=== PATIENT | female | born 1935 | race Caucasian/White ===

== ENCOUNTER 2018-02-19 10:00 | Emergency (ER) | payer OTHER ==
--- NOTE | 2018-02-19 10:46 | RAD REPORT ---
EXAM DESCRIPTION: CT - Head Brain Wo Cont - 02/19/2018 10:38 am CLINICAL HISTORY: Blurred vision, hypertension, facial burning sensation COMPARISON: December 2013 TECHNIQUE: Axial 5 mm thick images of the head were obtained without IV contrast. All CT scans are performed using dose optimization technique as appropriate and may include automated exposure control or mA/KV adjustment according to patient size. FINDINGS: No intracranial hemorrhage, mass, edema or shift of mid-line structures. No acute cortical based infarction seen. No cortical edema or sulcal effacement. Atrophy and chronic ischemic changes are moderate in severity matching the 2014 study. No measurable progression. No abnormal extra-axial fluid collections. Ventricular size is in proportion. Vascular and arterial calcifications are presen t. Mastoid air cells and visualized portions of the paranasal sinuses are clear. No acute bony findings. IMPRESSION: No acute intracranial finding. Moderate atrophy and chronic ischemic change similar to comparison. Chronic ischemic changes can mask nonhemorrhagic acute infarction. MR brain followup can be obtained if there is ongoing concern for acute ischemia.
--- NOTE | 2018-02-19 11:06 | RAD REPORT ---
EXAM DESCRIPTION: RAD - Chest Single View - 02/19/2018 11:00 am CLINICAL HISTORY: Shortness of breath COMPARISON: June 2017 TECHNIQUE: AP portable chest image was obtained 1054 hours . FINDINGS: No peripheral mass, consolidation or significant failure finding. Lung markings are promin ent but not clearly different from the prior study. Trachea is midline. Heart size is upper normal wi thout acute failure findings. Trachea is midline. No measurable pleural effusion and no pneumothorax. No gross bony abnormality seen. No acute aortic findings suspected. IMPRESSION: No focal infiltrate, mass or significant failure finding. Chronic interstitial lung disease is evident similar to June 2017.
[2018-02-19 11:15] LABS: Absolute Lymphocytes (CBC) 1.9 K/uL (0.7-4.9); Absolute Monocytes 0.6 K/uL (0.1-1.3); Absolute Neutrophil 2.8 K/uL (1.8-8.0); Basophils % 1.3 % (0-1.3); Hematocrit 38.1 % (36.0-45.0); Lymphocytes % 35.2 % (15.3-44.8); MCH 29.9 pg (27.0-35.0); MCV 92.5 fL (80-100); Monocytes % 10.8 % (3.3-12.3); RBC Red Blood Cell Count 4.12 M/uL (3.86-4.86)
[2018-02-19 11:28] LABS: Potassium 4.5 mEq/L (3.6-5.0)
[2018-02-19 11:33] LABS: Protime INR 0.88
[2018-02-19 11:34] LABS: Albumin 3.9 g/dL (3.2-5.5); Bilirubin Direct 0.1 mg/dL (0-0.2); Bilirubin Total 0.6 mg/dL (0.3-1.2); Magnesium 2.1 mg/dL (1.8-2.5); Protein, Total 7.4 g/dL (6.0-8.3)
[2018-02-19 11:38] LABS: CKMB Creatine Kinase MB 2.5 ng/ml (0.3-4.0)
[2018-02-19 12:08] LABS: Blood Morphology Comment NOT SEEN (NOT SEEN); MPV 8.3 fL (7.6-11.3); Platelet Estimate ADEQ; Urine White Blood Cell Casts OK
--- NOTE | 2018-02-19 12:45 | RAD REPORT ---
EXAM DESCRIPTION: MRI - Brain Wo Cont - 02/19/2018 12:35 pm CLINICAL HISTORY: Right-sided head and face sensation, possible CVA COMPARISON: CT head same date, MRI January 2016 TECHNIQUE: Sagittal T1-weighted images were obtained along with axial PD, heavily T2-weighted and T2 -FLAIR images. Axial DWI and ADC mapping sequences were also obtained along with coronal heavily T2-w eighted images. FINDINGS: Diffusion-weighted imaging shows no acute infarction. There is no hemorrhage, mass or raul a. No cortical edema or sulcal effacement. No diffuse cerebral edema or midline shift. No extra-axial fluid collections. Gordon-matter/white matter junction is preserved. Signal voids are seen as a normal finding in the major intracranial vessels. Patient has a mild to moderate atrophy pattern that is no t substantially different back to the 2016 study. And mild chronic ischemic pattern also seen as stab le. Ventricles are in proportion to any volume loss. No globe or orbital content abnormality. No tonsillar ectopia sella mass or supra sella abnormality. Mastoid air cells and paranasal sinuses are clear. IMPRESSION: Mild to moderate atrophy and mild chronic ischemic change not substantially different fr om 2016 comparison. No acute infarction changes or other acute intracranial finding.
--- NOTE | 2018-02-19 13:00 | EDPHYS ---
Physician Documentation [facility] Name: Edie Fields Age: 82 yrs Sex: Female : 1935 Arrival Date: 02/19/2018 Time: 10:04 Bed 23 Private MD: Radha Ramirez ED Physician Everardo Clay HPI: 02/19 10:25 This 82 yrs old Female presents to ER via Ambulatory with complaints of High cp Blood Pressure, Dizziness. 10:25 The patient presents with lightheadedness. Onset: The symptoms/episode began/occurred cp today. 10:25 Associated signs and symptoms: Pertinent positives: blurred vision, headache, Pertinent cp negatives: abdominal pain, chest pain, focal weakness, palpitations, vomiting. Severity of symptoms: in the emergency department the symptoms are unchanged despite home interventions. Patient's baseline: Neuro: alert and fully oriented, Motor: no deficits, Ambulation: walks without assistance, Speech: normal. patient reports intermittent burning to right side of face over past 2 weeks. Historical: - Allergies: 10:12 No Known Allergies; hj - Home Meds: 10:12 carvedilol 6.25 mg Oral tab 1 tab 2 times per day [Active]; hj - PMHx: 10:12 Hypertension; hj - PSHx: 10:12 bilateral mastectomy; hj - Immunization history:: Adult Immunizations up to date. - Social history:: Smoking status: unknown. ROS: 10:30 Constitutional: Negative for body aches, chills, fever, poor PO intake. cp 10:30 Eyes: Positive for blurry vision, Negative for discharge, pain, photophobia, vision cp loss. 10:30 ENT: Negative for drainage from ear(s), ear pain, sore throat, difficulty swallowing, difficulty handling secretions. 10:30 Neck: Negative for pain with movement, pain at rest, stiffness, swollen nodes, tenderness. 10:30 Cardiovascular: Negative for chest pain, edema, palpitations. 10:30 Respiratory: Negative for cough, shortness of breath, wheezing. 10:30 Abdomen/GI: Negative for abdominal pain, nausea, vomiting, and diarrhea, black/tarry stool, rectal bleeding. 10:30 Back: Negative for pain at rest, pain with movement. 10:30 Skin: Negative for cellulitis, rash. 10:30 Neuro: Positive for dizziness, headache, burning right side of face, Negative for numbness, speech changes, weakness. 10:30 All other systems are negative. Exam: 10:38 Constitutional: The patient appears in no acute distress, alert, awake, cp non-diaphoretic, non-toxic, well developed, well nourished. 10:38 Head/Face: Normocephalic, atraumatic. Eyes: Pupils equal round and reactive to light, cp extra-ocular motions intact. Lids and lashes normal. Conjunctiva and sclera are non-icteric and not injected. Cornea within normal limits. Periorbital areas with no swelling, redness, or edema. ENT: Nares patent. No nasal discharge, no septal abnormalities noted. Tympanic membranes are normal and external auditory canals are clear. Oropharynx with no redness, swelling, or masses, exudates, or evidence of obstruction, uvula midline. Mucous membranes moist. Neck: Trachea midline, no thyromegaly or masses palpated, and no cervical lymphadenopathy. Supple, full range of motion without nuchal rigidity, or vertebral point tenderness. No Meningismus. 10:38 Chest/axilla: Inspection: normal, Palpation: is normal, no crepitus, no tenderness. 10:38 Cardiovascular: Rate: normal, Rhythm: regular, Pulses: Pulses are 2+ in right radial artery and left radial artery. Edema: is not appreciated, JVD: is not appreciated. 10:38 Respiratory: the patient does not display signs of respiratory distress, Respirations: normal, no use of accessory muscles, no retractions, no splinting, no tachypnea, labored breathing, is not present, Breath sounds: are clear throughout, no decreased breath sounds, no stridor, no wheezing. 10:38 Abdomen/GI: Inspection: abdomen appears normal, Bowel sounds: active, all quadrants, Palpation: abdomen is soft and non-tender, in all quadrants, rebound tenderness, is not appreciated, voluntary guarding, is not appreciated, involuntary guarding, is not appreciated. 10:38 Back: pain, is absent, ROM is normal. 10:38 Skin: cellulitis, is not appreciated, no rash present. Vital Signs: 10:12 BP 209 / 99 RL; Pulse 65; Resp 18; Temp 98.5(TE); Pulse Ox 95% on R/A; Weight 65.77 kg; hj Height 4 ft. 11 in. (149.86 cm); Pain 0/10; 11:09 BP 163 / 76 Supine; Pulse 60; cc1 11:09 BP 168 / 71 Sitting; Pulse 62; cc1 11:09 BP 162 / 75 Standing; Pulse 66; cc1 10:12 Body Mass Index 29.29 (65.77 kg, 149.86 cm) hj MDM: 10:17 Patient medically screened. 12:55 Data reviewed: vital signs, nurses notes, lab test result(s), EKG, radiologic studies, cp CT scan, MRI, plain films. 12:55 Test interpretation: by ED physician or midlevel provider: ECG, plain radiologic cp studies. 02/19 10:26 Order name: Basic Metabolic Panel; Complete Time: 11:39 cp 02/19 11:40 Interpretation: Normal except: GFR 59. cp 02/19 10:26 Order name: BNP; Complete Time: 12:00 cp 02/19 12:01 Interpretation: BNP 206; Reviewed. 02/19 10:26 Order name: CBC with Diff; Complete Time: 12:37 cp 02/19 12:37 Interpretation: Reviewed. cp 02/19 10:26 Order name: Ckmb; Complete Time: 11:39 cp 02/19 10:26 Order name: CPK; Complete Time: 11:39 cp 02/19 10:26 Order name: LFT's; Complete Time: 11:39 cp 02/19 10:26 Order name: Magnesium; Complete Time: 11:39 cp 02/19 10:26 Order name: PT-INR; Complete Time: 12:00 cp 02/19 10:26 Order name: Ptt, Activated; Complete Time: 12:00 cp 02/19 12:01 Interpretation: PTT 22.5; Reviewed. 02/19 10:26 Order name: Troponin (emerg Dept Use Only); Complete Time: 11:39 cp 02/19 12:37 Interpretation: TROPED < 0.03; Reviewed. 02/19 10:26 Order name: XRAY Chest (1 view); Complete Time: 11:24 cp 02/19 10:26 Order name: CT Head Brain wo Cont; Complete Time: 11:03 cp 02/19 11:29 Order name: CBC Smear Scan; Complete Time: 12:37 EDMS 02/19 11:57 Order name: Urine Dipstick--Ancillary (enter results) eb 02/19 10:26 Order name: EKG; Complete Time: 10:27 cp 02/19 10:26 Order name: Cardiac monitoring; Complete Time: 11:30 cp 02/19 10:26 Order name: EKG - Nurse/Tech; Complete Time: 11:31 cp 02/19 10:26 Order name: IV Saline Lock; Complete Time: 11:31 cp 02/19 10:26 Order name: Labs collected and sent; Complete Time: 11:31 cp 02/19 10:26 Order name: O2 Per Protocol; Complete Time: 11:31 cp 02/19 10:26 Order name: O2 Sat Monitoring; Complete Time: 11:31 cp 02/19 10:26 Order name: Urine Dipstick-Ancillary (obtain specimen); Complete Time: 12:00 cp 02/19 10:26 Order name: Orthostatics; Complete Time: 11:10 cp 02/19 12:02 Order name: MRI - Brain Wo Cont; Complete Time: 12:52 cp Administered Medications: 11:58 Not Given (Physician Discretion): cloNIDine 0.1 mg PO once aj1 Disposition: 15:00 Chart complete. cp 17:21 Co-signature as Attending Physician, Everardo Clay MD I agree with the assessment and kdr plan of care. Disposition: 02/19/18 12:59 Discharged to Home. Impression: Hypertensive heart disease. - Condition is Stable. - Discharge Instructions: How to Take Your Blood Pressure, [id number], Managing Your High Blood Pressure. - Prescriptions for Clonidine 0.1 mg Oral Tablet - take 1 tablet by ORAL route every 12 hours; 30 tablet. - Medication Reconciliation Form, Thank You Letter, Antibiotic Education, Prescription Opioid Use form. - Follow up: Radha Ramirez MD; When: 2 - 3 days; Reason: Recheck today's complaints. - Problem is new. - Symptoms have improved. Signatures: Dispatcher [employer] Gloria Arellano RN RN aj1 Everardo Clay MD MD kdr Williams, Irene, RN RN iw Joaquin, Henry, RN RN hj Page, Corey, ROSA MARIA PA cp
--- NOTE | 2018-02-19 13:00 | ER ---
Nurse's Notes [facility] Name: Edie Fields Age: 82 yrs Sex: Female : 1935 Arrival Date: 02/19/2018 Time: 10:04 Bed 23 Private MD: Radha Ramirez Diagnosis: Hypertensive heart disease Presentation: 02/19 10:10 Presenting complaint: Patient states: my face is burning for 2 1/2 weeks now, pain on hj my forehead and the back of head; denies fever and chills; denies nausea and vomiting;. Transition of care: patient was not received from another setting of care. Onset of symptoms was February 19, 2018. Initial Sepsis Screen: Does the patient meet any 2 criteria? No. Patient's initial sepsis screen is negative. Does the patient have a suspected source of infection? No. Patient's initial sepsis screen is negative. Care prior to arrival: None. 10:10 Method Of Arrival: Ambulatory 10:10 Acuity: RAYNE 3 hj Triage Assessment: 10:12 General: Appears in no apparent distress. uncomfortable, Behavior is calm, cooperative, hj appropriate for age. Pain: Complains of pain in head. Historical: - Allergies: 10:12 No Known Allergies; hj - Home Meds: 10:12 carvedilol 6.25 mg Oral tab 1 tab 2 times per day [Active]; hj - PMHx: 10:12 Hypertension; hj - PSHx: 10:12 bilateral mastectomy; hj - Immunization history:: Adult Immunizations up to date. - Social history:: Smoking status: unknown. Screenin:39 Abuse screen: Denies threats or abuse. Denies injuries from another. Nutritional aj1 screening: No deficits noted. Tuberculosis screening: No symptoms or risk factors identified. 13:13 Fall Risk None identified. iw Assessment: 10:39 General: Appears in no apparent distress. comfortable, Behavior is calm, cooperative, aj1 appropriate for age. Pain: Complains of pain in forehead, right cheek and left cheek Pain does not radiate. Quality of pain is described as burning, "like fire". Neuro: Level of Consciousness is awake, alert, obeys commands, Oriented to person, place, time, situation, Commercial Construction Estimator are equal bilaterally Moves all extremities. Full function Gait is steady, Speech is normal, Facial symmetry appears normal, Pupils are PERRLA, Burning in face Reports blurred vision Denies weakness numbness. Cardiovascular: Heart tones S1 S2 present Patient's skin is warm and dry. Respiratory: Airway is patent Respiratory effort is even, unlabored, Respiratory pattern is regular, symmetrical, Breath sounds are clear bilaterally. GI: No signs and/or symptoms were reported involving the gastrointestinal system. : No signs and/or symptoms were reported regarding the genitourinary system. EENT: No signs and/or symptoms were reported regarding the EENT system. Derm: No signs and/or symptoms reported regarding the dermatologic system. Skin is pink, warm \\T\\ dry. normal. Musculoskeletal: No signs and/or symptoms reported regarding the musculoskeletal system. Circulation, motion, and sensation intact. 11:31 Reassessment: Patient appears in no apparent distress at this time. No changes from aj1 previously documented assessment. Patient and/or family updated on plan of care and expected duration. Pain level reassessed. Patient is alert, oriented x 3, equal unlabored respirations, skin warm/dry/pink. 13:13 Reassessment: Patient appears in no apparent distress at this time. Patient and/or iw family updated on plan of care and expected duration. Pain level reassessed. Patient is alert, oriented x 3, equal unlabored respirations, skin warm/dry/pink. Vital Signs: 10:12 BP 209 / 99 RL; Pulse 65; Resp 18; Temp 98.5(TE); Pulse Ox 95% on R/A; Weight 65.77 kg; hj Height 4 ft. 11 in. (149.86 cm); Pain 0/10; 11:09 BP 163 / 76 Supine; Pulse 60; cc1 11:09 BP 168 / 71 Sitting; Pulse 62; cc1 11:09 BP 162 / 75 Standing; Pulse 66; cc1 10:12 Body Mass Index 29.29 (65.77 kg, 149.86 cm) ED Course: 10:04 Patient arrived in ED. mr 10:05 Radha Ramirez MD is Private Physician. mr 10:11 Triage completed. hj 10:12 Arm band placed on left wrist. 10:16 Brian Alcala PA is PHCP. cp 10:16 Everarod Clay MD is Attending Physician. cp 10:16 Gloria Lim RN is Primary Nurse. aj1 10:[address] vm2 10:36 CT completed. Patient moved back from CT. vm2 10:38 CT Head Brain wo Cont In Process Unspecified. EDMS 10:39 Patient has correct armband on for positive identification. Placed in gown. Bed in low aj1 position. Call light in reach. Side rails up X 1. engine monitor on. Pulse ox on. NIBP on. 10:39 No provider procedures requiring assistance completed. aj1 10:55 EKG done, by senior nuclear medicine technologist. reviewed by Everardo Clay MD. tc 10:57 X-ray completed. Portable x-ray completed in exam room. Patient tolerated procedure jb2 well. 10:59 XRAY Chest (1 view) In Process Unspecified. EDMS 12:15 Patient moved to MRI via wheelchair. ka 12:25 MRI - Brain Wo Cont In Process Unspecified. EDMS 12:36 MRI completed. Patient tolerated well. Patient moved back from MRI. ka 12:58 Radha Ramirez MD is Referral Physician. cp 13:13 IV discontinued, intact, bleeding controlled, No redness/swelling at site. Pressure iw dressing applied. Administered Medications: 11:58 Not Given (Physician Discretion): cloNIDine 0.1 mg PO once aj1 Outcome: 12:59 Discharge ordered by MD. cp 13:13 Discharged to home ambulatory, with family. iw 13:13 Condition: good 13:13 Discharge instructions given to patient, family, Instructed on discharge instructions, follow up and referral plans. medication usage, Demonstrated understanding of instructions, follow-up care, medications, Prescriptions given X 1. 13:14 Patient left the ED. iw Signatures: Dispatcher [employer] EDCA Gloria Lim, NIC LUCERO 1 Renae Torres Oscar Kincaidsse jb2 Mari Eduardo RN RN Billy Jimenes cc1 Paulina Hernandez, teacher cclc EKG Ttc Eduard Nelson RN RN hj Page, Corey, PA PA cp Aguilera, Katelyn ka McGuire, Victoria vm2 Corrections: (The following items were deleted from the chart) 10:16 10:12 Pulse 65bpm; Resp 18bpm; Pulse Ox 95% RA; Temp 98.5F Temporal; 65.77 kg; Height 4 hj ft. 11 in.; BMI: 29.2; Pain 0/10; hj
[2018-02-19 13:49] LABS: Urine Blood NEGATIVE (NEG); Urine Glucose NEGATIVE (NEG); Urine Protein NEGATIVE (NEG); Urine Specific Gravity 1.015 (1.005-1.030)
--- NOTE | 2018-02-19 16:25 | EKG ---
Test Date: 2018-02-19 Test Time: 10:42:29 Export Sales Manager: MARCO MEASUREMENT RESULTS: Intervals: Rate: 59 VA: 138 QRSD: 98 QT: 404 QTc: 399 [place]: P: 41 VA: 138 QRS: 55 T: 69 INTERPRETIVE STATEMENTS: Sinus bradycardia with occasional premature ventricular complexes and premature atrial complexes Otherwise normal ECG Compared to ECG 07/02/2017 15:15:29 Atrial premature complex(es) now present Ventricular premature complex(es) now present Electronically Signed On 02-19-18 16:23:34 CDT by Aj Sutherland
== END 2018-02-19 13:14 | disposition home or self-care (01) ==
LOC: ER 10:00
DX: I11.9 Hypertensive heart disease without heart failure (principal); I10 Essential (primary) hypertension; Z90.13 Acquired absence of bilateral breasts and nipples
CPT/HCPCS: 36415; 70450; 70551; 71045; 80048; 80076; 81003; 82550; 82553; 83735; 83880; 84484; 85025; 85610; 85730; 93005; 99285

== ENCOUNTER 2019-07-10 09:51 | Observation (INO) | payer OTHER ==
--- OUTSIDE RECORDS SUMMARY | 2019-07-10 09:54 | XMS REPORT | Continuity of Care Document ---
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/06/2019 [facility] impairment Neuro (finding) Medications Medication Details Route Status Patient Ordering Order Source Instructions Provider Date Donepezil 5 mg=1 tab, Active [facility] hydrochloride 5 PO, 019 Neuro MG Oral Tablet Bedtime, # [Aricept] 30 tab, 3 Refill(s), Pharmacy: [facility] OXcarbazepine 300 mg=1 Active [facility] 300 mg oral tab, PO, 019 Neuro tablet BID, # 60 tab, 3 Refill(s), Pharmacy: [facility] carBAMazepine 200 mg=1 No Longer [facility] 200 mg oral tab, PO, Active 019 Neuro tablet BID, # 60 tab, 3 Refill(s), Pharmacy: [facility] Allergies, Adverse Reactions, Alerts Substance Category Reaction Severity Reaction Status Date Comments Source type Reported No Known Assertion Drug [facility] Medication allergy Neuro Allergies Immunizations No Data Provided for This Section Results Order Name Results Value Reference Date Interpretation Comments Source Range ELECTROLYTES Potassium Lvl 4.1 3.5 - 5.3 [facility] 2017 Neuro ELECTROLYTES Sodium Lvl 140 135 - 146 08/24/ Result [facility] 2017 Comment: Neuro
Lab test performed by:
Karina hinojosa [facility]
[address] [facility]
[place] [address]
Kaylene Sterling ELECTROLYTES Chloride Lvl 105 98 - 110 [facility] 2017 Neuro ELECTROLYTES CO2 28 20 - 32 2017 Neuro HEMATOLOGY Basophils 0.6 2017 Neuro HEMATOLOGY RBC X 10x6 3.73 3.80 - 5.10 2017 Neuro HEMATOLOGY Hgb 11.3 11.7 - 15.5 2017 Neuro HEMATOLOGY Hct 33.5 35.0 - 45.0 2017 Neuro HEMATOLOGY WBC X 10x3 4.8 3.8 - 10.8 2017 Comment: Neuro
Lab test performed by:
[facility]
[address] [facility]
[place] [address]
Kaylene Sterling HEMATOLOGY Monocytes # 605 200 - 950 2017 Neuro HEMATOLOGY Eosinophils # 139 15 - 500 2017 Neuro HEMATOLOGY Neutrophils # 2237 1500 - 7800 2017 Neuro HEMATOLOGY Lymphocytes # 1790 850 - 3900 2017 Neuro HEMATOLOGY MPV 9.7 7.5 - 12.5 2017 Neuro HEMATOLOGY RDW 13.5 11.0 - 15.0 2017 Neuro HEMATOLOGY Basophils # 29 0 - 200 2017 Neuro HEMATOLOGY Eosinophils 2.9 2017 Neuro HEMATOLOGY Monocytes 12.6 2017 Neuro HEMATOLOGY Segs 46.6 2017 Neuro HEMATOLOGY Lymphocytes 37.3 2017 Neuro HEMATOLOGY MCV 89.8 80.0 - 100.0 2017 Neuro HEMATOLOGY MCH 30.3 27.0 - 33.0 2017 Neuro HEMATOLOGY MCHC 33.7 32.0 - 36.0 2017 Neuro HEMATOLOGY Platelet 207 140 - 400 2017 Neuro TOXICOLOGY Carbamaz Lvl 5.2 4.0 - 12.0 2017 Comment: Neuro FASTING:NO

FASTING: NO

Lab test performed by:
[facility]
[address] [facility]
[place] [address]
Kaylene Sterling Pathology Reports No Data Provided for This Section Diagnostic Reports No Data Provided for This Section Consultation Notes No Data Provided for This Section Discharge Summaries No Data Provided for This Section History and Physicals No Data Provided for This Section Vital Signs Vital Sign Value Date Comments Source Weight 67.273 05/10/2019 [facility] Height 149.86 cm 05/10/2019 [facility] BMI Calculated 29.96 05/10/2019 [facility] Heart Rate 53 05/10/2019 [facility] Respitory Rate 16 05/10/2019 [facility] Systolic (mm Hg) 145 05/10/2019 [facility] Diastolic (mm Hg) 63 05/10/2019 [facility] Weight 68.182 03/01/2019 [facility] BMI Calculated 32.53 03/01/2019 [facility] Height 144.78 cm 03/01/2019 [facility] Heart Rate 72 03/01/2019 [facility] Respitory Rate 16 03/01/2019 [facility] Systolic (mm Hg) 172 03/01/2019 [facility] Diastolic (mm Hg) 74 03/01/2019 [facility] Weight 69.091 11/16/2018 [facility] BMI Calculated 31.83 11/16/2018 [facility] Height 147.32 cm 11/16/2018 [facility] Respitory Rate 16 11/16/2018 [facility] Heart Rate 74 11/16/2018 [facility] Systolic (mm Hg) 126 11/16/2018 [facility] Diastolic (mm Hg) 85 11/16/2018 [facility] BMI Calculated 31.62 08/17/2018 [facility] Weight 68.636 08/17/2018 [facility] Height 147.32 cm 08/17/2018 [facility] Systolic (mm Hg) 167 08/17/2018 [facility] Diastolic (mm Hg) 80 08/17/2018 [facility] Respitory Rate 16 08/17/2018 [facility] Heart Rate 67 08/17/2018 [facility] Encounters Location Location Encounter Encounter Reason Attending ADM DC Status Source Details Type Number For Provider Date Date Visit Outpatient [id number] LIZBET 06/17 Active [facility] [place] Outpatient [id number] LIZBET 07/20 Active [facility] [place] Outpatient [id number] LIZBET 08/17 Active [facility] Outpatient [id number] Lizbet 08/17 08/18 [facility] [place] [facility] [place] [facility] Outside [id number] 11/02 11/04 [facility] [place]2018 [place] [facility] Outpatient [id number] [facility]ZBET [facility]16 [facility] [place] [facility] [id number] LIZBET 11/16 Active [facility] [place] M[facility] Ambulatory [id number] Lizbet 11/16 11/16 [facility] [place] [facility] [place] [facility] Outpatient [id number] Lizbet 11/16 11/17 [facility] [place] Outpatient [id number] LIZBET 12/14 Active [facility] [place] Outpatient [id number] LIZBET 12/14 Active [facility] [place] Outpatient [id number] LIZBET 01/11 Active [facility] [place] Outpatient [id number] LIZBET 01/11 Active [facility] [place] Outpatient [id number] LIZBET 02/01 Active [facility] [place] Outpatient [id number] LIZBET 02/15 Active [facility] [place] [facility] Ambulatory [id number] Lizbet 02/15 02/15 [facility] Pre-Reg [place] [facility] [place] Outpatient [id number] Lizbet 03/01 Active [facility] [place] MNA Outpatient [id number] Lizbet 03/01 03/02 [facility] [place] Outpatient [id number] Lizbet 05/10 Active [facility] [place] [facility] Outpatient [id number] Lizbet 05/10 05/11 [facility]rology [place] /2018 [place] Outpatient [id number] Lizbet 07/12 Active [facility] [place] Procedures Procedure Code Date Perfomer Comments Source Mastectomy [id number] [facility] Assessment and Plan No Data Provided for This Section Plan of Care No Data Provided for This Section Social History Social History Date Source Social History TypeResponse 05/16/2019 [facility] Employment/School Other: Has Will and POA. Smoking Status Never smoker; Exposure to Tobacco Smoke None; Cigarette Smoking Last 365 Days No; Reg Smoking Cessation Counseling No entered on: 05/10/19 Family History No Data Provided for This Section Advance Directives No Data Provided for This Section Functional Status No Data Provided for This Section
--- OUTSIDE RECORDS SUMMARY | 2019-07-10 09:55 | XMS REPORT | Summary of Care ---
:1935 Author Organization [facility] Address [address] [place] [address]- phone Encounter HQ Encntr_alias(FIN) [id number] Date(s): 11/16/18 - 11/16/18 [facility] [address], [place] [id number]- [phone] Attending Physician: Dilip Brandt MD Referring Physician: Radha Ramirez MD Vital Signs No data available for this section Problem List Condition Effective Dates Status Health Status Informant HTN - Hypertension(Confirmed) Active Memory loss(Confirmed) Active Simple obesity(Confirmed) Active Trigeminal neuralgia(Confirmed) Active Allergies, Adverse Reactions, Alerts No Known Medication Allergies Medications No data available for this section Results No data available for this section Immunizations No data available for this section Procedures Procedure Date Related Diagnosis Body Site Status Mastectomy Completed Social History Social History Type Response Employment/School Other: Has Will and POA. Smoking Status Never smoker; Exposure to Tobacco Smoke None; Cigarette Smoking Last 365 Days No; Reg Smoking Cessation Counseling No entered on: 05/10/19 Assessment and Plan No data available for this section
--- OUTSIDE RECORDS SUMMARY | 2019-07-10 09:55 | XMS REPORT | Summary of Care ---
:1935 Author Organization [facility] [place] Address [address] [place] [address]- Encounter HQ Encntr_alias(FIN) [id number] Date(s): 11/02/18 - 11/03/18 [facility] [address] [place] [address]- [phone] Vital Signs No data available for this [...]
--- OUTSIDE RECORDS SUMMARY | 2019-07-10 09:55 | XMS REPORT | Summary of Care ---
:1935 Author Organization [facility] [place] [facility] Address [address] [place] [address]- Encounter HQ Srikanth_tony(FIN) [id number] Date(s): 05/10/19 - 05/10/19 [facility] [address] [place], [place] [id number]- [phone] Discharge Disposition: Home or Self Care Attending Physician: Dilip Brandt MD Referring Physician: Dilip Brandt MD Vital Signs Most recent to oldest [Reference Range]: 1 Height 149.86 cm (05/10/19 3:08 PM) Blood Pressure [90-140/60-90 mmHg] 145/63 mmHg *HI* (05/10/19 3:08 PM) Respiratory Rate [14-20 BRMIN] 16 BRMIN (05/10/19 3:08 PM) Peripheral Pulse Rate [60-100 bpm] 53 bpm *LOW* (05/10/19 3:08 PM) Weight 67.273 kg (05/10/19 3:08 PM) Body Mass Index 29.96 m2 (05/10/19 3:08 PM) Problem List Condition Effective Dates Status Health Status Informant HTN - Hypertension(Confirmed) Active Memory loss(Confirmed) Active Simple obesity(Confirmed) Active Trigeminal neuralgia(Confirmed) Active Allergies, Adverse Reactions, Alerts No Known Medication Allergies Medications Aricept 5 mg oral tablet 5 mg=1 tab, PO, Bedtime, # 30 tab, 3 Refill(s), Pharmacy: [facility] Start Date: 05/10/19 Stop Date: 09/07/19 Status: OrderedOXcarbazepine 300 mg oral tablet 300 mg=1 tab, PO, BID, # 60 tab, 3 Refill(s), Pharmacy: [facility] Start Date: 04/06/19 Stop Date: 08/04/19 Status: Ordered Results No data available for this section Immunizations No data available for this section Procedures Procedure Date Related Diagnosis Body Site Status Mastectomy Completed Social History Social History Type Response Smoking Status Never smoker; Exposure to Tobacco Smoke None; Cigarette Smoking Last 365 Days No; Reg Smoking Cessation Counseling No entered on: 05/10/19 Assessment and Plan No data available for this section
--- OUTSIDE RECORDS SUMMARY | 2019-07-10 09:55 | XMS REPORT | Summary of Care ---
:1935 Author Organization [facility] [place] Address [address] [place] [address]- Encounter HQ Staceyr_tony(FIN) [id number] Date(s): 11/16/18 - 11/16/18 [facility] [address] [place], [place] [address]- [phone] Discharge Disposition: Home or Self Care Attending Physician: Dilip Brandt MD Referring Physician: Radha Ramirez MD Vital Signs Most recent to oldest [Reference Range]: 1 Height 147.32 cm (11/16/18 9:31 AM) Blood Pressure [90-140/60-90 mmHg] 126/85 mmHg (11/16/18 9:31 AM) Respiratory Rate [14-20 BRMIN] 16 BRMIN (11/16/18 9:31 AM) Peripheral Pulse Rate [60-100 bpm] 74 bpm (11/16/18 9:31 AM) Weight 69.091 kg (11/16/18 9:31 AM) Body Mass Index 31.83 m2 (11/16/18 9:31 AM) Problem List Condition Effective Dates Status Health Status Informant HTN - Hypertension(Confirmed) Active Memory loss(Confirmed) Active Simple obesity(Confirmed) Active Trigeminal neuralgia(Confirmed) Active Allergies, Adverse Reactions, Alerts No Known Medication Allergies Medications carBAMazepine 200 mg oral tablet 200 mg=1 tab, PO, BID, # 60 tab, 3 Refill(s), Pharmacy: [facility] Start Date: 11/16/18 Stop Date: 12/14/18 Status: Discontinued Results No data available for this section [...]
[2019-07-10 10:12] LABS: Absolute Lymphocytes (CBC) 1.1 K/uL (0.7-4.9); Basophils % 0.8 % (0-1.3); Hematocrit 30.9 % (36.0-45.0); Lymphocytes % 27.9 % (15.3-44.8); MPV 7.7 fL (7.6-11.3); RBC Red Blood Cell Count 3.41 M/uL (3.86-4.86)
[2019-07-10 10:20] LABS: Protime INR 0.97
[2019-07-10 10:32] LABS: Potassium 4.1 mmol/L (3.5-5.1); Sodium Level 137 mmol/L (136-145)
[2019-07-10 10:33] LABS: ALT/SGPT 20 U/L (12-78); AST/SGOT 25 U/L (15-37); Alkaline Phosphatase 62 U/L (45-117); BUN Blood Urea Nitrogen 28 mg/dL (7-18); Bicarbonate 25 mmol/L (21-32); Bilirubin Direct < 0.1 mg/dL (0-0.2); Bilirubin Total 0.3 mg/dL (0.2-1.0); Glucose Level 139 mg/dL (74-106); NT PRO-BNP 280 pg/mL (<450); Protein, Total 6.1 g/dL (6.4-8.2); Troponin (Emerg Dept Use Only) < 0.02 ng/mL (0.0-0.045)
--- NOTE | 2019-07-10 10:57 | RAD REPORT ---
EXAM DESCRIPTION: CT - [id number] - 07/10/2019 10:33 am CLINICAL HISTORY: Trauma, head and neck injury. syncope COMPARISON: No comparisons TECHNIQUE: Axial 5 mm thick images of the head were obtained. Axial 2 mm thick images of the cervical spine were obtained with sagittal and coronal reconstruction images generated and reviewed. All CT scans are performed using dose optimization technique as appropriate and may include automated exposure control or mA/KV adjustment according to patient size. FINDINGS: CT HEAD WITHOUT CONTRAST: No acute hemorrhage, hydrocephalus or extra-axial collection is identified. Mild generalized brain at rophy is present with mild periventricular and deep white matter chronic microvascular ischemic arnold es. No areas of brain edema or midline shift. Mild mucoperiosteal thickening affects the left maxillary antrum. The paranasal sinuses and mastoids are otherwise clear.The calvarium is intact. Left-sided scalp hematomas are present. CT CERVICAL SPINE WITHOUT CONTRAST: No fracture or subluxation.Moderate lower cervical degenerative changes are present. Carotid atherosc lerosis noted.No prevertebral soft tissues swelling is identified. IMPRESSION: No acute intracranial or cervical spine findings.
[2019-07-10] MEDS ORDERED: NA CHLORIDE 0.9% 1,000 ML ONE (10:58)
--- NOTE | 2019-07-10 11:46 | ER ---
Nurse's Notes [facility] Name: Edie Fields Age: 83 yrs Sex: Female : 1935 Arrival Date: 07/10/2019 Time: 09:54 Bed 4 Private MD: Radha Ramirez Diagnosis: Syncope and collapse;Contusion of unspecified part of head Presentation: 07/10 10:00 Presenting complaint: EMS states: pt reports waking up with family/friend standing over sg her while she was laying on the ground, pt reports she was standing in the corner eating a nutty bar then she woke up laying on the ground, pt complaining of pain the left side of her head, also reports her neck feels a little sore, denies any other pain or injury at this time. Transition of care: patient was not received from another setting of care. Onset of symptoms was July 10, 2019. Risk Assessment: Do you want to hurt yourself or someone else? Patient reports no desire to harm self or others. Initial Sepsis Screen: Does the patient meet any 2 criteria? No. Patient's initial sepsis screen is negative. Does the patient have a suspected source of infection? No. Patient's initial sepsis screen is negative. Care prior to arrival: Medication(s) given: Normal saline infusion, 300 mL IV initiated. 20 GA, in the right antecubital area. Mechanism of Injury: Fall from standing position. 10:00 Method Of Arrival: EMS: [facility] sg 10:00 Acuity: RAYNE 2 sg 10:00 Care prior to arrival: Glucose check: 169. sg Triage Assessment: 10:00 General: Appears in no apparent distress. well groomed, well developed, well nourished, sg Behavior is calm, cooperative, appropriate for age. Pain: Complains of pain in forehead Quality of pain is described as aching. EENT: No signs and/or symptoms were reported regarding the EENT system. Neuro: Level of Consciousness is awake, alert, obeys commands, Oriented to person, place, time, Responder are equal bilaterally Moves all extremities. Full function Gait is steady, Speech is normal, Facial symmetry appears normal. Neuro: Reports headache in entire frontal area. Cardiovascular: Capillary refill in bilateral fingers Patient's skin is warm and dry. Chest pain is denied. Respiratory: Airway is patent Respiratory effort is even, unlabored, Respiratory pattern is regular, symmetrical. GI: Abdomen is round non-distended. : No signs and/or symptoms were reported regarding the genitourinary system. Derm: Skin is pink, warm \\T\\ dry. Musculoskeletal: Circulation, motion, and sensation intact. Range of motion: intact in all extremities, Swelling absent. Historical: - Allergies: :59 No Known Allergies; sg - Home Meds: :59 carvedilol 6.25 mg Oral tab 1 tab 2 times per day [Active]; sg - PMHx: :59 Hypertension; Dementia; sg - Immunization history:: Adult Immunizations up to date. - Social history:: Smoking status: Patient/guardian denies using tobacco. - Ebola Screening: : Patient negative for fever greater than or equal to 101.5 degrees Fahrenheit, and additional compatible Ebola Virus Disease symptoms Patient denies exposure to infectious person Patient denies travel to an Ebola-affected area in the 21 days before illness onset No symptoms or risks identified at this time. Screenin:20 Abuse screen: Denies threats or abuse. Denies injuries from another. Nutritional sg screening: No deficits noted. Tuberculosis screening: No symptoms or risk factors identified. Never had TB. Fall Risk None identified. Assessment: 10:39 Reassessment: Patient appears in no apparent distress at this time. sg 11:07 Reassessment: Patient appears in no apparent distress at this time. Patient and/or sg family updated on plan of care and expected duration. Pain level reassessed. Patient is alert, oriented x 3, equal unlabored respirations, skin warm/dry/pink. Pain:. 11:56 Reassessment: pt family member at nurses station, states " can the Doctor come to our sg room and give us an update, we have not seem them since 0930 this morning." pt family member redirected to pt room, ERP notified pt family requesting to speak with him at this time, will continue to monitor. Vital Signs: 10:02 BP 107 / 47; Pulse 88; Resp 17; Temp 97.6; Pulse Ox 100% on R/A; Pain 4/10; sg 11:06 BP 103 / 53; Pulse 50; Resp 14; Pulse Ox 100% on R/A; sg 11:57 BP 102 / 60; Pulse 52; Resp 16; Pulse Ox 100% on R/A; sg 12:30 BP 108 / 66; Pulse 53; Resp 17; Pulse Ox 100% on R/A; sg 14:00 BP 117 / 71; Pulse 58; Resp 16; Pulse Ox 99% on R/A; sg ED Course: 09:54 Patient arrived in ED. am2 09:54 Brian Alcala PA is PHCP. cp 09:54 Elliot Tyler MD is Attending Physician. cp 09:54 Radha Ramirez MD is Private Physician. am2 09:55 Everardo Clay MD is Attending Physician. cp 09:59 Jose Clayton, RN is Primary Nurse. sg 09:59 Arm band placed on. sg 10:02 Triage completed. sg 10:32 CT completed. Patient tolerated procedure well. Patient moved back from CT. bq 10:[address] scan at this time. sg 11:00 Patient has correct armband on for positive identification. Placed in gown. Bed in low hb position. Call light in reach. Side rails up X2. 11:44 Santosh Mcclain DO is Hospitalizing Provider. cp 13:01 Diet: Patient given a regular meal tray. ms 17:16 No provider procedures requiring assistance completed. Patient admitted, IV remains in hb place. Administered Medications: 11:00 Drug: NS 0.9% 500 ml Route: IV; Rate: 500 ml/hr; Site: right antecubital; sg Outcome: 11:45 Decision to Hospitalize by Provider. cp 17:16 Admitted to Tele accompanied by tech, family with patient, via wheelchair, room 414, hb with chart. 17:16 Condition: stable 17:16 Instructed on the need for admit, Demonstrated understanding of instructions. 17:17 Patient left the ED. hb Signatures: Jose Clayton, RN RN Hina Bird Maria ms Brian Alcala PA PA cp Baxter, Heather RN RN Geraldine Grullon am2
--- NOTE | 2019-07-10 11:46 | EDPHYS ---
Physician Documentation [facility] Name: Edie Fields Age: 83 yrs Sex: Female : 1935 Arrival Date: 07/10/2019 Time: 09:54 Bed 4 Private MD: Radha Ramirez ED Physician Everardo Clay HPI: 07/10 09:59 This 83 yrs old Female presents to ER via Unassigned with complaints of cp Syncope. 09:59 The patient has experienced syncope, collapsed, lost consciousness. Onset: The cp symptoms/episode began/occurred just prior to arrival. Duration: The patient has had multiple episodes, that last an unknown period of time. Context: the episode(s) was witnessed, by EMS personnel, by family, occurred at home, occurred while the patient was eating, Just prior to the episode the patient experienced no apparent symptoms. Associated injury: Head/face: forehead, contusion. Associated signs and symptoms: Pertinent positives: headache, Pertinent negatives: abdominal pain, chest pain, combativeness, confusion. Current symptoms: Currently, the patient is not experiencing any symptoms. Historical: - Allergies: 09:59 No Known Allergies; sg - Home Meds: 09:59 carvedilol 6.25 mg Oral tab 1 tab 2 times per day [Active]; sg - PMHx: 09:59 Hypertension; Dementia; sg - Immunization history:: Adult Immunizations up to date. - Social history:: Smoking status: Patient/guardian denies using tobacco. - Ebola Screening: : Patient negative for fever greater than or equal to 101.5 degrees Fahrenheit, and additional compatible Ebola Virus Disease symptoms Patient denies exposure to infectious person Patient denies travel to an Ebola-affected area in the 21 days before illness onset No symptoms or risks identified at this time. ROS: 10:05 Constitutional: Negative for body aches, chills, fever, poor PO intake. cp 10:05 Eyes: Negative for injury, pain, redness, and discharge. cp 10:05 ENT: Negative for drainage from ear(s), ear pain, sore throat, difficulty swallowing, cp difficulty handling secretions. 10:05 Neck: Negative for pain with movement, pain at rest, stiffness. 10:05 Cardiovascular: Negative for chest pain, edema, palpitations. 10:05 Respiratory: Negative for cough, shortness of breath, wheezing. 10:05 Abdomen/GI: Negative for abdominal pain, nausea, vomiting, and diarrhea, constipation, black/tarry stool, rectal bleeding. 10:05 Back: Negative for pain at rest, pain with movement. 10:05 : Negative for urinary symptoms. 10:05 Skin: Negative for rash. 10:05 Neuro: Positive for headache, syncope, Negative for altered mental status, dizziness, weakness. 10:05 All other systems are negative. Exam: 10:10 ECG was reviewed by the Attending Physician. cp 10:12 Constitutional: The patient appears in no acute distress, alert, awake, comfortable, cp non-diaphoretic, non-toxic, well developed, well nourished. 10:12 Head/face: Noted is contusion, that is superficial, of the forehead, hematoma, that is cp mild, of the forehead. 10:12 Eyes: Periorbital structures: appear normal, Pupils: equal, round, and reactive to light and accomodation, Extraocular movements: intact throughout, Conjunctiva: normal, no exudate, no injection, Lids and lashes: appear normal, bilaterally. 10:12 ENT: External ear(s): are unremarkable, Ear canal(s): are normal, clear, TM's: bulging, is not appreciated, bilaterally, dullness, bilaterally, erythema, is not appreciated, bilaterally, Nose: is normal, Mouth: Lips: moist, Oral mucosa: pink and intact, moist, Posterior pharynx: is normal, airway is patent, no erythema, no exudate. 10:12 Neck: C-spine: vertebral tenderness, is not appreciated, crepitus, is not appreciated. 10:12 Chest/axilla: Inspection: normal, Palpation: is normal, no crepitus, no tenderness. 10:12 Cardiovascular: Rate: bradycardic, Rhythm: regular, Pulses: Pulses are 2+ in right radial artery and left radial artery. Edema: is not appreciated, JVD: is not appreciated. 10:12 Respiratory: the patient does not display signs of respiratory distress, Respirations: normal, no use of accessory muscles, no retractions, no splinting, no tachypnea, labored breathing, is not present, Breath sounds: are clear throughout, no decreased breath sounds, no stridor, no wheezing. 10:12 Abdomen/GI: Inspection: abdomen appears normal, Bowel sounds: active, all quadrants, cp Palpation: abdomen is soft and non-tender, in all quadrants. 10:12 Back: pain, is absent, ROM is normal. cp 10:12 Musculoskeletal/extremity: Exam is negative for decreased range of motion, deformity, edema, injury. 10:12 Skin: no rash present. 10:12 Neuro: Orientation: no acute changes, per family, Mentation: no acute changes, per family, Cerebellar function: is grossly normal, Motor: moves all fours, strength is normal. Vital Signs: 10:02 BP 107 / 47; Pulse 88; Resp 17; Temp 97.6; Pulse Ox 100% on R/A; Pain 4/10; sg 11:06 BP 103 / 53; Pulse 50; Resp 14; Pulse Ox 100% on R/A; sg 11:57 BP 102 / 60; Pulse 52; Resp 16; Pulse Ox 100% on R/A; sg 12:30 BP 108 / 66; Pulse 53; Resp 17; Pulse Ox 100% on R/A; sg 14:00 BP 117 / 71; Pulse 58; Resp 16; Pulse Ox 99% on R/A; sg MDM: 09:55 Patient medically screened. cp 10:15 Differential Diagnosis: cardiac arrhythmia, cerebrovascular accident, GI bleed, cp idiopathic syncope, seizure, vasovagal episode. 11:45 Data reviewed: vital signs, nurses notes. cp 11:45 Test interpretation: by ED physician or midlevel provider: ECG, plain radiologic cp studies. Counseling: I had a detailed discussion with the patient and/or guardian regarding: the historical points, exam findings, and any diagnostic results supporting the discharge/admit diagnosis, lab results, radiology results, the need for further work-up and treatment in the hospital. Physician consultation: Alia BLANCO was contacted at 11:40, regarding admission, to the telemetry unit. patient's condition, and will see patient in ED. 07/10 09:59 Order name: Basic Metabolic Panel 07/10 09:59 Order name: CBC with Diff 07/10 09:59 Order name: LFT's cp 07/10 09:59 Order name: Magnesium cp 07/10 09:59 Order name: NT PRO-BNP 07/10 09:59 Order name: PT-INR 07/10 09:59 Order name: Troponin (emerg Dept Use Only) 07/10 10:18 Order name: CBC with Automated Diff; Complete Time: 12:45 EDMS 07/10 12:46 Interpretation: Normal except: WBC 4.1; RBC 3.41; HGB 10.7; HCT 30.9; RDW 15.6; MN% cp 15.1. 07/10 10:29 Order name: Protime (+INR); Complete Time: 10:51 EDMS 07/10 10:34 Order name: Basic Metabolic Panel; Complete Time: 10:51 EDMS 07/10 12:46 Interpretation: Normal except: GLUC 139; BUN 28; CRE 1.31; GFR 39. 07/10 10:34 Order name: Liver (Hepatic) Function; Complete Time: 10:51 EDMS 07/10 12:46 Interpretation: Normal except: TP 6.1; ALB 3.0; A/G 1.0. 07/10 10:34 Order name: Troponin (Emerg Dept Use Only); Complete Time: 10:51 EDMS 07/10 10:34 Order name: NT PRO-BNP; Complete Time: 10:52 EDMS 07/10 10:34 Order name: Magnesium; Complete Time: 10:52 EDMS 07/10 09:59 Order name: XRAY Chest (1 view) 07/10 09:59 Order name: EKG; Complete Time: 10:01 07/10 09:59 Order name: Cardiac monitoring; Complete Time: 10:30 07/10 09:59 Order name: EKG - Nurse/Tech; Complete Time: 10:30 07/10 09:59 Order name: IV Saline Lock; Complete Time: 10:30 07/10 09:59 Order name: Labs collected and sent; Complete Time: 10:30 07/10 09:59 Order name: O2 Per Protocol; Complete Time: 10:30 07/10 09:59 Order name: CT Head C Spine 07/10 10:56 Order name: Urine Microscopic Only 07/10 10:59 Order name: CT; Complete Time: 11:37 EDMS 07/10 11:45 Order name: Diet Regular; Complete Time: 11:46 07/10 12:34 Order name: RAD; Complete Time: 12:45 EDMS 07/10 12:38 Order name: CBC Smear Scan; Complete Time: 12:45 [facility] 07/10 13:43 Order name: XRAY Knee RIGHT 3 view 07/10 16:43 Order name: RAD [facility] 07/10 09:59 Order name: O2 Sat Monitoring; Complete Time: 10:30 EC:10 Rate is 55 beats/min. Rhythm is regular. [place] interval is normal. QRS interval is normal. cp QT interval is normal. Interpreted by me. Reviewed by me. Administered Medications: 11:00 Drug: NS 0.9% 500 ml Route: IV; Rate: 500 ml/hr; Site: right antecubital; sg Disposition: 13:00 Chart complete. 07/11 08:58 Co-signature as Attending Physician, Everardo Clay MD I agree with the assessment and kdr plan of care. Disposition: 07/10/19 11:45 Hospitalization ordered by Santosh Mcclain for Observation. Preliminary diagnosis are Syncope and collapse, Contusion of unspecified part of head. - Bed requested for Telemetry/MedSurg (observation). - Status is Observation. - Condition is Stable. - Problem is new. - Symptoms have improved. UTI on Admission? No Signatures: Dispatcher [employer] [facility] Amy Costa RN RN Jose Clayton RN RN Everardo Clay MD MD [facility] Brian Alcala PA PA Trini Estrella, RN RN Samantha Calhoun Corrections: (The following items were deleted from the chart) 07/10 12:05 11:45 Hospitalization Ordered by Santosh Mcclain DO for Observation. Preliminary eb diagnosis is Syncope and collapse; Contusion of unspecified part of head. Bed requested for Telemetry/MedSurg (observation). Status is Observation. Condition is Stable. Problem is new. Symptoms have improved. UTI on Admission? No. cp 15:17 12:05 07/10/2019 11:45 Hospitalization Ordered by Santosh Mcclain DO for Observation. dw Preliminary diagnosis is Syncope and collapse; Contusion of unspecified part of head. Bed requested for [facility] ER HOLD. Status is Observation. Condition is Stable. Problem is new. Symptoms have improved. UTI on Admission? No. eb 17:17 15:17 07/10/2019 11:45 Hospitalization Ordered by Santosh Mcclain DO for Observation. hb Preliminary diagnosis is Syncope and collapse; Contusion of unspecified part of head. Bed requested for Telemetry/MedSurg (observation). Status is Observation. Condition is Stable. Problem is new. Symptoms have improved. UTI on Admission? No. dw 07/11 12:29 07/10 11:43 Physician consultation: Santosh Mcclain DO was contacted at 11:43, regarding cp admission, to the telemetry unit. patient's condition, cp
--- NOTE | 2019-07-10 12:28 | RAD REPORT ---
EXAM DESCRIPTION: RAD - Chest Single View - 07/10/2019 10:54 am CLINICAL HISTORY: syncope Chest pain. COMPARISON: Chest Single View dated 02/19/2018; Chest Single View dated 07/10/2017; CHEST PA AND LAT 2 VIEW dated 01/17/2014; CHEST PA AND LAT 2 VIEW dated 02/03/2007 FINDINGS: Portable technique limits examination quality. Mild interstitial pulmonary edema. The heart is mildly prominent size. No displaced fractures.Aortic atherosclerosis. IMPRESSION: Mild CHF versus volume overload pattern.
[2019-07-10 12:37] LABS: Blood Morphology Comment NOT SEEN (NOT SEEN); Platelet Estimate ADEQ; Urine White Blood Cell Casts OK
--- NOTE | 2019-07-10 16:34 | RAD REPORT ---
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 No hardware complication seen. Cortical irreg ularity is noted involving the neck of the fibula could represent a fracture. Advise correlation with point tenderness in this region.
[2019-07-10] MEDS ORDERED: IPRATROPIUM BROM 0.5MG/2.5ML NEB PRN (16:47)
[2019-07-10] MEDS ORDERED: ALBUTEROL 2.5 MG/3 ML NEB SOL NEB PRN (16:47)
[2019-07-10] MEDS ORDERED: ACETAMINOPHEN 500 MG TAB PO PRN (16:47)
[2019-07-10 17:15] VITALS: BMI 27.8
[2019-07-10 18:03] LABS: Troponin I < 0.02 ng/mL (0.0-0.045)
--- NOTE | 2019-07-10 18:55 | P.HP ---
Certification for Inpatient Patient admitted to: Observation With expected LOS: <2 Midnights Patient will require the following post-hospital care: None Practitioner: I am a practitioner with admitting privileges, knowledge of patient current condition, hospital course, and medical plan of care. Services: Services provided to patient in accordance with Admission requirements found in Title 42 Section 412.3 of the Code of Federal Regulations Patient History Date of Service: 07/10/19 Primary Care Provider: Dr. Sherman Reason for admission: Syncope, Hypotension History of Present Illness: Pt was standing at the counter in her kitchen and turned to move across room, + syncope, struck left frontal skull, hematoma. Allergies No Known Allergies Allergy (Verified 07/02/17 14:48) Home Medications: Carvedilol [Coreg] 6.25 mg PO BID 07/02/17 Alendronate Sodium 1 tab PO EVERY 7TH DAY 07/10/19 Anastrozole [Arimidex*] 1 tab PO DAILY 07/10/19 Calcium Carbonate [Calcium] 1 tab PO DAILY 07/10/19 Donepezil [Aricept*] 1 tab PO BEDTIME 07/10/19 Hydralazine [Apresoline] 10 mg PO BID 07/10/19 Losartan Potassium [Cozaar*] 1 tab PO DAILY 07/10/19 OXcarbazepine [Oxcarbazepine] 1 tab PO BID 07/10/19 Vitamin B Complex [B Complex] 1 tab PO DAILY 07/10/19 - Past Medical/Surgical History Has patient received pneumonia vaccine in the past: Yes Diabetic: No -: HTN -: Breast Cancer -: Bilateral knee replacement -: bilateral mastectomy - Family History Mother -: Heart disease Father -: Cancer - Social History Smoking Status: Never smoker Alcohol use: No CD- Drugs: No Caffeine use: Yes Place of Residence: Home Review of Systems General: Unremarkable Eyes: Unremarkable ENT: Unremarkable Respiratory: Unremarkable Cardiovascular: Other (syncope and collapse) Gastrointestinal: Unremarkable Genitourinary: Unremarkable Musculoskeletal: Unremarkable Integumentary: Bruising (hematoma to left forehead) Neurological: As per HPI Physical Examination - Vital Signs Temperature: 97.6 F Blood Pressure: 117/71 Pulse: 58 Respirations: 16 - Physical Exam General: Alert, Oriented x3 HEENT: Normocephalic, Other (hematoma to left forehead) Neck: Supple, 2+ carotid pulse no bruit, JVD distended Respiratory: Clear to auscultation bilaterally Cardiovascular: No edema Capillary refill: <2 Seconds Gastrointestinal: Normal bowel sounds Musculoskeletal: No clubbing, No swelling Integumentary: Other (as noted) Neurological: Normal speech, Normal tone Lymphatics: No axilla or inguinal lymphadenopathy External genitalia: Deferred Rectal: Deferred - Studies Laboratory Data (last 24 hrs) 07/10/19 10:00: PT 11.5, INR 0.97 07/10/19 10:00: WBC 4.1 L, Hgb 10.7 L, Hct 30.9 L, Plt Count 173 07/10/19 10:00: Sodium 137, Potassium 4.1, BUN 28 H, Creatinine 1.31 H, Glucose 139 H, Magnesium 2.0, Total Bilirubin 0.3, AST 25, ALT 20, Alkaline Phosphatase 62 Assessment and Plan - Problems (Diagnosis) (1) Syncope and collapse Current Visit: Yes Status: Acute (2) JVD (jugular venous distension) Current Visit: Yes Status: Acute - Advance Directives Does patient have a Living Will: Yes Does patient have a Durable POA for Healthcare: Yes
[2019-07-10] MEDS: CARVEDILOL 6.25 MG TAB PO SCH (20:57)
[2019-07-10] MEDS ORDERED: OXcarbazepine 150 MG TAB PO SCH (21:00)
[2019-07-10] MEDS ORDERED: DONEPEZIL HCL 5 MG TAB PO SCH (21:00)
--- NOTE | 2019-07-10 21:12 | CON ---
Date of Consultation: 07/10/2019 Reason For Consultation: Hypotension and syncope. History Of Present Illness: Ms. Fields is 83-year-old, has never had any cardiac history. She is actually very healthy for her age. She has some mild dementia and history of hypertension. She danielle es Coreg and hydralazine and Cozaar for that. Has been going under a lot of stress because of an tana oing divorce. Denied chest pain. Denied nausea, vomiting, diaphoresis, PND, orthopnea, or pedal meggan ma. She had a syncopal episode and hurt her face while she was standing up. So far, workup is fairl y unremarkable. She is anemic at 10.7. X-ray showed possible mild fluid overload. EKG shows sinus bradycardia with PACs. Her glucose is 130. Her creatinine is 1.31. A CT of the head is negative. Her rhythm has been stable on telemetry with occasional PAC. She does have slight bradycardia. Past Medical History: As stated above. Allergies: NONE. Review of Systems: Negative. Social History: As stated earlier. Family History: Noncontributory. Medications: Include Fosamax, Arimidex, Coreg, hydralazine, Cozaar, and Aricept. Physical Examination: Vital Signs: Stable. General: She was in no acute distress. She looked much younger than her stated age. HEENT: Negative. Neck: Supple with no bruit, lymphadenopathy, JVD, or thyromegaly. Chest: Clear to auscultation and percussion. Cardiac: Revealed a regular rhythm and rate without any murmurs, gallops, or rubs. Abdomen: Benign. Extremities: Revealed no clubbing, cyanosis, or edema. Neurological: She was nonfocal. Skin: Dry and intact. Vascular: Her pulses were present distally bilaterally. Diagnostic Data: As stated earlier. Impression And Plan: 1.Syncope secondary to hypotension secondary to polypharmacy. I do not think patient needs Coreg, C ozaar, and hydralazine. Considering she is bradycardic, I would probably stop her Coreg. She is onl y taking a small dose. Continue the hydralazine and Cozaar and see how she does. If she has any mor e syncope, she would probably need an event monitor and a carotid Doppler as an outpatient. From my standpoint, if her echocardiogram is normal, she could probably go home whenever it is okay with Dr. Mcclain. Her other problems include: 2.Mild anemia. 3.Dementia, on Aricept. 4.Mild renal insufficiency, possibly secondary to dehydration. 5.Osteoporosis. 6.History of breast cancer, on Arimidex. 7.I will continue to follow Ms. Fields. We will see what the echo shows tomorrow. CORWIN/SHAUN Voice ID: [id number] Report ID: [id number]
[2019-07-11] MEDS ORDERED: ALENDRONATE 70 MG TAB PO SCH (06:00)
[2019-07-11 06:35] LABS: Absolute Lymphocytes (CBC) 1.8 K/uL (0.7-4.9); Basophils % 0.6 % (0-1.3); Hematocrit 32.5 % (36.0-45.0); Lymphocytes % 42.3 % (15.3-44.8); RBC Red Blood Cell Count 3.58 M/uL (3.86-4.86)
[2019-07-11 06:40] LABS: Potassium 4.4 mmol/L (3.5-5.1)
[2019-07-11 08:02] LABS: Blood Morphology Comment NOT SEEN (NOT SEEN); Platelet Estimate ADEQ
[2019-07-11] MEDS: CARVEDILOL 6.25 MG TAB PO SCH (08:10)
[2019-07-11] MEDS ORDERED: LOSARTAN POTASSIUM 50 MG TABLET PO SCH (09:00)
[2019-07-11] MEDS ORDERED: ANASTROZOLE 1 MG TAB PO SCH (09:00)
[2019-07-11 11:35] VITALS: O2SAT 94
--- NOTE | 2019-07-11 11:36 | EKG ---
Test Date: 2019-07-10 Test Time: 10:03:14 [employer] Sander: MEASUREMENT RESULTS: Intervals: Rate: 55 WY: 174 QRSD: 98 QT: 460 QTc: 440 [place]: P: 40 W[place]: 174 QRS: 21 T: 54 INTERPRETIVE STATEMENTS: Sinus bradycardia Possible Left atrial enlargement Borderline ECG Compared to ECG 02/19/2018 10:42:29 Atrial premature complex(es) no longer present Ventricular premature complex(es) no longer present Electronically Signed On 07-11-19 11:31:30 CDT by Aj Sutherland
--- NOTE | 2019-07-11 11:38 | ECHO ---
HEIGHT: 4 ft 11 in WEIGHT: 138 lb 0 oz DATE OF STUDY: 07/11/[address]: Alia Lucia [employer]LECT[employer]IAN [employer] MAINTENANCE-BC 2-DIMENSIONAL: YES M.MODE: YES DOPPLER: YES COLOR FLOW: YES TDS: NO PORTABLE: NO DEFINITY: NO BUBBLE STUDY: NO DIAGNOSIS: SYNCOPE CARDIAC HISTORY: CATHERIZATION: NO SURGERY: NO PROSTHETIC VALVE: NO PACEMAKER: NO MEASUREMENTS (cm) DIASTOLIC (NORMALS) SYSTOLIC (NORMALS) IVSd 0.9 (0.6-1.2) LA Diam 2.5 (1.9-4.0) LVEF 70% LVIDd 3.1 (3.5-5.7) LVIDs 1.9 (2.0-3.5) %FS 39% LVPWd 0.9 (0.6-1.2) Ao Diam 2.5 (2.0-3.7) 2 DIMENSIONAL ASSESSMENT: RIGHT ATRIUM: NORMAL LEFT ATRIUM: NORMAL RIGHT VENTRICLE: NORMAL LEFT VENTRICLE: NORMAL TRICUSPID VALVE: NORMAL MITRAL VALVE: MITRAL STENOSIS PULMONIC VALVE: NORMAL AORTIC VALVE: SCLEROSIS PERICARDIAL EFFUSION: NONE AORTIC ROOT: NORMAL LEFT VENTRICULAR WALL MOTION: NORMAL DOPPLER/COLOR FLOW: MILD MITRAL STENOSIS. MITRAL VALVE AREA 1.8 CENTIMETERS SQUARED. COMMENTS: MILD MITRAL STENOSIS. MITRAL VALVE AREA 1.8 CENTIMETERS SQUARED. AORTIC SCLEROSIS WITH NO STENOSIS. NORMAL LEFT VENTRICULAR SIZE AND FUNCTION. NO WALL MOTION ABNORMALITY. TECHNOLOGIST: Marisel PALOMARES
[2019-07-11 13:15] VITALS: BP 113/57; TEMP 97.7
--- NOTE | 2019-07-11 15:26 | P.SSS ---
Patient History Date of Service: 07/11/19 Primary Care Provider: Dr. Sherman Reason for admission: Syncope, Hypotension History of Present Illness: Ms. Fields is 83-year-old, has never had any cardiac history. She is actually very healthy for her age. She has some mild dementia and history of hypertension. She takes Coreg and hydralazine and Cozaar for that. Has been going under a lot of stress because of an ongoing divorce. Denied chest pain. Denied nausea, vomiting, diaphoresis, PND, orthopnea, or pedal edema. She had a syncopal episode and hurt her face while she was standing up. So far, workup is fairly unremarkable. She is anemic at 10.7. X-ray showed possible mild fluid overload. EKG shows sinus bradycardia with PACs. Her glucose is 130. Her creatinine is 1.31. A CT of the head is negative. Her rhythm has been stable on telemetry with occasional PAC. She does have slight bradycardia. Allergies No Known Allergies Allergy (Verified 07/02/17 14:48) Home Medications: Alendronate Sodium 1 tab PO EVERY 7TH DAY 07/10/19 Anastrozole [Arimidex*] 1 tab PO DAILY 07/10/19 Calcium Carbonate [Calcium] 1 tab PO DAILY 07/10/19 Donepezil [Aricept*] 1 tab PO BEDTIME 07/10/19 Hydralazine [Apresoline*] 10 mg PO BID 07/10/19 Losartan Potassium [Cozaar*] 1 tab PO DAILY 07/10/19 OXcarbazepine [Oxcarbazepine] 1 tab PO BID 07/10/19 Vitamin B Complex [B Complex] 1 tab PO DAILY 07/10/19 - Past Medical/Surgical History Has patient received pneumonia vaccine in the past: Yes Diabetic: No -: HTN -: Breast Cancer -: Bilateral knee replacement -: bilateral mastectomy - Family History Mother -: Heart disease Father -: Cancer - Social History Smoking Status: Never smoker Alcohol use: No CD- Drugs: No Caffeine use: Yes Place of Residence: Home Review of Systems 10-point ROS is otherwise unremarkable Physical Examination - Vital Signs Temperature: 97.7 F Blood Pressure: 113/57 Pulse: 56 Respirations: 18 Pulse Ox (%): 97 - Physical Exam General: Alert, In no apparent distress HEENT: Atraumatic, PERRLA, Mucous membr. moist/pink, EOMI, Sclerae nonicteric Neck: Supple, 2+ carotid pulse no bruit, No LAD, Without JVD or thyroid abnormality Respiratory: Clear to auscultation bilaterally, Normal air movement Cardiovascular: Regular rate/rhythm, Normal S1 S2 Gastrointestinal: Normal bowel sounds, No tenderness Musculoskeletal: No tenderness Integumentary: No rashes Neurological: Normal gait, Normal speech, Normal strength at 5/5 x4 extr, Normal tone, Normal affect Lymphatics: No axilla or inguinal lymphadenopathy - Diagnosis (Problem(s)) (1) Syncope and collapse Status: Acute Treatment Summary: Overall during the hospital stay patient remained stable Was initially admitted to the hospital for syncopal workup. Was found have syncope most likely secondary to polypharmacy. Cardiology was consulted. Recommended patient to stop Coreg. To continue HIDA and hydralazine. Patient had marked improvement in her symptoms and thus was discharged home under stable condition. - Disposition Disposition: ROUTINE DISCHARGE Condition: GOOD Patient Discharge Instructions: Please f.u with PCP and Cardiology in 1 to 2 week post discharge. Stop medication. Coreg Diet: Regular Activity: Ad dimas
--- NOTE | 2019-07-11 22:25 | PN ---
Date of Progress Note: 07/11/2019 Ms. Fields had come in with syncope that we thought was secondary to orthostatic hypotension and p olypharmacy. Echocardiogram was done today and was perfectly normal without any evidence of aortic s tenosis of clinical significance. She has a normal ejection fraction, no wall motion abnormalities a nd no effusion. I am comfortable with her going home as stated earlier in my consultation, preferabl y on Cozaar and hydralazine without the Coreg for now, she is bradycardic. We will be happy to see h er in the office as an outpatient. If her symptoms persist, we will recommend an event monitor. CORWIN/SHAUN Voice ID: [id number] Report ID: [id number]
== END 2019-07-11 13:49 | disposition home or self-care (01) ==
LOC: ER 09:51 → ERHOLD 12:45 → 4TH 16:48
PROVIDERS: ADMIT Family Medicine; ATTEND Family Medicine
DX: R55 Syncope and collapse (principal); I95.9 Hypotension, unspecified; I10 Essential (primary) hypertension; R00.1 Bradycardia, unspecified; D64.9 Anemia, unspecified; F03.90 Unspecified dementia, unspecified severity, without behavioral disturbance, psychotic disturbance, mood disturbance, and anxiety; N28.9 Disorder of kidney and ureter, unspecified; E86.0 Dehydration; M81.0 Age-related osteoporosis without current pathological fracture; T44.7X5A Adverse effect of beta-adrenoreceptor antagonists, initial encounter; Z85.3 Personal history of malignant neoplasm of breast
CPT/HCPCS: 93005; 93306; 85025 ×2; 80048 ×2; 36415; 83735; 80156; 85610; 80076; 84484 ×3; 83880 ×2; 70450; 72125; 71045; 73562; 99285; J7030; G0378 ×3

== ENCOUNTER 2019-11-16 09:51 | Emergency (ER) | payer OTHER ==
[2019-11-16 10:57] LABS: ALT/SGPT 25 U/L (12-78); AST/SGOT 22 U/L (15-37); Albumin 3.2 g/dL (3.4-5.0); Alkaline Phosphatase 77 U/L (45-117); BUN Blood Urea Nitrogen 22 mg/dL (7-18); Bicarbonate 26 mmol/L (21-32); Bilirubin Direct < 0.1 mg/dL (0-0.2); Bilirubin Total 0.3 mg/dL (0.2-1.0); Glucose Level 109 mg/dL (74-106); Magnesium 1.9 mg/dL (1.8-2.4); NT PRO-BNP 443 pg/mL (<450); Potassium 4.3 mmol/L (3.5-5.1); Protein, Total 6.6 g/dL (6.4-8.2); Sodium Level 136 mmol/L (136-145); Troponin (Emerg Dept Use Only) < 0.02 ng/mL (0.0-0.045)
--- NOTE | 2019-11-16 11:20 | RAD REPORT ---
EXAM DESCRIPTION: [place] Single View11/16/2019 10:54 am CLINICAL HISTORY: Chest pain COMPARISON: none FINDINGS: The lungs appear clear of acute infiltrate. The heart is normal size. Moderate hiatal her camron IMPRESSION: No acute abnormalities displayed
--- NOTE | 2019-11-16 11:44 | ER ---
Nurse's Notes [facility] Name: Edie Fields Age: 84 yrs Sex: Female : 1935 Arrival Date: 11/16/2019 Time: 09:53 Bed 14 Private MD: Radha Ramirez Diagnosis: Other chest pain Presentation: 11/16 10:02 Presenting complaint: Patient states: pt reports having left sided chest pain that sg radiates to the left shoulder and left arm pit, pt reports hx of breast cancer and reports the pain starting several months ago and progressively getting worse. Transition of care: patient was not received from another setting of care. Onset of symptoms was November 16, 2019. Risk Assessment: Do you want to hurt yourself or someone else? Patient reports no desire to harm self or others. Initial Sepsis Screen: Does the patient meet any 2 criteria? No. Patient's initial sepsis screen is negative. Does the patient have a suspected source of infection? No. Patient's initial sepsis screen is negative. Care prior to arrival: None. 10:02 Method Of Arrival: Ambulatory sg 10:02 Acuity: RAYNE 3 sg Historical: - Allergies: 10:04 No Known Allergies; sg - PMHx: 10:04 Dementia; Hypertension; Cancer, Breast; sg - PSHx: 10:04 Mastectomy; sg - Immunization history:: Adult Immunizations up to date. - Social history:: Smoking status: Patient denies any tobacco usage or history of. - Ebola Screening: : Patient negative for fever greater than or equal to 101.5 degrees Fahrenheit, and additional compatible Ebola Virus Disease symptoms Patient denies exposure to infectious person Patient denies travel to an Ebola-affected area in the 21 days before illness onset No symptoms or risks identified at this time. Screenin:00 Abuse screen: Denies threats or abuse. Nutritional screening: No deficits noted. tw2 Tuberculosis screening: No symptoms or risk factors identified. Fall Risk Secondary diagnosis (15 points) impaired mobility. Assessment: 10:20 General: Appears in no apparent distress. well groomed, well developed, well nourished, sg Behavior is calm, cooperative, appropriate for age. Pain: Complains of pain in anterior aspect of left upper chest Pain radiates to left axilla Quality of pain is described as aching. 10:59 Neuro: Level of Consciousness is awake, alert, obeys commands, Oriented to person, sg place, time, Speech is normal, Facial symmetry appears normal. Cardiovascular: Patient's skin is warm and dry. Chest pain is described as vague, is located in left anterior chest wall began several months ago episodes are continuous. Respiratory: Airway is patent Respiratory effort is even, unlabored, Respiratory pattern is regular, symmetrical. GI: No signs and/or symptoms were reported involving the gastrointestinal system. : No signs and/or symptoms were reported regarding the genitourinary system. EENT: No signs and/or symptoms were reported regarding the EENT system. Derm: Skin is pink, warm \T\ dry. Musculoskeletal: Circulation, motion, and sensation intact. Range of motion: intact in all extremities. 12:30 Reassessment: Patient appears in no apparent distress at this time. Patient is alert, sg oriented x 3, equal unlabored respirations, skin warm/dry/pink. Vital Signs: 10:16 BP 130 / 52; Pulse 80; Resp 19; Temp 97.7; Pulse Ox 97% on R/A; Pain 4/10; sg 11:00 BP 124 / 63; Pulse 80; Resp 20; Temp 98.2(O); Pulse Ox 98% on R/A; mh5 12:30 BP 126 / 70; Pulse 80; Resp 17; Temp 98.1; Pulse Ox 98% on R/A; sg ED Course: 09:53 Patient arrived in ED. mr 09:53 Radha Ramirez MD is Private Physician. mr 09:57 Jose Clayton, NIC is Primary Nurse. sg 10:01 [facility]. jr8 10:01 Elliot Tyler MD is Attending Physician. jr8 10:01 Arm band placed on. tw2 10:01 Bed in low position. Call light in reach. Adult w/ patient. cnc cutting operator on. Pulse tw2 ox on. NIBP on. 10:03 Triage completed. sg 10:15 Patient has correct armband on for positive identification. Placed in gown. Side rails mh5 up X 1. Warm blanket given. 10:18 EKG done, by nuclear medical technologist. reviewed by Natan CRANE. at1 10:29 Initial lab(s) drawn, by me, sent to lab. Missed attempt(s): 22 gauge in right sg antecubital area. Bleeding controlled, band aid applied, catheter tip intact. 10:54 XRAY Chest (1 view) In Process Unspecified. EDMS 11:25 Lab(s) recollected, by dental laboratory technician apprentice, sent to lab. sg 11:43 Radha Ramirez MD is Referral Physician. jr8 13:00 No provider procedures requiring assistance completed. IV discontinued, intact, sg bleeding controlled, No redness/swelling at site. Pressure dressing applied. Patient maintains SpO2 saturation greater than 95% on room air. Administered Medications: No medications were administered Outcome: :43 Discharge ordered by . jr8 13:00 Discharged to home via wheelchair. sg 13:00 Condition: good 13:00 Discharge instructions given to family, slate splitter, Instructed on discharge instructions, follow up and referral plans. medication usage, safety practices, Demonstrated understanding of instructions, follow-up care, medications, Prescriptions given X 1. 13:03 Patient left the ED. sg Signatures: Dispatcher [employer] EDMS Jose Clayton, RN RN Yareli TorresNatan redmnod, PA PA jr8 Geraldine Zeng, strategy manager EKG Tat1 Brie Hicks RN RN 2 Renae Lorenz [facility] Corrections: (The following items were deleted from the chart) 11:01 10:20 Pain: Complains of pain in anterior aspect of left upper chest sg
--- NOTE | 2019-11-16 11:44 | EDPHYS ---
Physician Documentation [facility] Name: Edie Fields Age: 84 yrs Sex: Female : 1935 Arrival Date: 11/16/2019 Time: 09:53 Bed 14 Private MD: Radha Ramirez ED Physician Elliot Tyler HPI: 11/16 10:48 This 84 yrs old Female presents to ER via Ambulatory with complaints of Chest jr8 Pain. 10:48 The patient or guardian reports chest pain that is located primarily in the anterior jr8 chest wall, left. Onset: 2 year(s) ago, and became worse 2 week(s) ago. The pain radiates to the left shoulder. Associated signs and symptoms: The patient has no apparent associated signs or symptoms. The chest pain is described as sharp. Duration: The patient or guardian reports multiple episodes, that are intermittent, that wax and wane. Modifying factors: The symptoms are alleviated by nothing. the symptoms are aggravated by movement, palpation of area. Severity of pain: At its worst the pain was moderate in the emergency department the pain is unchanged. The patient has not recently seen a physician. Patient had bilateral mastectomy about 3 years ago. After that had pain to anterior chest wall that radiates. Stated that she has noticed it for a couple of years now. Within past 2 weeks seems to have worsened . Historical: - Allergies: 10:04 No Known Allergies; sg - PMHx: 10:04 Dementia; Hypertension; Cancer, Breast; sg - PSHx: 10:04 Mastectomy; sg - Immunization history:: Adult Immunizations up to date. - Social history:: Smoking status: Patient denies any tobacco usage or history of. - Ebola Screening: : Patient negative for fever greater than or equal to 101.5 degrees Fahrenheit, and additional compatible Ebola Virus Disease symptoms Patient denies exposure to infectious person Patient denies travel to an Ebola-affected area in the 21 days before illness onset No symptoms or risks identified at this time. ROS: 10:48 Eyes: Negative for injury, pain, redness, and discharge, ENT: Negative for injury, jr8 pain, and discharge, Neck: Negative for injury, pain, and swelling, Respiratory: Negative for shortness of breath, cough, wheezing, and pleuritic chest pain, Abdomen/GI: Negative for abdominal pain, nausea, vomiting, diarrhea, and constipation, Back: Negative for injury and pain, MS/Extremity: Negative for injury and deformity, Skin: Negative for injury, rash, and discoloration, Neuro: Negative for headache, weakness, numbness, tingling, and seizure. 10:48 Cardiovascular: Positive for chest pain, Negative for edema, orthopnea, palpitations, paroxysmal nocturnal dyspnea. Exam: 10:48 Eyes: Pupils equal round and reactive to light, extra-ocular motions intact. Lids and jr8 lashes normal. Conjunctiva and sclera are non-icteric and not injected. Cornea within normal limits. Periorbital areas with no swelling, redness, or edema. ENT: Nares patent. No nasal discharge, no septal abnormalities noted. Tympanic membranes are normal and external auditory canals are clear. Oropharynx with no redness, swelling, or masses, exudates, or evidence of obstruction, uvula midline. Mucous membranes moist. Neck: Trachea midline, no thyromegaly or masses palpated, and no cervical lymphadenopathy. Supple, full range of motion without nuchal rigidity, or vertebral point tenderness. No Meningismus. Cardiovascular: Regular rate and rhythm with a normal S1 and S2. No gallops, murmurs, or rubs. Normal PMI, no JVD. No pulse deficits. Respiratory: Lungs have equal breath sounds bilaterally, clear to auscultation and percussion. No rales, rhonchi or wheezes noted. No increased work of breathing, no retractions or nasal flaring. Abdomen/GI: Soft, non-tender, with normal bowel sounds. No distension or tympany. No guarding or rebound. No evidence of tenderness throughout. Back: No spinal tenderness. No costovertebral tenderness. Full range of motion. Skin: Warm, dry with normal turgor. Normal color with no rashes, no lesions, and no evidence of cellulitis. MS/ Extremity: Pulses equal, no cyanosis. Neurovascular intact. Full, normal range of motion. Neuro: Awake and alert, GCS 15, oriented to person, place, time, and situation. Cranial nerves II-XII grossly intact. Motor strength 5/5 in all extremities. Sensory grossly intact. Cerebellar exam normal. Normal gait. 10:48 Chest/axilla: Palpation: tenderness, that is mild, of the anterior aspect of left upper chest, that partially reproduces the patient's complaints, Axilla: are normal, Lymph nodes: lymphadenopathy is not appreciated. Vital Signs: 10:16 BP 130 / 52; Pulse 80; Resp 19; Temp 97.7; Pulse Ox 97% on R/A; Pain 4/10; sg 11:00 BP 124 / 63; Pulse 80; Resp 20; Temp 98.2(O); Pulse Ox 98% on R/A; mh5 12:30 BP 126 / 70; Pulse 80; Resp 17; Temp 98.1; Pulse Ox 98% on R/A; sg MDM: 10:01 Patient medically screened. 11:42 Differential diagnosis: abnormal EKG, acute myocardial infarction, acute pericarditis, jr8 anxiety, chest wall pain, cholecystitis, Cholelithiasis costochondritis, esophagitis, gastritis, pancreatitis, pleurisy, pneumonia, pneumothorax, pulmonary embolus, stable angina, thoracic aortic disection, unstable angina. Data reviewed: vital signs, nurses notes, lab test result(s), EKG, radiologic studies, plain films. Data interpreted: Pulse oximetry: on room air is 98 %. Interpretation: normal. Counseling: I had a detailed discussion with the patient and/or guardian regarding: the historical points, exam findings, and any diagnostic results supporting the discharge/admit diagnosis, lab results, radiology results, the need for outpatient follow up, a test fixture designer, a family practitioner, to return to the emergency department if symptoms worsen or persist or if there are any questions or concerns that arise at home. 11/16 10:12 Order name: Basic Metabolic Panel; Complete Time: 11/16 10:12 Order name: CBC with Diff 11/16 10:12 Order name: LFT's; Complete Time: :11/16 10:12 Order name: Magnesium; Complete Time: :11/16 10:12 Order name: NT PRO-BNP; Complete Time: :11/16 10:12 Order name: PT-INR; Complete Time: 11:59 11/16 10:12 Order name: Troponin (emerg Dept Use Only); Complete Time: :11/16 10:12 Order name: XRAY Chest (1 view); Complete Time: 11:24 11/16 10:12 Order name: EKG; Complete Time: 10:13 11/16 10:12 Order name: Cardiac monitoring; Complete Time: 10:16 11/16 10:12 Order name: EKG - Nurse/Tech; Complete Time: 10:16 11/16 10:12 Order name: IV Saline Lock; Complete Time: 11:40 11/16 10:12 Order name: Labs collected and sent; Complete Time: 10:56 11/16 10:12 Order name: O2 Per Protocol; Complete Time: :11/16 10:12 Order name: O2 Sat Monitoring; Complete Time: :11/16 11:03 Order name: Labs - recollect needed; Complete Time: 11:40 bd Administered Medications: No medications were administered Disposition: 16:47 Co-signature as Attending Physician, Elliot Tyler MD. rn Disposition: 11/16/19 11:43 Discharged to Home. Impression: Other chest pain. - Condition is Stable. - Discharge Instructions: Nonspecific Chest Pain, Chest Wall Pain, Focal Neuropathy. - Prescriptions for meloxicam 7.5 mg Oral tablet - take 1 tablet by ORAL route once daily As needed; 20 tablet. - Medication Reconciliation Form, Thank You Letter, Antibiotic Education, Prescription Opioid Use form. - Follow up: Radha Ramirez MD; When: 2 - 3 days; Reason: Recheck today's complaints, Continuance of care, Re-evaluation by your physician. - Problem is new. - Symptoms have improved. Signatures: Dispatcher [employer] EDMS Yuki Stringer Steven, RN RN sg Nieto, Roman, MD MD rn Roszak, Josh, PA PA jr8 Corrections: (The following items were deleted from the chart) 13:03 11:43 11/16/2019 11:43 Discharged to Home. Impression: Other chest pain. Condition is sg Stable. Forms are Medication Reconciliation Form, Thank You Letter, Antibiotic Education, Prescription Opioid Use. Follow up: Radha Ramirez; When: 2 - 3 days; Reason: Recheck today's complaints, Continuance of care, Re-evaluation by your physician. Problem is new. Symptoms have improved. jr8
[2019-11-16 11:46] LABS: Absolute Lymphocytes (CBC) 0.7 K/uL (0.7-4.9); Basophils % 0.7 % (0-1.3); Hematocrit 31.2 % (36.0-45.0); Lymphocytes % 10.1 % (15.3-44.8); MPV 7.9 fL (7.6-11.3)
[2019-11-16 11:58] LABS: Protime INR 0.89
[2019-11-16 13:34] LABS: Blood Morphology Comment NOT SEEN (NOT SEEN); Platelet Estimate ADEQ; Urine White Blood Cell Casts OK
--- NOTE | 2019-11-16 13:59 | EKG ---
Test Date: 2019-11-16 Test Time: 10:09:47 Battalion Fire Chief: KARLEE MEASUREMENT RESULTS: Intervals: Rate: 76 ND: 160 QRSD: 98 QT: 382 QTc: 429 [place]: P: 44 ND: 160 QRS: 30 T: 64 INTERPRETIVE STATEMENTS: Normal sinus rhythm Minimal voltage criteria for LVH, may be normal variant Borderline ECG Compared to ECG 07/10/2019 10:03:14 Left ventricular hypertrophy now present Sinus bradycardia no longer present Electronically Signed On 11-16-19 13:57:58 MOLDING AND TRIM INSTALLER by Jeff Russell
[2019-11-16 19:48] VITALS: BP 124/63; TEMP 98.2; O2SAT 98
== END 2019-11-16 13:03 | disposition home or self-care (01) ==
LOC: ER 09:51
DX: R07.89 Other chest pain (principal); I10 Essential (primary) hypertension; F03.90 Unspecified dementia, unspecified severity, without behavioral disturbance, psychotic disturbance, mood disturbance, and anxiety; Z85.3 Personal history of malignant neoplasm of breast
CPT/HCPCS: 36415; 71045; 80048; 80076; 83735; 83880; 84484; 85025; 85610; 93005; 99285

== ENCOUNTER 2019-11-17 12:16 | Observation (INO) | payer OTHER ==
[2019-11-17] MEDS ORDERED: NA CHLORIDE 0.9% 500 ML ONE (12:26)
[2019-11-17 12:44] LABS: Absolute Lymphocytes (CBC) 0.5 K/uL (0.7-4.9); Basophils % 0.6 % (0-1.3); Hematocrit 31.5 % (36.0-45.0); Lymphocytes % 6.6 % (15.3-44.8); MPV 7.6 fL (7.6-11.3); RBC Red Blood Cell Count 3.58 M/uL (3.86-4.86)
[2019-11-17 12:52] LABS: Protime INR 0.93
[2019-11-17 13:05] LABS: BUN Blood Urea Nitrogen 25 mg/dL (7-18); Bicarbonate 27 mmol/L (21-32); Glucose Level 109 mg/dL (74-106); Magnesium 2.1 mg/dL (1.8-2.4); Potassium 4.3 mmol/L (3.5-5.1); Sodium Level 134 mmol/L (136-145); Troponin (Emerg Dept Use Only) < 0.02 ng/mL (0.0-0.045)
--- NOTE | 2019-11-17 13:09 | RAD REPORT ---
EXAM DESCRIPTION: CT - Head Brain Wo Cont - 11/17/2019 1:00 pm CLINICAL HISTORY: SYNCOPE Headache, drowsiness COMPARISON: Head Brain Wo Cont dated 02/19/2018; HEAD BRAIN W O CONTRAST dated 01/05/2014 TECHNIQUE: All CT scans are performed using dose optimization technique as appropriate and may inclu de automated exposure control or mA/KV adjustment according to patient size. FINDINGS: No intracranial hemorrhage, hydrocephalus or extra-axial fluid collection.Moderate general ized brain atrophy is present with mild periventricular and deep white matter chronic microvascular i schemic changes.No areas of brain edema or evidence of midline shift. The paranasal sinuses and mastoids are clear. The calvarium is intact. IMPRESSION: No acute intracranial abnormality.
--- NOTE | 2019-11-17 13:37 | EKG ---
Test Date: 2019-11-17 Test Time: 12:20:08 Iuss Master Analyst: KARLEE MEASUREMENT RESULTS: Intervals: Rate: 84 DC: 164 QRSD: 96 QT: 348 QTc: 411 [place]: P: 31 DC: 164 QRS: 6 T: 43 INTERPRETIVE STATEMENTS: Normal sinus rhythm Moderate voltage criteria for LVH, may be normal variant Borderline ECG Compared to ECG 11/16/2019 10:09:47 No significant changes Electronically Signed On 11-17-19 13:36:32 TOBACCO SAMPLER by Aj Sutherland
--- NOTE | 2019-11-17 13:47 | EDPHYS ---
Physician Documentation [facility] Name: Edie Fields Age: 84 yrs Sex: Female : 1935 Arrival Date: 11/17/2019 Time: 12:18 Bed 4 Private MD: ED Physician Elliot Tyler HPI: 11/17 12:27 This 84 yrs old Female presents to ER via EMS with complaints of syncope. rn 12:27 The patient has experienced syncope. Onset: The symptoms/episode began/occurred just rn prior to arrival. Duration: This was a single episode. Associated injury: The patient did not suffer any apparent associated injury. Current symptoms: Currently, the patient is not experiencing any symptoms. The patient has not experienced similar symptoms in the past. Reports works at [employer] at [employer], reports felt lightheaded and sat down, doesn't recall what happened after that. Seen here recently for chest pain, sent home. Currently feels ok. No injury. No chest pain/sob/abd pain. . Historical: - Allergies: 12:21 No Known Allergies; em - Home Meds: 12:21 carvedilol 6.25 mg Oral tab 1 tab 2 times per day [Active]; em - PMHx: 12:21 Cancer, Breast; Dementia; Hypertension; em - PSHx: 12:21 Mastectomy; em - Immunization history:: Adult Immunizations up to date. - Social history:: Smoking status: Patient denies any tobacco usage or history of. - Ebola Screening: : Patient negative for fever greater than or equal to 101.5 degrees Fahrenheit, and additional compatible Ebola Virus Disease symptoms Patient denies exposure to infectious person Patient denies travel to an Ebola-affected area in the 21 days before illness onset No symptoms or risks identified at this time. - Family history:: not pertinent. - Hospitalizations: : No recent hospitalization is reported. ROS: 12:27 Constitutional: Negative for fever, chills, and weight loss, Eyes: Negative for injury, rn pain, redness, and discharge, Neck: Negative for injury, pain, and swelling, Cardiovascular: Negative for chest pain, palpitations, and edema, Respiratory: Negative for shortness of breath, cough, wheezing, and pleuritic chest pain, Abdomen/GI: Negative for abdominal pain, nausea, vomiting, diarrhea, and constipation, MS/Extremity: Negative for injury and deformity, Skin: Negative for injury, rash, and discoloration, Neuro: Negative for headache, weakness, numbness, tingling, and seizure. Exam: 12:27 Constitutional: This is a well developed, well nourished patient who is awake, alert, rn and in no acute distress. Head/Face: Normocephalic, atraumatic. Eyes: Pupils equal round and reactive to light, extra-ocular motions intact. Lids and lashes normal. Conjunctiva and sclera are non-icteric and not injected. Cornea within normal limits. Periorbital areas with no swelling, redness, or edema. ENT: MMM Neck: Trachea midline, no thyromegaly or masses palpated, and no cervical lymphadenopathy. Supple, full range of motion without nuchal rigidity, or vertebral point tenderness. No Meningismus. Cardiovascular: Regular rate and rhythm with a normal S1 and S2. No gallops, murmurs, or rubs. Normal PMI, no JVD. No pulse deficits. Respiratory: Lungs have equal breath sounds bilaterally, clear to auscultation and percussion. No rales, rhonchi or wheezes noted. No increased work of breathing, no retractions or nasal flaring. Abdomen/GI: Soft, non-tender, with normal bowel sounds. No distension or tympany. No guarding or rebound. No evidence of tenderness throughout. MS/ Extremity: Pulses equal, no cyanosis. Neurovascular intact. Full, normal range of motion. Equal circumference. Neuro: Awake and alert, GCS 15, oriented to person, place, time, and situation. Cranial nerves II-XII grossly intact. Motor strength 5/5 in all extremities. Sensory grossly intact. Cerebellar exam normal. Vital Signs: 12:21 BP 146 / 59; Pulse 87; Resp 18; Temp 97.1; Pulse Ox 96% on R/A; Weight 78.02 kg; Pain em 0/10; 13:22 BP 115 / 69; Pulse 92; Resp 20; Pulse Ox 98% on R/A; tw2 14:00 BP 143 / 68; Pulse 89; Resp 18; Pulse Ox 98% on R/A; Pain 0/10; em 15:00 BP 123 / 62; Pulse 97; Resp 16; Pulse Ox 99% on R/A; em Moisés Coma Score: 12:21 Eye Response: spontaneous(4). Verbal Response: oriented(5). Motor Response: obeys em commands(6). Total: 15. MDM: 12:18 Patient medically screened. rn 13:45 Differential Diagnosis: cardiac arrhythmia, idiopathic syncope, seizure, transient rn ischemic attack, vasovagal episode. Data reviewed: vital signs, nurses notes, lab test result(s), EKG, radiologic studies, CT scan. Counseling: I had a detailed discussion with the patient and/or guardian regarding: the historical points, exam findings, and any diagnostic results supporting the discharge/admit diagnosis, lab results, radiology results, the need for further work-up and treatment in the hospital. Response to treatment: the patient's symptoms have markedly improved after treatment, and as a result, I will admit patient. 13:45 ED course: Seen here yesterday for chest pain, not sure if related, admitted to Dr. brittney Arteaga for further w/u. . 11/17 12:19 Order name: Basic Metabolic Panel; Complete Time: 13: 11/17 12:19 Order name: CBC with Diff; Complete Time: 13:11/17 12:19 Order name: Magnesium; Complete Time: 13:11/17 12:19 Order name: Protime (+inr); Complete Time: 13:11/17 12:19 Order name: Ptt, Activated; Complete Time: 13:11/17 12:19 Order name: Troponin (emerg Dept Use Only); Complete Time: 13:11/17 12:19 Order name: CT Head Brain wo Cont; Complete Time: 13:11/17 12:19 Order name: EKG; Complete Time: 12:11/17 12:19 Order name: Cardiac monitoring; Complete Time: 12:11/17 12:19 Order name: EKG - Nurse/Tech; Complete Time: :11/17 12:19 Order name: IV Saline Lock; Complete Time: :11/17 12:19 Order name: Labs collected and sent; Complete Time: :11/17 12:19 Order name: NPO; Complete Time: :11/17 12:19 Order name: O2 Per Protocol; Complete Time: 11/17 12:19 Order name: O2 Sat Monitoring; Complete Time: 12:22 rn Administered Medications: 12:35 Drug: NS 0.9% 500 ml Route: IV; Rate: bolus; Site: left forearm; em 15:05 Follow up: IV Status: Completed infusion; IV Intake: 500ml em Disposition: 11/17/19 13:46 Hospitalization ordered by Breanna Arteaga for Observation. Preliminary diagnosis is Syncope and collapse. - Bed requested for Telemetry/MedSurg (observation). - Status is Observation. em - Condition is Stable. - Problem is new. - Symptoms have improved. UTI on Admission? No Signatures: Dispatcher [employer] EDJose Adams RN RN sg Hosea Griffith RN RN em Elliot Tyler MD MD media relations intern: (The following items were deleted from the chart) 14:21 13:46 Hospitalization Ordered by Breanna Arteaga MD for Observation. Preliminary diagnosis sg is Syncope and collapse. Bed requested for Telemetry/MedSurg (observation). Status is Observation. Condition is Stable. Problem is new. Symptoms have improved. UTI on Admission? No. rn 15:04 14:21 11/17/2019 13:46 Hospitalization Ordered by Breanna Arteaga MD for Observation. em Preliminary diagnosis is Syncope and collapse. Bed requested for Telemetry/MedSurg (observation). Status is Observation. Condition is Stable. Problem is new. Symptoms have improved. UTI on Admission? No. sg 15:31 15:04 11/17/2019 13:46 Hospitalization Ordered by Breanna Arteaga MD for Observation. em Preliminary diagnosis is Syncope and collapse. Bed requested for Telemetry/MedSurg (observation). Status is Observation. Condition is Stable. Problem is new. Symptoms have improved. UTI on Admission? No. em
--- NOTE | 2019-11-17 13:47 | ER ---
Nurse's Notes [facility] Name: Edie Fields Age: 84 yrs Sex: Female : 1935 Arrival Date: 11/17/2019 Time: 12:18 Bed 4 Private MD: Diagnosis: Syncope and collapse Presentation: 11/17 12:18 Presenting complaint: EMS states: called out for seizure, by standards report pt em repeating questions on scene, denies hx of seizures, BGL 131. Transition of care: patient was not received from another setting of care. Onset of symptoms was November 17, 2019. Risk Assessment: Do you want to hurt yourself or someone else? Patient reports no desire to harm self or others. Initial Sepsis Screen: Does the patient meet any 2 criteria? No. Patient's initial sepsis screen is negative. Does the patient have a suspected source of infection? No. Patient's initial sepsis screen is negative. Care prior to arrival: None. 12:18 Method Of Arrival: EMS: [facility] em 12:18 Acuity: RAYNE 3 em Historical: - Allergies: 12:21 No Known Allergies; em - Home Meds: 12:21 carvedilol 6.25 mg Oral tab 1 tab 2 times per day [Active]; em - PMHx: 12:21 Cancer, Breast; Dementia; Hypertension; em - PSHx: 12:21 Mastectomy; em - Immunization history:: Adult Immunizations up to date. - Social history:: Smoking status: Patient denies any tobacco usage or history of. - Ebola Screening: : Patient negative for fever greater than or equal to 101.5 degrees Fahrenheit, and additional compatible Ebola Virus Disease symptoms Patient denies exposure to infectious person Patient denies travel to an Ebola-affected area in the 21 days before illness onset No symptoms or risks identified at this time. - Family history:: not pertinent. - Hospitalizations: : No recent hospitalization is reported. Screenin:21 Abuse screen: Denies threats or abuse. em 12:21 Nutritional screening: No deficits noted. Tuberculosis screening: No symptoms or risk em factors identified. Fall Risk Fall in past 12 months (25 points). Secondary diagnosis (15 points) impaired mobility. Assessment: 12:21 General: Appears in no apparent distress. comfortable, Behavior is calm, cooperative, em Denies fever. Pain: Denies pain. Neuro: Level of Consciousness is awake, alert, obeys commands, Oriented to person, place, time, situation, Appropriate for age [employer] History Teacher are equal bilaterally Moves all extremities. Speech is normal, Facial symmetry appears normal. Cardiovascular: Capillary refill < 3 seconds Patient's skin is warm and dry. Respiratory: Airway is patent Respiratory effort is even, unlabored, Respiratory pattern is regular, symmetrical. GI: Patient currently denies nausea, vomiting. Derm: Skin is intact, is thin, Skin is pink, warm \T\ dry. Musculoskeletal: Capillary refill < 3 seconds, Range of motion: intact in all extremities. 13:22 Reassessment: Patient appears in no apparent distress at this time. Patient and/or tw2 family updated on plan of care and expected duration. Pain level reassessed. Patient is alert, oriented x 3, equal unlabored respirations, skin warm/dry/pink. pt back from imaging at this time,NAD. Vital Signs: 12:21 BP 146 / 59; Pulse 87; Resp 18; Temp 97.1; Pulse Ox 96% on R/A; Weight 78.02 kg; Pain em 0/10; 13:22 BP 115 / 69; Pulse 92; Resp 20; Pulse Ox 98% on R/A; tw2 14:00 BP 143 / 68; Pulse 89; Resp 18; Pulse Ox 98% on R/A; Pain 0/10; em 15:00 BP 123 / 62; Pulse 97; Resp 16; Pulse Ox 99% on R/A; em Moisés Coma Score: 12:21 Eye Response: spontaneous(4). Verbal Response: oriented(5). Motor Response: obeys em commands(6). Total: 15. ED Course: 12:18 Patient arrived in ED. em 12:18 Elliot Tyler MD is Attending Physician. rn 12:20 Triage completed. em 12:21 Arm band placed on. em 12:21 Patient has correct armband on for positive identification. Fall risk band placed. em Placed in gown. Bed in low position. Call light in reach. Side rails up X2. library monitor on. Pulse ox on. NIBP on. 12:21 Seizure precautions initiated. em 12:22 Hosea Griffith, NIC is Primary Nurse. em 12:33 EKG done, by orthophotography technician. reviewed by Elliot Tyler MD. at1 13:02 CT Head Brain wo Cont In Process Unspecified. EDMS 13:46 Breanna Arteaga MD is Hospitalizing Provider. rn 15:22 No provider procedures requiring assistance completed. Patient admitted, IV remains in em place. Administered Medications: 12:35 Drug: NS 0.9% 500 ml Route: IV; Rate: bolus; Site: left forearm; em 15:05 Follow up: IV Status: Completed infusion; IV Intake: 500ml em Intake: 15:05 IV: 500ml; Total: 500ml. em Outcome: 13:46 Decision to Hospitalize by Provider. rn 15:22 Admitted to Tele accompanied by tech, via stretcher, room 205, with chart, Report em called to NIC Lopez 15:22 Condition: good 15:22 Instructed on the need for admit, Demonstrated understanding of instructions. 15:31 Patient left the ED. em Signatures: Dispatcher [employer] Hosea Ferris, RN RN Elliot Cummins MD MD rn Gonzales, Amanda, knock out hand EKG Tat1 Brie Hicks RN RN tw2
[2019-11-17] MEDS ORDERED: ONDANSETRON 4 MG/2 ML VIAL IV PRN (15:49)
[2019-11-17] MEDS ORDERED: ACETAMINOPHEN 500 MG TAB PO PRN (15:49)
[2019-11-17] MEDS: NA CHLORIDE 0.9% 1,000 ML IV SCH (16:07)
[2019-11-17] MEDS ORDERED: ENOXAPARIN 30 MG/0.3 ML SQ SCH (17:00)
[2019-11-17 17:16] VITALS: BMI 29.5
[2019-11-17 18:05] LABS: Urine Appearance CLEAR; Urine Bilirubin NEGATIVE (NEG); Urine Blood NEGATIVE (NEG); Urine Color YELLOW; Urine Glucose NEGATIVE (NEG); Urine Protein NEGATIVE (NEG); Urine Specific Gravity 1.015 (1.005-1.030); Urine Urobilinogen 0.2 mg/dL (0.2-1.0); Urine pH 5.5 (5.0-7.0)
[2019-11-17 19:34] LABS: Urine Bacteria 20-50 /HPF (<20); Urine Culture Reflex Order REFLEXED; Urine RBC <5 /HPF (NONE SEEN)
[2019-11-17 19:35] LABS: Urine Amorphous Sediment 2+ /HPF (NONE SEEN); Urine Mucus 3+ /HPF (NONE SEEN)
--- NOTE | 2019-11-17 21:02 | CON ---
Date of Consultation: 11/17/2019 Reason For Consultation: Syncope. History: This is an 84-year-old lady whom we know because she has a history of trigeminal neuralgia I believe the left, described initially like little soap bubbles of pain that would pop in her cheek and that has been brought under reasonable control with some Trileptal and has really been quiescent at least for the last 6 months. More recently she has developed some memory problems and we have jose elias gnosed her with dementia. 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 She does not really have children in this area. She has a niece who is her primary caregiver and is attentive to her needs. We got a call to the office this week, patient having some issues with insomnia and not sleeping and just added Remeron very recently this week. Additionally, patient developed some chest discomfort and left arm pain and was in the ER yesterday, seen, treated, and released and then today she was back at work and had an episode of syncope. Patient is not really able to fully describe exa ctly what happened. She had an episode several months ago and was found to have relative hypotension at that point, came to the ER. CT scan of the brain was unremarkable, labs unremarkable other than an anemia with a hemoglobin of 10.3 and a sodium 134, which might be related to the Trileptal as it i s known to cause hyponatremia. Given her age and presentation of syncope with her eyes wide open and rolling back in her head, she was admitted, she seems back to her baseline, which is somewhat confus ed, but not agitated. Consultation was requested. Past Medical History: History of breast carcinoma, trigeminal neuralgia, hypertension, dementia. Routine Medications: Remeron, which is new, meloxicam, Arimidex, Trileptal, Cozaar, hydralazine, and Aricept. Allergies: NONE. Social History: Patient is actually still working, still driving, although she has been advised not to do either of those. Family History: There is no family history of seizures or premature vascular events. Review of Systems: General: Generally good health given her age. Eyes: Negative. Ears, Nose, Throat: No dysarthria. No aphasia. Cardiovascular: Hypertension, recent episode of chest discomfort. Pulmonary: Negative. GI: Negative. : Questionable urine infection. Musculoskeletal: Left shoulder pain. Neurologic: As alluded to. Psychiatric: As alluded to. Endocrine: Negative. Hematologic: Anemia. Physical Examination: Vital Signs: 98.9, 84, 18, 161/74. General: Pleasant lady, sitting in bed, in no distress. She is awake, alert. She knows she is in [facility]. She recognizes me. She does not really recall what happened with regard to the syncope proper. Heart: Sinus rhythm. No carotid bruits. Lungs: Clear. Abdomen: Soft. Bowel sounds are present. Neuro: Pupils equal, round, reactive. Ocular motion full without nystagmus. Visual mccauley full to confrontation bilaterally. Facial strength and sensation are normal. Tongue protrudes evenly. Soft palate elevates symmetrically bilaterally. Extremities: Examination of her extremities reveal full strength other than the left deltoid, which is slightly weak at 4+ with some giveaway weakness and pain on palpation of the left shoulder joint p soraida. Sensation intact. Reflexes 1/4 symmetric. Toes are downgoing. Cerebellar exam demonstrates no ataxia. Gait not tested. Pertinent Laboratory Data: CT scan of the brain was unremarkable, hemoglobin and electrolytes as not ed. EKG was a sinus rhythm with borderline LVH and a QTc of 411. Troponin negative. Impression: Syncope, etiology unclear. Plan: We will get a brain MRI and an EEG in the morning. Check lipids in the morning as well. Get a plain film of the left shoulder given the shoulder pain proper. If studies are unremarkable, she m ay be able to be safely discharged to home, although again patient should not be driving and may be p rudent to discontinue the mirtazapine since that is the new wrist medication that has been added to h er regimen. Thank you for the consult. We will continue to follow with you. JAKY Voice ID: [id number] Report ID: [id number]
--- NOTE | 2019-11-17 21:04 | RAD REPORT ---
EXAM DESCRIPTION: RAD - Shoulder Left 2 View - 11/17/2019 8:56 pm CLINICAL HISTORY: pain COMPARISON: No comparisons FINDINGS: No acute fracture or dislocation seen. Mild AC joint and glenohumeral joint arthritic fink ges.
--- NOTE | 2019-11-17 21:32 | HP ---
Date of Admission: 11/17/2019 Primary Care Physician: Dr. Ramirez. Chief Complaint: Syncopal episode. Code Status: Full. 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 Patient was sitting in a chair, found to have passed out, was nonresponsive for less sen n a minute. EMS was called. There were no signs or symptoms of seizures. There was no confusion af terwards. Patient did not have a postictal state. There was no tongue biting or eye rolling seen. Patient did not fall. There was no head trauma. She otherwise denies any nausea, vomiting, fever, o r chills. Patient otherwise did not have any other precipitating factors. Patient has had a syncopa l episode in the past, was taken off her Coreg. Currently, she states she is not taking Coreg. She was brought into the ER for further evaluation. Her symptoms are constant, moderate, progressively w orsening. In the ER, her workup revealed a creatinine of 1.32, which is usually normal at baseline. Imaging studies including head CT scan was negative. Patient was then referred for admission. Past Medical History: Hypertension, breast cancer. Surgical History: Bilateral knee replacement, bilateral mastectomy. Allergies: NO KNOWN DRUG ALLERGIES. Medications: List reviewed. Social History: Patient denies any tobacco use, alcohol use, or illicit drug use. Family History: Mother had heart disease. Father had cancer. Review of Systems: Ten-point system reviewed, negative except as per HPI. Physical Examination: Vital Signs: Temperature 97.1, heart rate 87, blood pressure 146/59, respirations 18, O2 96% on room air. General: Awake, alert, and oriented x3 elderly female, in some mild distress. HEENT: Normocephalic, atraumatic. PERRLA. EOMI. Dry mucous membranes. Oropharynx is clear. Poor dentition. Conjunctivae are anicteric. Neck: Supple. No JVD. Trachea midline. CV: S1, S2. Regular rate and rhythm. Peripheral pulses present. Respiratory: Moving air well bilaterally. No wheezing or stridor. No use of accessory muscles. Gastrointestinal: Abdomen is soft, nontender, nondistended. Positive bowel sounds. Extremities: No clubbing, cyanosis. Patient has pedal edema. No calf tenderness. Neuro: Cranial nerves 2 through 12 intact grossly. No focal neurological deficit. Speech is normal . Skin: No rashes. Normal skin turgor. Laboratory Data: INR 0.93. WBC 6.8, H and H 10.3 and 31.5, platelets 239. Sodium 134, potassium 4. 3, chloride 101, CO2 of 27, BUN 25, creatinine 1.32, glucose 109, calcium 9.5. Troponin less than 0. 02. Magnesium 2.1. CT scan of the head shows no acute intracranial findings. Patient does have whi te matter ischemic disease. EKG shows normal sinus rhythm rate of 88. Assessment: An 84-year-old female with, 1.Syncopal episode, likely neurogenic, cardiogenic in nature. Patient will doubt any seizure-type e pisode. Dr. Brandt with Neurology has been consulted. We will check orthostatic vital signs. We javier l place on fall precautions. We will have patient work with PT. Head CT scan is negative. 2.Acute kidney injury, likely due to prerenal azotemia. We will start on IV fluids. 3.Acute dehydration. 4.Essential hypertension, stable. 5.History of breast cancer. Plan: Admit patient to Med-Surg, [facility] as observation. AFSANEH Voice ID: [id number]
[2019-11-18] MEDS: NA CHLORIDE 0.9% 1,000 ML IV SCH (04:12)
[2019-11-18 06:04] LABS: Albumin 2.4 g/dL (3.4-5.0); Bilirubin Total 0.3 mg/dL (0.2-1.0); Potassium 4.3 mmol/L (3.5-5.1); Protein, Total 5.5 g/dL (6.4-8.2)
[2019-11-18 06:33] LABS: Absolute Lymphocytes (CBC) 1.1 K/uL (0.7-4.9); Basophils % 0.8 % (0-1.3); Hematocrit 26.8 % (36.0-45.0); Lymphocytes % 24.4 % (15.3-44.8); MPV 8.1 fL (7.6-11.3); RBC Red Blood Cell Count 3.02 M/uL (3.86-4.86)
--- NOTE | 2019-11-18 08:45 | RAD REPORT ---
EXAM DESCRIPTION: MRI - Brain Wo Cont - 11/17/2019 10:15 pm CLINICAL HISTORY: Stroke Protocol Headache, drowsiness, CVA symptomology COMPARISON: Head Brain Wo Cont dated 11/17/2019; MRA Head Wo Cont dated 11/30/2018; Brain Wo Cont dated 02/19/2018 TECHNIQUE: Multi-sequence, multiplanar MR imaging of the brain was performed without contrast. FINDINGS: No intracranial hemorrhage, hydrocephalus or extra-axial fluid collections.Mild to moderat e generalized brain atrophy is present with mild periventricular and deep white matter chronic microv ascular ischemic changes. No edema or shift of midline structures. No findings to suspect brain mass. DWI is negative for acute CVA. Midline structures are normally formed. Mastoid air cells and paranasal sinuses are clear. IMPRESSION: Negative for acute CVA or other acute intracranial abnormality.
[2019-11-18] MEDS ORDERED: OXcarbazepine 150 MG TAB PO SCH (09:00)
[2019-11-18] MEDS ORDERED: ANASTROZOLE 1 MG TAB PO SCH (09:00)
[2019-11-18 11:43] LABS: Blood Morphology Comment NOT SEEN (NOT SEEN); Platelet Estimate ADEQ
[2019-11-18] MEDS ORDERED: HYDRALAZINE HCL 25 MG TABLET PO SCH (11:44)
[2019-11-18] MEDS ORDERED: LOSARTAN POTASSIUM 50 MG TABLET PO SCH (11:44)
[2019-11-18 11:59] VITALS: O2SAT 94
[2019-11-18 13:56] VITALS: BP 180/70; TEMP 98.8
[2019-11-18] MEDS ORDERED: DONEPEZIL HCL 5 MG TAB PO SCH (21:00)
[2019-11-18] MEDS ORDERED: MIRTAZAPINE 15 MG TAB PO SCH (21:00)
--- NOTE | 2019-11-18 23:53 | DS ---
Date of Discharge: 11/18/2019 News Assistant: Dr. Brandt with Neurology. Discharge Diagnoses: 1.Syncopal episode. 2.Acute kidney injury. 3.Acute dehydration. 4.Essential hypertension. 5.History of breast cancer. 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 No seizure-type activity. Patient was admitted to the hosp ital. She was found to be dehydrated. Creatinine level was elevated at 1.32. She was started on IV fluids. Her kidney function improved. Her blood pressure medications were held as she was complain ing of some lightheadedness. Her orthostatic vital signs were positive, however she was able to work with PT, did not have difficulty ambulating. No further dizziness. She was instructed to keep a cl ose eye on her blood pressure and to hold her medication if systolic blood pressure is less than 120. She was also seen by her neurologist, Dr. Brandt. MRI of the brain was ordered, which did not show any acute cerebrovascular accident. Head CT scan done in the ER was also negative. She does have mi [id number] generalized brain atrophy and chronic white matter microvascular ischemic changes. Kamla ochoa was also complaining of pain in her shoulder. X-ray was done, which was negative. She does have a rthritic changes. The patient was then cleared from Dr. Brandt's standpoint. EEG was unable to be do ne due to no availability of technical support specialist. Dr. Brandt was made aware. He recommended outpatient EEG, was not essential to be done while hospitalized. Patient did not have any further episodes of syncope. No seizure-type activity. She did not have any arrhythmias on telemetry. She was then cleared for discharge. She was then sent home in a stable condition. Activity: As tolerated. No driving or operating heavy machinery. Diet: Heart healthy. Followup: Follow up with primary care physician in 2-3 days. Follow up with Dr. Sutherland cardiologi for Holter monitor placement. Follow up with neurologist, Dr. Brandt in 2 weeks. Return to ER for worsening condition. Medications: As per medication reconciliation list. Physical Examination: General: Awake, alert, and oriented x3, not in any acute distress, elderly female. CV: S1, S2. Regular rate and rhythm. Respiratory: Clear to auscultation bilaterally. No wheezing or stridor. Gastrointestinal: Abdomen is soft, nontender, nondistended. Positive bowel sounds. Extremities: No clubbing, cyanosis, or edema. Neurologic: Nonfocal. SA/MODL Voice ID: [id number] Report ID: [id number]
== END 2019-11-18 13:47 | disposition home or self-care (01) ==
LOC: ER 12:16 → ERHOLD 13:50 → 2ND 15:26
PROVIDERS: ADMIT Family Medicine; ATTEND Family Medicine
DX: R55 Syncope and collapse (principal); N17.9 Acute kidney failure, unspecified; E86.0 Dehydration; I10 Essential (primary) hypertension; Z85.3 Personal history of malignant neoplasm of breast; Z96.653 Presence of artificial knee joint, bilateral
CPT/HCPCS: 36415; 70450; 70551; 80048; 80053; 80061; 81001; 83735; 84484; 85025; 85610; 85730; 87086; 87088; 93005; 94760; 96360; 96361; 97112; 97116; 97161; 99285; G0378; J1650; J7030; J7040

== ENCOUNTER 2019-12-31 14:04 | Inpatient (IN) | payer OTHER ==
[2019-12-31 14:36] LABS: Absolute Lymphocytes (CBC) 1.7 K/uL (0.7-4.9); Basophils % 0.8 % (0-1.3); Hematocrit 30.3 % (36.0-45.0); Lymphocytes % 23.3 % (15.3-44.8); MPV 7.4 fL (7.6-11.3); RBC Red Blood Cell Count 3.51 M/uL (3.86-4.86)
[2019-12-31 14:52] LABS: BUN Blood Urea Nitrogen 47 mg/dL (7-18); Bicarbonate 30 mmol/L (21-32); Glucose Level 114 mg/dL (74-106); Potassium 4.2 mmol/L (3.5-5.1); Sodium Level 137 mmol/L (136-145); Troponin (Emerg Dept Use Only) < 0.02 ng/mL (0.0-0.045)
[2019-12-31 14:53] LABS: Protime INR 0.96
--- NOTE | 2019-12-31 14:58 | RAD REPORT ---
EXAM DESCRIPTION: CT - Head Brain Wo Cont - 12/31/2019 2:38 pm CLINICAL HISTORY: Syncope COMPARISON: October 2019 TECHNIQUE: Computed axial tomography of the head was obtained. IV contrast was not requested. All CT scans are performed using dose optimization technique as appropriate and may include automated exposure control or mA/KV adjustment according to patient size. FINDINGS: An intracranial bleed is not seen . The ventricles are normal in caliber. No extra-axial fluid collection is noted. Fluid within the sinuses/ mastoids is not seen. IMPRESSION: No acute intracranial abnormality is seen. If patient's symptoms persist MRI of the bra in would be recommended.
[2019-12-31] MEDS ORDERED: NA CHLORIDE 0.9% 500 ML ONE (15:35)
--- NOTE | 2019-12-31 15:51 | EDPHYS ---
Physician Documentation [facility] Name: Edie Fields Age: 84 yrs Sex: Female : 1935 Arrival Date: 12/31/2019 Time: 14:04 Bed 26 Private MD: ED Physician Elliot Tyler HPI: 12/30 15:44 This 84 yrs old Female presents to ER via EMS with complaints of syncope vs rn seizure. 15:45 The patient has experienced syncope. Onset: The symptoms/episode began/occurred just rn prior to arrival. Duration: This was a single episode. Associated injury: The patient did not suffer any apparent associated injury. Current symptoms: Currently, the patient is not experiencing any symptoms. The patient has experienced a previous episode. Reports works at [employer], had been standing for several hours, no preceding symptoms, then slumped down in chair, no trauma. Has happened once before, similar situation and story, neg w/u in hospital. Sees Dr. Brandt for neurology. Recently seen by Dr. Sutherland who recommended heart cath after abnormal stress test. Recently had lasix doubled due to peripheral edema this past week. . Historical: - Allergies: 14:58 No Known Allergies; ls4 - Home Meds: 14:58 carvedilol 6.25 mg oral tab 1 tab 2 times per day [Active]; alendronate 70 mg oral tab ls4 once wkly [Active]; donepezil 5 mg oral tab 1 tab once daily [Active]; losartan 50 mg oral tab 1 tab 2 times per day [Active]; anastrozole 1 mg oral tab 1 tab once daily for Hormone Receptor Positive Breast Cancer [Active]; OXYCARBEZINE 300 [Active]; - PMHx: 14:58 Cancer, Breast; Dementia; Hypertension; ls4 - PSHx: 14:58 Mastectomy, Left; Mastectomy, Right; ls4 - Immunization history:: Adult Immunizations up to date, Last tetanus immunization: unknown, Pneumococcal vaccine is up to date, Flu vaccine is up to date. - Social history:: Smoking status: Patient denies any tobacco usage or history of. - Family history:: not pertinent. - Hospitalizations: : No recent hospitalization is reported. ROS: 15:45 Constitutional: Negative for fever, chills, and weight loss, Eyes: Negative for injury, rn pain, redness, and discharge, Neck: Negative for injury, pain, and swelling, Cardiovascular: Negative for chest pain, palpitations, and edema, Respiratory: Negative for shortness of breath, cough, wheezing, and pleuritic chest pain, Abdomen/GI: Negative for abdominal pain, nausea, vomiting, diarrhea, and constipation, MS/Extremity: Negative for injury and deformity, Skin: Negative for injury, rash, and discoloration, Neuro: Negative for headache, numbness, tingling Exam: 15:45 Constitutional: This is a well developed, well nourished patient who is awake, alert, rn and in no acute distress. Head/Face: Normocephalic, atraumatic. ENT: dry MM Cardiovascular: Regular rate and rhythm. No pulse deficits. Respiratory: Lungs have equal breath sounds bilaterally, clear to auscultation .No increased work of breathing, no retractions or nasal flaring. Abdomen/GI: soft, non-tender MS/ Extremity: Pulses equal, no cyanosis. Mild erythema and edema bilateral lower ext, R>L Neuro: Awake and alert, GCS 15, oriented to person, place, time, and situation. Cranial nerves II-XII grossly intact. Motor strength 5/5 in all extremities. Sensory grossly intact. 15:45 ECG was reviewed by the Attending Physician. rn Vital Signs: 14:05 BP 126 / 76; Pulse 72; Resp 14; Temp 97.9(O); Pulse Ox 98% on R/A; Weight 63.96 kg; ls4 Height 4 ft. 11 in. (149.86 cm); Pain 3/10; 14:05 Body Mass Index 28.48 (63.96 kg, 149.86 cm) ls4 [place] Coma Score: 14:05 Eye Response: spontaneous(4). Verbal Response: oriented(5). Motor Response: obeys ls4 commands(6). Total: 15. MDM: 14:04 Patient medically screened. rn 15:49 Differential Diagnosis: cardiac arrhythmia, drug effect, idiopathic syncope, vasovagal rn episode, dehydration, SC. Data reviewed: vital signs, nurses notes, lab test result(s), EKG, radiologic studies, CT scan, and as a result, I will admit patient. Counseling: I had a detailed discussion with the patient and/or guardian regarding: the historical points, exam findings, and any diagnostic results supporting the discharge/admit diagnosis, lab results, radiology results, the need for further work-up and treatment in the hospital. Response to treatment: the patient's symptoms have mildly improved after treatment, and as a result, I will admit patient. Admission orders: after a detailed discussion of the patient's condition and case, the admit orders are written by me. 12/30 14:10 Order name: Basic Metabolic Panel; Complete Time: 15:04 rn 12/30 14:10 Order name: CBC with Diff; Complete Time: 15: rn 12/30 14:10 Order name: Protime (+inr); Complete Time: 15:19 rn 12/30 14:10 Order name: Ptt, Activated; Complete Time: 15:19 rn 12/30 14:10 Order name: Troponin (emerg Dept Use Only); Complete Time: 15: rn 12/30 16:19 Order name: CBC with Automated Diff EDMS 12/30 14:10 Order name: CT Head Brain wo Cont; Complete Time: 15:04 rn 12/30 14:10 Order name: EKG; Complete Time: 14:12 rn 12/30 14:10 Order name: Cardiac monitoring; Complete Time: 15:16 rn 12/30 16:18 Order name: CONS Pharmacy Consult EDMS 12/30 16:19 Order name: Regular EDMS 12/30 16:19 Order name: CBC with Automated Diff EDMS 12/30 16:19 Order name: Basic Metabolic Panel EDMS 12/30 14:10 Order name: EKG - Nurse/Tech; Complete Time: 15:16 rn 12/30 14:10 Order name: IV Saline Lock; Complete Time: 15:16 rn 12/30 14:10 Order name: Labs collected and sent; Complete Time: 15:16 rn 12/30 14:10 Order name: NPO; Complete Time: 15:17 rn 12/30 14:10 Order name: O2 Per Protocol; Complete Time: 15:17 rn 12/30 14:10 Order name: O2 Sat Monitoring; Complete Time: 15:17 rn 12/30 14:10 Order name: Urine Dipstick-Ancillary (obtain specimen); Complete Time: 15:17 rn EC:45 Rate is 66 beats/min. Rhythm is regular. QRS [place] is Normal. MO interval is normal. QRS rn interval is normal. QT interval is normal. No Q waves. T waves are Normal. No ST changes noted. Clinical impression: Normal ECG. Interpreted by me. Reviewed by me. Administered Medications: 15:36 Drug: NS 0.9% 500 ml Route: IV; Rate: bolus; Site: right antecubital; ls4 Disposition: 12/31/19 15:50 Hospitalization ordered by Timo White for Observation. Preliminary diagnosis are Syncope and collapse, Dehydration. - Bed requested for Telemetry/MedSurg (observation). - Status is Observation. eb - Condition is Stable. - Problem is new. - Symptoms have improved. Signatures: Dispatcher [employer] EDMS Elliot Tyler MD MD rn Botello, Elizabeth eb Stewart, Lisa, RN RN ls4 Corrections: (The following items were deleted from the chart) 15:47 15:45 Reports works at [employer], had been standing for several hours, no preceding rn symptoms, then slumped down in chair, no trauma. Has happened once before, similar situation and story, neg w/u in hospital. Sees Dr. Brandt for neurology. Recently seen by Dr. Sutherland who recommended heart cath after abnormal stress test. . rn 17:13 15:50 Hospitalization Ordered by Timo White MD for Observation. Preliminary eb diagnosis is Syncope and collapse; Dehydration. Bed requested for Telemetry/MedSurg (observation). Status is Observation. Condition is Stable. Problem is new. Symptoms have improved. rn 17:54 17:13 12/31/2019 15:50 Hospitalization Ordered by Timo White MD for Observation. eb Preliminary diagnosis is Syncope and collapse; Dehydration. Bed requested for Telemetry/MedSurg (observation). Status is Observation. Condition is Stable. Problem is new. Symptoms have improved. eb
--- NOTE | 2019-12-31 15:51 | ER ---
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 PT WOKE UP ALERT AND ORIENTED X 4. PT DID NOT HIT HEAD. ONLOOKERS STATE SHE WAS SHAKING WHILE SHE WAS PASSED OUT. 14:05 Coronavirus screen: The patient has NOT traveled to a country currently being monitored ls4 by the [facility] within the last 14 days. Proceed with normal triage procedures. Ebola Screen: No symptoms or risks identified at this time. Initial Sepsis Screen: Does the patient meet any 2 criteria? No. Patient's initial sepsis screen is negative. Does the patient have a suspected source of infection? No. Patient's initial sepsis screen is negative. Risk Assessment: Do you want to hurt yourself or someone else? Patient reports no desire to harm self or others. Onset of symptoms was December 31, 2019 at 13:15. Care prior to arrival: None. Care prior to arrival: Glucose check: 130. Activity prior to arrival: loss of consciousness. 14:05 Method Of Arrival: EMS: [facility] ls4 14:05 Acuity: RAYNE 2 ls4 Triage Assessment: 14:05 General: Appears in no apparent distress. Behavior is calm, cooperative. Pain: ls4 Complains of pain in anterior aspect of left shoulder and posterior aspect of left shoulder Pain currently is 3 out of 10 on a pain scale. Neuro: Level of Consciousness is awake, alert, obeys commands, Oriented to person, place, time, situation, [place] are equal bilaterally Moves all extremities. Gait is steady, Speech is normal, Facial symmetry appears normal, Pupils are PERRLA, Intact Reports blurred vision in right eye and left eye a syncopal episode Denies. Cardiovascular: Denies chest pain, Capillary refill < 3 seconds Patient's skin is warm and dry. Rhythm is regular. Respiratory: Airway is patent Respiratory effort is even, unlabored, Respiratory pattern is regular, Breath sounds are clear bilaterally. GI: No deficits noted. No signs and/or symptoms were reported involving the gastrointestinal system. : No deficits noted. No signs and/or symptoms were reported regarding the genitourinary system. Derm: No deficits noted. No signs and/or symptoms reported regarding the dermatologic system. Musculoskeletal: No deficits noted. No signs and/or symptoms reported regarding the musculoskeletal system. Historical: - Allergies: 14:58 No Known Allergies; ls4 - Home Meds: 14:58 carvedilol 6.25 mg oral tab 1 tab 2 times per day [Active]; alendronate 70 mg oral tab ls4 once wkly [Active]; donepezil 5 mg oral tab 1 tab once daily [Active]; losartan 50 mg oral tab 1 tab 2 times per day [Active]; anastrozole 1 mg oral tab 1 tab once daily for Hormone Receptor Positive Breast Cancer [Active]; OXYCARBEZINE 300 [Active]; - PMHx: 14:58 Cancer, Breast; Dementia; Hypertension; ls4 - PSHx: 14:58 Mastectomy, Left; Mastectomy, Right; ls4 - Immunization history:: Adult Immunizations up to date, Last tetanus immunization: unknown, Pneumococcal vaccine is up to date, Flu vaccine is up to date. - Social history:: Smoking status: Patient denies any tobacco usage or history of. - Family history:: not pertinent. - Hospitalizations: : No recent hospitalization is reported. Screenin:08 Abuse screen: Denies threats or abuse. Denies injuries from another. Nutritional ls4 screening: No deficits noted. Tuberculosis screening: No symptoms or risk factors identified. VAN Screening: Arm Drift: Patient shows no arm weakness. Patient is VAN negative. Fall Risk Fall in past 12 months (25 points). No secondary diagnosis (0 pts). IV access (20 points). Ambulatory Aid- None/Bed Rest/Nurse Assist (0 pts). Gait- Normal/Bed Rest/Wheelchair (0 pts) Mental Status- Oriented to own ability (0 pts). Total Macias Fall Scale indicates High Risk Score (45 or more points). Fall prevention measures have been instituted. Side Rails Up X 2 Placed Close to Nursing Station Frequent Obs/Assessments Occuring Family Present and informed to notify staff if the need to leave the bedside As available patient and family educated on Fall Prevention Program and Strategies. Vital Signs: 14:05 BP 126 / 76; Pulse 72; Resp 14; Temp 97.9(O); Pulse Ox 98% on R/A; Weight 63.96 kg; ls4 Height 4 ft. 11 in. (149.86 cm); Pain 3/10; 14:05 Body Mass Index 28.48 (63.96 kg, 149.86 cm) ls4 [place] Coma Score: 14:05 Eye Response: spontaneous(4). Verbal Response: oriented(5). Motor Response: obeys ls4 commands(6). Total: 15. ED Course: 14:04 Patient arrived in ED. aa5 14:04 Elliot Tyler MD is Attending Physician. rn 14:08 Patient has correct armband on for positive identification. Placed in gown. Bed in low ls4 position. Call light in reach. Side rails up X 1. Adult w/ patient. teletypesetter monitor on. Pulse ox on. NIBP on. Warm blanket given. Pillow given. Verbal reassurance given. Diet: Patient is NPO. 14:08 Arm band placed on. ls4 14:08 No provider procedures requiring assistance completed. Initial lab(s) drawn, by mt, ls4 sent to lab. EKG done, by ED staff, reviewed by Elliot Tyler MD. Patient maintains SpO2 saturation greater than 95% on room air. 14:10 Fall risk band placed. Seizure precautions initiated. ls4 14:15 Inserted saline lock: 20 gauge in right antecubital area, using aseptic technique. ls4 14:32 Roxanne Blake, NIC is Primary Nurse. ls4 14:38 CT completed. Patient tolerated procedure well. Patient moved back from CT. mw3 14:38 CT Head Brain wo Cont In Process Unspecified. EDMS 14:51 Triage completed. ls4 15:49 Timo White MD is Hospitalizing Provider. rn 17:32 Patient admitted, IV remains in place. ls4 Administered Medications: 15:36 Drug: NS 0.9% 500 ml Route: IV; Rate: bolus; Site: right antecubital; ls4 Outcome: 15:50 Decision to Hospitalize by Provider. rn 17:31 Admitted to Tele accompanied by tech, room 430, with chart, Report called to JESSE tony RN 17:54 Patient left the ED. eb Signatures: Dispatcher [employer] EDMS Elliot Tyler MD MD rn Calderon, Audri, RN RN aa5 Samantha Calhoun Michelle mw3 Roxanne Blake RN RN ls4 Corrections: (The following items were deleted from the chart) 15:16 14:08 Inserted saline lock: 20 gauge in right antecubital area, using aseptic ls4 technique. ls4
--- NOTE | 2019-12-31 16:24 | P.HP ---
Certification for Inpatient Patient admitted to: Observation With expected LOS: <2 Midnights Patient will require the following post-hospital care: None Practitioner: I am a practitioner with admitting privileges, knowledge of patient current condition, hospital course, and medical plan of care. 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 she has done that before denies any chest pain shortness of breath with chronic lower extremity edema is doing well now denies any weakness of extremities Allergies No Known Allergies Allergy (Verified 07/02/17 14:48) Home Medications: Anastrozole [Arimidex*] 1 tab PO DAILY 07/10/19 Donepezil [Aricept*] 10 mg PO BEDTIME 07/10/19 Hydralazine [Apresoline*] 25 mg PO BID 07/10/19 Losartan Potassium [Cozaar*] 1 tab PO DAILY 07/10/19 OXcarbazepine [Oxcarbazepine] 1 tab PO BID 07/10/19 Meloxicam [Mobic*] 7.5 mg PO DAILY 11/17/19 - Past Medical/Surgical History Diabetic: No -: HTN -: Breast Cancer -: Bilateral knee replacement -: bilateral mastectomy - Family History Mother -: Heart disease, Hypertension Father -: Cancer - Social History Alcohol use: No CD- Drugs: No Caffeine use: Yes Review of Systems 10-point ROS is otherwise unremarkable Physical Examination - Vital Signs Temperature: 97.9 F Blood Pressure: 126/76 Pulse: 72 Respirations: 12 - Physical Exam General: Alert, Oriented x3 Neck: Supple Respiratory: Clear to auscultation bilaterally Cardiovascular: No edema Gastrointestinal: Normal bowel sounds, Soft and benign Musculoskeletal: No clubbing, Swelling (Bilateral edema 3+ of the lower extremities) Integumentary: No rashes, No breakdown Neurological: Normal gait, Normal speech, Normal strength at 5/5 x4 extr - Studies Laboratory Data (last 24 hrs) 12/31/19 14:14: PT 11.4, INR 0.96, APTT 27.9 12/31/19 14:14: WBC 7.4, Hgb 9.9 L, Hct 30.3 L, Plt Count 277 12/31/19 14:14: Sodium 137, Potassium 4.2, BUN 47 H, Creatinine 1.77 H, Glucose 114 H Assessment and Plan - Problems (Diagnosis) (1) Syncope and collapse Current Visit: No Status: Acute Plan: Patient is 84 years of age admitted with syncope 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
[2019-12-31] MEDS ORDERED: D5 0.45 NS 1,000 ML IV SCH (17:00)
[2019-12-31 18:38] VITALS: BMI 28.5
[2019-12-31] MEDS: Ringers Lactate 1,000 ML IV SCH (18:41)
--- NOTE | 2020-01-01 06:28 | EKG ---
Test Date: 2019-12-31 Test Time: 14:20:05 Pacs Specialist: FRANCINE MEASUREMENT RESULTS: Intervals: Rate: 66 VA: 174 QRSD: 100 QT: 430 QTc: 450 [place]: P: 32 VA: 174 QRS: 20 T: 51 INTERPRETIVE STATEMENTS: Normal sinus rhythm Normal ECG Compared to ECG 11/17/2019 12:20:08 Left ventricular hypertrophy no longer present Electronically Signed On 01-01-20 06:28:15 CDT by Jeff Russell
[2020-01-01 06:33] LABS: Potassium 3.9 mmol/L (3.5-5.1)
[2020-01-01 06:35] LABS: Absolute Lymphocytes (CBC) 1.7 K/uL (0.7-4.9); Basophils % 0.8 % (0-1.3); Hematocrit 27.4 % (36.0-45.0); Lymphocytes % 35.7 % (15.3-44.8); MPV 7.7 fL (7.6-11.3); RBC Red Blood Cell Count 3.21 M/uL (3.86-4.86)
--- NOTE | 2020-01-01 09:55 | P.PN ---
Subjective Date of Service: 01/01/20 (Hospitalist) Chief Complaint: Syncope Subjective: Improving (Patient is doing well denies any symptoms no neurological symptoms) Review of Systems Unremarkable Physical Examination - Vital Signs Temperature: 97.6 F Blood Pressure: 152/66 Pulse: 65 Respirations: 16 Pulse Ox (%): 97 - Physical Exam General: Alert, Oriented x3 Respiratory: Clear to auscultation bilaterally Cardiovascular: No edema, Normal pulses Musculoskeletal: No clubbing, No swelling Integumentary: No rashes, No breakdown Neurological: Normal gait, Normal speech, Normal strength at 5/5 x4 extr, Sensation intact, Cranial nerves 3-12 intact - Studies Laboratory Data (last 24 hrs) 12/31/19 14:14: PT 11.4, INR 0.96, APTT 27.9 12/31/19 14:14: WBC 7.4, Hgb 9.9 L, Hct 30.3 L, Plt Count 277 12/31/19 14:14: Sodium 137, Potassium 4.2, BUN 47 H, Creatinine 1.77 H, Glucose 114 H Assessment & Plan - Problems (Diagnosis) (1) Syncope and collapse Current Visit: No Status: Acute Plan: Patient admitted with a syncopal spell no neurological deficit previous workup in October of 1999 was negative ordered ultrasound of the carotids were blood pressure pills this is patient's 2nd admission evaluate orthostatics ambulate patient is on hydralazine and losartan hold hydralazine resume losartan Discharge Plan: Home Plan to discharge in: 24 Hours
[2020-01-01] MEDS: Ringers Lactate 1,000 ML IV SCH (11:38)
[2020-01-01] MEDS: LOSARTAN POTASSIUM 50 MG TABLET PO SCH (11:38)
--- NOTE | 2020-01-01 20:39 | RAD REPORT ---
EXAM DESCRIPTION: - CP - 01/01/2020 8:30 pm CLINICAL HISTORY: syncope COMPARISON: Head C Spine Mpr Wo Con dated 07/10/2019 TECHNIQUE: Real-time sonographic evaluation of both carotid systems was performed. Doppler interroga tion was performed with waveform tracing bilaterally. FINDINGS: Normal high resistance waveforms are noted in both external carotid arteries. The common c arotid arteries and internal carotid arteries show normal low resistance waveforms. Mild hard plaque is seen in both carotid bulbs. Peak systolic and end diastolic velocity values and t he ICA/CCA ratios are in the non-hemodynamically significant range. Antegrade flow seen in both vertebral arteries. IMPRESSION: Mild hard plaque is seen in both carotid bulbs. No evidence of a hemodynamically significant stenosis.
--- NOTE | 2020-01-01 20:41 | RAD REPORT ---
EXAM DESCRIPTION: US - Renal Ultrasound-Complete - 01/01/2020 8:30 pm CLINICAL HISTORY: Renal failure Flank pain COMPARISON: No comparisons FINDINGS: Both kidneys are normal in size, shape and echotexture. The right kidney measures 8.9 x 3.9 x 3.4 cm. No hydronephrosis, focal mass or perinephric fluid. Cristian ign appearing 26 x 21 mm parapelvic cyst. The left kidney measures 8.5 x 4.3 x 3.6 cm. No hydronephrosis, focal mass or perinephric fluid. Mild ly complex 16 mm cyst is present with small septations. Additionally 24 x 10 mm slightly oblong shape d cyst is present. The urinary bladder is incompletely distended without gross abnormality seen. IMPRESSION: Bilateral renal cysts are present, slightly complex on the left as detailed. Otherwise, unremarkable study.
[2020-01-02] MEDS: Ringers Lactate 1,000 ML IV SCH ×4 (01:29→22:20)
[2020-01-02 04:40] LABS: Potassium 4.4 mmol/L (3.5-5.1)
[2020-01-02] MEDS: LOSARTAN POTASSIUM 50 MG TABLET PO SCH (08:44)
[2020-01-02] MEDS: ANASTROZOLE 1 MG TAB PO SCH (10:06)
--- NOTE | 2020-01-02 13:28 | CON ---
Identification: 84-year-old woman. History Of Present Illness: Mrs. Fields came to the hospital because of syncope. It is at least her third episode of syncope requiring hospitalization. She was standing, fell, awoke quickly. No b ladder or bowel incontinence. The patient has a very poor memory for events. No other spells occurr ed while she was sitting or lying. She does not drink very much water. Her dementia is quite advanc ed. She lives with other family members who keep an eye on her, encourage her to try and drink, but she basically has to be encouraged to drink even 3 glasses of fluids a day three 8-ounce glasses. Th e patient has had 3 episodes of syncope. She has had carotid Dopplers, event monitors, EKGs, probabl y 72 hours or more in the hospital on monitoring that has not showed any cause for her syncope. Her echocardiogram does not show anything bad. She has hypertension and has had several reductions in he r blood pressure medicines recently. She has a history of breast cancer. She is on anastrozole, oxc arbazepine, Aricept, losartan, alendronate, calcium carbonate, cholecalciferol, and doxycycline. Physical Examination: General: She is 4 feet 11 inches, 141 pounds. She is alert but disoriented, confused. Most of the history comes from the patient's family who was with her. Lungs: Clear. Neck: There is no carotid bruit. Heart: Does not reveal anything unusual. Extremities: Reveal 2+ to 3+ pitting edema. There are changes of venous stasis present. The patient gets a lot of chest pain including left elbow pain, so I would recommend that we do a car diac cath tomorrow, possible stent. Hopefully, we will just rule out that coronary heart disease is a factor here, and the patient may need to start using a walker or a cane or be encouraged to drink more fluids if we do not really find a cause for syncope. SH/MODL Voice ID: [id number] Report ID: [id number]
[2020-01-02] MEDS ORDERED: DONEPEZIL HCL 5 MG TAB PO SCH (21:00)
--- NOTE | 2020-01-03 02:33 | PN ---
Patient had no further spells of syncope. Cardiology consultation has been done. Patient is sched ed for cardiac cath in a.m. CHRIS/SHAUN Voice ID: [id number] Report ID: [id number]
[2020-01-03] MEDS: LOSARTAN POTASSIUM 50 MG TABLET PO SCH (05:18)
[2020-01-03] MEDS ORDERED: LIDOCAINE 1% 20 ML MDV ONE (06:37)
[2020-01-03] MEDS ORDERED: HEPA 1000U/500MLS 1,000 UNIT/500 ML BAG IV ONE (06:37)
[2020-01-03] MEDS ORDERED: ATROPINE SULF 1 MG/10 ML SYR IV ONE (07:26)
[2020-01-03] MEDS ORDERED: NA CHLORIDE 0.9% 0 ML ONE (07:26)
[2020-01-03] MEDS ORDERED: MIDAZOLAM HCL 2 MG/2 ML INJ ONE (07:26)
[2020-01-03] MEDS ORDERED: FENTANYL CITR 100 MCG/2 ML ONE (07:26)
--- NOTE | 2020-01-03 08:19 | OP ---
Surgeon: Aj Sutherland MD Barber Shop Manager: Adal Benites. The patient admitted to Dr. Lara on 12/31/2019 for recurrent syncope and chest pain. She was fernanda t to the label remover today on 01/03/2020 for left heart catheterization, selective coronary artery angio gram, and left ventriculogram. Patient was prepped and draped in the routine sterile fashion, given Versed for sedation. A 6-Chadian sheath introduced in the right common femoral artery. Angiography t here was normal. Angio-Seal was used to close the case. 6-Chadian catheters, Catarino were used to do the left main and right main injection respectively. She was found to have mild LAD disease about 20% in the mid LAD. The diagonal has 30 to 40% stenosis. She had normal circumflex, normal RCA. She was left dominant. A pigtail catheter 6-Chadian was intro duced into the left ventricle. LV-gram was done. There was evidence of aortic sclerosis, but normal left ventricular size and function. There were no gradient across the aortic valve. The left ventr icular end-diastolic pressure was 10 mmHg. Ejection fraction was estimated at 70%. There were no co mplications. Blood Loss: 5 mL. Postoperative Diagnoses: Minimal coronary artery disease. Plan: Plan is for medical therapy. Anesthesia: Total conscious sedation was 30 minutes. CORWIN/SHAUN Voice ID: [id number] Report ID: [id number]
[2020-01-03 09:07] VITALS: O2SAT 95
[2020-01-03] MEDS: ANASTROZOLE 1 MG TAB PO SCH (09:33)
[2020-01-03] MEDS: Ringers Lactate 1,000 ML IV SCH (09:33)
[2020-01-03 13:10] VITALS: BP 153/66; TEMP 98.2
== END 2020-01-03 12:04 | disposition home or self-care (01) | DRG 287 ==
LOC: ER 14:04 → SUPCPDRO 14:04 → 4TH 17:40 → OBSVTOIN 01-03 09:37
PROVIDERS: ADMIT Internal Medicine Sleep Medicine; ATTEND Internal Medicine Sleep Medicine
PROC: 4A023N7 Measurement of Cardiac Sampling and Pressure, Left Heart, Percutaneous Approach (ICD-10-PCS; principal; 2020-01-03)
PROC: B205YZZ Plain Radiography of Left Heart using Other Contrast (ICD-10-PCS; 2020-01-03)
PROC: B201YZZ Plain Radiography of Multiple Coronary Arteries using Other Contrast (ICD-10-PCS; 2020-01-03)
DX: R55 Syncope and collapse (principal); R07.9 Chest pain, unspecified; I10 Essential (primary) hypertension; Z96.653 Presence of artificial knee joint, bilateral; I25.10 Atherosclerotic heart disease of native coronary artery without angina pectoris; Z85.3 Personal history of malignant neoplasm of breast
CPT/HCPCS: 36415; 70450; 76770; 80048; 84484; 85025; 85610; 85730; 93005; 93458; 93880; 99285; C1760; C1893; G0378; J0583; J2250; J3010; J7040; J7120

== ENCOUNTER 2020-08-11 20:18 | Observation (INO) | payer OTHER ==
--- OUTSIDE RECORDS SUMMARY | 2020-08-11 20:21 | XMS REPORT | Continuity of Care Document ---
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 Neuro (disorder) Memory Active Problem 06/10/2020 [facility] impairment Neuro (finding) Dementia Active Problem 06/10/2020 [facility] (disorder) Neuro Syncope Active Problem 06/10/2020 [facility]ischer (disorder) Neuro Medications Medication Details Route Status Patient Ordering Order Source Instructions Provider Date donepezil 10 mg = 1 tab, Active Mischer oral tablet PO, Daily, 020 Neuro # 90 tab, 1 Refill(s), Pharmacy: [facility], 147.32, cm, 12/06/19 10:44:00 RELIGION DEPARTMENT CHAIR, Height, 64.545, kg, 12/06/19 10:44:00 RELIGION DEPARTMENT CHAIR, Weight OXcarbazepine = 1 tab, Active Mischer 300 mg oral PO, BID, # 020 Neuro tablet 180 tab, 2 Refill(s), LALI, Pharmacy: [facility], 147.32, cm, 12/06/19 10:44:00 RELIGION DEPARTMENT CHAIR, Height, 64.545, kg, 12/06/19 10:44:00 RELIGION DEPARTMENT CHAIR, Weight 24 HR Divalproex See Active [facility]ischer Sodium 250 MG Instruction 020 Neuro Extended Release s, TAKE 2 Tablet TABLETS BY MOUTH AT BEDTIME, # 60 tab, 2 Refill(s), Pharmacy: [facility], 147.32, cm, 12/06/19 10:44:00 RELIGION DEPARTMENT CHAIR, Height, 64.545, kg, 12/06/19 10:44:00 RELIGION DEPARTMENT CHAIR, Weight 24 HR Divalproex 500 mg = 2 Active Misc her Sodium 250 MG tab, PO, 020 Neuro Extended Release Bedtime, # Tablet 60 tab, 2 [Depakote] Refill(s), Pharmacy: [facility] Mirtazapine 15 15 mg = 1 No Longer Misch er MG Oral Tablet tab, PO, Active 020 Neuro [Remeron] Bedtime, # 30 tab, 1 Refill(s), Pharmacy: [facility] OXcarbazepine = 1 tab, Active Mischer 300 mg oral PO, BID, # 019 Neuro tablet 180 tab, 2 Refill(s), LALI, Pharmacy: [facility] donepezil 10 mg 10 mg = 1 Active Mische r oral tablet tab, PO, 019 Neuro Daily, # 90 tab, 1 Refill(s), Pharmacy: [facility] Donepezil 5 mg = 1 Active Mischer hydrochloride 5 tab, PO, 019 Neuro MG Oral Tablet Bedtime, # [Aricept] 30 tab, 3 Refill(s), Pharmacy: [facility] OXcarbazepine 300 mg = 1 Active Mischer 300 mg oral tab, PO, 019 Neuro tablet BID, # 60 tab, 3 Refill(s), Pharmacy: [facility] carBAMazepine 200 mg = 1 No Longer Misch er 200 mg oral tab, PO, Active 019 Neuro tablet BID, # 60 tab, 3 Refill(s), Pharmacy: [facility] Allergies, Adverse Reactions, Alerts Substance Category Reaction Severity Reaction Status Date Comments S ource type Reported No Known Assertion Drug Misch er Medication allergy Neuro Allergies Immunizations No Data Provided for This Section Results Order Name Results Value Reference Date Interpretation Comments Елена rce Range ELECTROLYTES Potassium Lvl 4.1 3.5 - 5.3 08/24/ Mis jay 2018 Neuro ELECTROLYTES Sodium Lvl 140 135 - 146 08/24/ Result Mische r 2018 Comment: Neuro
Lab test performed by:
[facility]
[address] [facility] [address] [facility]
[place] [address]
Kaylene Sterling ELECTROLYTES Chloride Lvl 105 98 - 110 08/24/ Misch er 2018 Neuro ELECTROLYTES CO2 28 20 - 32 Mischer 2017 Neuro HEMATOLOGY Basophils 0.6 Mischer 2017 Neuro HEMATOLOGY RBC X 10x6 3.73 3.80 - 5.10 08/24/ Mische r 2018 Neuro HEMATOLOGY Hgb 11.3 11.7 - 15.5 Mischer 2017 Neuro HEMATOLOGY Hct 33.5 35.0 - 45.0 Mischer 2017 Neuro HEMATOLOGY WBC X 10x3 4.8 3.8 - 10.8 Result Mischer 2018 Comment: Neuro
Lab test performed by:
[facility]
[address] [facility]
[place] [address]
Kaylene Sterling HEMATOLOGY Monocytes # 605 200 - 950 Mischer 2017 Neuro HEMATOLOGY Eosinophils # 139 15 - 500 Mische r 2018 Neuro HEMATOLOGY Neutrophils # 2237 1500 - 7800 Mis jay 2018 Neuro HEMATOLOGY Lymphocytes # 1790 850 - 3900 08/24/ Misc her 2018 Neuro HEMATOLOGY MPV 9.7 7.5 - 12.5 Mischer 2017 Neuro HEMATOLOGY RDW 13.5 11.0 - 15.0 Mischer 2017 Neuro HEMATOLOGY Basophils # 29 0 - 200 Mischer 2017 Neuro HEMATOLOGY Eosinophils 2.9 M[facility] 2017 Neuro HEMATOLOGY Monocytes 12.6 Mischer 2017 Neuro HEMATOLOGY Segs 46.6 Mischer 2017 Neuro HEMATOLOGY Lymphocytes 37.3 Mischer 2017 Neuro HEMATOLOGY MCV 89.8 80.0 - Mischer 100.0 2017 Neuro HEMATOLOGY MCH 30.3 27.0 - 33.0 Mischer 2017 Neuro HEMATOLOGY MCHC 33.7 32.0 - 36.0 M[facility] 2017 Neuro HEMATOLOGY Platelet 207 140 - 400 Mischer 2018 Neuro TOXICOLOGY Carbamaz Lvl 5.2 4.0 - 12.0 Result Misch er 2018 Comment: Neuro FASTING:NO

FASTING: NO

Lab test performed by:
[facility]
[address] [facility]
[place] [address]
Kaylene Sterling Pathology Reports No Data Provided for This Section Diagnostic Reports No Data Provided for This Section Consultation Notes No Data Provided for This Section Discharge Summaries No Data Provided for This Section History and Physicals No Data Provided for This Section Vital Signs Vital Sign Value Date Comments Source Systolic (mm Hg) 150 12/06/2019 [facility] Karen ro Diastolic (mm Hg) 62 12/06/2019 [facility] Ne uro Heart Rate 56 12/06/2019 [facility] Neuro Respitory Rate 16 12/06/2019 [facility] Neuro Height 147.32 cm 12/06/2019 [facility] Neuro Weight 64.545 12/06/2019 [facility] Neuro BMI Calculated 29.74 12/06/2019 [facility] Neuro Systolic (mm Hg) 159 09/13/2019 [facility] Karen ro Diastolic (mm Hg) 75 09/13/2019 [facility] Ne uro Heart Rate 66 09/13/2019 [facility] Respitory Rate 16 09/13/2019 [facility] Neuro Height 147.32 cm 09/13/2019 [facility] Neuro Weight 63.636 09/13/2019 [facility] Neuro BMI Calculated 29.32 09/13/2019 [facility] Neuro Systolic (mm Hg) 136 07/12/2019 [facility] Karen ro Diastolic (mm Hg) 67 07/12/2019 [facility] Ne uro Heart Rate 61 07/12/2019 [facility] Neuro Respitory Rate 16 07/12/2019 [facility] Neuro Height 147.32 cm 07/12/2019 [facility] Neuro Weight 63.636 07/12/2019 [facility] Neuro BMI Calculated 29.32 07/12/2019 [facility] Neuro Weight 67.273 05/10/2019 [facility] Neuro Height 149.86 cm 05/10/2019 [facility] Neuro BMI Calculated 29.96 05/10/2019 [facility] Neuro Heart Rate 53 05/10/2019 [facility] Neuro Respitory Rate 16 05/10/2019 [facility] Neuro Systolic (mm Hg) 145 05/10/2019 [facility] Karen ro Diastolic (mm Hg) 63 05/10/2019 [facility] Ne uro Weight 68.182 03/01/2019 [facility] Neuro BMI Calculated 32.53 03/01/2019 [facility] Neuro Height 144.78 cm 03/01/2019 [facility] Neuro Heart Rate 72 03/01/2019 [facility] Neuro Respitory Rate 16 03/01/2019 [facility] Neuro Systolic (mm Hg) 172 03/01/2019 [facility] Karen ro Diastolic (mm Hg) 74 03/01/2019 [facility] Ne uro Weight 69.091 11/16/2018 [facility] Neuro BMI Calculated 31.83 11/16/2018 [facility] Neuro Height 147.32 cm 11/16/2018 [facility] Neuro Respitory Rate 16 11/16/2018 [facility] Neuro Heart Rate 74 11/16/2018 [facility] Neuro Systolic (mm Hg) 126 11/16/2018 [facility] Karen ro Diastolic (mm Hg) 85 11/16/2018 [facility] Ne uro BMI Calculated 31.62 08/17/2018 [facility] Weight 68.636 08/17/2018 [facility] Height 147.32 cm 08/17/2018 [facility] Neuro Systolic (mm Hg) 167 08/17/2018 [facility] Karen ro Diastolic (mm Hg) 80 08/17/2018 [facility]ro Respitory Rate 16 08/17/2018 [facility] [place] Rate 67 08/17/2018 [facility] [place] Location Location Encounter Encounter Reason Attending ADM NH Stat us Source Details Type Number For Provider Date Date Visit Outpatient [id number] LIZBET 06/17 Active [facility] [place] Outpatient [id number] LIZBET 07/20 [facility] [place] Outpatient [id number] LIZBET 08/17 Active [facility] [place] [facility] Outpatient [id number] Lizbet 08/17 08/18 [facility] [facility] [place]2017 [facility] [place] M[facility] Outside [id number] 11/02 11/04 [facility] /2018 Neuro [place] Records Outpatient [id number] LIZBET 11/16 Active [facility] [place] Outpatient [id number] LIZBET 11/16 Active [facility] [place] [facility] Ambulatory [id number] Lizbet 11/16 11/16 [facility] [facility] [place]2018 [facility] [place] [facility] Outpatient [id number] Lizbet 11/16 11/17 [facility] [place]2018 [facility] [place] Outpatient [id number] LIZBET 12/14 Active [facility] [place] Outpatient [id number] LIZBET 12/14 Active [facility] [place] Outpatient [id number] LIZBET 01/11 [facility] [place] [facility] [id number] LIZBET 01/11 [facility] [place] [facility] [id number] LIZBET 02/01 [facility] [place] Out[facility] [id number] LIZBET 02/15 [facility] [place] [facility] Ambulatory [id number] Lizbet 02/15 02/15 [facility] [place] Outpatient [id number] Lizbet 03/01 [facility] [place] [facility] [id number] Lizbet 03/01 03/02 [facility] [place] Outpatient [id number] Lizbet 05/10 [facility] [place] [facility] [id number] Lizbet 05/10 05/11 [facility] [place] Outpatient [id number] Lizbet 07/12 [facility] [place] [facility] [id number] Lizbet 07/12 07/13 [facility] [place] Outpatient [id number] Lizbet 09/13 [facility] [place] [facility] Out[facility] [id number] Lizbet 09/13 09/14 [facility] [place] Outpatient [id number] Lizbet 12/06 [facility] [place] [facility] Outpatient [id number] Lizbet 12/06 12/07 [facility] [place] Outpatient [id number] Lizbet 01/09 [facility] [place] [facility] Outpatient [id number] Lizbet 01/09 01/10 [facility] /2019 [facility] [place] Outpatient [id number] Lizbet 01/16 [facility] [place] [facility] Ambulatory [id number] Lizbet 01/16 01/16 [facility] /2019 [facility] [place] Outpatient [id number] Lizbet 01/24 [facility] [place] [facility] Outpatient [id number] Lizbet 01/24 01/25 [facility] /2019 [facility] [place] Outpatient [id number] Lizbet 02/14 [facility]2020 [place] [facility] Outpatient [id number] Lizbet 02/14 02/15 [facility] /2019 [facility] [place] Outpatient [id number] Lizbet 03/07 [facility]2020 [place] [facility] Outpatient [id number] Lizbet 03/07 03/08 [facility] [place] Outpatient [id number] Lizbet 06/07 [facility]2020 [place] Out[facility] [id number] Lizbet 06/07 [facility]2019 [place] [facility] Outpatient [id number] Lizbet 06/07 06/08 [facility] [place] [facility]NA Ambulatory [id number] Lizbet 06/07 06/07 [facility] Pre[facility] [place] Outpatient [id number] Lizbet 08/24 [facility] /2019 [place] Outpatient [id number] Lizbet 09/12 Active [facility] /2019 [place] Procedures Procedure Code Date Perfomer Comments Source [place]astectomy [id number] [facility] Assessment and Plan No Data Provided for This Section Plan of Care No Data Provided for This Section Social History Social History Date Source Social History TypeResponse 12/06/2019 [facility] Ne[facility] o Employment/School Other: Has Will and POA.1 Smoking Status Never smoker; Exposure to Tobacco Smoke None; Cigarette Smoking Last 365 Days No; Reg Smoking Cessation Counseling No entered on: 03/07/20 1No driving Family History No Data Provided for This Section Advance Directives No Data Provided for This Section Functional Status No Data Provided for This Section
[2020-08-11 20:47] LABS: Absolute Lymphocytes (CBC) 1.2 K/uL (0.7-4.9); Basophils % 0.9 % (0-1.3); Hematocrit 32.8 % (36.0-45.0); Lymphocytes % 24.9 % (15.3-44.8); MPV 7.7 fL (7.6-11.3); RBC Red Blood Cell Count 3.51 M/uL (3.86-4.86)
[2020-08-11 20:51] LABS: Protime INR 0.91
[2020-08-11 21:09] LABS: Albumin 2.8 g/dL (3.4-5.0); Bilirubin Direct 0.1 mg/dL (0-0.2); Bilirubin Total 0.3 mg/dL (0.2-1.0); Magnesium 2.2 mg/dL (1.8-2.4); Potassium 4.3 mmol/L (3.5-5.1); Protein, Total 6.6 g/dL (6.4-8.2); Troponin (Emerg Dept Use Only) 0.02 ng/mL (0.0-0.045)
[2020-08-11 21:57] LABS: CKMB Creatine Kinase MB 3.6 ng/mL (0.3-3.6)
[2020-08-11] MEDS ORDERED: NA CHLORIDE 0.9% 1,000 ML ONE (22:09)
--- NOTE | 2020-08-11 22:26 | ER ---
Nurse's Notes [facility] Name: Edie Fields Age: 84 yrs Sex: Female : 1935 Arrival Date: 08/11/2020 Time: 20:22 Bed 6 Private MD: Radha Ramirez Diagnosis: Fall due to bumping against object;Dementia in other diseases classified elsewhere;Rhabdomyolysis;Weakness;Unspecified kidney failure-chronic Presentation: 08/11 20:26 Chief complaint: EMS states: family found the patient on the floor, sleeping at 10am rv today. patient refused to come to the hospital. 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 patient has Dementia and is a poor historian. Coronavirus screen: At this time, unable to obtain information related to travel outside the [place] Ebola Screen: No symptoms or risks identified at this time. Initial Sepsis Screen: Does the patient meet any 2 criteria? No. Patient's initial sepsis screen is negative. Does the patient have a suspected source of infection? No. Patient's initial sepsis screen is negative. Risk Assessment: Do you want to hurt yourself or someone else? Patient reports no desire to harm self or others. Onset of symptoms was August 11, 2020 at 19:30. 20:26 Method Of Arrival: EMS: [facility] rv 20:26 Acuity: RAYNE 3 rv Triage Assessment: 20:29 General: Appears comfortable, Behavior is calm, cooperative. Pain: Complains of pain in rv neck. EENT: No signs and/or symptoms were reported regarding the EENT system. Neuro: Level of Consciousness is awake, obeys commands, Oriented to person. Cardiovascular: Patient's skin is warm and dry. Rhythm is sinus bradycardia. Respiratory: Airway is patent Respiratory effort is even, unlabored, Breath sounds are clear bilaterally. Derm: Skin is intact. Historical: - Allergies: 20:29 No Known Allergies; rv - PMHx: 20:29 Cancer, Breast; Dementia; Hypertension; rv - PSHx: 20:29 Unable to obtain; rv - Immunization history:: Adult Immunizations unknown. - Social history:: Smoking status: unknown. Screenin:30 Abuse screen: Denies threats or abuse. Denies injuries from another. Nutritional rv screening: No deficits noted. Tuberculosis screening: No symptoms or risk factors identified. Fall Risk None identified. Assessment: 22:03 Reassessment: TALKED TO THE FAMILY ON THE PHONE. PATIENT HAD HISTORY OF PASSING OUT. rv NOTICED THAT THE DEMENTIA HAS BEEN WORSENING FOR THE PAST FEW DAYS. PATIENT HAS LOST SOME WEIGHT AND GETTING WEAKER. ALSO COMPLAINING OF JERKING AND SHAKING. DR MANUEL IS THE NEUROLOGIST OF THE PATIENT. 22:57 Reassessment: NIECE'S NUMBER: [phone]. rv Vital Signs: 20:26 BP 108 / 44; Pulse 58; Resp 16; Temp 98.1; Pulse Ox 98% ; Weight 54.43 kg; rv 22:02 BP 105 / 51; Pulse 60; Resp 13; Pulse Ox 98% on R/A; rv 23:00 BP 110 / 56; Pulse 61; Resp 16; Pulse Ox 98% on R/A; rv 08/12 00:00 BP 106 / 55; Pulse 56; Resp 15; Pulse Ox 98% on R/A; rv 01:00 BP 108 / 66; Pulse 60; Resp 15; Pulse Ox 98% ; rv 02:00 BP 106 / 61; Pulse 56; Resp 15; Temp 98; Pulse Ox 98% on R/A; rv ED Course: 08/11 20:22 Patient arrived in ED. lp1 20:26 Brian Damon MD is Attending Physician. thomas 20:26 Kristian Jean Baptiste, NIC is Primary Nurse. rv 20:28 Triage completed. rv 20:29 Arm band placed on right wrist. Patient placed in the treatment room, on a stretcher, rv Patient notified of wait time. EKG completed in triage. Results shown to MD. 20:30 Patient has correct armband on for positive identification. Bed in low position. Call rv light in reach. Side rails up X2. public health director on. Pulse ox on. NIBP on. 20:30 Initial lab(s) drawn, by me, sent to lab. Inserted saline lock: 20 gauge in left rv antecubital area, using aseptic technique. Blood collected. 20:46 Radha Ramirez MD is Private Physician. sg 21:06 XRAY Chest (1 view) In Process Unspecified. EDMS 21:35 CT Head C Spine In Process Unspecified. EDMS 22:14 Pelvis XRAY In Process Unspecified. EDMS 22:14 Femur Right XRAY In Process Unspecified. EDMS 22:14 Tib Fib Right XRAY In Process Unspecified. EDMS 22:23 Homar Tyler MD is Hospitalizing Provider. [facility] 22:27 Hospitalizing Provider role handed off by Homar Tyler MD mg2 22:27 Timo White MD is Hospitalizing Provider. mg2 08/12 01:47 No provider procedures requiring assistance completed. IV is patent, with fluids rv infusing freely, Patient admitted, IV remains in place. Administered Medications: 08/11 22:01 Drug: NS 0.9% 1000 ml Route: IV; Rate: 1 bolus; Site: right antecubital; rv 08/12 01:57 Follow up: IV Status: Completed infusion; IV Intake: 1000ml rv Point of Care Testing: Blood Glucose: 08/11 20:29 Blood Glucose: 116 mg/dL; rv Ranges: Intake: 08/12 01:57 IV: 1000ml; Total: 1000ml. rv Outcome: 08/11 22:26 Decision to Hospitalize by Provider. [facility] 08/12 01:47 Admitted to Med/surg accompanied by tech, via stretcher, room 202, Other SBAR, EKG rv Condition: good Instructed on the need for admit. 01:57 Patient left the ED. rv Signatures: Dispatcher [employer] EDMS Jose Clayton, RN Brian Hirsch MD MD cha Pena, Laura, RN RN lp1 Jorge Payton, NIC RN mg2 Kristian Jean Baptiste RN RN rv
--- NOTE | 2020-08-11 22:27 | EDPHYS ---
Physician Documentation [facility] Name: Edie Fields Age: 84 yrs Sex: Female : 1935 Arrival Date: 08/11/2020 Time: 20:22 Bed 6 Private MD: Radha Ramirez ED Physician Brian Damon HPI: 08/11 21:31 This 84 yrs old Female presents to ER via EMS with complaints of Neck Pain, thomas <24hrs Old. 21:46 This 84 yrs old Female presents to ER via EMS with complaints of Neck Pain, thomas <24hrs Old. 21:46 This 84 yrs old Female presents to ER via EMS with complaints of Neck Pain, thomas <24hrs Old, fall and on floorfor 12 h. 21:31 The patient or guardian complains of decreased range of motion, pain. thomas 21:46 The symptoms are located. thomas Historical: - Allergies: 20:29 No Known Allergies; rv - PMHx: 20:29 Cancer, Breast; Dementia; Hypertension; rv - PSHx: 20:29 Unable to obtain; rv - Immunization history:: Adult Immunizations unknown. - Social history:: Smoking status: unknown. ROS: 21:47 Constitutional: Negative for fever, chills, and weight loss, Eyes: Negative for injury, thomas pain, redness, and discharge, ENT: Negative for injury, pain, and discharge, Cardiovascular: Negative for chest pain, palpitations, and edema, Respiratory: Negative for shortness of breath, cough, wheezing, and pleuritic chest pain, Abdomen/GI: Negative for abdominal pain, nausea, vomiting, diarrhea, and constipation, Back: Negative for injury and pain, : Negative for injury, bleeding, discharge, and swelling, Skin: Negative for injury, rash, and discoloration, Psych: Negative for depression, anxiety, suicide ideation, homicidal ideation, and hallucinations, Allergy/Immunology: Negative for hives, rash, and allergies, Endocrine: Negative for neck swelling, polydipsia, polyuria, polyphagia, and marked weight changes, Hematologic/Lymphatic: Negative for swollen nodes, abnormal bleeding, and unusual bruising. 21:47 MS/extremity: Positive for decreased range of motion, pain, tenderness, of the right leg. Exam: 21:47 Constitutional: This is a well developed, well nourished patient who is awake, alert, thomas and in no acute distress. Head/Face: Normocephalic, atraumatic. Eyes: Pupils equal round and reactive to light, extra-ocular motions intact. Lids and lashes normal. Conjunctiva and sclera are non-icteric and not injected. Cornea within normal limits. Periorbital areas with no swelling, redness, or edema. ENT: Nares patent. No nasal discharge, no septal abnormalities noted. Tympanic membranes are normal and external auditory canals are clear. Oropharynx with no redness, swelling, or masses, exudates, or evidence of obstruction, uvula midline. Mucous membranes moist. Chest/axilla: Normal chest wall appearance and motion. Nontender with no deformity. No lesions are appreciated. Cardiovascular: Regular rate and rhythm with a normal S1 and S2. No gallops, murmurs, or rubs. Normal PMI, no JVD. No pulse deficits. Respiratory: Lungs have equal breath sounds bilaterally, clear to auscultation and percussion. No rales, rhonchi or wheezes noted. No increased work of breathing, no retractions or nasal flaring. Abdomen/GI: Soft, non-tender, with normal bowel sounds. No distension or tympany. No guarding or rebound. No evidence of tenderness throughout. Back: No spinal tenderness. No costovertebral tenderness. Full range of motion. Female : Normal external genitalia. Skin: Warm, dry with normal turgor. Normal color with no rashes, no lesions, and no evidence of cellulitis. MS/ Extremity: Pulses equal, no cyanosis. Neurovascular intact. Full, normal range of motion. Psych: Awake, alert, with orientation to person, place and time. Behavior, mood, and affect are within normal limits. 21:47 Neck: External neck: is normal, C-spine: appears grossly normal, Trachea: is midline with no obvious abnormalities. 21:47 Respiratory: Exam negative for 22:10 Musculoskeletal/extremity: ROM: limited active range of motion due to pain, limited thomas passive range of motion due to pain, in the right leg, Circulation is intact in all extremities. Sensation intact. Compartment Syndrome exam of affected extremity: is normal. DVT Exam: no swelling, negative Homans' sign noted on exam, no appreciated bluish discoloration, no erythema, no increased warmth, pain, tenderness. 08/12 02:13 ECG was reviewed by the Attending Physician. thomas Vital Signs: 08/11 20:26 BP 108 / 44; Pulse 58; Resp 16; Temp 98.1; Pulse Ox 98% ; Weight 54.43 kg; rv 22:02 BP 105 / 51; Pulse 60; Resp 13; Pulse Ox 98% on R/A; rv 23:00 BP 110 / 56; Pulse 61; Resp 16; Pulse Ox 98% on R/A; rv 08/12 00:00 BP 106 / 55; Pulse 56; Resp 15; Pulse Ox 98% on R/A; rv 01:00 BP 108 / 66; Pulse 60; Resp 15; Pulse Ox 98% ; rv 02:00 BP 106 / 61; Pulse 56; Resp 15; Temp 98; Pulse Ox 98% on R/A; rv MDM: 08/11 20:26 Patient medically screened. thomas 21:51 Differential Diagnosis altered mental status. Differential diagnosis: closed head thomas injury, contusion, fracture, multiple trauma, sprain, strain. Data reviewed: vital signs, nurses notes, lab test result(s), cardiac enzymes, CBC, electrolytes, hepatic panel. Data interpreted: case monitor: rate is 58 beats/min, rhythm is regular, Pulse oximetry: on room air is 98 %. Test interpretation: by ED physician or midlevel provider: ECG, plain radiologic studies. Counseling: I had a detailed discussion with the patient and/or guardian regarding: the historical points, exam findings, and any diagnostic results supporting the discharge/admit diagnosis, lab results, radiology results, the need for outpatient follow up. 08/11 20:34 Order name: Basic Metabolic Panel rv 08/11 20:34 Order name: CBC with Diff rv 08/11 20:34 Order name: LFT's; Complete Time: 21:38 rv 08/11 20:34 Order name: Magnesium; Complete Time: 21:38 rv 08/11 20:34 Order name: NT PRO-BNP; Complete Time: 21:38 rv 08/11 20:34 Order name: PT-INR; Complete Time: 21:38 rv 08/11 20:34 Order name: Troponin (emerg Dept Use Only); Complete Time: 21:38 rv 08/11 20:35 Order name: Basic Metabolic Panel; Complete Time: 21:38 EDMS 08/11 20:35 Order name: CBC with Automated Diff; Complete Time: 21:38 EDMN 08/11 20:37 Order name: Glucose, Ancillary Testing; Complete Time: 21:38 EDMN 08/11 21:24 Order name: CK; Complete Time: 22:10 08/11 21:24 Order name: Ckmb; Complete Time: 22:10 08/11 21:37 Order name: Depakote; Complete Time: 22:09 [facility] 08/11 21:45 Order name: Urine Culture [facility] 08/11 20:34 Order name: XRAY Chest (1 view) 08/11 20:34 Order name: EKG; Complete Time: 20:35 08/11 20:34 Order name: Cardiac monitoring; Complete Time: 20:34 08/11 20:34 Order name: EKG - Nurse/Tech; Complete Time: 20:35 08/11 20:34 Order name: IV Saline Lock; Complete Time: 20:35 08/11 20:34 Order name: Labs collected and sent; Complete Time: 20:35 08/11 20:34 Order name: O2 Per Protocol; Complete Time: 20:35 08/11 20:34 Order name: O2 Sat Monitoring; Complete Time: 20:35 08/11 21:01 Order name: CT Head C Spine sg 08/11 21:25 Order name: Urine Dipstick-Ancillary (obtain specimen); Complete Time: 22:02 08/11 21:25 Order name: Pelvis XRAY 08/11 21:31 Order name: Femur Right XRAY [facility] 08/11 21:31 Order name: Tib Fib Right XRAY [facility] 08/11 23:04 Order name: Urine Dipstick--Ancillary (enter results) ar5 08/11 23:23 Order name: Urine Dipstick-Ancillary EDMS EC/18 02:13 Rate is 56 beats/min. Rhythm is regular. QRS [place] is Normal. ID interval is normal. QRS thomas interval is normal. QT interval is normal. No Q waves. T waves are Normal. No ST changes noted. Clinical impression: NSR w/ Non-specific ST/T Changes and No evidence of ischemia. Interpreted by me. Reviewed by me. Administered Medications: 08/11 22:01 Drug: NS 0.9% 1000 ml Route: IV; Rate: 1 bolus; Site: right antecubital; rv 08/12 01:57 Follow up: IV Status: Completed infusion; IV Intake: 1000ml rv Point of Care Testing: Blood Glucose: 08/11 20:29 Blood Glucose: 116 mg/dL; rv Ranges: Critical Glucose Levels:Adult <50 mg/dl or >400 mg/dl <40 mg/dl or >180 mg/dl Disposition: 08/11/20 22:26 Hospitalization ordered by Timo White for Observation. Preliminary diagnosis are Fall due to bumping against object, Dementia in other diseases classified elsewhere, Rhabdomyolysis, Weakness, Unspecified kidney failure - chronic. - Bed requested for Telemetry/MedSurg (observation). - Status is Observation. rv - Condition is Stable. - Problem is new. - Symptoms have improved. Signatures: Dispatcher [employer] EDBrian Orta MD MD cha Attema, Lee, NAIL EXPERT-C NAIL EXPERT-Cla1 Emy Serrano RN RN cg Jorge Payton RN RN mg2 Kristian Jean Baptiste RN RN rv Corrections: (The following items were deleted from the chart) 22:27 22:26 Hospitalization Ordered by Homar Tyler MD for Inpatient Admission. Preliminary mg2 diagnosis is Fall due to bumping against object; Dementia in other diseases classified elsewhere; Rhabdomyolysis; Weakness; Unspecified kidney failure - chronic. Bed requested for Telemetry/MedSurg (Inpatient). Status is Inpatient Admission. Condition is Stable. Problem is new. Symptoms have improved. thomas 08/12 00:45 08/11 22:27 08/11/2020 22:26 Hospitalization Ordered by Timo White MD for cg Observation. Preliminary diagnosis is Fall due to bumping against object; Dementia in other diseases classified elsewhere; Rhabdomyolysis; Weakness; Unspecified kidney failure - chronic. Bed requested for Telemetry/MedSurg (observation). Status is Observation. Condition is Stable. Problem is new. Symptoms have improved. mg2 08/12 01:57 00:45 08/11/2020 22:26 Hospitalization Ordered by Timo White MD for Observation. rv Preliminary diagnosis is Fall due to bumping against object; Dementia in other diseases classified elsewhere; Rhabdomyolysis; Weakness; Unspecified kidney failure - chronic. Bed requested for Telemetry/MedSurg (observation). Status is Observation. Condition is Stable. Problem is new. Symptoms have improved. cg
--- NOTE | 2020-08-11 23:06 | P.HP ---
Certification for Inpatient Patient admitted to: Inpatient With expected LOS: >2 Midnights Patient will require the following post-hospital care: None Practitioner: I am a practitioner with admitting privileges, knowledge of patient current condition, hospital course, and medical plan of care. Services: Services provided to patient in accordance with Admission requirements found in Title 42 Section 412.3 of the Code of Federal Regulations Patient History Date of Service: 08/11/20 Primary Care Provider: Dr. Lara Reason for admission: Rhabdomyolysis History of Present Illness: 84-year-old female with history of dementia, hypertension, breast cancer presents emergency department after having a fall early this morning. Patient lives in a house behind her neice and uncle. Family reports that they went to check on her around 0 900 this morning and she is sleeping but when they went back at 10:00 a.m. she was lying on the ground next to the bed, it appeared that she had hit her head and she had small hematoma at that time. Patient refused to go to the emergency department at that time. Later in the day art rizvi complained of neck pain and head pain, family convinced her to come to the emergency department for further evaluation. Upon further discussion with the family patient has become increasingly disoriented over the course of the last 1 month, especially over the course of the last week. 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 Patient evaluation in the emergency department was relatively unremarkable aside from her chronic kidney disease and a CPK that was elevated greater than 1000. Family does not feel comfortable with her living in the house by herself any longer, she is on the waiting list for placement in the Memory Care unit at [facility] and she is second in line. Due to patient's increased risk for falls, elevated CPK level, patient will be admitted to the hospital for further evaluation and management. Allergies No Known Allergies Allergy (Verified 07/02/17 14:48) Home Medications: Anastrozole [Arimidex*] 1 tab PO DAILY 07/10/19 Donepezil [Aricept*] 10 mg PO BEDTIME 07/10/19 Losartan Potassium [Cozaar*] 1 tab PO DAILY 07/10/19 OXcarbazepine [Oxcarbazepine] 1 tab PO BID 07/10/19 Alendronate Sodium 70 mg PO SEECOM 01/01/20 Calcium Carbonate [Calcium] 600 mg PO DAILY 01/01/20 Cholecalciferol (Vitamin D3) [Vitamin D 400 IU TAB*] 500 unit PO DAILY 01/01/20 Doxycycline Hyclate 100 mg PO BID 01/01/20 - Past Medical/Surgical History Diabetic: No -: HTN -: Breast Cancer -: Dementia -: Bilateral knee replacement -: bilateral mastectomy Psychosocial/ Personal History: Patient lives in a home on the property of her family. - Family History Mother -: Heart disease, Hypertension, Diabetes Father -: Cancer - Social History Smoking Status: Unknown if ever smoked Alcohol use: No CD- Drugs: No Caffeine use: Yes Place of Residence: Home Review of Systems 10-point ROS is otherwise unremarkable General: Weakness Musculoskeletal: Neck Pain, Leg Pain (Right leg pain) Physical Examination - Physical Exam General: Alert, In no apparent distress, Oriented x2 HEENT: Atraumatic, Normocephalic, PERRLA, Mucous membr. moist/pink Neck: Supple Respiratory: Clear to auscultation bilaterally, Normal air movement Cardiovascular: No edema, Regular rate/rhythm, Normal S1 S2 Capillary refill: <2 Seconds Gastrointestinal: Normal bowel sounds, Soft and benign Musculoskeletal: No contractures, No erythema, No tenderness Integumentary: No tenderness/swelling, No erythema, No warmth Neurological: Normal speech, Normal strength at 5/5 x4 extr, Normal tone, Sensation intact - Studies Laboratory Data (last 24 hrs) 08/11/20 20:30: PT 10.8, INR 0.91 08/11/20 20:30: WBC 5.0, Hgb 11.2 L, Hct 32.8 L, Plt Count 108 L 08/11/20 20:30: Sodium 142, Potassium 4.3, BUN 43 H, Creatinine 1.71 H, Glucose 120 H, Magnesium 2.2, Total Bilirubin 0.3, AST 33, ALT 17, Alkaline Phosphatase 51 Assessment and Plan - Plan Assessment Rhabdomyolysis Fall, increase risk for fall Hypertension Dementia Plan Rhabdomyolysis: Continue gentle IV hydration, recheck BMP and CPK levels with morning labs. DVT prophylaxis heparin 5000 units subcutaneous twice daily. Fall, increase risk for fall: Patient had unwitnessed fall, also has history of multiple episodes of syncope. Will obtain orthostatics vital signs. CT head/neck, x-ray pelvis, right femur, right tib-fib negative for any acute findings. Will have patient work with physical therapy to determine safety for discharge. Hypertension: Obtain and continue home medications. Dementia: Obtain and continue home medications. This may be worsening or have any acute delirium related to depression. Patient will closely placed in Memory Care unit at [facility]. In the meantime she may benefit from caregiver services or home health. Discharge Plan: Home Plan to discharge in: 48 Hours - Advance Directives Does patient have a Living Will: Yes Does patient have a Durable POA for Healthcare: No - Code Status/Comfort Care Code Status Assessed: Yes (Patient is full code) Critical Care: No Time Spent Managing Pts Care (In Minutes): 55
[2020-08-11 23:23] LABS: Urine Blood NEGATIVE (NEG); Urine Glucose NEGATIVE (NEG); Urine Protein NEGATIVE (NEG)
[2020-08-12] MEDS ORDERED: NA CHLORIDE 0.9% 1,000 ML IV SCH (02:08)
[2020-08-12] MEDS ORDERED: ONDANSETRON 4 MG/2 ML VIAL IV PRN (02:08)
[2020-08-12] MEDS ORDERED: ACETAMINOPHEN 500 MG TAB PO PRN (02:08)
[2020-08-12] MEDS ORDERED: TRAMADOL HCL 50 MG TAB PO PRN (02:08)
[2020-08-12 02:19] VITALS: BMI 24.6
[2020-08-12 05:41] LABS: Absolute Lymphocytes (CBC) 1.5 K/uL (0.7-4.9); Basophils % 0.7 % (0-1.3); Hematocrit 32.1 % (36.0-45.0); Lymphocytes % 35.3 % (15.3-44.8); MPV 8.1 fL (7.6-11.3); RBC Red Blood Cell Count 3.36 M/uL (3.86-4.86)
[2020-08-12 05:56] LABS: Potassium 4.2 mmol/L (3.5-5.1)
[2020-08-12] MEDS ORDERED: ALENDRONATE 70 MG TAB PO SCH (06:00)
[2020-08-12 06:41] LABS: Blood Morphology Comment NOT SEEN (NOT SEEN); Platelet Estimate DECR
[2020-08-12] MEDS ORDERED: carvediloL 6.25 MG TAB PO SCH (08:00)
--- NOTE | 2020-08-12 08:50 | P.DS ---
Admission Date: 08/11/20 Discharge Date: 08/12/20 Primary Care Provider: Dr. Lara Disposition: ROUTINE DISCHARGE Discharge Condition: GOOD Reason for Admission: Rhabdomyolysis Brief History of Present Illness: Patient is 85 years of age with a history of recurrent falls again she was admitted with a fall and mild rhabdomyolysis Hospital Course: Patient did well at that during the course of her stay in the hospital there were no arrhythmias CPK was declining in courage to drink more fluid blood pressure is low I stopped her losartan and Coreg she has a history of falls in the past patient id ambulate was no evidence of any fractures patient has chronic renal insufficiency mildly anemic the time of discharge alert oriented responsive cooperative moving all her extremities chest clear cardiovascular system os sounds normal Vital Signs/Physical Exam: Temp Pulse Resp BP Pulse Ox 97.3 F 54 16 112/56 L 97 08/12/20 04:00 08/12/20 04:00 08/12/20 04:00 08/12/20 04:00 08/12/20 04:00 Laboratory Data at Discharge: WBC 4.3 K/uL (4.3-10.9) 08/12/20 05:20 Hgb 10.4 g/dL (12.0-15.0) L 08/12/20 05:20 Hct 32.1 % (36.0-45.0) L 08/12/20 05:20 Plt Count 99 K/uL (152-406) L 08/12/20 05:20 PT 10.8 SECONDS (9.5-12.5) 08/11/20 20:30 INR 0.91 08/11/20 20:30 Sodium 144 mmol/L (136-145) 08/12/20 05:20 Potassium 4.2 mmol/L (3.5-5.1) 08/12/20 05:20 BUN 47 mg/dL (7-18) H 08/12/20 05:20 Creatinine 1.60 mg/dL (0.55-1.3) H 08/12/20 05:20 Glucose 80 mg/dL (74-106) 08/12/20 05:20 Magnesium 2.2 mg/dL (1.8-2.4) 08/11/20 20:30 Total Bilirubin 0.3 mg/dL (0.2-1.0) 10/17/20 20:30 AST 33 U/L (15-37) 08/11/20 20:30 ALT 17 U/L (12-78) 08/11/20 20:30 Alkaline Phosphatase 51 U/L (45-117) 08/11/20 20:30 Home Medications: Anastrozole [Arimidex*] 1 tab PO DAILY 07/10/19 Donepezil [Aricept*] 10 mg PO BEDTIME 07/10/19 OXcarbazepine [Oxcarbazepine] 1 tab PO BID 07/10/19 Alendronate Sodium 70 mg PO SEECOM 01/01/20 Calcium Carbonate [Calcium] 600 mg PO DAILY 01/01/20 Cholecalciferol (Vitamin D3) [Vitamin D 400 IU TAB*] 400 unit PO DAILY 01/01/20 Divalproex Sodium [Depakote] 1 tab PO BEDTIME 08/12/20 Sertraline [Zoloft*] 25 mg PO BEDTIME 08/12/20 Vitamin B Complex [B Complex] 1 tab PO DAILY 08/12/20 Patient Discharge Instructions: Patient to stop her losartan and Coreg Diet: Regular Activity: Ad dimas
[2020-08-12] MEDS ORDERED: CALCIUM CARBONATE 500 MG TAB PO SCH (09:00)
[2020-08-12] MEDS ORDERED: HOME MED 1 EA UNK (Calcium Carbonate [Calcium] 600 MG) PO SCH (09:00)
[2020-08-12] MEDS ORDERED: OXcarbazepine 150 MG TAB PO SCH (09:00)
[2020-08-12] MEDS ORDERED: VITAMIN D 400 UNIT TAB PO SCH (09:00)
[2020-08-12] MEDS ORDERED: LOSARTAN POTASSIUM 50 MG TABLET PO SCH (09:00)
[2020-08-12] MEDS ORDERED: ANASTROZOLE 1 MG TAB PO SCH (09:00)
[2020-08-12] MEDS ORDERED: HEPARIN 5000 UNIT/ML 1 ML VIAL SQ SCH (09:00)
[2020-08-12 09:09] VITALS: BP 141/65; TEMP 97.7
[2020-08-12 09:37] VITALS: O2SAT 96
--- NOTE | 2020-08-12 12:02 | RAD REPORT ---
EXAM DESCRIPTION: RAD - Tib Fib Right - 08/11/2020 10:15 pm CLINICAL HISTORY: PAIN COMPARISON: Femur Right dated 08/11/2020 FINDINGS: Right total knee arthroplasty is noted. No hardware complication seen. No acute fracture o r dislocation. Small calcaneal spurs are evident.
--- NOTE | 2020-08-12 12:03 | RAD REPORT ---
EXAM DESCRIPTION: RAD - Pelvis - 08/11/2020 10:14 pm CLINICAL HISTORY: PAIN COMPARISON: Head C Spine Mpr Wo Con dated 08/11/2020 FINDINGS: [id number] osteoarthritis involves both hips. No acute fracture is seen.
--- NOTE | 2020-08-12 12:14 | RAD REPORT ---
EXAM DESCRIPTION: RAD - Chest Single View - 08/11/2020 9:06 pm CLINICAL HISTORY: CHEST PAIN Chest pain. COMPARISON: Chest Single View dated 11/16/2019; Chest Single View dated 07/10/2019; Chest Single View dated 02/19/2018; Chest Single View dated 07/10/2017 FINDINGS: Portable technique limits examination quality. The lungs are grossly clear. The heart is normal in size. Prominent hiatal hernia. IMPRESSION: No acute intrathoracic process suspected.
--- NOTE | 2020-08-12 12:16 | RAD REPORT ---
EXAM DESCRIPTION: RAD - Femur Right - 08/11/2020 10:14 pm CLINICAL HISTORY: PAIN COMPARISON: No comparisons FINDINGS: Hardware is present in the distal femur. No hardware complication. No acute fracture suspe cted.
--- NOTE | 2020-08-12 16:19 | RAD REPORT ---
EXAM DESCRIPTION: Head C Spine Mpr Wo Con CLINICAL HISTORY: Pain; radiculopathy COMPARISON: 12/31/2019 TECHNIQUE: Axial CT of the head obtained from the skull apex to the skull base without contrast. Axi al CT images of the cervical spine obtained from the skull base through the thoracic inlet. Sagittal and coronal reformatted images available. FINDINGS: CT head: No acute intracranial hemorrhage identified. No mass, mass effect, shift of the midline, abnormal ext ra-axial fluid collection or CT evidence of acute ischemic change identified. Mild enlargement of anastacio tricular system and sulcal spaces compatible with cerebral atrophy. Scattered areas of hypodensity in the supratentorial white matter are nonspecific and may represent sequela of chronic small vessel ischemic change. The visualized paranasal sinuses and the mastoids are clear. Atherosclerotic calcification of the int racranial internal carotid arteries. No skull fracture identified. Visualized orbits and globes a re unremarkable. Cervical CT: Alignment of the cervical spine is maintained without evidence of subluxation. The atlantoaxial, at lantodental, and occipitoatlantal intervals are preserved. No fracture identified. Vertebral body h eight preserved. Prevertebral soft tissues are unremarkable. Mild to moderate multilevel loss of intervertebral disc height with endplate spondylosis, uncovertebr al spurring, and facet arthropathy. Mild multilevel osseous neural foraminal narrowing. Degenerative change of the atlantodental articulation. Visualized skull base is intact. No fracture of the visualized facial bones. Visualized mastoid air c ells and paranasal sinuses are well aerated. Visualized thyroid is unremarkable. No cervical lymphadenopathy. No pneumothorax in the visualized lung apices. Atherosclerotic vascular calcification. IMPRESSION: 1. No acute intracranial abnormality. 2. No acute fracture or subluxation of the cervical spine. 3. Multilevel degenerative change of the cervical spine. This exam was performed according to our departmental dose-optimization program, which includes autom ated exposure control, adjustment of the mA and/or kV according to patient size and/or use of iterati ve reconstruction technique. Electronically signed by: Emmett Holt 08/11/2020 10:11 PM CDT Due to temporary technical issues with the PACS/Fluency reporting system, reports are being signed by the in house radiologist without review as a courtesy to ensure prompt reporting. The interpreting r adiologist is fully responsible for the content of the report.
[2020-08-12] MEDS ORDERED: SERTRALINE HCL 50 MG TAB PO SCH (21:00)
[2020-08-12] MEDS ORDERED: DONEPEZIL HCL 5 MG TAB PO SCH (21:00)
[2020-08-12] MEDS ORDERED: DIVALPROEX DR 500MG TAB PO SCH (21:00)
== END 2020-08-12 12:19 | disposition home or self-care (01) ==
LOC: ER 20:18 → INTOOBSV 22:47 → ERHOLD 22:47 → 2ND 08-12 01:47
PROVIDERS: ADMIT Internal Medicine Sleep Medicine; ATTEND Internal Medicine Sleep Medicine
DX: M62.82 Rhabdomyolysis (principal); R29.6 Repeated falls; F03.90 Unspecified dementia, unspecified severity, without behavioral disturbance, psychotic disturbance, mood disturbance, and anxiety; Z20.828 Contact with and (suspected) exposure to other viral communicable diseases; Z85.3 Personal history of malignant neoplasm of breast; I12.9 Hypertensive chronic kidney disease with stage 1 through stage 4 chronic kidney disease, or unspecified chronic kidney disease; N18.9 Chronic kidney disease, unspecified; Z96.653 Presence of artificial knee joint, bilateral; M54.2 Cervicalgia; M79.604 Pain in right leg
CPT/HCPCS: 96361; 93005; 87088; 85025 ×2; 87086; 80048 ×2; 36415; 83735; 82550 ×2; 85610; 82947; 80076; 80164; 81003; 84484; 82553; 83880; 70450; 72125; 71045; 72170; 73552; 73590; 96360; 99285; U0002; J1644; J7030 ×2; G0378 ×2

== ENCOUNTER 2020-08-17 08:39 | Emergency (ER) | payer OTHER ==
--- OUTSIDE RECORDS SUMMARY | 2020-08-17 08:49 | XMS REPORT | Continuity of Care Document ---
:1935 Author Organization [employer] Care Team Providers Name Role Phone [employer] Unavailable Un available Problems Problem Status Onset [...] 90 tab, 1 Refill(s), Pharmacy: [facility], 147.32, cm, 12/06/19 10:44:00 [employer], Height, 64.545, kg, 12/06/19 10:44:00 [employer], Weight OXcarbazepine = 1 tab, Active Mischer 300 mg oral PO, BID, # 020 Neuro tablet 180 tab, 2 Refill(s), LALI, Pharmacy: [facility], 147.32, cm, 12/06/19 10:44:00 [employer], Height, 64.545, kg, 12/06/19 10:44:00 [employer], Weight 24 HR Divalproex See Active Mischer Sodium 250 MG Instruction 020 Neuro Extended Release s, TAKE 2 Tablet TABLETS BY MOUTH AT BEDTIME, # 60 tab, 2 Refill(s), Pharmacy: [facility], 147.32, cm, 12/06/19 10:44:00 [employer], Height, 64.545, kg, 12/06/19 10:44:00 [employer], Weight 24 HR Divalproex 500 mg = 2 Active Misc her Sodium 250 MG tab, PO, 020 Neuro Extended Release Bedtime, # Tablet 60 tab, 2 [Depakote] Refill(s), Pharmacy: [facility] Mirtazapine 15 15 mg = 1 No Longer Misch er MG Oral Tablet tab, PO, Active 020 Neuro [Remeron] Bedtime, # 30 tab, 1 Refill(s), Pharmacy: [facility] OXcarbazepine = 1 tab, Active Mischer 300 mg oral PO, BID, # 019 Neuro tablet 180 tab, 2 Refill(s), LALI, Pharmacy: [facility] donepezil 10 mg 10 mg = 1 Active Mische r oral tablet tab, PO, 019 Neuro Daily, # 90 tab, 1 Refill(s), Pharmacy: [facility] Donepezil 5 mg = 1 Active Mischer hydrochloride 5 tab, PO, 019 Neuro MG Oral Tablet Bedtime, # [Aricept] 30 tab, 3 Refill(s), Pharmacy: [facility] OXcarbazepine 300 mg = 1 Active Mischer 300 mg oral tab, PO, 019 Neuro tablet BID, # 60 tab, 3 Refill(s), Pharmacy: [facility] carBAMazepine 200 mg = 1 No Longer Misch er 200 mg oral tab, PO, Active 019 Neuro tablet BID, # 60 tab, 3 Refill(s), Pharmacy: [facility] Allergies, Adverse Reactions, Alerts Substance Category [...] 2018 Comment: Neuro
Lab test performed by:
[facility]
[address]
[place] [address]
Kaylene Sterling ELECTROLYTES Chloride Lvl [phone] [...]
Lab test performed by:
[facility]
[address] [facility]
[place] [address]
Kaylene Sterling HEMATOLOGY Monocytes # [phone] [...]
[facility]
[address] [facility]
[place] [address]
Kaylene Sterling Pathology Reports No Data Provided [...] [facility] Ne uro [facility] Resp[facility] 16 09/13/2019 [facility] Neuro [...] [facility] Ne uro BMI Calculated 31.62 08/17/[address] [facility] Weight 68.636 08/17/[address] [facility] Height 147.32 cm 08/17/2018 [facility] Systolic (mm Hg) 167 08/17/2018 [facility] Karen ro Diastolic (mm Hg) 80 08/17/2018 [facility] Respitory Rate 16 08/17/2018 [facility] [place] 67 08/17/2018 [facility] [place]ters Location Location Encounter Encounter Reason Attending ADM MO Stat us Source Details Type Number For Provider Date Date Visit Outpatient [id number] LIZBET 06/17 Active [facility] [place] Outpatient [id number] LIZBET 07/20 [facility] [place] Outpatient [id number] LIZBET 08/17 Active [facility] [place] [facility] Outpatient [id number] Lizbet 08/17 08/18 [facility] [place] [facility] [place] [facility] [place] [facility] Outside [id number] 11/02 11/04 [facility] /2018 [facility] [place] Records Outpatient [id number] LIZBET 11/16 Active [facility] [place] Outpatient [id number] LIZBET 11/16 Active [facility] [place] [facility] Ambulatory [id number] Lizbet 11/16 11/16 [facility] [facility] [place]2018 [facility] [place] [facility] Outpatient [id number] Lizbet 11/16 11/17 [facility] [place] [facility]2018 [facility] [place] Outpatient [id number] LIZBET 12/14 Active [facility] [place] Outpatient [id number] LIZBET 12/14 Active [facility] [place] Outpatient [id number] LIZBET 01/11 [facility] [place] [facility] [id number] LIZBET 01/11 [facility] [place] [facility] [id number] LIZBET 02/01 [facility] [place] [facility] [id number] LIZBET 02/15 [facility] [place] [facility] [id number] Lizbet 02/15 02/15 [facility] [place] Outpatient [id number] [facility] 03/01 [facility] [place] [facility] [id number] Lizbet 03/01 03/02 [facility] [place] Outpatient [id number] Liz[place] 05/10 [facility] [place] [facility] Outpatient [id number] Lizbet 05/10 05/11 [facility] [place] Outpatient [id number] [place] 07/12 [facility] [place] [facility] [id number] Lizbet 07/12 07/13 [facility] [place] Outpatient [id number] [place] 09/13 [facility] [place] [facility] Outpatient [id number] Lizbet 09/13 09/14 [facility] [place] Outpatient [id number] Liz[place] 12/06 [facility] [place] [facility]patient [id number] Lizbet 12/06 12/07 [facility] [place] Outpatient [id number] [place] 01/09 [facility] [place] [facility] Outpatient [id number] Liz[place] 01/09 01/10 [facility] /2019 [facility] [place] Outpatient [id number] Liz[place] 01/16 [facility] [place] [facility] Ambulatory [id number] Lizbet 01/16 01/16 [facility] [place] /2019 [facility] [place] Outpatient [id number] Liz[place] 01/24 [facility] [place] [facility] Outpatient [id number] Lizbet 01/24 01/25 [facility] [place] /2019 [facility] [place] Outpatient [id number] Liz[place] 02/14 [facility]2020 [place] [facility] Outpatient [id number] Lizbet 02/14 02/15 [facility] [place] /2019 [facility] [place] Outpatient [id number] [facility] 03/07 [facility]2020 [place] [facility] Outpatient [id number] Lizbet 03/07 03/08 [facility] [place] /2019 [facility] [place] Outpatient [id number] Liz[place] 06/07 [facility]2020 [place] Outpatient [id number] Lizbet 06/07 [facility]2020 [place] [facility] Outpatient [id number] Lizbet 06/07 06/08 [facility] [place] /2019 [facility] [place] [facility] Ambulatory [id number] Lizbet 06/07 06/07 [facility] [place] /2019 [facility] [place] Outpatient [id number] Lizbet 08/15 [facility]2020 [place] Outpatient [id number] Lizbet 08/24 [facility] /2020 [place] Outpatient [id number] Liz[place] 09/12 [facility] /2020 [place] Procedures Procedure Code Date Perfomer Comments Source Mastectomy [id number] [facility] Assessment and Plan No Data Provided [...]
--- NOTE | 2020-08-17 09:14 | RAD REPORT ---
EXAM DESCRIPTION: CT - Head Brain Wo Cont - 08/17/2020 9:03 am CLINICAL HISTORY: Seizure;Syncope Headache, drowsiness, seizure COMPARISON: Head Brain Wo Cont dated 12/31/2019; Head Brain Wo Cont dated 11/17/2019 TECHNIQUE: All CT scans are performed using dose optimization technique as appropriate and may inclu de automated exposure control or mA/KV adjustment according to patient size. FINDINGS: No intracranial hemorrhage, hydrocephalus or extra-axial fluid collection.Moderate general ized brain atrophy.No areas of brain edema or evidence of midline shift. The paranasal sinuses and mastoids are clear. The calvarium is intact. IMPRESSION: No acute intracranial abnormality.
--- NOTE | 2020-08-17 09:40 | RAD REPORT ---
EXAM DESCRIPTION: RAD - Hip Right 2 View - 08/17/2020 9:32 am CLINICAL HISTORY: PAIN COMPARISON: No comparisons FINDINGS: Mild osteoarthritis affects the right hip. No fracture, dislocation or AVN.
--- NOTE | 2020-08-17 09:46 | RAD REPORT ---
EXAM DESCRIPTION: RAD - Knee Right 3 View - 08/17/2020 9:32 am CLINICAL HISTORY: PAIN COMPARISON: Knee Right 3 View dated 07/10/2019 FINDINGS: Right total knee arthroplasty is noted. No hardware complication seen. No fracture evident . No joint effusion evident.
[2020-08-17 10:18] LABS: Potassium 4.2 mmol/L (3.5-5.1)
[2020-08-17 10:38] LABS: Absolute Lymphocytes (CBC) 0.8 K/uL (0.7-4.9); Basophils % 0.5 % (0-1.3); Hematocrit 31.3 % (36.0-45.0); Lymphocytes % 20.1 % (15.3-44.8); MPV 7.1 fL (7.6-11.3); RBC Red Blood Cell Count 3.34 M/uL (3.86-4.86)
[2020-08-17 11:21] LABS: Blood Morphology Comment NOT SEEN (NOT SEEN); Platelet Estimate DECR
--- NOTE | 2020-08-17 13:22 | ER ---
Nurse's Notes [facility] Name: Edie Fields Age: 85 yrs Sex: Female : 1935 Arrival Date: 08/17/2020 Time: 08:43 Bed 6 Private MD: Diagnosis: Syncope and collapse-vasovagal;Seizure Presentation: 08/17 08:44 Chief complaint: EMS states: was called out at [facility] for someone having an episode em of shaking and arms sticking out, did have positive LOC for about 3 minutes, has been seen by Dr. Sargent for possible seizures that started about 1 month ago, was recently seen in the ER for the same thing, pt A\T\O x 4, BGL 104. Coronavirus screen: Client denies travel out of the [place] in the last 14 days. Ebola Screen: Patient negative for fever greater than or equal to 101.5 degrees Fahrenheit, and additional compatible Ebola Virus Disease symptoms Patient denies exposure to infectious person. Patient denies travel to an Ebola-affected area in the 21 days before illness onset. No symptoms or risks identified at this time. Initial Sepsis Screen: Does the patient meet any 2 criteria? No. Patient's initial sepsis screen is negative. Does the patient have a suspected source of infection? No. Patient's initial sepsis screen is negative. Risk Assessment: Do you want to hurt yourself or someone else? Patient reports no desire to harm self or others. Onset of symptoms was August 17, 2020. 08:44 Method Of Arrival: EMS: [facility] em 08:44 Acuity: RAYNE 3 em Historical: - Allergies: 08:48 No Known Allergies; em - PMHx: 08:48 Dementia; Cancer, Breast; Hypertension; em - Immunization history:: Adult Immunizations up to date. - Social history:: Smoking status: Patient denies any tobacco usage or history of. Screenin:54 Abuse screen: Denies threats or abuse. Nutritional screening: No deficits noted. em Tuberculosis screening: No symptoms or risk factors identified. Fall Risk None identified. Assessment: 08:56 General: Appears in no apparent distress. comfortable, Behavior is calm, cooperative, em appropriate for age. Pain: Denies pain. Neuro: Level of Consciousness is awake, alert, obeys commands, Oriented to person, place, time, situation, Appropriate for age. Cardiovascular: Capillary refill < 3 seconds Patient's skin is warm and dry. Respiratory: Airway is patent Respiratory effort is even, unlabored, Respiratory pattern is regular, symmetrical. GI: Abdomen is flat, Patient currently denies nausea, vomiting. Derm: Skin is intact, is healthy with good turgor, Skin is pink, warm \T\ dry. Musculoskeletal: Capillary refill < 3 seconds, Range of motion: intact in all extremities. 09:53 Reassessment: Patient appears in no apparent distress at this time. Patient and/or em family updated on plan of care and expected duration. Pain level reassessed. Patient is alert, oriented x 3, equal unlabored respirations, skin warm/dry/pink. 10:50 Reassessment: Patient appears in no apparent distress at this time. Patient and/or hb family updated on plan of care and expected duration. Pain level reassessed. Patient is alert, oriented x 3, equal unlabored respirations, skin warm/dry/pink. 12:12 Reassessment: Patient appears in no apparent distress at this time. Patient and/or em family updated on plan of care and expected duration. Pain level reassessed. Patient is alert, oriented x 3, equal unlabored respirations, skin warm/dry/pink. 13:01 Reassessment: Patient appears in no apparent distress at this time. Patient and/or hb family updated on plan of care and expected duration. Pain level reassessed. Patient is alert, oriented x 3, equal unlabored respirations, skin warm/dry/pink. Vital Signs: 08:44 BP 104 / 58; Pulse 65; Resp 18; Temp 98.4; Pulse Ox 96% on R/A; Pain 0/10; em 10:57 BP 109 / 65; Pulse 64; Resp 15; Pulse Ox 99% on R/A; hb 12:12 BP 102 / 55; Pulse 71; Resp 18; Pulse Ox 98% on R/A; Pain 0/10; em 13:01 BP 102 / 55; Pulse 70; Resp 16; Pulse Ox 99% on R/A; hb Moisés Coma Score: 08:48 Eye Response: spontaneous(4). Verbal Response: oriented(5). Motor Response: obeys em commands(6). Total: 15. ED Course: 08:43 Patient arrived in ED. em 08:45 Everardo Clay MD is Attending Physician. kdr 08:47 Triage completed. em 08:48 Arm band placed on. em 08:50 Fall risk band placed. Bed in low position. Call light in reach. Side rails up X2. em Adult w/ patient. Seizure precautions initiated. 08:54 Hosea Griffith, RN is Primary Nurse. em 09:03 CT Head Brain wo Cont In Process Unspecified. EDMS 09:33 Knee Right 3 View XRAY In Process Unspecified. EDMS 09:33 Hip Right 2 View XRAY In Process Unspecified. EDMS 09:50 Initial lab(s) drawn, by me, sent to lab. Inserted saline lock: 20 gauge in left em antecubital area, using aseptic technique. Blood collected. 10:28 Lab(s) recollected, by me, sent to lab. [facility] 10:55 Manual Differential Sent. sv 13:20 Dilip Brandt MD is Referral Physician. kdr 13:40 No provider procedures requiring assistance completed. IV discontinued, intact, em bleeding controlled, No redness/swelling at site. Pressure dressing applied. Administered Medications: No medications were administered Outcome: 13:21 Discharge ordered by . kdr 13:40 Discharged to home via wheelchair, with friend. em 13:40 Condition: stable 13:40 Discharge instructions given to family, friend, Instructed on discharge instructions, follow up and referral plans. Demonstrated understanding of instructions, follow-up care. 13:41 Patient left the ED. em Signatures: Dispatcher [employer] Ariela Almanza RN RN sv Rittger, Kevin, MD MD [facility] Hosea Griffith RN RN Trini Estrella RN RN Yusra Allen [facility]
--- NOTE | 2020-08-17 13:22 | EDPHYS ---
Physician Documentation [facility] Name: Edie Fields Age: 85 yrs Sex: Female : 1935 Arrival Date: 08/17/2020 Time: 08:43 Bed 6 Private MD: ED Physician Everardo Clay HPI: 08/17 18:19 This 85 yrs old Female presents to ER via EMS with complaints of Probable kdr Seizure. 18:19 The patient presents after having a single isolated seizure, that lasted an unknown kdr period of time. Character of seizure(s): Motor activity: generalized, shaking all over, Incontinence: none, Apnea: the patient did not experience apnea. Seizure onset: just prior to arrival. Context: the seizure(s) was witnessed, by a bystander, occurred Was at [facility] getting a blood draw. Seizure Hx: the patient has no previous seizure history. Associated injury: The patient did not suffer any apparent associated injury, Head/face: Neck: Abdomen: Other: right hip, lateral aspect of right knee, posterior aspect of right knee, medial aspect of right knee and right knee. Current symptoms: Currently, the patient is not experiencing any symptoms, Pain to right hip and knee. The patient has not experienced similar symptoms in the past. Historical: - Allergies: 08:48 No Known Allergies; em - PMHx: 08:48 Dementia; Cancer, Breast; Hypertension; em - Immunization history:: Adult Immunizations up to date. - Social history:: Smoking status: Patient denies any tobacco usage or history of. ROS: 18:19 Constitutional: Negative for fever, chills, and weight loss, Eyes: Negative for injury, kdr pain, redness, and discharge, ENT: Negative for injury, pain, and discharge, Neck: Negative for injury, pain, and swelling, Cardiovascular: Negative for chest pain, palpitations, and edema, Respiratory: Negative for shortness of breath, cough, wheezing, and pleuritic chest pain, Abdomen/GI: Negative for abdominal pain, nausea, vomiting, diarrhea, and constipation, Back: Negative for injury and pain, : Negative for injury, bleeding, discharge, and swelling, Skin: Negative for injury, rash, and discoloration, Psych: Negative for depression, anxiety, suicide ideation, homicidal ideation, and hallucinations, Allergy/Immunology: Negative for hives, rash, and allergies, Endocrine: Negative for neck swelling, polydipsia, polyuria, polyphagia, and marked weight changes, Hematologic/Lymphatic: Negative for swollen nodes, abnormal bleeding, and unusual bruising. 18:19 MS/extremity: Positive for injury or acute deformity, decreased range of motion, pain, of the right hip, lateral aspect of right knee, posterior aspect of right knee, medial aspect of right knee and right knee. Exam: 18:23 Constitutional: This is a well developed, well nourished patient who is awake, alert, kdr and in no acute distress. Head/Face: Normocephalic, atraumatic. Eyes: Pupils equal round and reactive to light, extra-ocular motions intact. Lids and lashes normal. Conjunctiva and sclera are non-icteric and not injected. Cornea within normal limits. Periorbital areas with no swelling, redness, or edema. Neck: Trachea midline, no thyromegaly or masses palpated, and no cervical lymphadenopathy. Supple, full range of motion without nuchal rigidity, or vertebral point tenderness. No Meningismus. Chest/axilla: Normal chest wall appearance and motion. Nontender with no deformity. No lesions are appreciated. Cardiovascular: Regular rate and rhythm with a normal S1 and S2. No gallops, murmurs, or rubs. Normal PMI, no JVD. No pulse deficits. Respiratory: Lungs have equal breath sounds bilaterally, clear to auscultation and percussion. No rales, rhonchi or wheezes noted. No increased work of breathing, no retractions or nasal flaring. Abdomen/GI: Soft, non-tender, with normal bowel sounds. No distension or tympany. No guarding or rebound. No evidence of tenderness throughout. Back: No spinal tenderness. No costovertebral tenderness. Full range of motion. Skin: Warm, dry with normal turgor. Normal color with no rashes, no lesions, and no evidence of cellulitis. Neuro: Awake and alert, GCS 15, oriented to person, place, time, and situation. Cranial nerves II-XII grossly intact. Motor strength 5/5 in all extremities. Sensory grossly intact. Cerebellar exam normal. Normal gait. Psych: Awake, alert, with orientation to person, place and time. Behavior, mood, and affect are within normal limits. 18:23 Musculoskeletal/extremity: Pain to right hip and pain at rest and with moderate movement. pain was not unbearable and was otherwise unremarkable. Vital Signs: 08:44 BP 104 / 58; Pulse 65; Resp 18; Temp 98.4; Pulse Ox 96% on R/A; Pain 0/10; em 10:57 BP 109 / 65; Pulse 64; Resp 15; Pulse Ox 99% on R/A; hb 12:12 BP 102 / 55; Pulse 71; Resp 18; Pulse Ox 98% on R/A; Pain 0/10; em 13:01 BP 102 / 55; Pulse 70; Resp 16; Pulse Ox 99% on R/A; hb Moisés Coma Score: 08:48 Eye Response: spontaneous(4). Verbal Response: oriented(5). Motor Response: obeys em commands(6). Total: 15. MDM: 13:21 Patient medically screened. kdr 18:23 Data reviewed: vital signs, nurses notes, lab test result(s), radiologic studies. kdr Counseling: I had a detailed discussion with the patient and/or guardian regarding: the historical points, exam findings, and any diagnostic results supporting the discharge/admit diagnosis, lab results, radiology results, the need for outpatient follow up. 08/17 08:52 Order name: CBC with Diff; Complete Time: 11:44 kdr 08/17 08:52 Order name: Chem 7; Complete Time: 11:44 kdr 08/17 08:52 Order name: CT Head Brain wo Cont; Complete Time: 11:44 kdr 08/17 08:52 Order name: Knee Right 3 View XRAY; Complete Time: 11:44 kdr 08/17 09:07 Order name: Hip Right 2 View XRAY; Complete Time: 11:44 kdr 08/17 10:41 Order name: Manual Differential; Complete Time: 11:44 EDMS 08/17 10:22 Order name: Labs - recollect needed: recollect the purple top; Complete Time: 10:36 eb Administered Medications: No medications were administered Disposition: 08/17/20 13:21 Discharged to Home. Impression: Syncope and collapse - vasovagal, Seizure. - Condition is Stable. - Discharge Instructions: Seizure, Adult, Gvyg-[id number], Syncope, [id number], Vasovagal Syncope, Adult. - Medication Reconciliation Form, Thank You Letter form. - Follow up: Private Physician; When: 2 - 3 days; Reason: If symptoms return, Further diagnostic work-up, Recheck today's complaints, Continuance of care, Re-evaluation by your physician. Follow up: Dilip Brandt MD; When: 2 - 3 days; Reason: If symptoms return, Further diagnostic work-up, Recheck today's complaints, Continuance of care, Re-evaluation by your physician. - Problem is new. - Symptoms are resolved. Signatures: Dispatcher [employer] Everardo Red MD MD kdr Munoz, Edgar, RN RN em Samantha Calhoun Corrections: (The following items were deleted from the chart) 13:41 13:21 08/17/2020 13:21 Discharged to Home. Impression: Syncope and collapse - em vasovagal; Seizure. Condition is Stable. Forms are Medication Reconciliation Form, Thank You Letter, Antibiotic Education, Prescription Opioid Use. Follow up: Private Physician; When: 2 - 3 days; Reason: If symptoms return, Further diagnostic work-up, Recheck today's complaints, Continuance of care, Re-evaluation by your physician. Follow up: Dilip Brandt; When: 2 - 3 days; Reason: If symptoms return, Further diagnostic work-up, Recheck today's complaints, Continuance of care, Re-evaluation by your physician. Problem is new. Symptoms are resolved. kdr
[2020-08-17 13:59] VITALS: TEMP 98.4
[2020-08-17 14:03] VITALS: BP 102/55
[2020-08-17 14:04] VITALS: O2SAT 99
== END 2020-08-17 13:41 | disposition home or self-care (01) ==
LOC: ER 08:39
DX: R56.9 Unspecified convulsions (principal); M25.551 Pain in right hip; M25.561 Pain in right knee; I10 Essential (primary) hypertension; F03.90 Unspecified dementia, unspecified severity, without behavioral disturbance, psychotic disturbance, mood disturbance, and anxiety; Z85.3 Personal history of malignant neoplasm of breast
CPT/HCPCS: 36415; 70450; 80048; 85025; 99284

== ENCOUNTER 2020-09-24 18:20 | Emergency (ER) | payer OTHER ==
--- OUTSIDE RECORDS SUMMARY | 2020-09-24 18:23 | XMS REPORT | Summary of Care ---
:1935 Author Organization [facility] Address [address] [place] [address]- Encounter HQ Alix(FIN) [phone] Date(s): 08/15/20 - 08/15/20 [facility] [address] [place] [address]- [phone] Discharge Disposition: Home or Self Care Attending Physician: Dilip Brandt MD Referring Physician: Dilip Brandt MD Vital Signs Most recent to oldest [Reference Range]: 1 Height 144.78 cm (08/15/20 4:19 PM) Blood Pressure [90-140/60-90 mmHg] 115/68 mmHg (08/15/20 4:19 PM) Respiratory Rate [14-20 BRMIN] 16 BRMIN (08/15/20 4:19 PM) Peripheral Pulse Rate [60-100 bpm] 69 bpm (08/15/20 4:19 PM) Weight 55.455 kg (08/15/20 4:19 PM) Body Mass Index 26.46 m2 (08/15/20 4:19 PM) Problem List Condition Effective Dates Status Health Status Informant Dementia(Confirmed) Active HTN - Hypertension(Confirmed) Active Memory loss(Confirmed) Active Myoclonus(Confirmed) Active Renal insufficiency(Confirmed) Active Simple obesity(Confirmed) Active Syncope(Confirmed) Active Trigeminal neuralgia(Confirmed) Active Allergies, Adverse Reactions, Alerts No Known Medication Allergies Medications donepezil 5 mg oral tablet 5 mg = 1 tab, PO, Bedtime, # 30 tab, 3 Refill(s), Pharmacy: [facility], 144.78,cm, 08/15/20 16:19:00 CDT, Height, 55.455, kg, 08/15/20 16:19:00 CDT, Weight Start Date: 08/15/20 Stop Date: 12/13/20 Status: OrderedNamenda 5 mg oral tablet 5 mg = 1 tab, PO, BID, # 60 tab, 2 Refill(s), Pharmacy: [facility], 144.78, cm,08/15/20 16:19:00 CDT, Height, 55.455, kg, 08/15/20 16:19:00 CDT, Weight Start Date: 08/15/20 Stop Date: 11/13/20 Status: OrderedOXcarbazepine 300 mg oral tablet 300 mg = 1 tab, PO, Bedtime, # 30 tab, 2 Refill(s), LALI, Pharmacy: [facility], 144.78, cm, 08/15/20 16:19:00 CDT, Height, 55.455, kg, 08/15/20 16:19:00 CDT, Weight Start Date: 08/15/20 Stop Date: 11/13/20 Status: Ordered Results No data available for this section Immunizations No data available for this section Procedures Procedure Date Related Diagnosis Body Site Status Mastectomy Completed Social History Social History Type Response Employment/School Other: Has Will and POA.1 Smoking Status Never smoker; Exposure to To bacco Smoke None; Cigarette Smoking Last 365 Days No; Reg Smoking Cessation Counseling No entered on: 08/15/20 1No driving Assessment and Plan No data available for this section
--- OUTSIDE RECORDS SUMMARY | 2020-09-24 18:23 | XMS REPORT | Summary of Care ---
:1935 Author Organization [facility] Address [address] [place] [address]- Encounter HQ Staceyr_tony(FIN) [phone] Date(s): 09/12/20 - 09/12/20 [facility] [address] [place] [address]- [phone] Attending Physician: Dilip Brandt MD Referring Physician: Dilip Brandt MD Vital Signs No data available for this section Problem List Condition Effective Dates Status Health Status Informant Dementia(Confirmed) Active HTN - Hypertension(Confirmed) Active Memory loss(Confirmed) Active Myoclonus(Confirmed) Active Renal insufficiency(Confirmed) Active Simple obesity(Confirmed) Active Syncope(Confirmed) Active Trigeminal neuralgia(Confirmed) Active Allergies, Adverse Reactions, Alerts No Known Medication Allergies Medications divalproex sodium 250 mg oral tablet, extended release (Depakote ER) 250 mg = 1 tab, PO, Bedtime, X 90 day, # 90 tab, 3 Refill(s), Pharmacy: [facility], 147.32, cm, 12/06/19 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, Height, 64.545, kg, 12/06/19 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, Weight Start Date: 06/19/20 Stop Date: 06/14/21 Status: OrderedZoloft 25 mg oral tablet 25 mg = 1 tab, PO, QPM, # 30 tab, 3 Refill(s), Pharmacy: [facility], 147.32, cm, 12/06/19 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, Height, 64.545, kg, 12/06/19 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
--- OUTSIDE RECORDS SUMMARY | 2020-09-24 18:23 | XMS REPORT | Summary of Care ---
:1935 Author Organization [facility] Address [address] [place] [address]- Encounter HQ Omidntr_tnoy(FIN) [id number] Date(s): 08/22/20 - 08/22/20 [facility] [address] [place], [place] [address]- [phone] Discharge Disposition: Home or Self Care Attending [...]
--- OUTSIDE RECORDS SUMMARY | 2020-09-24 18:23 | XMS REPORT | Continuity of Care Document ---
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, Neuro systemic arterial (disorder) Simple obesity Active Problem 09/14/2020 Misc her (disorder) Neuro Trigeminal Active Problem 09/14/2020 [facility] neuralgia Neuro (disorder) Memory Active Problem 09/14/2020 [facility] impairment Neuro (finding) Dementia Active Problem 09/14/2020 [facility] (disorder) Neuro Syncope Active Problem 09/14/2020 [facility] (disorder) Neuro Myoclonus Active Problem 09/14/2020 [facility] (finding) Neuro Renal impairment Active Problem 09/14/2020 Mi johnnie (disorder) Neuro Medications Medication Details Route Status Patient Ordering Order Source Instructions Provider Date Memantine 5 mg = 1 Active Mischer hydrochloride 5 tab, PO, 020 Neuro MG Oral Tablet BID, # 60 [Namenda] tab, 2 Refill(s), Pharmacy: [facility], 144.78, cm, 08/15/20 16:19:00 CDT, Height, 55.455, kg, 08/15/20 16:19:00 CDT, Weight OXcarbazepine 300 mg = 1 Active Mischer 300 mg oral tab, PO, 020 Neuro tablet Bedtime, # 30 tab, 2 Refill(s), LALI, Pharmacy: [facility], 144.78, cm, 08/15/20 16:19:00 CDT, Height, 55.455, kg, 08/15/20 16:19:00 CDT, Weight donepezil 5 mg 5 mg = 1 Active Mischer oral tablet tab, PO, 020 Neuro Bedtime, # 30 tab, 3 Refill(s), Pharmacy: [facility], 144.78, cm, 08/15/20 16:19:00 CDT, Height, 55.455, kg, 08/15/20 16:19:00 CDT, Weight Sertraline 25 MG 25 mg = 1 Active Misch er Oral Tablet tab, PO, 020 Neuro [Zoloft] QPM, # 30 tab, 3 Refill(s), Pharmacy: [facility], 147.32, cm, 12/06/19 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, Height, 64.545, kg, 12/06/19 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, Weight 24 HR Divalproex 250 mg = 1 Active Misc her Sodium 250 MG tab, PO, 020 Neuro Extended Release Bedtime, X Tablet 90 day, # 90 tab, 3 Refill(s), Pharmacy: [facility], 147.32, cm, 12/06/19 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, Height, 64.545, kg, 12/06/19 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, Weight donepezil 10 mg = 1 tab, Active Mischer oral tablet PO, Daily, 020 Neuro # 90 tab, 1 Refill(s), Pharmacy: [facility], 147.32, cm, 12/06/19 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, Weight 24 HR Divalproex 500 mg = 2 Active Misc her Sodium 250 MG tab, PO, 020 Neuro Extended Release Bedtime, # Tablet 60 tab, 2 [Depakote] Refill(s), Pharmacy: [facility] Mirtazapine 15 15 mg = 1 No Longer Misch er MG Oral Tablet tab, PO, Active 020 Neuro [Remeron] Bedtime, # 30 tab, 1 Refill(s), Pharmacy: [facility] OXcarbazepine = 1 tab, Active Mischer 300 mg oral PO, BID, # 019 Neuro tablet 180 tab, 2 Refill(s), LALI, Pharmacy: [facility] donepezil 10 mg 10 mg = 1 Active Mische r oral tablet tab, PO, 019 Neuro Daily, # 90 tab, 1 Refill(s), Pharmacy: [facility] Donepezil 5 mg = 1 Active Mischer hydrochloride 5 tab, PO, 019 Neuro MG Oral Tablet Bedtime, # [Aricept] 30 tab, 3 Refill(s), Pharmacy: [facility] OXcarbazepine 300 mg = 1 Active Mischer 300 mg oral tab, PO, 019 Neuro tablet BID, # 60 tab, 3 Refill(s), Pharmacy: [facility] carBAMazepine 200 mg = 1 No Longer Misch er 200 mg oral tab, PO, Active 019 Neuro tablet BID, # 60 tab, 3 Refill(s), Pharmacy: [facility] Allergies, Adverse Reactions, Alerts Substance Category [...] 2018 Comment: Neuro
Lab test performed by:
[facility][1] Lab
[address] [facility]
[place] [address]
Kaylene Sterling ELECTROLYTES Chloride Lvl 105 98 [...]
Lab test performed by:
[facility]
[address] [facility]
[place] [address]
Kaylene Sterling HEMATOLOGY Monocytes # 605 200 [...] HEMATOLOGY Platelet 207 140 - 400 [facility] 2017 Neuro TOXICOLOGY Carbamaz Lvl 5.2 4.0 - 12.0 Result Misch er 2018 Comment: Neuro FASTING:NO

FASTING: NO

Lab test performed by:
[facility]
[address] [facility]
[place] [address]
Kaylene Sterling Pathology Reports No Data Provided for This Section Diagnostic Reports No Data Provided for This Section Consultation Notes No Data Provided for This Section Discharge Summaries No Data Provided for This Section History and Physicals No Data Provided for This Section Vital Signs Vital Sign Value Date Comments Source Systolic (mm Hg) 115 08/15/2020 [facility] Karen ro Diastolic (mm Hg) 68 08/15/2020 [facility] Ne uro Heart Rate 69 08/15/2020 [facility] Neuro Respitory Rate 16 08/15/2020 [facility] Height 144.78 cm 08/15/2020 [facility] Weight 55.455 08/15/2020 [facility] BMI Calculated 26.46 08/15/2020 [facility] Neuro Systolic (mm Hg) 150 12/06/2019 [facility] Karen ro Diastolic (mm Hg) 62 12/06/2019 [facility]ro Heart Rate 56 12/06/2019 [facility] Respitory Rate 16 12/06/2019 [facility] Height 147.32 cm 12/06/2019 [facility] Weight 64.545 12/06/2019 [facility] Neuro BMI Calculated 29.74 12/06/2019 [facility] Systolic (mm Hg) 159 09/13/2019 [facility] Karen ro Diastolic (mm Hg) 75 09/13/2019 [facility] Ne uro Heart Rate 66 09/13/2019 [facility] Respitory Rate 16 09/13/2019 [facility] Neuro [...] 03/01/2019 [facility] Height 144.78 cm 03/01/2019 [facility] Neuro Heart Rate 72 03/01/2019 [facility] Neuro Respitory Rate 16 03/01/2019 [facility] Systolic (mm Hg) 172 03/01/2019 [facility] Karen ro Diastolic (mm Hg) 74 03/01/2019 [facility] Weight 69.091 11/16/2018 [facility] Neuro BMI Calculated 31.83 11/16/2018 [facility] Height 147.32 cm 11/16/2018 [facility] Respitory Rate 16 11/16/2018 [facility] Neuro Heart Rate 74 11/16/2018 [facility] Neuro Systolic (mm Hg) 126 11/16/2018 [facility] Karen ro Diastolic (mm Hg) 85 11/16/2018 [facility] Ne uro BMI Calculated 31.62 08/17/2018 [facility] Neuro Weight 68.636 08/17/2018 [facility] Neuro Height 147.32 cm 08/17/2018 [facility] Systolic (mm Hg) 167 08/17/2018 [facility] Karen ro Diastolic (mm Hg) 80 08/17/2018 [facility] Respitory Rate 16 08/17/2018 [facility] Neuro Heart Rate 67 08/17/2018 [facility] Neuro Encounters Location Location Encounter Encounter Reason Attending ADM MT Stat us Source Details Type Number For Provider Date Date Visit Outpatient [id number] LIZBET 06/17 Active [facility] [place] Out[facility] [id number] LIZBET 07/20 [facility] [place] Out[facility] [id number] LIZBET 08/17 Active [facility] [place] [facility] Outpatient [id number] Lizbet 08/17 08/18 [facility] /2017 [facility] [place] [facility] Outside [id number] 11/02 11/04 [facility] /2018 [facility] [place] Records Outpatient [id number] LIZBET 11/16 Active [facility] [place] Outpatient [id number] LIZBET 11/16 Active [facility] [place] [facility] Ambulatory [id number] Lizbet 11/16 11/16 [facility] [place] [facility] Outpatient [id number] Lizbet 11/16 11/17 [facility] [place] Outpatient [id number] [facility]ZBET 12/14 [facility] [place] [facility] [id number] [facility]ZBET 12/14 [facility] [place] [facility] [id number] [facility]ZBET 01/11 [facility] [place] [facility] [id number] LIZBET 01/11 [facility] [place] [facility] [id number] LIZBET 02/01 [facility] [place] [facility] [id number] LIZBET 02/15 [facility] [place] [facility] [id number] Lizbet 02/15 02/15 [facility] [place] Outpatient [id number] Liz[facility] 03/01 [facility] [place] [facility] [id number] Lizbet 03/01 03/02 [facility] [place] Outpatient [id number] Lizbet 05/10 [facility] [place] [facility] [id number] Lizbet 05/10 05/11 [facility] [place] Outpatient [id number] Lizbet 07/12 [facility] [place] [facility] [id number] Lizbet 07/12 07/13 [facility] [place] Outpatient [id number] Lizbet 09/13 [facility] [place] [facility] Outpatient [id number] Lizbet 09/13 09/14 [facility] [place] Outpatient [id number] Lizbet 12/06 [facility] [place] [facility] [id number] Lizbet 12/06 12/07 [facility] [place] Outpatient [id number] Lizbet 01/09 [facility] [place] [facility] [id number] Lizbet 01/09 01/10 [facility] [place] Outpatient [id number] Lizbet 01/16 [facility] [place] [facility] [id number] Lizbet 01/16 01/16 [facility] /2019 [facility] [place] Outpatient [id number] Lizbet 01/24 [facility] [place] [facility] Out[facility] [id number] Lizbet 01/24 01/25 [facility] /2019 [facility] [place] Outpatient [id number] Lizbet 02/14 [facility] [place] [facility] Outpatient [id number] Lizbet 02/14 02/15 [facility] /2019 [facility] [place] Outpatient [id number] Lizbet 03/07 [facility] [place] [facility] Outpatient [id number] Lizbet 03/07 03/08 [facility] /2019 [facility] [place] Outpatient [id number] Lizbet 06/07 [facility]2019 [place] [facility] [id number] Lizbet 06/07 [facility] [place] [facility] Outpatient [id number] Lizbet 06/07 06/08 [facility] /2019 [facility] [place] [facility] Ambulatory [id number] Lizbet 06/07 06/07 [facility] /2019 [facility] [place] Outpatient [id number] Lizbet 08/15 [facility] [place] [facility] [id number] Lizbet 08/15 08/16 [facility] /2019 [facility] [place] Outpatient [id number] Lizbet 08/22 [facility] [place] [facility] Outpatient [id number] Lizbet 08/22 08/23 [facility] /2019 [facility] [place] Outpatient [id number] Lizbet 08/24 [facility] [place] [facility] Ambulatory [id number] Lizbet 08/24 08/24 [facility] /2019 [facility] [place] Outpatient [id number] Lizbet 09/12 [facility] /2020 [place] [facility] Ambulatory [id number] Lizbet 09/12 09/12 [facility] [place] /2019 [facility] [place] Procedures Procedure Code Date Perfomer Comments Source Mastectomy [id number] [facility] Assessment and Plan No Data Provided for This Section Plan of Care No Data Provided for This Section Social History Social History Date Source Social History TypeResponse 12/06/2019 [facility] Employment/School Other: Has Will and POA.1 Smoking Status Never smoker; Exposure to Tobacco Smoke None; Cigarette Smoking Last 365 Days No; Reg Smoking Cessation Counseling No entered on: 08/20/20 1No driving Family History No Data Provided for This Section Advance Directives No Data Provided for This Section Functional Status No Data Provided for This Section
[2020-09-24 19:11] LABS: Absolute Lymphocytes (CBC) 1.1 K/uL (0.7-4.9); Basophils % 0.8 % (0-1.3); Hematocrit 28.7 % (36.0-45.0); Lymphocytes % 21.5 % (15.3-44.8); MPV 7.5 fL (7.6-11.3); RBC Red Blood Cell Count 3.03 M/uL (3.86-4.86)
--- NOTE | 2020-09-24 19:29 | RAD REPORT ---
EXAM DESCRIPTION: [place] Single View09/24/2020 7:05 pm CLINICAL HISTORY: Shortness of breath COMPARISON: July 2020 FINDINGS: Mild bilateral pulmonary opacities. Heart is mildly enlarged IMPRESSION: These findings likely represent mild CHF
[2020-09-24 19:30] LABS: Potassium 4.9 mmol/L (3.5-5.1)
--- NOTE | 2020-09-24 20:03 | RAD REPORT ---
EXAM DESCRIPTION: USExtrem Venous W Compress Bil09/24/2020 7:57 pm CLINICAL HISTORY: leg swelling COMPARISON: 2017 FINDINGS: The common femoral, superficial femoral, popliteal and posterior tibial veins bilaterally are compressible and demonstrate augmentation. Doppler demonstrates good flow. IMPRESSION: No evidence of deep venous thrombosis involving either lower extremity.
--- NOTE | 2020-09-24 20:18 | ER ---
Nurse's Notes [facility] Name: Edie Fields Age: 85 yrs Sex: Female : 1935 Arrival Date: 09/24/2020 Time: 18:12 Bed 8 Private MD: Diagnosis: Pneumonia due to other specified infectious organisms Presentation: 09/24 18:12 Chief complaint: EMS states: called out for weeping legs and redness that started em yesterday, reports mild pain on the left leg, denies any other complains or fever. Coronavirus screen: Client denies travel out of the [place] in the last 14 days. Ebola Screen: Patient negative for fever greater than or equal to 101.5 degrees Fahrenheit, and additional compatible Ebola Virus Disease symptoms Patient denies exposure to infectious person. Patient denies travel to an Ebola-affected area in the 21 days before illness onset. No symptoms or risks identified at this time. Initial Sepsis Screen: Does the patient meet any 2 criteria? No. Patient's initial sepsis screen is negative. Does the patient have a suspected source of infection? Yes: Skin breakdown/wound. Risk Assessment: Do you want to hurt yourself or someone else? Patient reports no desire to harm self or others. Onset of symptoms was September 23, 2020. 18:12 Method Of Arrival: EMS: [facility] em 18:12 Acuity: RAYNE 3 em Historical: - Allergies: 18:17 No Known Allergies; em - PMHx: 18:17 Cancer, Breast; Dementia; Hypertension; em - Immunization history:: Adult Immunizations up to date. - Social history:: Smoking status: Patient denies any tobacco usage or history of. - Family history:: not pertinent. - Hospitalizations: : No recent hospitalization is reported. Screenin:17 Abuse screen: Denies threats or abuse. Nutritional screening: No deficits noted. em Tuberculosis screening: No symptoms or risk factors identified. Fall Risk None identified. Assessment: 18:12 General: Appears in no apparent distress. comfortable, Behavior is calm, cooperative, em appropriate for age, Denies fever. Pain: Complains of pain in left leg and right leg Pain currently is 0 out of 10 on a pain scale. Neuro: Level of Consciousness is awake, alert, obeys commands, Oriented to person, place, time, situation. Cardiovascular: Capillary refill < 3 seconds Patient's skin is warm and dry. Edema is 3+ to left midcalf, left ankle, left foot, right midcalf, right ankle and right foot Chest pain is denied. Respiratory: Airway is patent Respiratory effort is even, unlabored, Respiratory pattern is regular, symmetrical. Derm: Skin is intact, is healthy with good turgor, Skin is pink, warm \T\ dry. Musculoskeletal: Capillary refill < 3 seconds, Range of motion: intact in all extremities, Swelling present in right leg and left leg. 19:07 General: Appears in no apparent distress. comfortable, Behavior is calm, cooperative, rr5 appropriate for age. Neuro: Level of Consciousness is awake, alert, obeys commands, Oriented to person, place, time. Cardiovascular: Capillary refill < 3 seconds Patient's skin is warm and dry. Respiratory: Airway is patent Respiratory effort is even, unlabored, Respiratory pattern is regular, symmetrical. GI: No signs and/or symptoms were reported involving the gastrointestinal system. : No signs and/or symptoms were reported regarding the genitourinary system. EENT: No signs and/or symptoms were reported regarding the EENT system. Derm: Skin is fragile, is thin, has blisters on redness and translucent discharge on bilateral lower leg noted Skin is pink, warm \T\ dry. Musculoskeletal: Capillary refill < 3 seconds, Swelling present in right leg and left leg. 20:10 Reassessment: Patient appears in no apparent distress at this time. Patient is alert, rr5 oriented x 3, equal unlabored respirations, skin warm/dry/pink. reassess by ED provider for discharge. 20:50 Reassessment: informed ED provider about patient's concern of having pneumonia, with rr5 order made and carried out.covid test done and sent. verbal education given to patient. 21:43 Reassessment: spoke to edwin to arrange transport for the patient she said she called froilan the next of kin and said she cannot able to pick her up because she is sick. edwin stated transport can come in the morning around 0800H, not at this time. 22:08 Reassessment: Patient appears in no apparent distress at this time. spoke to aimee mcgovern from [facility] in and gave report. RADHA assisted the patient for the trasport going back to the facility. discharge instruction given and explained. Vital Signs: 18:12 BP 141 / 107; Pulse 77; Resp 18; Temp 98.4(O); Pulse Ox 99% on R/A; Pain 0/10; em 19:09 BP 159 / 80; Pulse 63; Resp 19; Pulse Ox 99% ; rr5 20:10 BP 161 / 85; Pulse 69; Resp 15; Temp 98; Pulse Ox 99% ; rr5 21:00 BP 158 / 96; Pulse 70; Resp 17; Pulse Ox 98% on R/A; rr5 22:09 BP 152 / 75; Pulse 60; Resp 16; Pulse Ox 99% ; rr5 ED Course: 18:12 Patient arrived in ED. em 18:14 Elliot Tyler MD is Attending Physician. rn 18:16 Triage completed. em 18:17 Arm band placed on. em 18:17 Patient has correct armband on for positive identification. Bed in low position. Call em light in reach. Adult w/ patient. Pulse ox on. NIBP on. 18:34 Hosea Griffith, RN is Primary Nurse. em 18:50 Initial lab(s) drawn, by al, sent to lab. Inserted saline lock: 20 gauge in right em antecubital area, using aseptic technique. Blood collected. 19:03 Primary Nurse role handed off by Hosea Griffith, RN mw2 19:06 XRAY Chest (1 view) In Process Unspecified. EDMS 19:07 Homar Collins, RN is Primary Nurse. rr5 19:57 Extrem Venous W Compression Quinten US In Process Unspecified. EDMS 22:10 No provider procedures requiring assistance completed. IV discontinued, intact, rr5 bleeding controlled, No redness/swelling at site. Pressure dressing applied. Administered Medications: No medications were administered Outcome: 20:17 Discharge ordered by . ma2 22:10 Discharged to [facility] rr5 22:10 Condition: stable 22:10 Discharge instructions given to patient, correction, Instructed on discharge instructions, follow up and referral plans. Demonstrated understanding of instructions, follow-up care, medications, Prescriptions given X 1. 22:11 Patient left the ED. rr5 Addendum: 09/26/2020 17:12 Addendum: COVID-19 Result: Negative result given to RN to notify pt. Other: Spoke to a a5 pt's nurse at [facility] (Tsering Julian) and faxed results as requested by nurse. Signatures: Dispatcher [employer] Hosea Ferris, RN RN Elliot Cummins MD MD rn Calderon, Audri, RN RN aa5 Varun Thomas MD MD [address] [facility] Homar Collins RN RN rr5
--- NOTE | 2020-09-24 20:18 | EDPHYS ---
Physician Documentation [facility] Name: Edie Fields Age: 85 yrs Sex: Female : 1935 Arrival Date: 09/24/2020 Time: 18:12 Bed 8 Private MD: ED Physician Elliot Tyler HPI: 09/24 18:27 This 85 yrs old Female presents to ER via EMS with complaints of Leg rn Swelling, weeping. 18:27 The patient presents with pain, swelling. The complaints affect the right leg and left rn leg. Onset: The symptoms/episode began/occurred at an unknown time. Modifying factors: The symptoms are alleviated by nothing. the symptoms are aggravated by weight bearing. Associated signs and symptoms: Pertinent positives: rash, swelling, Pertinent negatives fever. Severity of symptoms: At their worst the symptoms were moderate, in the emergency department the symptoms are unchanged. The patient has experienced similar episodes in the past. The patient has not recently seen a physician. Per EMS report, coworker called 911 for patient, for swelling of legs and weeping wounds. Patient reports swelling/pain/weeping there "for sometime", not sure if has gotten worse lately. Denies fever or trauma. Unknown if hx of dvt. . Historical: - Allergies: 18:17 No Known Allergies; em - PMHx: 18:17 Cancer, Breast; Dementia; Hypertension; em - Immunization history:: Adult Immunizations up to date. - Social history:: Smoking status: Patient denies any tobacco usage or history of. - Family history:: not pertinent. - Hospitalizations: : No recent hospitalization is reported. ROS: 18:27 Constitutional: Negative for fever, chills, and weight loss, Eyes: Negative for injury, rn pain, redness, and discharge, Neck: Negative for injury, pain, and swelling, Cardiovascular: Negative for chest pain, palpitations Respiratory: Negative for shortness of breath, cough, wheezing, and pleuritic chest pain, Abdomen/GI: Negative for abdominal pain, nausea, vomiting, diarrhea, and constipation, MS/Extremity: + swelling and draining wounds both legs Skin: + weeping wounds both legs with redness Neuro: Negative for headache, numbness, tingling, and seizure. Exam: 18:27 Constitutional: This is a well developed, well nourished patient who is awake, alert, rn and in no acute distress. Head/Face: Normocephalic, atraumatic. Eyes: Pupils equal round and reactive to light, extra-ocular motions intact. Lids and lashes normal. Conjunctiva and sclera are non-icteric and not injected. Cornea within normal limits. Periorbital areas with no swelling, redness, or edema. Cardiovascular: Regular rate and rhythm. No pulse deficits. Respiratory: Speaking full sentences, unlabored. No increased work of breathing, no retractions or nasal flaring. Abdomen/GI: soft, non-tender Skin: Warm, + clear drainage/weeping from bilateral lower ext, no fluctuance, + erythema that blanches, no streaking proximally. MS/ Extremity: Pulses equal, no cyanosis. Neurovascular intact. Full, normal range of motion. Equal circumference. 2+ pitting edema bilateral lower ext. Neuro: Awake and alert, GCS 15, oriented to person, place, time, and situation. Cranial nerves II-XII grossly intact. Motor strength 5/5 in all extremities. Sensory grossly intact. Cerebellar exam normal. Normal gait. Vital Signs: 18:12 BP 141 / 107; Pulse 77; Resp 18; Temp 98.4(O); Pulse Ox 99% on R/A; Pain 0/10; em 19:09 BP 159 / 80; Pulse 63; Resp 19; Pulse Ox 99% ; rr5 20:10 BP 161 / 85; Pulse 69; Resp 15; Temp 98; Pulse Ox 99% ; rr5 21:00 BP 158 / 96; Pulse 70; Resp 17; Pulse Ox 98% on R/A; rr5 22:09 BP 152 / 75; Pulse 60; Resp 16; Pulse Ox 99% ; rr5 MDM: 18:14 Patient medically screened. rn 18:53 Transition of care: After a detail discussion of the patient's case, care is rn transferred to Varun Thomas MD. 20:15 Differential diagnosis: contusion, abrasion. Data reviewed: vital signs, nurses notes. ma2 Counseling: I had a detailed discussion with the patient and/or guardian regarding: the historical points, exam findings, and any diagnostic results supporting the discharge/admit diagnosis, the presence of at least one elevated blood pressure reading (>120/80) during this emergency department visit, the need for outpatient follow up. Response to treatment: the patient's symptoms have markedly improved after treatment. ED course: no dvt on us, no clinical signs of pe on exam, vs wnl, has bilateral pneumonia, low risk per curb 65, lab shows no sirs, patient would like to go home and pursue outpatient care, she is aware of need to repeat us to rule out dvt in 3-6 days . 09/24 18:26 Order name: CBC with Diff rn 09/24 18:26 Order name: Basic Metabolic Panel; Complete Time: 20:07 rn 09/24 18:26 Order name: BNP; Complete Time: 20: rn 09/24 18:26 Order name: Procalcitonin; Complete Time: 20: rn 09/24 19:47 Order name: Manual Differential EDMS 09/24 20:34 Order name: COVID-19 ma2 09/24 18:26 Order name: IV Start; Complete Time: 18:52 rn 09/24 18:27 Order name: XRAY Chest (1 view); Complete Time: 20: rn 09/24 18:32 Order name: Extrem Venous W Compression Quinten US; Complete Time: 20: rn Administered Medications: No medications were administered Disposition: 09/24/20 20:17 Discharged to Home. Impression: Pneumonia due to other specified infectious organisms. - Condition is Stable. - Discharge Instructions: Community-Acquired Pneumonia, Adult, Rhse-sc-Thod. - Prescriptions for Zithromax Z- Candelario 250 mg Oral Tablet - take 1 tablet by ORAL route as directed for 5 days Day 1 - take two (2) tablets one time. Day 2, 3, 4 , 5 take one (1) tablet once daily.; 6 tablet. - Medication Reconciliation Form, Thank You Letter, Antibiotic Education, Prescription Opioid Use form. - Follow up: Private Physician; When: Tomorrow; Reason: Continuance of care. - Notes: see your pcp for repeat us in 3-6 days to ruleo ut deep venous thrombosus on your legs Signatures: Dispatcher [employer] Hosea Ferris, RN RN Elliot Cummins MD MD rn Alzahri, Mohammad, MD MD ma2 Homar Collins RN RN rr5 Corrections: (The following items were deleted from the chart) 22:11 20:17 09/24/2020 20:17 Discharged to Home. Impression: Pneumonia due to other specified rr5 infectious organisms. Condition is Stable. Forms are Medication Reconciliation Form, Thank You Letter, Antibiotic Education, Prescription Opioid Use. Follow up: Private Physician; When: Tomorrow; Reason: Continuance of care. ma2
[2020-09-24 20:49] LABS: Blood Morphology Comment NOT SEEN (NOT SEEN); Platelet Estimate ADEQ
[2020-09-24 23:52] VITALS: TEMP 98
[2020-09-24 23:55] VITALS: BP 152/75; O2SAT 99
== END 2020-09-24 22:11 | disposition home or self-care (01) ==
LOC: ER 18:20
DX: J16.8 Pneumonia due to other specified infectious organisms (principal); Z20.828 Contact with and (suspected) exposure to other viral communicable diseases; I10 Essential (primary) hypertension; F03.90 Unspecified dementia, unspecified severity, without behavioral disturbance, psychotic disturbance, mood disturbance, and anxiety; Z85.3 Personal history of malignant neoplasm of breast
CPT/HCPCS: 85025; 80048; 36415; 84145; 83880; 71045; 93970; 99284; U0002

== ENCOUNTER 2020-09-26 12:21 | Emergency (ER) | payer OTHER ==
--- OUTSIDE RECORDS SUMMARY | 2020-09-26 12:24 | XMS REPORT | Continuity of Care Document ---
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, Weight 24 HR Divalproex 250 mg = 1 Active Misc her Sodium 250 MG tab, PO, 020 Neuro Extended Release Bedtime, X Tablet 90 day, # 90 tab, 3 Refill(s), Pharmacy: [facility], 147.32, cm, 12/06/19 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, Height, 64.545, kg, 12/06/19 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, Weight donepezil 10 mg = 1 tab, Active Mischer oral tablet PO, Daily, 020 Neuro # 90 tab, 1 Refill(s), Pharmacy: [facility], 147.32, cm, 12/06/19 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, Height, 64.545, kg, 12/06/19 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, Weight OXcarbazepine = 1 tab, Active Mischer 300 mg oral PO, BID, # 020 Neuro tablet 180 tab, 2 Refill(s), LALI, Pharmacy: [facility], 147.32, cm, 12/06/19 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, Height, 64.545, kg, 12/06/19 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, Weight 24 HR Divalproex See Active Mischer Sodium 250 MG Instruction 020 Neuro Extended Release s, TAKE 2 Tablet TABLETS BY MOUTH AT BEDTIME, # 60 tab, 2 Refill(s), Pharmacy: [facility], 147.32, cm, 12/06/19 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, Height, 64.545, kg, 12/06/19 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, Weight 24 HR Divalproex 500 mg = 2 Active Misc her Sodium 250 MG tab, PO, 020 Neuro Extended Release Bedtime, # Tablet 60 tab, 2 [Depakote] Refill(s), Pharmacy: [facility] Mirtazapine 15 15 mg = 1 No Longer Misch er MG Oral Tablet tab, PO, Active 020 Neuro [Remeron] Bedtime, # 30 tab, 1 Refill(s), Pharmacy: [facility] OXcarbazepine = 1 tab, Active Mischer 300 mg oral PO, BID, # 019 Neuro tablet 180 tab, 2 Refill(s), LALI, Pharmacy: [facility] donepezil 10 mg 10 mg = 1 Active Mische r oral tablet tab, PO, 019 Neuro Daily, # 90 tab, 1 Refill(s), Pharmacy: [facility] Donepezil 5 mg = 1 Active Mischer hydrochloride 5 tab, PO, 019 Neuro MG Oral Tablet Bedtime, # [Aricept] 30 tab, 3 Refill(s), Pharmacy: [facility] OXcarbazepine 300 mg = 1 Active Mischer 300 mg oral tab, PO, 019 Neuro tablet BID, # 60 tab, 3 Refill(s), Pharmacy: [facility] carBAMazepine 200 mg = 1 No Longer Misch er 200 mg oral tab, PO, Active 019 Neuro tablet BID, # 60 tab, 3 Refill(s), Pharmacy: [facility] Allergies, Adverse Reactions, Alerts Substance [...]
Lab test performed by:
[facility]
[address] [facility]
[place] [id number]
Kaylene Sterling ELECTROLYTES Chloride Lvl [phone] [...]
Lab test performed by:
[facility]
[address] [facility]
[place] [address]
Kaylene Sterling HEMATOLOGY Monocytes # [phone] [...]

Lab test performed by:
[facility]
[address] [facility]
[place] [address]
Kaylene Sterling Pathology Reports No Data Provided [...] [facility] Resp[facility] 16 12/06/2019 [facility] [...] 03/01/2019 [facility] Height 144.78 [facility] Heart Rate 72 03/01/2019 [facility] Respitory Rate 16 03/01/2019 [facility] Systolic (mm Hg) 172 03/01/2019 [facility] ro Diastolic (mm Hg) 74 03/01/2019 [facility] Weight 69.091 11/16/2018 [facility] BMI Calculated 31.83 11/16/2018 [facility] Height 147.32 cm 11/16/2018 [facility] Respitory Rate 16 11/16/2018 [facility] Neuro Heart Rate 74 11/16/2018 [facility] Systolic (mm Hg) 126 11/16/2018 [facility] Karen ro Diastolic (mm Hg) 85 11/16/2018 [facility] BMI Calculated 31.62 08/17/2018 [facility] Neuro Weight 68.636 [facility]/17/[facility] Height 147.32 cm 08/17/2018 [facility] Systolic (mm Hg) 167 08/17/2018 [facility] Karen ro Diastolic (mm Hg) 80 08/17/2018 [facility] Respitory Rate 16 08/17/2018 [facility] Neuro Heart Rate 67 08/17/2018 [facility] Neuro Encounters Location Location Encounter Encounter Reason Attending ADM [place] Stat us Source Details Type Number For Provider Date Date Visit Outpatient [id number] LIZBET 06/17 Active [facility] Outpatient [id number] LIZBET 07/20 [facility] [place] Outpatient [id number] LIZBET 08/17 Active [facility] Outpatient [id number] Lizbet 08/17 08/18 [facility] Neurology [facility] /2017 [facility] [place] [facility] Outside [id number] 11/02 11/04 [facility] Medical /2018 Neuro [place] Records Outpatient [id number] LIZBET 11/16 Active [facility] Outpatient [id number] LIZBET 11/16 Active [facility] Ambulatory [id number] Lizbet 11/16 11/16 [facility] [place] [facility] Outpatient [id number] Lizbet 11/16 11/17 [facility] [place] Outpatient [id number] [facility]ZBET 12/14 [facility] [id number] LIZBET 12/14 [facility] [id number] LIZBET 01/11 [facility] [id number] LIZBET 01/11 [facility] [facility] [id number] LIZBET 02/01 [facility] [place] [facility] [id number] LIZBET 02/15 [facility] [place] [facility] Amb[facility] [id number] Lizbet 02/15 02/15 [facility] [place] Outpatient [id number] Liz[facility] 03/01 [facility] [place] [facility]patient [id number] Lizbet 03/01 03/02 [facility] [place] Outpatient [id number] Lizbet 05/10 [facility] [place] [facility] [id number] Lizbet 05/10 05/11 [facility] [place] Outpatient [id number] Lizbet 07/12 [facility] [place] [facility] Out[facility] [id number] Lizbet 07/12 07/13 [facility] [place] Outpatient [id number] Lizbet 09/13 [facility] [place] [facility] Outpatient [id number] Lizbet 09/13 09/14 [facility] [place] Outpatient [id number] Lizbet 12/06 [facility] [place] [facility] Outpatient [id number] Lizbet 12/06 12/07 [facility] [place] Outpatient [id number] Lizbet 01/09 [facility] [place] [facility] Outpatient [id number] Lizbet 01/09 01/10 [facility] [place] Outpatient [id number] Lizbet 01/16 [facility] [place] [facility] Amb[facility] [id number] Lizbet 01/16 01/16 [facility] /2019 [facility] [place] Outpatient [id number] Lizbet 01/24 [facility] [place] [facility] Outpatient [id number] Lizbet 01/24 01/25 [facility] /2019 [facility] [place] Outpatient [id number] Lizbet 02/14 [facility] [place] [facility] Outpatient [id number] Lizbet 02/14 02/15 [facility] /2019 [facility] [place] Outpatient [id number] Lizbet 03/07 [facility] [place] [facility] Outpatient [id number] Lizbet 03/07 03/08 [facility] /2019 [facility] [place] Outpatient [id number] Lizbet 06/07 [facility] /2019 [place] [facility] [id number] Lizbet 06/07 [facility] [place] [facility] Outpatient [id number] Lizbet 06/07 06/08 [facility] /2019 [facility] [place] [facility] Ambulatory [id number] Lizbet 06/07 06/07 [facility] /2019 [facility] [place] Outpatient [id number] Lizbet 08/15 [facility] [place] [facility] Outpatient [id number] Lizbet 08/15 08/16 [facility] /2019 [facility] [place] Outpatient [id number] Lizbet 08/22 [facility] [place] [facility] Outpatient [id number] Lizbet 08/22 08/23 [facility] /2019 [facility] [place] Outpatient [id number] Lizbet 08/24 [facility] [place] [facility] Ambulatory [id number] Lizbet 08/24 08/24 [facility] /2019 Neuro [place] Outpatient [id number] Lizbet 09/12 [facility] /2020 [place] [facility] Ambulatory [id number] Lizbet 09/12 09/12 [facility] /2019 Neuro [place] Procedures Procedure Code Date Perfomer Comments Source Mastectomy [id number] [facility] Assessment and Plan No Data [...]
--- NOTE | 2020-09-26 13:31 | RAD REPORT ---
EXAM DESCRIPTION: CT - [id number] - 09/26/2020 1:17 pm CLINICAL HISTORY: fall from standing, dizziness, headache, neck pain COMPARISON: Head C Spine Mpr Wo Con dated 08/11/2020; Head C Spine Mpr Wo Con dated 07/10/2019 TECHNIQUE: Axial 5 mm thick images of the head were obtained. Axial 2 mm thick images of the cervic al spine were obtained with sagittal and coronal reconstruction images generated and reviewed. All CT scans are performed using dose optimization technique as appropriate and may include automated exposure control or mA/KV adjustment according to patient size. FINDINGS: No intracranial hemorrhage, mass, edema or acute intracranial finding. No acute cortical b ased infarction. No extra-axial fluid collections. Mastoid air cells and paranasal sinuses are clear. No globe or orbit abnormality seen. Patient has moderate severity atrophy that matches short interva l August 11 imaging. No cortical edema or sulcal effacement. Chronic ischemic changes are present. V entricles are in proportion to volume loss. No CT finding to indicate CVA has a trigger for the fall. Prominent thyroid gland with nodularity. No change from the short interval study. Cervical bodies are normal in height. No subluxation or alignment changes since prior imaging. Promin ent disc space narrowing at C6-7 with more moderate disc space narrowing at C4-5 and C5-6. Facet join t degenerative changes are present. No fracture or acute bony abnormality. Central canal detail is i nherently limited. No paraspinal mass or hematoma. IMPRESSION: Negative CT head examination for acute or significant finding. Atrophy and chronic ische gonzález change match comparison. Negative CT cervical spine examination for acute finding. Cervical spine degenerative changes match comparison.
[2020-09-26 13:37] LABS: Absolute Lymphocytes (CBC) 1.2 K/uL (0.7-4.9); Basophils % 0.3 % (0-1.3); Lymphocytes % 21.4 % (15.3-44.8); MPV 7.3 fL (7.6-11.3); RBC Red Blood Cell Count 2.97 M/uL (3.86-4.86)
[2020-09-26 13:55] LABS: BUN Blood Urea Nitrogen 20 mg/dL (7-18); Bicarbonate 27 mmol/L (21-32); Glucose Level 104 mg/dL (74-106); Potassium 4.9 mmol/L (3.5-5.1); Sodium Level 129 mmol/L (136-145); Troponin (Emerg Dept Use Only) < 0.02 ng/mL (0.0-0.045)
--- NOTE | 2020-09-26 14:26 | EDPHYS ---
Physician Documentation [facility] Name: Edie Fields Age: 85 yrs Sex: Female : 1935 Arrival Date: 09/26/2020 Time: 12:26 Bed 8 Private MD: ED Physician Everardo Clay HPI: 09/26 14:28 This 85 yrs old Female presents to ER via EMS with complaints of Fall Injury. kdr 14:28 Details of fall: The patient fell from an upright position, while standing, while kdr walking. Onset: The symptoms/episode began/occurred acutely, suddenly, just prior to arrival. Associated injuries: The patient sustained no obvious injury. Severity of symptoms: At their worst the symptoms were very mild, in the emergency department the symptoms have resolved. The patient has experienced similar episodes in the past, Over the last year or more, she has had these periodic syncopal episodes. She was here just a few days ago after a fall and had a significant evaluation of all of her current presenting issues today. Nothing was found at that time. Historical: - Allergies: 12:33 No Known Allergies; em - PMHx: 12:33 Cancer, Breast; Dementia; Hypertension; Seizures; Alzheimers; em - Immunization history:: Adult Immunizations. - Social history:: Smoking status: Patient denies any tobacco usage or history of. ROS: 14:38 Constitutional: Negative for fever, chills, and weight loss, Eyes: Negative for injury, kdr pain, redness, and discharge, ENT: Negative for injury, pain, and discharge, Neck: Negative for injury, pain, and swelling, Cardiovascular: Negative for chest pain, palpitations, and edema, Respiratory: Negative for shortness of breath, cough, wheezing, and pleuritic chest pain, Abdomen/GI: Negative for abdominal pain, nausea, vomiting, diarrhea, and constipation, Back: Negative for injury and pain, : Negative for injury, bleeding, discharge, and swelling, MS/Extremity: Negative for injury and deformity, Skin: Negative for injury, rash, and discoloration, Psych: Negative for depression, anxiety, suicide ideation, homicidal ideation, and hallucinations, Allergy/Immunology: Negative for hives, rash, and allergies, Endocrine: Negative for neck swelling, polydipsia, polyuria, polyphagia, and marked weight changes, Hematologic/Lymphatic: Negative for swollen nodes, abnormal bleeding, and unusual bruising. 14:38 Neuro: Positive for syncope, Negative for altered mental status, dizziness, gait disturbance, headache, hearing loss, loss of consciousness, numbness, seizure activity, speech changes, tingling, tinnitus, tremor, visual changes. Exam: 14:38 Constitutional: This is a well developed, well nourished patient who is awake, alert, kdr and in no acute distress. Head/Face: Normocephalic, atraumatic. Eyes: Pupils equal round and reactive to light, extra-ocular motions intact. Lids and lashes normal. Conjunctiva and sclera are non-icteric and not injected. Cornea within normal limits. Periorbital areas with no swelling, redness, or edema. Neck: Trachea midline, no thyromegaly or masses palpated, and no cervical lymphadenopathy. Supple, full range of motion without nuchal rigidity, or vertebral point tenderness. No Meningismus. Chest/axilla: Normal chest wall appearance and motion. Nontender with no deformity. No lesions are appreciated. Cardiovascular: Regular rate and rhythm with a normal S1 and S2. No gallops, murmurs, or rubs. Normal PMI, no JVD. No pulse deficits. Respiratory: Lungs have equal breath sounds bilaterally, clear to auscultation and percussion. No rales, rhonchi or wheezes noted. No increased work of breathing, no retractions or nasal flaring. Abdomen/GI: Soft, non-tender, with normal bowel sounds. No distension or tympany. No guarding or rebound. No evidence of tenderness throughout. Back: No spinal tenderness. No costovertebral tenderness. Full range of motion. Skin: Warm, dry with normal turgor. Normal color with no rashes, no lesions, and no evidence of cellulitis. MS/ Extremity: Pulses equal, no cyanosis. Neurovascular intact. Full, normal range of motion. Neuro: Awake and alert, GCS 15, oriented to person, place, time, and situation. Cranial nerves II-XII grossly intact. Motor strength 5/5 in all extremities. Sensory grossly intact. Cerebellar exam normal. Normal gait. Psych: Awake, alert, with orientation to person, place and time. Behavior, mood, and affect are within normal limits. Vital Signs: 12:27 BP 115 / 69; Pulse 70; Resp 18; Temp 97.8; Pulse Ox 99% on R/A; Pain 0/10; em 13:00 BP 125 / 61; Pulse 90; Resp 18; Pulse Ox 99% on R/A; em 14:02 BP 123 / 51; Pulse 87; Resp 18; Pulse Ox 99% on R/A; em 15:00 BP 121 / 65; Pulse 78; Resp 16; Pulse Ox 97% on R/A; em Moisés Coma Score: 12:27 Eye Response: spontaneous(4). Verbal Response: oriented(5). Motor Response: obeys em commands(6). Total: 15. Trauma Score (Adult): 12:27 Eye Response: spontaneous(1); Verbal Response: oriented(1); Motor Response: obeys em commands(2); Systolic BP: > 89 mm Hg(4); Respiratory Rate: 10 to 29 per min(4); Moisés Score: 15; Trauma Score: 12 MDM: 14:26 Patient medically screened. kdr 14:38 Data reviewed: vital signs, nurses notes, lab test result(s), radiologic studies. kdr Counseling: I had a detailed discussion with the patient and/or guardian regarding: the historical points, exam findings, and any diagnostic results supporting the discharge/admit diagnosis, lab results, radiology results, the need for outpatient follow up. 09/26 13:01 Order name: CBC with Diff kdr 09/26 13:01 Order name: Troponin (emerg Dept Use Only); Complete Time: 14:14 kdr 09/26 12:59 Order name: CT Head C Spine; Complete Time: 13:41 kdr 09/26 13:01 Order name: Chem 7; Complete Time: 14:14 kdr 09/26 13:02 Order name: CBC with Automated Diff EDMS 09/26 15:04 Order name: CBC Smear Scan EDMS Administered Medications: No medications were administered Disposition: 09/26/20 14:26 Discharged to Home. Impression: Syncope and collapse, Weakness. - Condition is Stable. - Discharge Instructions: Edema, Wsaz-rl-Dexo, Syncope, Ltyb-af-Gbbh, Weakness, Qeuw-zs-Hkax, Peripheral Edema. - Medication Reconciliation Form, Thank You Letter form. - Follow up: Private Physician; When: 2 - 3 days; Reason: If symptoms return, Further diagnostic work-up, Recheck today's complaints, Continuance of care, Re-evaluation by your physician. - Problem is new. - Symptoms have improved. Signatures: Dispatcher [employer] Everardo Red MD MD kdr Hosea Griffith, RN RN em Corrections: (The following items were deleted from the chart) 15:38 14:26 09/26/2020 14:26 Discharged to Home. Impression: Syncope and collapse; Weakness. em Condition is Stable. Forms are Medication Reconciliation Form, Thank You Letter, Antibiotic Education, Prescription Opioid Use. Follow up: Private Physician; When: 2 - 3 days; Reason: If symptoms return, Further diagnostic work-up, Recheck today's complaints, Continuance of care, Re-evaluation by your physician. Problem is new. Symptoms have improved. kdr
--- NOTE | 2020-09-26 14:26 | ER ---
Nurse's Notes [facility] Name: Edie Fields Age: 85 yrs Sex: Female : 1935 Arrival Date: 09/26/2020 Time: 12:26 Bed 8 Private MD: Diagnosis: Syncope and collapse;Weakness Presentation: 09/26 12:27 Chief complaint: EMS states: fell from standing after feeling dizzy, denies LOC, em reports neck pain, also reported was a small skin tear on the left upper arm, pt is not on blood thinners. Coronavirus screen: Client denies travel out of the [place] in the last 14 days. Ebola Screen: Patient negative for fever greater than or equal to 101.5 degrees Fahrenheit, and additional compatible Ebola Virus Disease symptoms Patient denies exposure to infectious person. Patient denies travel to an Ebola-affected area in the 21 days before illness onset. No symptoms or risks identified at this time. Initial Sepsis Screen: Does the patient meet any 2 criteria? No. Patient's initial sepsis screen is negative. Does the patient have a suspected source of infection? No. Patient's initial sepsis screen is negative. Risk Assessment: Do you want to hurt yourself or someone else? Patient reports no desire to harm self or others. Onset of symptoms was September 26, 2020. 12:27 [facility] 12[facility]27 Acuity: RAYNE 3 em Historical: - Allergies: 12:33 No Known Allergies; em - PMHx: 12:33 Cancer, Breast; Dementia; Hypertension; Seizures; Alzheimers; em - Immunization history:: Adult Immunizations. - Social history:: Smoking status: Patient denies any tobacco usage or history of. Screenin:34 Abuse screen: Denies threats or abuse. Nutritional screening: No deficits noted. em Tuberculosis screening: No symptoms or risk factors identified. Fall Risk None identified. Assessment: 12:27 General: Appears in no apparent distress. comfortable, Behavior is calm, cooperative. em Pain: Complains of pain in neck. Neuro: Level of Consciousness is awake, alert, obeys commands, Oriented to person, place, time, situation. Cardiovascular: Capillary refill < 3 seconds Patient's skin is warm and dry. Respiratory: Airway is patent Respiratory effort is even, unlabored, Respiratory pattern is regular, symmetrical. Derm: Skin is intact, is fragile, is thin, has skin tears on to the left upper arm Skin is pink, warm \T\ dry. Wound noted. Musculoskeletal: Capillary refill < 3 seconds, Range of motion: intact in all extremities, Swelling present in right leg and left leg. 13:30 Reassessment: Patient appears in no apparent distress at this time. Patient and/or em family updated on plan of care and expected duration. Pain level reassessed. Patient is alert, oriented x 3, equal unlabored respirations, skin warm/dry/pink. 14:30 Reassessment: Patient appears in no apparent distress at this time. Patient and/or em family updated on plan of care and expected duration. Pain level reassessed. Patient is alert, oriented x 3, equal unlabored respirations, skin warm/dry/pink. 15:15 Reassessment: Dr. Clay at bedside. em 15:25 Reassessment: pending transportation from [facility]. em Vital Signs: 12:27 BP 115 / 69; Pulse 70; Resp 18; Temp 97.8; Pulse Ox 99% on R/A; Pain 0/10; em 13:00 BP 125 / 61; Pulse 90; Resp 18; Pulse Ox 99% on R/A; em 14:02 BP 123 / 51; Pulse 87; Resp 18; Pulse Ox 99% on R/A; em 15:00 BP 121 / 65; Pulse 78; Resp 16; Pulse Ox 97% on R/A; em Moisés Coma Score: 12:27 Eye Response: spontaneous(4). Verbal Response: oriented(5). Motor Response: obeys em commands(6). Total: 15. Trauma Score (Adult): 12:27 Eye Response: spontaneous(1); Verbal Response: oriented(1); Motor Response: obeys em commands(2); Systolic BP: > 89 mm Hg(4); Respiratory Rate: 10 to 29 per min(4); Rhine Score: 15; Trauma Score: 12 ED Course: 12:26 Patient arrived in ED. em 12:28 Everardo Clay MD is Attending Physician. kdr 12:31 Triage completed. em 12:33 Arm band placed on. em 12:33 Patient has correct armband on for positive identification. Bed in low position. Call em light in reach. Side rails up X2. Adult w/ patient. Pulse ox on. NIBP on. 12:37 Hosea Griffith, RN is Primary Nurse. em 13:17 CT Head C Spine In Process Unspecified. EDMS 13:30 Initial lab(s) drawn, by me, sent to lab. Inserted saline lock: 22 gauge in right em forearm, using aseptic technique. Blood collected. 15:36 No provider procedures requiring assistance completed. IV discontinued, intact, em bleeding controlled, No redness/swelling at site. Pressure dressing applied. Administered Medications: No medications were administered Outcome: 14:26 Discharge ordered by . kdr 15:22 Discharged to home via wheelchair. em 15:22 Condition: good 15:22 Discharge instructions given to patient, Instructed on discharge instructions, follow up and referral plans. Demonstrated understanding of instructions, follow-up care. 15:38 Patient left the ED. em Signatures: Dispatcher [employer] Everardo Red MD MD kdr Hosea Griffith, RN RN em
[2020-09-26 15:03] LABS: Blood Morphology Comment NOT SEEN (NOT SEEN); Platelet Estimate ADEQ; White Blood Cell Scan OK (OK)
== END 2020-09-26 15:38 | disposition home or self-care (01) ==
LOC: ER 12:21
DX: R53.1 Weakness (principal); I10 Essential (primary) hypertension; G30.9 Alzheimer's disease, unspecified; F02.80 Dementia in other diseases classified elsewhere, unspecified severity, without behavioral disturbance, psychotic disturbance, mood disturbance, and anxiety; Z85.3 Personal history of malignant neoplasm of breast
CPT/HCPCS: 36415; 70450; 72125; 80048; 84484; 85025; 99284

== ENCOUNTER 2020-10-11 09:32 | Emergency (ER) | payer OTHER ==
--- OUTSIDE RECORDS SUMMARY | 2020-10-11 09:42 | XMS REPORT | Continuity of Care Document ---
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) Memory Active Problem 10/09/2020 [facility] impairment Neuro (finding) Dementia Active Problem 10/09/2020 Mischer (disorder) Neuro Syncope Active Problem 10/09/2020 Mischer (disorder) Neuro 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) Neuro Renal impairment Active Problem 10/09/2020 Mi johnnie (disorder) Neuro Medications Medication Details Route Status Patient Ordering Order Source Instructions Provider Date Memantine 5 mg = 1 Active Mischer hydrochloride 5 tab, PO, 020 Neuro MG Oral Tablet BID, # 60 [Namenda] tab, 2 Refill(s), Pharmacy: [facility], 144.78, cm, 08/15/20 16:19:00 CDT, Height, 55.455, kg, 08/15/20 16:19:00 CDT, Weight OXcarbazepine 300 mg = 1 Active Mischer 300 mg oral tab, PO, 020 Neuro tablet Bedtime, # 30 tab, 2 Refill(s), LALI, Pharmacy: [facility], 144.78, cm, 08/15/20 16:19:00 CDT, Height, 55.455, kg, 08/15/20 16:19:00 CDT, Weight donepezil 5 mg 5 mg = 1 Active Mischer oral tablet tab, PO, 020 Neuro Bedtime, # 30 tab, 3 Refill(s), Pharmacy: [facility], 144.78, cm, 08/15/20 16:19:00 CDT, Height, 55.455, kg, 08/15/20 16:19:00 CDT, Weight Sertraline 25 MG 25 mg = 1 Active Misch er Oral Tablet tab, PO, 020 Neuro [Zoloft] QPM, # 30 tab, 3 Refill(s), Pharmacy: [facility], 147.32, cm, 12/06/19 10:44:00 [employer], Height, 64.545, kg, 12/06/19 10:44:00 [employer], Weight 24 HR Divalproex 250 mg = 1 Active Misc her Sodium 250 MG tab, PO, 020 Neuro Extended Release Bedtime, X Tablet 90 day, # 90 tab, 3 Refill(s), Pharmacy: [facility], 147.32, cm, 12/06/19 10:44:00 [employer], Height, 64.545, kg, 12/06/19 10:44:00 [employer], Weight donepezil 10 mg = 1 tab, Active Mischer oral tablet PO, Daily, 020 Neuro # 90 tab, 1 Refill(s), Pharmacy: [facility], 147.32, cm, 12/06/19 10:44:00 [employer], Height, 64.545, kg, 12/06/19 10:44:00 [employer], Weight OXcarbazepine = 1 tab, Active Mischer 300 mg oral PO, BID, # 020 Neuro tablet 180 tab, 2 Refill(s), LALI, Pharmacy: [facility], 147.32, cm, 12/06/19 10:44:00 [employer], Height, 64.545, kg, 12/06/19 10:44:00 [employer], Weight 24 HR Divalproex See Active Mischer Sodium 250 MG Instruction 020 Neuro Extended Release s, TAKE 2 Tablet TABLETS BY MOUTH AT BEDTIME, # 60 tab, 2 Refill(s), Pharmacy: [facility], 147.32, cm, 12/06/19 10:44:00 [employer], Height, 64.545, kg, 12/06/19 10:44:00 [employer], Weight 24 HR Divalproex 500 mg = 2 Active Misc her Sodium 250 MG tab, PO, 020 Neuro Extended Release Bedtime, # Tablet 60 tab, 2 [Depakote] Refill(s), Pharmacy: [facility] Mirtazapine 15 15 mg = 1 No Longer Misch er MG Oral Tablet tab, PO, Active 020 Neuro [Remeron] Bedtime, # 30 tab, 1 Refill(s), Pharmacy: [facility] OXcarbazepine = 1 tab, Active Mischer 300 mg oral PO, BID, # 019 Neuro tablet 180 tab, 2 Refill(s), LALI, Pharmacy: [facility] donepezil 10 mg 10 mg = 1 Active Mische r oral tablet tab, PO, 019 Neuro Daily, # 90 tab, 1 Refill(s), Pharmacy: [facility] Donepezil 5 mg = 1 Active Mischer hydrochloride 5 tab, PO, 019 Neuro MG Oral Tablet Bedtime, # [Aricept] 30 tab, 3 Refill(s), Pharmacy: [facility] OXcarbazepine 300 mg = 1 Active Mischer 300 mg oral tab, PO, 019 Neuro tablet BID, # 60 tab, 3 Refill(s), Pharmacy: [facility] carBAMazepine 200 mg = 1 No Longer Misch er 200 mg oral tab, PO, Active 019 Neuro tablet BID, # 60 tab, 3 Refill(s), Pharmacy: [facility] Allergies, Adverse Reactions, Alerts Substance [...] 2018 Comment: Neuro
Lab test performed by:
[facility]
[address]
[place] [address]
Kaylene Sterling ELECTROLYTES Chloride Lvl [phone] [...]
Lab test performed by:
[facility]
[address]
[place] [address]
Kaylene Sterling HEMATOLOGY Monocytes # [phone] [...]

Lab test performed by:
[facility]
[address]
[place] [address]
Kaylene Sterling Pathology Reports No Data Provided [...] [facility] Ne uro Heart Rate 56 12/06/2019 [facility] Respitory Rate 16 12/06/2019 [facility] Neuro [...] 03/01/2019 [facility] Height 144.78 cm 03/01/2019 [facility] Heart Rate 72 03/01/2019 [facility] Respitory Rate 16 03/01/2019 [facility] Systolic (mm Hg) 172 03/01/2019 [facility] Karen ro Diastolic (mm Hg) 74 03/01/2019 [facility] Weight 69.091 11/16/2018 [facility] BMI Calculated 31.83 11/16/2018 [facility] Height 147.32 cm 11/16/2018 [facility] Respitory Rate 16 11/16/2018 [facility] [place] 74 11/16/2018 [facility] Systolic (mm Hg) 126 11/16/2018 [facility] Karen ro Diastolic (mm Hg) 85 11/16/2018 [facility] BMI Calculated 31.62 08/17/2018 [facility] [place] 68.636 08/17/2018 [facility] Height 147.32 cm 08/17/2018 [facility] Systolic (mm Hg) 167 08/17/2018 [facility] Karen ro Diastolic (mm Hg) 80 08/17/2018 [facility] Respitory Rate 16 08/17/2018 [facility] [place] 67 08/17/2018 [facility] [place]ters Location Location Encounter Encounter Reason Attending ADM CT Stat us Source Details Type Number For Provider Date Date Visit Outpatient [id number] LIZBET 06/17 Active [facility] Outpatient [id number] LIZBET 07/20 [facility] [place] Outpatient [id number] LIZBET 08/17 Active [facility] [id number] Lizbet 08/17 08/18 [facility]2017 [facility] [place] [facility] Outside [id number] 11/02 11/04 [facility] /2018 [facility] [place] [facility] Outpatient [id number] LIZBET 11/16 Active [facility] [place] Outpatient [id number] LIZBET 11/16 Active [facility] Ambulatory [id number] Lizbet 11/16 11/16 [facility] [place] [facility] Outpatient [id number] Lizbet 11/16 11/17 [facility] [place] Outpatient [id number] LIZBET 12/14 [facility] [place] [facility] [id number] LIZBET 12/14 [facility] [place] [facility] [id number] LIZBET 01/11 [facility] [place] Out[facility] [id number] LIZBET 01/11 [facility] [place] [facility] [id number] LIZBET 02/01 [facility] [place] Out[facility] [id number] LIZBET 02/15 [facility] [place] [facility]ulatory [id number] Lizbet 02/15 02/15 [facility] [place] Outpatient [id number] Lizbet 03/01 [facility] [place] [facility] Outpatient [id number] Lizbet 03/01 03/02 [facility] [place] Outpatient [id number] Lizbet 05/10 [facility] [place] [facility] [id number] Lizbet 05/10 05/11 [facility] [place] Outpatient [id number] Lizbet 07/12 [facility] [place] [facility] Outpatient [id number] Lizbet 07/12 07/13 [facility] [place] Outpatient [id number] Lizbet 09/13 [facility] [place] [facility] Outpatient [id number] Lizbet 09/13 09/14 [facility] [place] Outpatient [id number] Lizbet 12/06 [facility] [place] [facility] Outpatient [id number] Lizbet 12/06 12/07 [facility] [place] Outpatient [id number] Lizbet 01/09 [facility] [place] [facility] Outpatient [id number] Lizbet 01/09 01/10 [facility] [place] Outpatient [id number] Lizbet 01/16 [facility] [place] [facility] Ambulatory [id number] Lizbet 01/16 01/16 [facility] /2019 [facility] [place] Outpatient [id number] Lizbet 01/24 [facility] [place] [facility] Outpatient [id number] Lizbet 01/24 01/25 [facility] /2019 [facility] [place] Outpatient [id number] Lizbet 02/14 [facility] [place] [facility] Outpatient [id number] Lizbet 02/14 02/15 [facility] /2019 [facility] [place] Outpatient [id number] Lizbet 03/07 [facility] [place] [facility] Outpatient [id number] Lizbet 03/07 03/08 [facility] /2019 [facility] [place] Outpatient [id number] Lizbet 06/07 [facility] [place] Outpatient [id number] Lizbet 06/07 [facility] [place] [facility] Outpatient [id number] Lizbet 06/07 06/08 [facility] /2019 [facility] [place] [facility] Ambulatory [id number] Lizbet 06/07 06/07 [facility] /2019 [facility] [place] Outpatient [id number] Lizbet 08/15 Active [facility] [place] [facility] Outpatient [id number] Lizbet 08/15 08/16 [facility] /2019 [facility] [place] Outpatient [id number] Lizbet 08/22 [facility] [place] [facility] Outpatient [id number] Lizbet 08/22 08/23 [facility] /2019 [facility] [place] Outpatient [id number] Lizbet 08/24 [facility] [place] [facility] Ambulatory [id number] Lizbet 08/24 08/24 [facility] /2019 [facility] [place] Outpatient [id number] Lizbet 09/12 [facility] /2020 [place] [facility] Ambulatory [id number] Lizbet 09/12 09/12 [facility] /2019 [facility] [place] [facility] Outside [id number] 10/05 10/07 [facility] /2019 [facility] [place] Records Procedures Procedure Code Date Perfomer Comments Source Mastectomy [id number] [facility] Assessment and Plan No Data Provided for This Section Plan of Care No Data Provided for This Section Social History Social History Date Source Social History TypeResponse 12/06/2019 [facility] Employment/School Other: Has Will and [...]
--- OUTSIDE RECORDS SUMMARY | 2020-10-11 09:43 | XMS REPORT | Summary of Care ---
:1935 Author Organization [facility] Address [address] [place] [address]- Encounter HQ Encntr_alias(FIN) [id number] Date(s): 10/05/20 - 10/06/20 [facility] [address] [place] [address]- [phone] Vital Signs No data available for this [...]
[2020-10-11 10:32] LABS: Absolute Lymphocytes (CBC) 0.9 K/uL (0.7-4.9); Hematocrit 27.1 % (36.0-45.0); Lymphocytes % 25.3 % (15.3-44.8); MPV 7.5 fL (7.6-11.3); RBC Red Blood Cell Count 2.86 M/uL (3.86-4.86)
[2020-10-11 10:38] LABS: Potassium 4.8 mmol/L (3.5-5.1)
[2020-10-11] MEDS ORDERED: CEFAZOLIN SODIUM 1 GM/VIAL ONE (11:00)
[2020-10-11] MEDS ORDERED: NA CHLORIDE 0.9% 100 ML ONE (11:00)
--- NOTE | 2020-10-11 11:18 | RAD REPORT ---
EXAM DESCRIPTION: US - Extrem Venous W Compress Quinten - 10/11/2020 11:08 am CLINICAL HISTORY: Pain;Swelling Bilateral leg edema and swelling. COMPARISON: Extrem Venous W Compress Quinten dated 09/24/2020 TECHNIQUE: Real-time sonographic interrogation of the left and right lower extremity deep venous sys tems was performed. FINDINGS: Normal compressibility, flow augmentation, phasic flow and spontaneous flow is identified in both the left and right lower extremity deep venous systems. IMPRESSION: No sonographic evidence of left or right lower extremity deep venous thrombosis.
[2020-10-11 11:31] LABS: Blood Morphology Comment NOT SEEN (NOT SEEN); Platelet Estimate ADEQ; White Blood Cell Scan OK (OK)
--- NOTE | 2020-10-11 11:32 | EDPHYS ---
Physician Documentation [facility] Name: Edie Fields Age: 85 yrs Sex: Female : 1935 Arrival Date: 10/11/2020 Time: 09:34 Bed 7 Private MD: ED Physician Everardo Clay HPI: 10/11 16:26 This 85 yrs old Female presents to ER via EMS with complaints of Leg Pain. kdr 16:26 The patient presents with pain, that is chronic, tenderness, Cellulitis of the lower kdr extremities, R> L. The complaints affect the lateral aspect of right calf, medial aspect of right calf and right yousif. Context: The problem was sustained at a shelter or assisted living facility, resulted from an unknown cause, the patient can fully bear weight, the patient is able to ambulate, without difficulty. Onset: The symptoms/episode began/occurred gradually, at an unknown time. Modifying factors: The symptoms are alleviated by nothing. the symptoms are aggravated by Touching the area. Associated signs and symptoms: The patient has no apparent associated signs or symptoms. Treatment prior to arrival includes: no previous treatment. Severity of symptoms: At their worst the symptoms were mild, moderate, in the emergency department the symptoms are unchanged. The patient has experienced similar episodes in the past, chronically. It is unknown whether or not the patient has recently seen a physician. Historical: - Allergies: 09:42 No Known Allergies; bp - Home Meds: :42 alendronate 70 mg Oral tab once wkly [Active]; anastrozole 1 mg Oral tab 1 tab once bp daily for Hormone Receptor Positive Breast Cancer [Active]; carvedilol 6.25 mg Oral tab 1 tab 2 times per day [Active]; divalproex 250 mg oral Tb24 once daily [Active]; donepezil 5 mg Oral tab 1 tab once daily [Active]; furosemide 20 mg Oral tab 1 tab once daily [Active]; losartan 50 mg Oral tab 1 tab 2 times per day [Active]; meloxicam 7.5 mg oral tab 1 tab once daily [Active]; oxcarbazepine 300 mg oral tab 1 tab 2 times per day [Active]; sertraline 25 mg oral tab 1 tab once daily [Active]; Vitamin B-12 Oral 1 tab daily [Active]; - PMHx: 09:42 Alzheimers; Cancer, Breast; Seizures; Hypertension; Dementia; bp - Immunization history:: Adult Immunizations up to date. - Social history:: Smoking status: Patient denies any tobacco usage or history of. ROS: 16:26 Constitutional: Negative for fever, chills, and weight loss, Eyes: Negative for injury, kdr pain, redness, and discharge, ENT: Negative for injury, pain, and discharge, Neck: Negative for injury, pain, and swelling, Cardiovascular: Negative for chest pain, palpitations, and edema, Respiratory: Negative for shortness of breath, cough, wheezing, and pleuritic chest pain, Abdomen/GI: Negative for abdominal pain, nausea, vomiting, diarrhea, and constipation, Back: Negative for injury and pain, : Negative for injury, bleeding, discharge, and swelling, MS/Extremity: Negative for injury and deformity, Neuro: Negative for headache, weakness, numbness, tingling, and seizure activity. Psych: Negative for depression, anxiety, suicide ideation, homicidal ideation, and hallucinations, Allergy/Immunology: Negative for hives, rash, and allergies, Endocrine: Negative for neck swelling, polydipsia, polyuria, polyphagia, and marked weight changes, Hematologic/Lymphatic: Negative for swollen nodes, abnormal bleeding, and unusual bruising. 16:26 Skin: Positive for erythema, swelling, of the right yousif and left yousif, diffusely. Exam: 16:48 Constitutional: This is a well developed, well nourished patient who is awake, alert, kdr and in no acute distress. Head/Face: Normocephalic, atraumatic. Eyes: Pupils equal round and reactive to light, extra-ocular motions intact. Lids and lashes normal. Conjunctiva and sclera are non-icteric and not injected. Cornea within normal limits. Periorbital areas with no swelling, redness, or edema. Neck: Trachea midline, no thyromegaly or masses palpated, and no cervical lymphadenopathy. Supple, full range of motion without nuchal rigidity, or vertebral point tenderness. No Meningismus. Chest/axilla: Normal chest wall appearance and motion. Nontender with no deformity. No lesions are appreciated. Cardiovascular: Regular rate and rhythm with a normal S1 and S2. No gallops, murmurs, or rubs. Normal PMI, no JVD. No pulse deficits. Respiratory: Lungs have equal breath sounds bilaterally, clear to auscultation and percussion. No rales, rhonchi or wheezes noted. No increased work of breathing, no retractions or nasal flaring. Abdomen/GI: Soft, non-tender, with normal bowel sounds. No distension or tympany. No guarding or rebound. No evidence of tenderness throughout. Back: No spinal tenderness. No costovertebral tenderness. Full range of motion. Neuro: Awake and alert, GCS 15, oriented to person, place, time, and situation. Cranial nerves II-XII grossly intact. Motor strength 5/5 in all extremities. Sensory grossly intact. Cerebellar exam normal. Normal gait. Psych: Awake, alert, with orientation to person, place and time. Behavior, mood, and affect are within normal limits. 16:48 Skin: cellulitis, that is mild, that is moderate, induration, that is mild is noted. Vital Signs: 09:34 BP 138 / 72; Pulse 60; Resp 16; Temp 97.5; Pulse Ox 96% ; bp 10:15 BP 102 / 43; Pulse 92; Resp 16; Pulse Ox 99% on R/A; bp 11:14 BP 101 / 65; Pulse 64; Resp 17; Pulse Ox 97% ; bp MDM: 11:32 Patient medically screened. kdr 16:48 Data reviewed: vital signs, nurses notes, lab test result(s), radiologic studies. kdr Counseling: I had a detailed discussion with the patient and/or guardian regarding: the historical points, exam findings, and any diagnostic results supporting the discharge/admit diagnosis, lab results, radiology results, the need for outpatient follow up. 10/11 09:55 Order name: CBC with Diff kdr 10/11 10:41 Interpretation: LYM% 25.3. kdr 10/11 09:55 Order name: Chem 7; Complete Time: 10:42 kdr 10/11 09:55 Order name: US Extremity Venous W Compression Quinten; Complete Time: 11:20 kdr 10/11 11:31 Order name: CBC Smear Scan EDMS Administered Medications: 11:15 Drug: Ancef 1 grams Route: IVPB; Site: right antecubital; bp 11:45 Follow up: IV Status: Completed infusion; IV Intake: 50ml bp Disposition: 10/11/20 11:32 Discharged to Home. Impression: Cellulitis of right lower limb. - Condition is Stable. - Discharge Instructions: Cellulitis, Adult. - Prescriptions for Keflex 500 mg Oral Capsule - take 1 capsule by ORAL route every 8 hours for 10 days; 30 capsule. - Medication Reconciliation Form, Thank You Letter, Antibiotic Education form. - Follow up: Private Physician; When: 2 - 3 days; Reason: If symptoms return, Further diagnostic work-up, Recheck today's complaints, Continuance of care, Re-evaluation by your physician. - Problem is an ongoing problem. - Symptoms are unchanged. Signatures: Dispatcher [employer] EDMS Everardo Clay MD MD kdr Peltier, Brian, RN RN bp Corrections: (The following items were deleted from the chart) 12:27 11:32 10/11/2020 11:32 Discharged to Home. Impression: Cellulitis of right lower limb. bp Condition is Stable. Forms are Medication Reconciliation Form, Thank You Letter, Antibiotic Education, Prescription Opioid Use. Follow up: Private Physician; When: 2 - 3 days; Reason: If symptoms return, Further diagnostic work-up, Recheck today's complaints, Continuance of care, Re-evaluation by your physician. Problem is an ongoing problem. Symptoms are unchanged. kdr
--- NOTE | 2020-10-11 11:32 | ER ---
Nurse's Notes [facility] Name: Edie Fields Age: 85 yrs Sex: Female : 1935 Arrival Date: 10/11/2020 Time: 09:34 Bed 7 Private MD: Diagnosis: Cellulitis of right lower limb Presentation: 10/11 09:34 Chief complaint: EMS states: LEFT LOWER LEG PAIN/REDNESS x1 YR. Coronavirus screen: At bp this time, the client does not indicate any symptoms associated with coronavirus-19. Ebola Screen: No symptoms or risks identified at this time. Initial Sepsis Screen: Does the patient meet any 2 criteria? No. Patient's initial sepsis screen is negative. Does the patient have a suspected source of infection? Yes: Skin breakdown/wound. Risk Assessment: Do you want to hurt yourself or someone else? Patient reports no desire to harm self or others. Note PER PT, SHE DID NOT WISH TO CALL 911 OR VISIT THE ER FOR THIS ISSUE SHE IS ALREADY UNDER TREATMENT FOR CELLULITIS. Onset of symptoms is unknown. 09:34 Method Of Arrival: EMS: [facility] bp 09:34 Acuity: RAYNE 4 bp Triage Assessment: 09:35 General: Appears in no apparent distress. comfortable, Behavior is calm, cooperative, bp appropriate for age. Pain: Complains of pain in right leg and left leg. EENT: No deficits noted. Neuro: No deficits noted. Cardiovascular: Rhythm is sinus rhythm. Respiratory: No deficits noted. GI: No signs and/or symptoms were reported involving the gastrointestinal system. : No signs and/or symptoms were reported regarding the genitourinary system. Derm: Skin is red, BLE. Musculoskeletal: Swelling present in right leg and left leg. Historical: - Allergies: 09:42 No Known Allergies; bp - Home Meds: 09:42 alendronate 70 mg Oral tab once wkly [Active]; anastrozole 1 mg Oral tab 1 tab once bp daily for Hormone Receptor Positive Breast Cancer [Active]; carvedilol 6.25 mg Oral tab 1 tab 2 times per day [Active]; divalproex 250 mg oral Tb24 once daily [Active]; donepezil 5 mg Oral tab 1 tab once daily [Active]; furosemide 20 mg Oral tab 1 tab once daily [Active]; losartan 50 mg Oral tab 1 tab 2 times per day [Active]; meloxicam 7.5 mg oral tab 1 tab once daily [Active]; oxcarbazepine 300 mg oral tab 1 tab 2 times per day [Active]; sertraline 25 mg oral tab 1 tab once daily [Active]; Vitamin B-12 Oral 1 tab daily [Active]; - PMHx: 09:42 Alzheimers; Cancer, Breast; Seizures; Hypertension; Dementia; bp - Immunization history:: Adult Immunizations up to date. - Social history:: Smoking status: Patient denies any tobacco usage or history of. Screenin:35 Abuse screen: Denies threats or abuse. Denies injuries from another. Nutritional bp screening: No deficits noted. Tuberculosis screening: No symptoms or risk factors identified. Fall Risk None identified. Assessment: 09:35 General: SEE TRIAGE NOTE. bp 10:15 Reassessment: Patient appears in no apparent distress at this time. No changes from bp previously documented assessment. Patient and/or family updated on plan of care and expected duration. Pain level reassessed. Patient is alert, oriented x 3, equal unlabored respirations, skin warm/dry/pink. PT TO [facility] 11:14 Reassessment: Patient appears in no apparent distress at this time. No changes from bp previously documented assessment. PT RETURNED FROM [facility] 11:55 Reassessment: [facility] CON[facility] FOR [facility]SPORT HOME. D/C ON HOLD PENDING. bp 12:27 Reassessment: PT PHILIP WITH [facility]. bp Vital Signs: 09:34 BP 138 / 72; Pulse 60; Resp 16; Temp 97.5; Pulse Ox 96% ; bp 10:15 BP 102 / 43; Pulse 92; Resp 16; Pulse Ox 99% on R/A; bp 11:14 BP 101 / 65; Pulse 64; Resp 17; Pulse Ox 97% ; bp ED Course: 09:34 Patient arrived in ED. bp 09:35 Everardo Clay MD is Attending Physician. kdr 09:35 Arm band placed on. bp 09:36 Triage completed. bp 09:44 Patient has correct armband on for positive identification. Bed in low position. Call bp light in reach. Side rails up X2. 09:45 Divya Kaminski, NIC is Primary Nurse. rb3 10:12 Chem 7 Sent. mh5 10:13 Warm blanket given. Pulse ox on. NIBP on. [facility] 10:13 CBC with Diff Sent. [facility] 10:13 Initial lab(s) drawn, by me, sent to lab. Inserted saline lock: 22 gauge in right [facility] antecubital area, using aseptic technique. Blood collected. 10:25 US Extremity Venous W Compression Quinten In Process Unspecified. EDMS 11:56 No provider procedures requiring assistance completed. IV discontinued, intact, bp bleeding controlled, No redness/swelling at site. Pressure dressing applied. 12:23 IV discontinued. [facility] Administered Medications: 11:15 Drug: Ancef 1 grams Route: IVPB; Site: right antecubital; bp 11:45 Follow up: IV Status: Completed infusion; IV Intake: 50ml bp Intake: 11:45 IV: 50ml; Total: 50ml. bp Outcome: 11:32 Discharge ordered by . kdr 11:56 Discharged to home via wheelchair, with family. bp 11:56 Condition: stable 11:56 Discharge instructions given to patient, longterm, Instructed on discharge instructions, follow up and referral plans. medication usage, Demonstrated understanding of instructions, follow-up care, medications, Prescriptions given X 1. 12:27 Patient left the ED. bp Signatures: Dispatcher [employer] EDCO Everardo Clay MD MD kdr Martinez, Maria [facility] Han Hou, RN RN Divya Lockhart, RN RN rb3
[2020-10-12 10:21] VITALS: TEMP 97.5
[2020-10-12 10:22] VITALS: BP 101/65; O2SAT 97
== END 2020-10-11 12:27 | disposition home or self-care (01) ==
LOC: ER 09:32
DX: L03.115 Cellulitis of right lower limb (principal); I10 Essential (primary) hypertension; G30.9 Alzheimer's disease, unspecified; F02.80 Dementia in other diseases classified elsewhere, unspecified severity, without behavioral disturbance, psychotic disturbance, mood disturbance, and anxiety; Z85.3 Personal history of malignant neoplasm of breast
CPT/HCPCS: 96365; 85025; 80048; 36415; 93970; 99284; J0690

== ENCOUNTER 2021-10-06 09:04 | Emergency (ER) | payer OTHER ==
--- OUTSIDE RECORDS SUMMARY | 2021-10-06 09:06 | XMS REPORT | Continuity of Care Document ---
:1935 Author Organization [facility] t Address [facility] [place] [id number] Care Team Providers Name Role Phone Rebekah-Cyndy_A_AH Attending Clinician Unavailable Rebekah-Cyndy_A_AH Admitting Clinician Unavailable Payers Payer Name Policy Type Policy Number Effective Date Expiration Date S isha [facility] [place] - [id number] 2019 [employer] 00:00:00 (MEDICARE REPLACEMENT/ADVANT AGE - HMO) Problems This patient has no known problems. Allergies, Adverse Reactions, Alerts This patient has no known allergies or adverse reactions. Medications This patient has no known medications. Procedures This patient has no known procedures. Encounters Start End Encounter Admission Attending Care Care Encounter Source Date/Time Date/Time Type Type Clinicians Facility Department ID 2019-12-14 2019-12-14 Outpatient Kofi [facility] [phone] [facility] 07:28:00 07:28:00 _A_AH [id number] Family Practic e Results This patient has no known results.
--- NOTE | 2021-10-06 10:26 | RAD REPORT ---
EXAM DESCRIPTION: CT - Head C Spine Cap Wo Con - 10/06/2021 9:48 am CLINICAL HISTORY: PAINfall, found down, head, neck, chest and abdomen pain COMPARISON: No comparisons TECHNIQUE: Axial [address] head images were obtained. Axial [address] cervical spine images were obtain ed with sagittal and coronal reconstruction images reviewed. Axial 5 mm images of the chest, abdomen and pelvis were obtained. All CT scans are performed using dose optimization technique as appropriate and may include automated exposure control or mA/KV adjustment according to patient size. FINDINGS: No intracranial hemorrhage, mass or edema. No midline shift or abnormal fluid collection. Moderate severity atrophy is present with ventricles in proportion to the amount of volume loss. Rn Ambulatory yuniel ischemic changes are mild. Focal scalp soft tissue thickening seen lateral left parietal scalp re gion. There is a 10 millimeter rounded hyperdense focus. This could be chronic soft tissue wound or p ossibly a small scalp hematoma. Underlying bone is intact. Mastoid air cells and paranasal sinuses ar e clear. No skull fracture. Cervical bodies are normal in height. There is a right convex cervical scoliosis accentuated by right lateral head tilt.Prominent facet joint degenerative changes are present. Multilevel bony foraminal encroachment is seen.No fracture or acute bone finding.Disc space narrowing is present at all levels most pronounced at C6-7.No prevertebral soft tissue thickening or paraspinal mass.Central canal detai l is inherently limited on CT imaging. CT chest shows no pneumothorax, pulmonary contusion or pleural fluid collection. No mediastinal hem atoma and the aorta and pulmonary arteries are unremarkable. No chest will mass or abnormal axillary finding. No displaced rib fracture is present. No nondisplaced rib fractures identified. Accentuated thoracic kyphosis present with left convex degenerative scoliotic curvature in the lower thoracic spi ne. Patient has a large hiatal hernia with most of the stomach intrathoracic. CT abdomen and pelvis show no injury to solid abdominal viscera. Gallbladder and biliary tree are unr emarkable. No bowel injury or significant finding. No free air, free fluid or abnormal stranding. No hernia, mass or bulky lymphadenopathy. No urinary bladder abnormality. In the left adnexum there is a 7 x 5.6 centimeter thin-walled homogeneous fluid attenuation mass. Calcification near wall may be p art of a fibroid in the uterus. Wall calcification is possible. This is most likely a cystadenoma. Lo ng-term significance is doubtful but no prior imaging available to establish long-term stability. Thi s can be further evaluated as clinical findings warrant. Advanced lumbar spine degenerative changes are present with right convex curvature. Degenerative gas present in all disc levels. An acute finding is not seen. IMPRESSION: Atrophy and chronic ischemic changes are present without an acute intracranial finding. Advanced cervical spine degenerative change without acute finding. No acute traumatic chest finding. Bony degenerative changes are present. No acute traumatic changes in the abdomen or pelvis. Patient has a 7 centimeter left adnexal cystic m ass most likely cystadenoma. No prior studies can establish a long-term stability. Outpatient follow- up monitoring can be performed as clinical findings warrant.
--- NOTE | 2021-10-06 10:31 | RAD REPORT ---
EXAM DESCRIPTION: RAD - Wrist Right 3 View - 10/06/2021 10:05 am CLINICAL HISTORY: PAIN, fall COMPARISON: No comparisons FINDINGS: An acute fracture is not identified. There is no dislocation or periosteal reaction noted. Radiocarpal joint space is narrowed. Patient has severe degenerative change at the trapezium first m etacarpal articulation with sclerosis and spurring along the articular margins and joint space narrow ing. Degenerative changes are present as well at the trapezium scaphoid articulation with remodeling of the articular surface of the scaphoid. This all appears to be chronic. MCP joint space narrowing is present. Advanced IP joint degenerative change present at the fifth digi t. No foreign body or other soft tissue abnormality. IMPRESSION: No fracture or acute bone findings seen. Advanced degenerative changes are present involving the scaphoid, trapezium and first metacarpal bone s as detailed. Alignment is believed to be all related to degenerative change. Trapezium dislocation is not suspected.
[2021-10-06] MEDS ORDERED: ACETAMINOPHEN 500 MG TAB ONE (10:48)
[2021-10-06 11:01] LABS: Absolute Lymphocytes (CBC) 0.9 K/uL (0.7-4.9); Basophils % 0.6 % (0-1.3); Lymphocytes % 12.3 % (15.3-44.8); MPV 7.5 fL (7.6-11.3); RBC Red Blood Cell Count 3.71 M/uL (3.86-4.86)
[2021-10-06 11:21] LABS: Albumin 3.2 g/dL (3.4-5.0); Bilirubin Direct 0.1 mg/dL (0-0.2); Bilirubin Total 0.3 mg/dL (0.2-1.0); Protein, Total 7.7 g/dL (6.4-8.2)
--- NOTE | 2021-10-06 11:39 | EDPHYS ---
Physician Documentation [facility] Name: Edie Fields Age: 86 yrs Sex: Female : 1935 Arrival Date: 10/06/2021 Time: 09:11 Bed 15 Private MD: ED Physician Varun Thomas HPI: 10/06 09:51 This 86 yrs old Female presents to ER via EMS with complaints of Fall. ma2 09:51 Onset: The symptoms/episode began/occurred suddenly, 1 hour(s) ago. The patient has not ma2 experienced similar symptoms in the past. Slipped while going to the bathroom, walking, fell backward hit right wrist and lower back, has left lower back pain. Historical: - Allergies: 09:17 No Known Allergies; al4 - Home Meds: 09:51 anastrozole 1 mg Oral tab 1 tab once daily for Hormone Receptor Positive Breast Cancer al4 [Active]; carvedilol 6.25 mg Oral tab 1 tab 2 times per day [Active]; divalproex 250 mg Oral Tb24 once daily [Active]; donepezil 5 mg Oral tab 1 tab once daily [Active]; furosemide 20 mg Oral tab 1 tab once daily [Active]; losartan 50 mg Oral tab 1 tab once daily [Active]; meloxicam 7.5 mg Oral tab 1 tab once daily [Active]; OXYCARBEZINE nightly [Active]; sertraline 25 mg Oral tab 1 tab once daily [Active]; tramadol 50 mg Oral tab 1 tab as needed [Active]; - PMHx: 09:17 Alzheimers; Seizures; Hypertension; Cancer, Breast; Dementia; al4 - Immunization history:: Adult Immunizations unknown. - Social history:: Smoking status: Patient denies any tobacco usage or history of. - Family history:: not pertinent. ROS: 09:51 Constitutional: Negative for fever, chills, and weight loss. ma2 09:51 All other systems are negative. Exam: 09:51 Constitutional: This is a well developed, well nourished patient who is awake, alert, ma2 and in no acute distress. Head/Face: Right parietal scalp contusion, otherwise normocephalic, atraumatic. Eyes: Pupils equal round and reactive to light, extra-ocular motions intact. Lids and lashes normal. Conjunctiva and sclera are non-icteric and not injected. Cornea within normal limits. Periorbital areas with no swelling, redness, or edema. ENT: Nares patent. No nasal discharge, no septal abnormalities noted. Tympanic membranes are normal and external auditory canals are clear. Oropharynx with no redness, swelling, or masses, exudates, or evidence of obstruction, uvula midline. Mucous membranes moist. Neck: Trachea midline, no thyromegaly or masses palpated, and no cervical lymphadenopathy. Supple, full range of motion without nuchal rigidity, or vertebral point tenderness. No Meningismus. Chest/axilla: Normal chest wall appearance and motion. Nontender with no deformity. No lesions are appreciated. Cardiovascular: Regular rate and rhythm with a normal S1 and S2. No gallops, murmurs, or rubs. Normal PMI, no JVD. No pulse deficits. Respiratory: Lungs have equal breath sounds bilaterally, clear to auscultation and percussion. No rales, rhonchi or wheezes noted. No increased work of breathing, no retractions or nasal flaring. Abdomen/GI: Soft, non-tender, with normal bowel sounds. No distension or tympany. No guarding or rebound. No evidence of tenderness throughout. Back: Left lateral back pain, tenderness over ribs 10 and 12. No spinal tenderness. No costovertebral tenderness. Full range of motion. Skin: Warm, dry with normal turgor. Normal color with no rashes, no lesions, and no evidence of cellulitis. MS/ Extremity: Right wrist abrasions. Otherwise full range of motion. Pulses equal, no cyanosis. Neurovascular intact. Full, normal range of motion. Neuro: Awake and alert, GCS 15, oriented to person, place, time, and situation. Cranial nerves II-XII grossly intact. Motor strength 5/5 in all extremities. Sensory grossly intact. Cerebellar exam normal. Normal gait. Vital Signs: 09:11 BP 130 / 52; Pulse 66; Resp 18; Temp 97.7; Pulse Ox 100% ; Pain 0/10; al4 10:00 BP 113 / 49; Pulse 61; Resp 20 S; Pulse Ox 95% on R/A; al4 10:44 Weight 59.24 kg; al4 11:00 BP 129 / 60; Pulse 61; Resp 16 S; Pulse Ox 100% on R/A; al4 11:30 BP 136 / 52; Pulse 60; Resp 15 S; Pulse Ox 98% on R/A; al4 12:00 BP 137 / 68; Pulse 63; Resp 22 S; Pulse Ox 97% on R/A; al4 12:30 BP 124 / 66; Pulse 57; Resp 18 S; Pulse Ox 98% on R/A; al4 13:00 BP 121 / 57; Pulse 59; Resp 19 S; Pulse Ox 97% on R/A; al4 14:26 BP 114 / 81; Pulse 60; Resp 18 S; Pulse Ox 98% on R/A; jd3 MDM: 09:14 Patient medically screened. pr2 09:51 Differential diagnosis: cardiac contusion, extremity fracture, C spine fracture, T ma2 spine fracture, L spine fracture. 11:38 Data reviewed: vital signs, nurses notes. Counseling: I had a detailed discussion with pr2 the patient and/or guardian regarding: the historical points, exam findings, and any diagnostic results supporting the discharge/admit diagnosis, the presence of at least one elevated blood pressure reading (>120/80) during this emergency department visit, the need for outpatient follow up. Response to treatment: the patient's symptoms have markedly improved after treatment. 10/06 09:30 Order name: Amylase, Serum; Complete Time: 11:28 pr2 10/06 09:30 Order name: Basic Metabolic Panel; Complete Time: 11:28 pr2 10/06 09:30 Order name: CBC with Diff; Complete Time: 11:14 ma2 10/06 09:30 Order name: ETOH Level; Complete Time: 11:14 ma2 10/06 09:30 Order name: Hepatic Function; Complete Time: 11:28 pr2 10/06 09:30 Order name: Lipase; Complete Time: 11:28 pr2 10/06 09:30 Order name: Type And Screen; Complete Time: 11:39 ma2 10/06 09:30 Order name: CT Traumagram (Head C Spine CAP wo con); Complete Time: 10:39 pr2 10/06 09:30 Order name: EKG; Complete Time: 09:31 ma2 10/06 09:30 Order name: EKG - Nurse/Tech; Complete Time: 10:20 pr2 10/06 09:30 Order name: IV Saline Lock; Complete Time: 10:50 pr2 10/06 09:30 Order name: Labs collected and sent; Complete Time: 10:20 pr2 10/06 09:30 Order name: Wrist Right 3 View XRAY; Complete Time: 10:39 pr2 10/06 09:30 Order name: NPO; Complete Time: 10:20 pr2 10/06 09:30 Order name: O2 Per Protocol; Complete Time: 10:20 pr2 10/06 09:30 Order name: O2 Sat Monitoring; Complete Time: 10:20 pr2 10/06 10:31 Order name: Labs - recollect needed: recollect the chem 7 and T\T\S; Complete Time: 10:50 eb Administered Medications: 10:50 Drug: Tylenol (acetaminophen) 15 mg/kg {Note: 1000 mg given per verbal order .} Route: al4 PO; 11:50 Follow up: Response: No adverse reaction; Pain is decreased al4 Disposition Summary: 10/06/21 11:38 Discharge Ordered Location: Home ma2 Condition: Stable ma2 Diagnosis - Fall (on) (from) unspecified stairs and steps ma2 - Low back pain ma2 Followup: ma2 - With: Private Physician - When: Tomorrow - Reason: Continuance of care Discharge Instructions: - Discharge Summary Sheet ma2 - Musculoskeletal Pain ma2 Forms: - Medication Reconciliation Form ma2 - Thank You Letter ma2 - Antibiotic Education ma2 - Prescription Opioid Use ma2 Signatures: Dispatcher [employer] EDVarun Kat MD MD ma2 Samantha Calhoun Alexis al4
--- NOTE | 2021-10-06 11:39 | ER ---
Nurse's Notes [facility] Name: Edie Fields Age: 86 yrs Sex: Female : 1935 Arrival Date: 10/06/2021 Time: 09:11 Bed 15 Private MD: Diagnosis: Fall (on) (from) unspecified stairs and steps;Low back pain Presentation: 10/06 09:11 Chief complaint: EMS states: "patient had 2 falls about 20 minutes apart. patient al4 initially complained of no pain, but recently started complaining of pain near the tailbone on the right side.". Coronavirus screen: At this time, the client does not indicate any symptoms associated with coronavirus-19. Ebola Screen: No symptoms or risks identified at this time. Initial Sepsis Screen: Does the patient meet any 2 criteria? No. Patient's initial sepsis screen is negative. Does the patient have a suspected source of infection? No. Patient's initial sepsis screen is negative. Risk Assessment: Do you want to hurt yourself or someone else? Patient reports no desire to harm self or others. Onset of symptoms was October 06, 2021. Transition of care: Memory Care at [facility]. 09:11 Method Of Arrival: EMS: [facility] al4 09:11 Acuity: RAYNE 3 al4 Historical: - Allergies: 09:17 No Known Allergies; al4 - Home Meds: 09:51 anastrozole 1 mg Oral tab 1 tab once daily for Hormone Receptor Positive Breast Cancer al4 [Active]; carvedilol 6.25 mg Oral tab 1 tab 2 times per day [Active]; divalproex 250 mg Oral Tb24 once daily [Active]; donepezil 5 mg Oral tab 1 tab once daily [Active]; furosemide 20 mg Oral tab 1 tab once daily [Active]; losartan 50 mg Oral tab 1 tab once daily [Active]; meloxicam 7.5 mg Oral tab 1 tab once daily [Active]; OXYCARBEZINE nightly [Active]; sertraline 25 mg Oral tab 1 tab once daily [Active]; tramadol 50 mg Oral tab 1 tab as needed [Active]; - PMHx: 09:17 Alzheimers; Seizures; Hypertension; Cancer, Breast; Dementia; al4 - Immunization history:: Adult Immunizations unknown. - Social history:: Smoking status: Patient denies any tobacco usage or history of. - Family history:: not pertinent. Screenin:19 Abuse screen: Denies threats or abuse. Nutritional screening: No deficits noted. al4 Tuberculosis screening: No symptoms or risk factors identified. Fall Risk Fall in past 12 months (25 points). No IV (0 pts). Mental Status- Overestimates/Forgets Limitations (15 pts.). Total Macias Fall Scale indicates Low Risk Score (25-44 pts). Fall prevention measures have been instituted. Side Rails Up X 2 Placed close to Nursing Station Frequent Obs/Assesments occuring. Assessment: 09:19 General: Appears in no apparent distress. comfortable, Behavior is calm, cooperative, al4 appropriate for age, EMS stated patient reported back pain prior to arrival of hospital. Patient denies pain at this time. . Pain: Denies pain. Neuro: Level of Consciousness is awake, alert, obeys commands, Oriented to person, place, time, situation, Appropriate for age. Cardiovascular: Capillary refill < 3 seconds Patient's skin is warm and dry. Respiratory: Airway is patent Respiratory effort is even, unlabored, Respiratory pattern is regular, symmetrical. GI: No signs and/or symptoms were reported involving the gastrointestinal system. : No signs and/or symptoms were reported regarding the genitourinary system. EENT: No signs and/or symptoms were reported regarding the EENT system. Derm: Skin has skin tears on Right Forearm Skin is normal. Musculoskeletal: No signs and/or symptoms reported regarding the musculoskeletal system. 09:20 Injury Description: small egg size hematoma on the back of the head to the left side. al4 10:20 Reassessment: No changes from previously documented assessment. Patient and/or family jd3 updated on plan of care and expected duration. Pain level reassessed. Patient is alert, oriented x 3, equal unlabored respirations, skin warm/dry/pink. 11:20 Reassessment: No changes from previously documented assessment. Patient is alert, jd3 oriented x 3, equal unlabored respirations, skin warm/dry/pink. Patient states feeling better. 12:25 Reassessment: No changes from previously documented assessment. Patient and/or family al4 updated on plan of care and expected duration. Pain level reassessed. 13:05 Reassessment: No changes from previously documented assessment. Patient and/or family al4 updated on plan of care and expected duration. Pain level reassessed. report was called to Irais at [facility]. 13:05 Reassessment: report given to Roxanne at [facility] for discharge. awaiting ride for jd3 transportation back to the facility. 14:24 Reassessment: Patient and/or family updated on plan of care and expected duration. Pain jd3 level reassessed. report given to EMS for pt transfer back to [facility]. Vital Signs: 09:11 BP 130 / 52; Pulse 66; Resp 18; Temp 97.7; Pulse Ox 100% ; Pain 0/10; al4 10:00 BP 113 / 49; Pulse 61; Resp 20 S; Pulse Ox 95% on R/A; al4 10:44 Weight 59.24 kg; al4 11:00 BP 129 / 60; Pulse 61; Resp 16 S; Pulse Ox 100% on R/A; al4 11:30 BP 136 / 52; Pulse 60; Resp 15 S; Pulse Ox 98% on R/A; al4 12:00 BP 137 / 68; Pulse 63; Resp 22 S; Pulse Ox 97% on R/A; al4 12:30 BP 124 / 66; Pulse 57; Resp 18 S; Pulse Ox 98% on R/A; al4 13:00 BP 121 / 57; Pulse 59; Resp 19 S; Pulse Ox 97% on R/A; al4 14:26 BP 114 / 81; Pulse 60; Resp 18 S; Pulse Ox 98% on R/A; jd3 ED Course: 09:11 Patient arrived in ED. al4 09:13 Varun Thomas MD is Attending Physician. ma2 09:15 Triage completed. al4 09:19 Patient has correct armband on for positive identification. Bed in low position. Call al4 light in reach. Side rails up X2. Pulse ox on. NIBP on. Door closed. Noise minimized. 09:41 Krishna Matt is Primary Nurse. al4 09:48 CT Traumagram (Head C Spine CAP wo con) In Process Unspecified. EDMS 10:05 Wrist Right 3 View XRAY In Process Unspecified. EDMS 10:45 Initial lab(s) drawn, by me, sent to lab. T\\T\\S collected, blood band applied to patient. dh3 Inserted saline lock: 20 gauge in left antecubital area, using aseptic technique. Blood collected. 14:25 No provider procedures requiring assistance completed. IV discontinued, intact, jd3 bleeding controlled, No redness/swelling at site. Pressure dressing applied. 14:26 Arm band placed on. jd3 Administered Medications: 10:50 Drug: Tylenol (acetaminophen) 15 mg/kg {Note: 1000 mg given per verbal order .} Route: al4 PO; 11:50 Follow up: Response: No adverse reaction; Pain is decreased al4 Outcome: 11:38 Discharge ordered by . abdirashid 14:26 Discharged to alf. Report called to Rafael Gonzalez Transfer form completed. report jd3 given to EMS 14:26 Condition: stable 14:26 Discharge instructions given to patient, alf, EMS, Instructed on discharge instructions. 14:27 Patient left the ED. jd3 Signatures: Dispatcher [employer] Yusra Marrero 3 Sourav Fraser RN RN jd3 Varun Thomas MD MD ma2 Krishna Matt al4 Corrections: (The following items were deleted from the chart) 10:43 09:19 Derm: Skin has skin tears on Right Forearm, Left forearm Skin is normal, al4 al4 14:25 10:20 Reassessment: Patient and/or family updated on plan of care and expected jd3 duration. Pain level reassessed. Patient is alert, oriented x 3, equal unlabored respirations, skin warm/dry/pink. al4 14:25 11:20 Reassessment: Patient and/or family updated on plan of care and expected jd3 duration. Pain level reassessed. Patient is alert, oriented x 3, equal unlabored respirations, skin warm/dry/pink. Patient states feeling better. al4
[2021-10-06 14:39] VITALS: TEMP 97.7
[2021-10-06 14:49] VITALS: BP 114/81; O2SAT 98
== END 2021-10-06 14:27 | disposition home or self-care (01) ==
LOC: ER 09:04
DX: M54.50 Low back pain, unspecified (principal); W10.9XXA Fall (on) (from) unspecified stairs and steps, initial encounter; I10 Essential (primary) hypertension; G30.9 Alzheimer's disease, unspecified; F02.80 Dementia in other diseases classified elsewhere, unspecified severity, without behavioral disturbance, psychotic disturbance, mood disturbance, and anxiety; Z85.3 Personal history of malignant neoplasm of breast
CPT/HCPCS: 36415; 70450; 71250; 72125; 80048; 80076; 80320; 82150; 83690; 85025; 86850; 86900; 86901; 93005; 99284

== ENCOUNTER 2022-01-20 17:31 | Emergency (ER) | payer OTHER ==
--- OUTSIDE RECORDS SUMMARY | 2022-01-20 17:33 | XMS REPORT | Continuity of Care Document ---
:1935 Author Organization [facility] t Address [facility] [place] [id number] Care Team Providers Name Role Phone Rebekah-Cyndy_A_AH Attending Clinician Unavailable Rebekah-Cyndy_A_AH Admitting Clinician Unavailable Payers Payer Name Policy Type Policy Number Effective Date Expiration Date S isha [facility] - [id number] 2019 [employer] 00:00:00 (MEDICARE REPLACEMENT/ADVANT AGE - [...] Facility Department ID 2019-12-14 2019-12-14 Outpatient Kofi [facility] [phone] [facility] 07:28:00 07:28:00 _A_AH [id number] Family Practic e Results This patient has no known results.
--- NOTE | 2022-01-20 18:04 | RAD REPORT ---
EXAM DESCRIPTION: CT - Head Brain Wo Cont - 01/20/2022 5:56 pm CLINICAL HISTORY: TRAUMA COMPARISON: Head Brain Wo Cont dated 08/17/2020 TECHNIQUE: Axial 5 mm thick images of the head were obtained without IV contrast. All CT scans are performed using dose optimization technique as appropriate and may include automated exposure control or mA/KV adjustment according to patient size. FINDINGS: No intracranial hemorrhage, mass, edema or shift of mid-line structures. No acute infarcti on changes seen. No abnormal extra-axial fluid collections. No cortical edema or sulcal effacement. M oderate severity survey each atrophy changes are present with ventricles in proportion. Chronic ische gonzález changes are mild for age. Intracranial findings are similar to the comparison. Mastoid air cells and visualized portions of the paranasal sinuses are clear. No acute bony findings. IMPRESSION: No hemorrhage, edema or acute intracranial finding. Moderate severity atrophy and mild chronic ischemic changes are present with ventricles in proportion to volume loss. Intracranial findings are similar to comparison.
--- NOTE | 2022-01-20 18:08 | ER ---
Nurse's Notes [facility] Name: Edie Fields Age: 86 yrs Sex: Female : 1935 Arrival Date: 01/20/2022 Time: 17:32 Bed 4 Private MD: Diagnosis: Unspecified injury of head, initial encounter;Fall on same level from slipping, tripping and stumbling without subsequent striking against object Presentation: 01/20 17:33 Chief complaint: Patient states: slipped and fell hitting back of head on floor. Pt aa5 denies any complaints. Pt is a resident at [facility] in [place], [place]. Coronavirus screen: At this time, the client does not indicate any symptoms associated with coronavirus-19. Ebola Screen: No symptoms or risks identified at this time. Initial Sepsis Screen: Does the patient meet any 2 criteria? No. Patient's initial sepsis screen is negative. Does the patient have a suspected source of infection? No. Patient's initial sepsis screen is negative. Risk Assessment: Do you want to hurt yourself or someone else? Patient reports no desire to harm self or others. Onset of symptoms was January 20, 2022. 17:33 Acuity: RAYNE 4 aa5 17:33 Method Of Arrival: EMS: [facility] aa5 Triage Assessment: 17:35 General: Appears in no apparent distress. Behavior is calm, cooperative, appropriate ll1 for age. Pain: Denies pain. Neuro: Reports hitting head, no LOC. Denies pain. Historical: - Allergies: 17:34 No Known Allergies; aa5 - Home Meds: 17:34 alendronate 70 mg Oral tab once wkly [Active]; anastrozole 1 mg Oral tab 1 tab once aa5 daily for Hormone Receptor Positive Breast Cancer [Active]; carvedilol 3.125 mg oral tab 2 times per day [Active]; divalproex 250 mg Oral Tb24 once daily [Active]; donepezil 5 mg Oral tab 1 tab once daily [Active]; furosemide 20 mg Oral tab 1 tab once daily [Active]; Klor-Con 10 10 mEq Oral TbER 1 tab once daily [Active]; losartan 25 mg oral tab once daily [Active]; meloxicam 7.5 mg Oral tab 1 tab once daily [Active]; oxcarbazepine 300 mg Oral tab 1 tab at bedtime [Active]; sertraline 25 mg Oral tab 1 tab once daily [Active]; - PMHx: 17:34 Alzheimers; Cancer, Breast; Hypertension; Dementia; Seizures; CHF; aa5 - Immunization history:: Adult Immunizations unknown. - Social history:: Smoking status: Patient denies any tobacco usage or history of. Screenin:00 Abuse screen: Denies threats or abuse. Nutritional screening: No deficits noted. ll1 Tuberculosis screening: No symptoms or risk factors identified. Fall Risk Fall in past 12 months (25 points). Secondary diagnosis (15 points) dementia, Mental Status- Overestimates/Forgets Limitations (15 pts.). Total Macias Fall Scale indicates High Risk Score (45 or more points). Fall prevention measures have been instituted. Side Rails Up X 2 Placed Close to Nursing Station Frequent Obs/Assessments Occuring As available patient and family educated on Fall Prevention Program and Strategies. Assessment: 18:00 Reassessment: No changes from previously documented assessment. Patient and/or family ll1 updated on plan of care and expected duration. Pain level reassessed. Patient is alert, oriented x 3, equal unlabored respirations, skin warm/dry/pink. Vital Signs: 17:34 BP 179 / 79; Pulse 75; Resp 14 S; Temp 98.0(TE); Pulse Ox 100% on R/A; Weight 54.43 kg; aa5 18:40 BP 161 / 71; Pulse 70; Resp 15; Pulse Ox 100% ; Pain 0/10; ll1 ED Course: 17:32 Patient arrived in ED. aa5 17:33 [facility]. kb 17:33 Brian aDmon MD is Attending Physician. kb 17:33 Arm band placed on Patient placed in an exam room, on a stretcher. aa5 17:34 Triage completed. aa5 17:47 Carlos Zamudio, NIC is Primary Nurse. ll1 17:58 CT Head Brain wo Cont In Process Unspecified. EDMS 18:01 Patient has correct armband on for positive identification. Bed in low position. Call ll1 light in reach. Side rails up X2. Pulse ox on. NIBP on. 18:41 No provider procedures requiring assistance completed. Patient did not have IV access ll1 during this emergency room visit. Administered Medications: No medications were administered Outcome: 18:08 Discharge ordered by . laurent 18:41 Discharged to home ambulatory. ll1 18:41 Condition: stable 18:41 Discharge instructions given to patient, fpc, Instructed on discharge instructions, follow up and referral plans. Demonstrated understanding of instructions, follow-up care. 18:41 Patient left the ED. ll1 Signatures: Dispatcher [employer] EDND Yoly Cole FNP-C FNP-Ava Pan, RN RN aa5 Carlos Zamudio, RN RN ll1
--- NOTE | 2022-01-20 18:08 | EDPHYS ---
Physician Documentation [facility] Name: Edie Fields Age: 86 yrs Sex: Female : 1935 Arrival Date: 01/20/2022 Time: 17:32 Bed 4 Private MD: ED Physician Brian Damon HPI: 01/20 18:06 This 86 yrs old Female presents to ER via EMS with complaints of Fall Injury. kb 18:06 Details of fall: The patient fell from an upright position, while walking. Onset: The kb symptoms/episode began/occurred just prior to arrival. Associated injuries: The patient sustained injury to the head, hematoma. Severity of symptoms: At their worst the symptoms were very mild, in the emergency department the symptoms are unchanged. The patient has not experienced similar symptoms in the past. The patient has not recently seen a physician. Pt reports she was walking, tripped and fell. reports hitting the back of her head. Pt has no complaints. Denies LOC. Moves all extremities without pain/discomfort. Historical: - Allergies: 17:34 No Known Allergies; aa5 - Home Meds: 17:34 alendronate 70 mg Oral tab once wkly [Active]; anastrozole 1 mg Oral tab 1 tab once aa5 daily for Hormone Receptor Positive Breast Cancer [Active]; carvedilol 3.125 mg oral tab 2 times per day [Active]; divalproex 250 mg Oral Tb24 once daily [Active]; donepezil 5 mg Oral tab 1 tab once daily [Active]; furosemide 20 mg Oral tab 1 tab once daily [Active]; Klor-Con 10 10 mEq Oral TbER 1 tab once daily [Active]; losartan 25 mg oral tab once daily [Active]; meloxicam 7.5 mg Oral tab 1 tab once daily [Active]; oxcarbazepine 300 mg Oral tab 1 tab at bedtime [Active]; sertraline 25 mg Oral tab 1 tab once daily [Active]; - PMHx: 17:34 Alzheimers; Cancer, Breast; Hypertension; Dementia; Seizures; CHF; aa5 - Immunization history:: Adult Immunizations unknown. - Social history:: Smoking status: Patient denies any tobacco usage or history of. ROS: 18:06 Constitutional: Negative for fever, chills, and weight loss. kb 18:06 All other systems are negative. Exam: 18:06 Constitutional: This is a well developed, well nourished patient who is awake, alert, kb and in no acute distress. ENT: Moist Mucous membranes Cardiovascular: Regular rate and rhythm with a normal S1 and S2. No gallops, murmurs, or rubs. No pulse deficits. Respiratory: Respirations even and unlabored. No increased work of breathing. Talking in full sentences Abdomen/GI: Soft, non-tender. No distention Skin: Warm, dry with normal turgor. Normal color. MS/ Extremity: Pulses equal, no cyanosis. Neurovascular intact. Full, normal range of motion. Neuro: Awake and alert, GCS 15, oriented to person, place, time, and situation. Moves all extremities. Normal gait. 18:06 Head/face: Noted is no obvious of injury or deformity except hematoma, that is mild, of the right occipital area. Vital Signs: 17:34 BP 179 / 79; Pulse 75; Resp 14 S; Temp 98.0(TE); Pulse Ox 100% on R/A; Weight 54.43 kg; aa5 18:40 BP 161 / 71; Pulse 70; Resp 15; Pulse Ox 100% ; Pain 0/10; ll1 MDM: 17:33 Patient medically screened. kb 18:05 Data reviewed: vital signs, nurses notes. Data interpreted: Pulse oximetry: on room air kb is 100 %. Interpretation: normal. Counseling: I had a detailed discussion with the patient and/or guardian regarding: the historical points, exam findings, and any diagnostic results supporting the discharge/admit diagnosis, radiology results, the need for outpatient follow up, a family practitioner, to return to the emergency department if symptoms worsen or persist or if there are any questions or concerns that arise at home. 01/20 17:33 Order name: CT Head Brain wo Cont; Complete Time: 18:05 kb Administered Medications: No medications were administered Disposition Summary: 01/20/22 18:08 Discharge Ordered Location: Home kb Condition: Stable kb Diagnosis - Unspecified injury of head, initial encounter kb - Fall on same level from slipping, tripping and stumbling without subsequent kb striking against object Followup: kb - With: Emergency Department - When: As needed - Reason: Worsening of condition Followup: kb - With: Private Physician - When: 2 - 3 days - Reason: Recheck today's complaints, Continuance of care, Re-evaluation by your physician Discharge Instructions: - Discharge Summary Sheet kb - Head Injury, Adult, [id number] kb Forms: - Medication Reconciliation Form kb - Thank You Letter kb - Antibiotic Education kb - Prescription Opioid Use kb Addendum: 01/23/2022 06:31 Co-signature as Attending Physician, Brian Damon MD I agree with the assessment and c bosch plan of care. Signatures: Dispatcher [employer] EDYoly Kim, GIS ADMINISTRATOR-C GIS ADMINISTRATOR-Brian Jones MD MD cha Calderon, Audri, RN RN aa5
[2022-01-20 19:22] VITALS: TEMP 98; O2SAT 100
[2022-01-20 19:23] VITALS: BP 161/71
== END 2022-01-20 18:41 | disposition home or self-care (01) ==
LOC: ER 17:31
DX: S00.83XA Contusion of other part of head, initial encounter (principal); W01.0XXA Fall on same level from slipping, tripping and stumbling without subsequent striking against object, initial encounter; G30.9 Alzheimer's disease, unspecified; F02.80 Dementia in other diseases classified elsewhere, unspecified severity, without behavioral disturbance, psychotic disturbance, mood disturbance, and anxiety; I10 Essential (primary) hypertension; I50.9 Heart failure, unspecified; Z85.3 Personal history of malignant neoplasm of breast
CPT/HCPCS: 70450; 99283

== ENCOUNTER 2022-01-24 13:48 | Emergency (ER) | payer OTHER ==
--- NOTE | 2022-01-24 15:31 | EDPHYS ---
Physician Documentation [facility] Name: Edie Fields Age: 86 yrs Sex: Female : 1935 Arrival Date: 01/24/2022 Time: 13:49 Bed 8 Private MD: ED Physician Elliot Tyler HPI: 01/24 14:31 This 86 yrs old Female presents to ER via EMS with complaints of head injury, fall. rn 14:31 The patient or guardian reports injury, pain. The complaints affect the back of head. rn Context of injury: The problem was sustained at home, resulted from a fall, slipped. Onset: The symptoms/episode began/occurred just prior to arrival. Associated signs and symptoms: Loss of consciousness: This patient did not experience any loss of consciousness. Pertinent positives: headache, Pertinent negatives: incontinence, seizure, shortness of breath, tinnitus, vomiting. Severity of symptoms: At their worst the symptoms were very mild, in the emergency department the symptoms are unchanged. The patient has not experienced similar symptoms in the past. The patient has not recently seen a physician. Pt reports slipped, fell backward, no LOC, remembers all events, no focal neuro complaints, + mild headache and neck pain. Historical: - Allergies: 13:51 No Known Allergies; jh6 - PMHx: 13:51 Alzheimers; Cancer, Breast; CHF; Dementia; Hypertension; Seizures; jh6 - Immunization history:: Adult Immunizations up to date. - Social history:: Smoking status: Patient denies any tobacco usage or history of. - Family history:: not pertinent. - Hospitalizations: : No recent hospitalization is reported. ROS: 14:33 Constitutional: Negative for fever, chills, and weight loss, Eyes: Negative for injury, rn pain, redness, and discharge, ENT: Negative for injury, pain, and discharge, Neck: + mild neck pain Cardiovascular: Negative for chest pain, palpitations, and edema, Respiratory: Negative for shortness of breath, cough, wheezing, and pleuritic chest pain, Abdomen/GI: Negative for abdominal pain, nausea, vomiting, diarrhea, and constipation, Back: Negative for injury and pain, MS/Extremity: Negative for injury and deformity, Skin: Negative for injury, rash, and discoloration, Neuro: + headache Exam: 14:33 Constitutional: This is a well developed, well nourished patient who is awake, alert, rn and in no acute distress. Head/Face: Normocephalic, no open wounds or scalp laceration. Eyes: Periorbital areas with no swelling, redness, or edema. Neck: Trachea midline, no vertebral tenderness. Chest/axilla: Normal chest wall appearance and motion. Nontender with no deformity. No lesions are appreciated. Cardiovascular: Regular rate and rhythm. No pulse deficits. Respiratory: No increased work of breathing, no retractions or nasal flaring. Abdomen/GI: Soft, non-tender Back: No spinal tenderness. No costovertebral tenderness. Full range of motion. Skin: Warm, dry MS/ Extremity: Pulses equal, no cyanosis. Neurovascular intact. Full, normal range of motion. Equal circumference. Neuro: Awake and alert, GCS 15, oriented to person, place, and situation. Cranial nerves II-XII grossly intact. Motor strength 4/5 in all extremities. Sensory grossly intact. Vital Signs: 13:49 BP 145 / 62; Pulse 77; Resp 18; Temp 97.6(O); Pulse Ox 100% ; Weight 59.87 kg; Height 5 jh6 ft. 5 in. (165.10 cm); Pain 0/10; 14:43 BP 154 / 69; Pulse 80; Resp 17; Pulse Ox 100% ; Pain 0/10; jh6 15:21 BP 154 / 69; Pulse 62; Resp 15; Pulse Ox 15% ; Pain 0/10; jl7 13:49 Body Mass Index 21.97 (59.87 kg, 165.10 cm) jh6 [place] Coma Score: 14:31 Eye Response: spontaneous(4). Verbal Response: oriented(5). Motor Response: obeys rn commands(6). Total: 15. 15:28 Eye Response: spontaneous(4). Verbal Response: oriented(5). Motor Response: obeys rn commands(6). Total: 15. MDM: 13:52 Patient medically screened. rn 15:28 Differential diagnosis: Contusion of head, Hematoma on Intracranial bleed- Concussion rn cerebral contusion. Data reviewed: vital signs, nurses notes, radiologic studies, CT scan, and as a result, I will discharge patient. Counseling: I had a detailed discussion with the patient and/or guardian regarding: the historical points, exam findings, and any diagnostic results supporting the discharge/admit diagnosis, radiology results, the need for outpatient follow up, to return to the emergency department if symptoms worsen or persist or if there are any questions or concerns that arise at home. Special discussion: Based on the patient's history, exam and DX evaluation, there is no indication for emergent intervention or inpatient TX. It is understood by the patient/guardian that if the SXs persist or worsen they need to return immediately for re-evaluation. I discussed with the patient/guardian in detail that at this point there is no indication for admission to the hospital. It is understood, however, that if the symptoms persist or worsen the patient needs to return immediately for re-evaluation. 15:29 ED course: PACS down, radiologist called and states ct head/cspine neg. . rn 01/24 13:56 Order name: CT Head C Spine rn Administered Medications: No medications were administered Disposition Summary: 01/24/22 15:30 Discharge Ordered Location: Home rn Problem: new rn Symptoms: have improved rn Condition: Stable rn Diagnosis - Unspecified injury of head, initial encounter rn Followup: rn - With: Private Physician - When: As needed - Reason: Recheck today's complaints, Re-evaluation by your physician Discharge Instructions: - Discharge Summary Sheet rn - Head Injury, Adult rn Forms: - Medication Reconciliation Form rn - Thank You Letter rn - Antibiotic journeyman [employer] electric[employer] - Prescription Opioid Use rn Signatures: Dispatcher [employer] Elliot Alexandra MD MD rn Hastedt, Jennifer, RN RN jh6
--- NOTE | 2022-01-24 15:31 | ER ---
Nurse's Notes [facility] Name: Edie Fields Age: 86 yrs Sex: Female : 1935 Arrival Date: 01/24/2022 Time: 13:49 Bed 8 Private MD: Diagnosis: Unspecified injury of head, initial encounter Presentation: 01/24 13:49 Chief complaint: EMS states: fall from standing, hit the back of her head. - loc and is [facility] currently not on any blood thinners. Coronavirus screen: Vaccine status: Patient reports receiving the 2nd dose of the covid vaccine. Client denies travel out of the [place] in the last 14 days. At this time, the client does not indicate any symptoms associated with coronavirus-19. Ebola Screen: Patient negative for fever greater than or equal to 101.5 degrees Fahrenheit, and additional compatible Ebola Virus Disease symptoms Patient denies exposure to infectious person. Patient denies travel to an Ebola-affected area in the 21 days before illness onset. Initial Sepsis Screen: Does the patient meet any 2 criteria? No. Patient's initial sepsis screen is negative. Does the patient have a suspected source of infection? No. Patient's initial sepsis screen is negative. Risk Assessment: Do you want to hurt yourself or someone else? Patient reports no desire to harm self or others. Onset of symptoms was January 24, 2022. 13:49 Method Of Arrival: EMS: [place] [id number] 13:49 Acuity: RAYNE 3 [facility] Triage Assessment: 13:51 General: Appears in no apparent distress. comfortable, Behavior is calm, cooperative. [facility] Pain:. Historical: - Allergies: 13:51 No Known Allergies; [facility] - PMHx: 13:51 Alzheimers; Cancer, Breast; CHF; Dementia; Hypertension; Seizures; [facility] - Immunization history:: Adult Immunizations up to date. - Social history:: Smoking status: Patient denies any tobacco usage or history of. - Family history:: not pertinent. - Hospitalizations: : No recent hospitalization is reported. Screenin:52 Abuse screen: Denies threats or abuse. Nutritional screening: No deficits noted. [facility] Tuberculosis screening: No symptoms or risk factors identified. Fall Risk Fall in past 12 months (25 points). Ambulatory Aid- Gait- Weak (10 pts.). Assessment: 13:52 General: see triage note. jh6 14:43 Reassessment: No changes from previously documented assessment. Patient and/or family jh6 updated on plan of care and expected duration. Pain level reassessed. Patient denies pain at this time. 15:35 Reassessment: Rubina at [facility] states "Someone will be there shortly to pick her jl7 up.". Vital Signs: 13:49 BP 145 / 62; Pulse 77; Resp 18; Temp 97.6(O); Pulse Ox 100% ; Weight 59.87 kg; Height 5 jh6 ft. 5 in. (165.10 cm); Pain 0/10; 14:43 BP 154 / 69; Pulse 80; Resp 17; Pulse Ox 100% ; Pain 0/10; jh6 15:21 BP 154 / 69; Pulse 62; Resp 15; Pulse Ox 15% ; Pain 0/10; jl7 13:49 Body Mass Index 21.97 (59.87 kg, 165.10 cm) 6 [place] Coma Score: 14:31 Eye Response: spontaneous(4). Verbal Response: oriented(5). Motor Response: obeys rn commands(6). Total: 15. 15:28 Eye Response: spontaneous(4). Verbal Response: oriented(5). Motor Response: obeys rn commands(6). Total: 15. ED Course: 13:49 Patient arrived in ED. jh6 13:49 Jane Morales, RN is Primary Nurse. jh6 13:51 Triage completed. jh6 13:52 Elliot Tyler MD is Attending Physician. rn 13:52 Arm band placed on right wrist. jh6 13:52 Placed in gown. Bed in low position. Call light in reach. Side rails up X2. jh6 13:53 No provider procedures requiring assistance completed. jh6 14:15 CT Head C Spine In Process Unspecified. EDMS 15:36 Patient did not have IV access during this emergency room visit. jl7 Administered Medications: No medications were administered Outcome: 15:30 Discharge ordered by . rn 15:36 Discharged to long-term. Report called to Rubina calix 15:36 Condition: stable 15:36 Discharge instructions given to patient, Instructed on discharge instructions, follow up and referral plans. Demonstrated understanding of instructions, follow-up care. 16:17 Patient left the ED. jh6 Signatures: Dispatcher [employer] EDElliot Bruno MD MD rn Leal, Jahala, RN RN jl7 Jane Morales RN RN jh6
--- OUTSIDE RECORDS SUMMARY | 2022-01-24 15:52 | XMS REPORT | Continuity of Care Document ---
:1935 Author Organization [facility] Address [address] [place] [address] Dr. Diaz [address] [place] [id number] Care Team Providers Name Role Phone Kofi_A_AH Attending Clinician Unavailable Kofi_A_AH Admitting Clinician Unavailable Payers Payer Name Policy Type Policy Number Effective Date Expiration Date S isha [facility] [place] - [id number] [address] [facility] 00:00:00 (MEDICARE REPLACEMENT/ADVANT AGE - HMO) Problems This patient has no known problems. Allergies, Adverse Reactions, Alerts This patient has no known allergies or adverse reactions. Medications This patient has no known medications. Procedures This patient has no known procedures. Encounters Start End Encounter Admission Attending Care Care Encounter Source Date/Time Date/Time Type Type Clinicians Facility Department ID 2019-12-14 2019-12-14 Outpatient Kofi [facility] [id number] [facility] 07:28:00 07:28:00 _A_AH [id number] Family Practic e Results This patient has no known results.
[2022-01-24 16:48] VITALS: TEMP 97.6
[2022-01-24 16:49] VITALS: BP 154/69
[2022-01-24 16:50] VITALS: O2SAT 15
--- NOTE | 2022-01-24 17:08 | RAD REPORT ---
EXAM DESCRIPTION: CT - CTHCSPWOC - 01/24/2022 3:35 pm CLINICAL HISTORY: fall, hit head, neck hurts COMPARISON: Head C Spine Mpr Wo Con dated 09/26/2020; Head Brain Wo Cont dated 01/20/2022 TECHNIQUE: Axial 5 mm thick images of the head were obtained. Axial 2 mm thick images of the cervic al spine were obtained with sagittal and coronal reconstruction images generated and reviewed. All CT scans are performed using dose optimization technique as appropriate and may include automated exposure control or mA/KV adjustment according to patient size. FINDINGS: No intracranial hemorrhage, mass, edema or acute intracranial finding. No cortical level i nfarction. No cortical edema or sulcal effacement. Advanced atrophy and moderately advanced chronic i schemic changes are present. Ventricles are in proportion to the amount of volume loss. Arterial and physiologic calcifications are present. No extra-axial fluid collections. Mastoid air cells and paran asuncion sinuses are clear. No globe or orbit abnormality seen. Cervical bodies are normal in height. No fracture or acute cervical vertebral body finding. There is accentuated kyphosis. Significant C5-6 and C6-7 disc space narrowing seen with degenerative gas in th e disc spaces. Endplate spurring changes are present. Prominent facet joint degenerative changes are present. No significant central spinal stenosis. No critical foraminal stenoses identified. No pathol ogic bone process seen. Facet joint degenerative changes are present with no alignment abnormalities. Cervical spine degenerative changes are not clearly different from the 2019 comparison. Central gisselle l detail is inherently limited. No paraspinal mass or hematoma. Thyroid gland nodularity is present not clearly different from comparison. Final report was delayed. Images were initially only available for reviewing on the CT suite monitors due to technical issues with the PACs IT systems. Preliminary findings were telephoned to the referr ing clinician at the time of the study. Comparison was not available at the time of the preliminary r eport. The comparisons did not change the preliminary report findings. IMPRESSION: Advanced atrophy and moderately advanced chronic ischemic changes are present with no ac [place] intracranial finding. No significant change from the short interval study of January 20. Prominent cervical spine degenerative changes are present as detailed. Findings are similar to the study with no acute finding identifiable.
== END 2022-01-24 16:17 | disposition home or self-care (01) ==
LOC: ER 13:48
DX: S00.83XA Contusion of other part of head, initial encounter (principal); W01.0XXA Fall on same level from slipping, tripping and stumbling without subsequent striking against object, initial encounter; Y92.009 Unspecified place in unspecified non-institutional (private) residence as the place of occurrence of the external cause; I10 Essential (primary) hypertension; G30.9 Alzheimer's disease, unspecified; F02.80 Dementia in other diseases classified elsewhere, unspecified severity, without behavioral disturbance, psychotic disturbance, mood disturbance, and anxiety
CPT/HCPCS: 70450; 72125; 99283

== ENCOUNTER 2022-04-14 20:59 | Emergency (ER) | payer OTHER ==
--- OUTSIDE RECORDS SUMMARY | 2022-04-14 21:02 | XMS REPORT | Continuity of Care Document ---
:1935 Author Organization [facility] Address [address] [place] [address] Dr. Diaz [address] [place] [id number] Care Team Providers Name Role Phone Kofi_A_AH Attending Clinician Unavailable Rebekah-Cyndy_A_AH Admitting Clinician Unavailable Payers Payer Name Policy Type Policy Number Effective Date Expiration Date S isha [facility] - [id number] [facility] (MEDICARE REPLACEMENT/ADVANT AGE - HMO) Problems This patient has no known problems. Allergies, Adverse Reactions, Alerts This patient has no known allergies or adverse reactions. Medications This patient has no known medications. Procedures This patient has no known procedures. Encounters Start End Encounter Admission Attending Care Care Encounter Source Date/Time Date/Time Type Type Clinicians Facility Department ID 2019-12-14 2019-12-14 Outpatient Kofi [facility] [id number] [facility] 07:28:00 07:28:00 _A_AH [id number] Family Practic e Results This patient has no known results.
--- NOTE | 2022-04-14 21:46 | RAD REPORT ---
EXAM DESCRIPTION: CT - CTHCSPWOC - 04/14/2022 9:36 pm CLINICAL HISTORY: Trauma, head and neck injury. head injury COMPARISON: Head C Spine Mpr Wo Con dated 01/24/2022; Head C Spine Mpr Wo Con dated 09/26/2020; Head C Spine Mpr Wo Con dated 08/11/2020; Head C Spine Mpr Wo Con dated 07/10/2019 TECHNIQUE: Axial 5 mm thick images of the head were obtained. Axial 2 mm thick images of the cervical spine were obtained with sagittal and coronal reconstruction images generated and reviewed. All CT scans are performed using dose optimization technique as appropriate and may include automated exposure control or mA/KV adjustment according to patient size. FINDINGS: CT HEAD WITHOUT CONTRAST: No acute hemorrhage, hydrocephalus or extra-axial collection is identified.No areas of brain edema or midline shift. Cerebral atrophy chronic The paranasal sinuses and mastoids are clear.The calvarium is intact. CT CERVICAL SPINE WITHOUT CONTRAST: No fracture or subluxation.No prevertebral soft tissues swelling is identified. Multilevel cervical s pondylosis with varying degrees of neural foraminal narrowing. Carotid artery calcifications. IMPRESSION: No acute intracranial or cervical spine findings.
--- NOTE | 2022-04-14 22:56 | ER ---
Nurse's Notes [facility] Name: Edie Fields Age: 86 yrs Sex: Female : 1935 Arrival Date: 04/14/2022 Time: 21:01 Bed 28 Private MD: Diagnosis: Fall from standing, head injury Presentation: 04/14 21:01 Chief complaint: EMS states: pt had a fall and fell back and hit her hear, no LOC, pt as6 not taking blood thinners, pt is supposed to walk with a walker and was not using one when she fell. Coronavirus screen: At this time, the client does not indicate any symptoms associated with coronavirus-19. Ebola Screen: No symptoms or risks identified at this time. Initial Sepsis Screen: Does the patient meet any 2 criteria? No. Patient's initial sepsis screen is negative. Does the patient have a suspected source of infection? No. Patient's initial sepsis screen is negative. Risk Assessment: Do you want to hurt yourself or someone else? Patient reports no desire to harm self or others. Onset of symptoms was April 14, 2022. 21:01 Method Of Arrival: EMS: [facility] as6 21:01 Acuity: RAYNE 3 as6 Historical: - Allergies: 21:06 No Known Allergies; as6 - PMHx: 21:06 Alzheimers; Cancer, Breast; CHF; Dementia; Hypertension; Seizures; as6 - Immunization history:: Adult Immunizations up to date. - Social history:: Smoking status: Patient denies any tobacco usage or history of. Screenin:41 Abuse screen: Denies threats or abuse. Denies injuries from another. Nutritional as6 screening: No deficits noted. Tuberculosis screening: No symptoms or risk factors identified. Fall Risk Fall in past 12 months (25 points). Secondary diagnosis (15 points) Alzheimer's, No IV (0 pts). Ambulatory Aid- Crutches/Cane/Walker (15 pts). Gait- Weak (10 pts.). Mental Status- Overestimates/Forgets Limitations (15 pts.). Total Macias Fall Scale indicates High Risk Score (45 or more points). Placed Close to Nursing Station Frequent Obs/Assessments Occuring. Assessment: 21:41 General: Appears in no apparent distress. Behavior is calm, cooperative. Pain: Denies as6 pain. Neuro: Abreu Agitation-Sedation Scale (RASS): 0 - Alert and Calm Level of Consciousness is awake, alert, obeys commands, Oriented to person, place. Respiratory: Respiratory effort is even, unlabored. Vital Signs: 21:01 BP 123 / 106; Pulse 70; Resp 19 S; Temp 98.2(O); Pulse Ox 100% on R/A; Weight 49.9 kg; as6 Height 5 ft. 2 in. (157.48 cm); Pain 0/10; 23:00 BP 140 / 77; Pulse 64; Resp 14 S; Pulse Ox 98% on R/A; as6 21:01 Body Mass Index 20.12 (49.90 kg, 157.48 cm) as6 ED Course: 21:01 Patient arrived in ED. as6 21:01 Pascual Caban, RN is Primary Nurse. as6 21:06 Triage completed. as6 21:07 Arm band placed on. as6 21:10 Everardo Clay MD is Attending Physician. kdr 21:38 CT Head C Spine In Process Unspecified. EDMS 21:42 Bed in low position. Call light in reach. Side rails up X2. Client placed on continuous as6 cardiac and pulse oximetry monitoring. NIBP monitoring applied. 04/15 01:09 No provider procedures requiring assistance completed. Patient did not have IV access as6 during this emergency room visit. Administered Medications: No medications were administered Medication: 04/14 21:42 VIS not applicable for this client. as6 Outcome: 22:56 Discharge ordered by . kdr 04/15 01:09 Discharged to home via ambulance. as6 Condition: stable Discharge instructions given to EMS, Instructed on discharge instructions, follow up and referral plans. Demonstrated understanding of instructions, follow-up care. 01:09 Patient left the ED. as6 Signatures: Dispatcher [employer] EDGA Everardo Clay MD MD kdr Pascual Caban, RN RN as6
--- NOTE | 2022-04-14 22:56 | EDPHYS ---
Physician Documentation [facility] Name: Edie Fields Age: 86 yrs Sex: Female : 1935 Arrival Date: 04/14/2022 Time: 21:01 Bed 28 Private MD: ED Physician Everardo Clay HPI: 04/15 06:45 This 86 yrs old Female presents to ER via EMS with complaints of fall. kdr 06:45 Patient presents to the ED complaint. EMS reports that she may have fallen and hit her [facility] head. There was not any known loss of consciousness. She has no other injury aside from possibly her head. Patient herself has no complaints during the evaluation. She is not known to be on anticoagulation. Onset: The symptoms/episode began/occurred suddenly. Severity of symptoms: At their worst the symptoms were very mild mild. The patient has not experienced similar symptoms in the past. The patient has not recently seen a physician. Historical: - Allergies: 04/14 21:06 No Known Allergies; as6 - PMHx: 21:06 Alzheimers; Cancer, Breast; CHF; Dementia; Hypertension; Seizures; as6 - Immunization history:: Adult Immunizations up to date. - Social history:: Smoking status: Patient denies any tobacco usage or history of. ROS: 04/15 06:45 Constitutional: Negative for fever, chills, and weight loss, Eyes: Negative for injury, kdr pain, redness, and discharge, Neck: Negative for injury, pain, and swelling, Cardiovascular: Negative for chest pain, palpitations, and edema, Respiratory: Negative for shortness of breath, cough, wheezing, and pleuritic chest pain, Abdomen/GI: Negative for abdominal pain, nausea, vomiting, diarrhea, and constipation, Back: Negative for injury and pain, : Negative for injury, bleeding, discharge, and swelling, MS/Extremity: Negative for injury and deformity, Skin: Negative for injury, rash, and discoloration, Neuro: Negative for headache, weakness, numbness, tingling, and seizure activity. Psych: Negative for depression, anxiety, suicide ideation, homicidal ideation, and hallucinations, Allergy/Immunology: Negative for hives, rash, and allergies, Endocrine: Negative for neck swelling, polydipsia, polyuria, polyphagia, and marked weight changes, Hematologic/Lymphatic: Negative for swollen nodes, abnormal bleeding, and unusual bruising. Exam: 06:45 Constitutional: This is a well developed, well nourished patient who is awake, alert, kdr and in no acute distress. Head/Face: Normocephalic, atraumatic. Eyes: Pupils equal round and reactive to light, extra-ocular motions intact. Lids and lashes normal. Conjunctiva and sclera are non-icteric and not injected. Cornea within normal limits. Periorbital areas with no swelling, redness, or edema. Neck: Trachea midline, no thyromegaly or masses palpated, and no cervical lymphadenopathy. Supple, full range of motion without nuchal rigidity, or vertebral point tenderness. No Meningismus. Chest/axilla: Normal chest wall appearance and motion. Nontender with no deformity. No lesions are appreciated. Cardiovascular: Regular rate and rhythm with a normal S1 and S2. No gallops, murmurs, or rubs. Normal PMI, no JVD. No pulse deficits. Respiratory: Lungs have equal breath sounds bilaterally, clear to auscultation and percussion. No rales, rhonchi or wheezes noted. No increased work of breathing, no retractions or nasal flaring. Abdomen/GI: Soft, non-tender, with normal bowel sounds. No distension or tympany. No guarding or rebound. No evidence of tenderness throughout. Back: No spinal tenderness. No costovertebral tenderness. Full range of motion. Skin: Warm, dry with normal turgor. Normal color with no rashes, no lesions, and no evidence of cellulitis. MS/ Extremity: Pulses equal, no cyanosis. Neurovascular intact. Full, normal range of motion. Neuro: Awake and alert, GCS 15, oriented to person, place, time, and situation. Cranial nerves II-XII grossly intact. Motor strength 5/5 in all extremities. Sensory grossly intact. Cerebellar exam normal. Normal gait. Psych: Awake, alert, with orientation to person, place and time. Behavior, mood, and affect are within normal limits. Vital Signs: 04/14 21:01 BP 123 / 106; Pulse 70; Resp 19 S; Temp 98.2(O); Pulse Ox 100% on R/A; Weight 49.9 kg; as6 Height 5 ft. 2 in. (157.48 cm); Pain 0/10; 23:00 BP 140 / 77; Pulse 64; Resp 14 S; Pulse Ox 98% on R/A; as6 21:01 Body Mass Index 20.12 (49.90 kg, 157.48 cm) as6 MDM: 22:56 Patient medically screened. kdr 04/15 06:45 Data reviewed: vital signs, nurses notes, lab test result(s), radiologic studies. kdr Counseling: I had a detailed discussion with the patient and/or guardian regarding: the historical points, exam findings, and any diagnostic results supporting the discharge/admit diagnosis, lab results, radiology results, the need for outpatient follow up. 04/14 21:15 Order name: CT Head C Spine; Complete Time: 22:54 kdr Administered Medications: No medications were administered Disposition Summary: 04/14/22 22:56 Discharge Ordered Location: Home kdr Problem: new kdr Symptoms: are resolved kdr Condition: Stable kdr Diagnosis - Fall from standing, head injury kdr Followup: kdr - With: Private Physician - When: 2 - 3 days - Reason: If symptoms return, Further diagnostic work-up, Recheck today's complaints, Continuance of care, Re-evaluation by your physician Discharge Instructions: - Discharge Summary Sheet kdr - Fall Prevention in the Home, Adult, [id number] kdr - Head Injury, Adult, [id number] kdr Forms: - Medication Reconciliation Form kdr - Thank You Letter kdr Signatures: Dispatcher [employer] Everardo Red MD MD kdr Pascual Caban, RN RN as6
[2022-04-15 02:17] VITALS: TEMP 98.2
[2022-04-15 02:18] VITALS: BP 140/77; O2SAT 98
== END 2022-04-15 01:09 | disposition home or self-care (01) ==
LOC: ER 20:59
DX: S09.90XA Unspecified injury of head, initial encounter (principal); W18.39XA Other fall on same level, initial encounter; G30.9 Alzheimer's disease, unspecified; F02.80 Dementia in other diseases classified elsewhere, unspecified severity, without behavioral disturbance, psychotic disturbance, mood disturbance, and anxiety; I10 Essential (primary) hypertension; Z85.3 Personal history of malignant neoplasm of breast
CPT/HCPCS: 70450; 72125; Q9967; 99283

== ENCOUNTER 2022-07-03 06:15 | Emergency (ER) | payer OTHER ==
--- OUTSIDE RECORDS SUMMARY | 2022-07-03 06:18 | XMS REPORT | Continuity of Care Document ---
:1935 Author Organization [facility] t Address [address] [place] [address] Care Team Providers Name Role Phone Dilip Brandt Attending Clinician Rebekah-Mbayo_A_AH Attending Clinician Unavailable Rebekah-Mbayo_A_AH Admitting Clinician Unavailable Payers Payer Name Policy Type Policy Number Effective Date Expiration Date S our [facility] [id number] 2019 [employer] 00:00:00 (MEDICARE REPLACEMENT/ADVANT AGE - HMO) Problems Condition Condition Condition Status Onset Resolution Last Treating Co mments Source Name Details Category Date Date Treatment Clinician Date Hypertensi Hypertens Problem Active 2021-01-03 Memoria ve beverley 22:46:56 l disorder, disorder, Herm skyla systemic systemic arterial arterial (disorder) (disorder) Active Problem 01/03/2021 [facility] Simple Simple Problem Active 2021-01-03 Margarito malvin obesity obesity 22:46:56 l (disorder) (disorder) He rmann Active Problem 01/03/2021 [facility] Trigeminal Problem Active 2021-01-03 M emoria neuralgia Trigeminal 22:46:56 l (disorder) neuralgia Her gonzalez (disorder) Active Problem 01/03/2021 [facility] Dementia Dementia Problem Active 2021-01-03 Memoria (disorder) (disorder) 22:46:56 l Active [place] Problem 01/03/2021 [facility] Memory Memory Problem Active 2021-01-03 Margarito malvin impairment impairment 22:46:56 l (finding) (finding) Herm skyla Active Problem 01/03/2021 [facility] Syncope Syncope Problem Active 2021-01-03 M emoria (disorder) (disorder) 22:46:56 l Active [place] Problem 01/03/2021 [facility] Myoclonus Myoclonus Problem Active 2021-01-03 Memoria (finding) (finding) 22:46:56 l Active [place] Problem 01/03/2021 [facility] Renal Renal Problem Active 2021-01-03 Memor ia impairment impairment 22:46:56 l (disorder) (disorder) He rmann Active Problem 01/03/2021 [facility] Allergies, Adverse Reactions, Alerts This patient has no known allergies or adverse reactions. Social History Social Habit Start Date Stop Date Quantity Comments Source Social History 2019-12-06 2019-12-06 [facility] 17:07:35 17:07:35 Medications Ordered Filled Start Stop Current Ordering Indication Dosage Frequency Signature Comments Components Source Medication Medication Date Date Medication? Clinician (SIG) Name Name Memantine 2019-10 Yes 5 mg = 1 Margarito malvin hydrochlori 0-21 tab, PO, l de 5 MG 22:02: BID, # 60 Doris nn Oral Tablet 00 tab, 2 [Namenda] Refill(s), Pharmacy: [facility], 144.78, cm, 08/15/20 16:19:00 CDT, Height, 55.455, kg, 08/15/20 16:19:00 CDT, Weight OXcarbazepi 2019-10 Yes 300 mg = 1 Memoria ne 300 mg 0-21 tab, PO, l oral tablet 22:00: Bedtime, # [place] 00 30 tab, 2 Refill(s), LALI, Pharmacy: [facility], 144.78, cm, 08/15/20 16:19:00 CDT, Height, 55.455, kg, 08/15/20 16:19:00 CDT, Weight donepezil 5 2019-10 Yes 5 mg = 1 Me moria mg oral 0-21 tab, PO, l tablet 22:00: Bedtime, # Doris nn 00 30 tab, 3 Refill(s), Pharmacy: [facility], 144.78, cm, 08/15/20 16:19:00 CDT, Height, 55.455, kg, 08/15/20 16:19:00 CDT, Weight Sertraline 2019-10 Yes 25 mg = 1 Me moria 25 MG Oral 0-09 tab, PO, l Tablet 23:21: QPM, # 30 Medhat n [Zoloft] 00 tab, 3 Refill(s), Pharmacy: [facility], 147.32, cm, 12/06/19 10:44:00 [employer], Height, 64.545, kg, 12/06/19 10:44:00 [employer], Weight 24 HR 2020-0 Yes 250 mg = 1 Memori a Divalproex 8-25 tab, PO, l Sodium 250 20:28: Bedtime, X H ermann MG Extended 00 90 day, # Release 90 tab, 3 Tablet Refill(s), Pharmacy: [facility], 147.32, cm, 12/06/19 10:44:00 [employer], Height, 64.545, kg, 12/06/19 10:44:00 [employer], Weight donepezil 2020-0 Yes = 1 tab, Margarito malvin 10 mg oral 8-13 PO, Daily, l tablet 16:59: # 90 tab, Medhat n 00 1 Refill(s), Pharmacy: [facility], 147.32, cm, 12/06/19 10:44:00 [employer], Height, 64.545, kg, 12/06/19 10:44:00 [employer], Weight OXcarbazepi 2020-0 Yes = 1 tab, Me moria ne 300 mg 8-13 PO, BID, # l oral tablet 16:59: 180 tab, 2 Doron 00 Refill(s), LALI, Pharmacy: [facility], 147.32, cm, 12/06/19 10:44:00 [employer], Height, 64.545, kg, 12/06/19 10:44:00 [employer], Weight 24 HR 2020-0 Yes See Memoria Divalproex 7-23 Instructio l Sodium 250 18:09: ns, TAKE 2 H ermann MG Extended 00 TABLETS BY Release MOUTH AT Tablet BEDTIME, # 60 tab, 2 Refill(s), Pharmacy: [facility], 147.32, cm, 12/06/19 10:44:00 [employer], Height, 64.545, kg, 12/06/19 10:44:00 [employer], Weight 24 HR 2020-0 Yes 500 mg = 2 Memori a Divalproex 3-24 tab, PO, l Sodium 250 23:39: Bedtime, # H ermann MG Extended 00 60 tab, 2 Release Refill(s), Tablet Pharmacy: [Depakote] [facility] Mirtazapine No 15 mg = 1 M emoria 15 MG Oral 1-22 tab, PO, l Tablet 15:16: Bedtime, # Doris nn [Remeron] 00 30 tab, 1 Refill(s), Pharmacy: [facility] OXcarbazepi 2018-10 Yes = 1 tab, Me moria ne 300 mg 1-19 PO, BID, # l oral tablet 18:01: 180 tab, 2 [place] 59 Refill(s), LALI, Pharmacy: [facility] donepezil Yes 10 mg = 1 Mem oria 10 mg oral 9-17 tab, PO, l tablet 14:40: Daily, # [place] 00 90 tab, 1 Refill(s), Pharmacy: [facility] Donepezil Yes 5 mg = 1 Margarito malvin hydrochlori 7-16 tab, PO, l de 5 MG 21:03: Bedtime, # Herm skyla Oral Tablet 00 30 tab, 3 [Aricept] Refill(s), Pharmacy: [facility] OXcarbazepi Yes 300 mg = 1 Memoria ne 300 mg 6-12 tab, PO, l oral tablet 20:19: BID, # 60 H ermann 00 tab, 3 Refill(s), Pharmacy: [facility] carBAMazepi No 200 mg = 1 Memoria ne 200 mg 1-22 tab, PO, l oral tablet 15:46: BID, # 60 H ermann 34 tab, 3 Refill(s), Pharmacy: [facility] Vital Signs Vital Name Observation Time Observation Value Comments Source Systolic (mm Hg) 2020-08-15 21:19:00 Margarito rial [place] Diastolic (mm Hg) 2020-08-15 21:19:00 Mem orial [place] Heart Rate 2020-08-15 21:19:00 [facility] Respitory Rate 2020-08-15 21:19:00 Memori al [place] Height 2020-08-15 21:19:00 144.78 cm [facility] [place] Weight 2020-08-15 21:19:00 [facility] [place] BMI Calculated 2020-08-15 21:19:00 Memori al [place] Systolic (mm Hg) 2019-12-06 16:44:00 Margarito rial [place] Diastolic (mm Hg) 2019-12-06 16:44:00 Mem orial [place] Heart Rate 2019-12-06 16:44:00 [facility] [place] Respitory Rate 2019-12-06 16:44:00 Memori al [place] Height 2019-12-06 16:44:00 147.32 cm [facility] [place] Weight 2019-12-06 16:44:00 [facility] [place] BMI Calculated 2019-12-06 16:44:00 Memori al [place] Systolic (mm Hg) 2019-09-13 17:34:00 Margarito rial [place] Diastolic (mm Hg) 2019-09-13 17:34:00 Mem orial [place] Heart Rate 2019-09-13 17:34:00 [facility] [place] Respitory Rate 2019-09-13 17:34:00 Memori al [place] Height 2019-09-13 17:34:00 147.32 cm [facility] [place] Weight 2019-09-13 17:34:00 [facility] [place] BMI Calculated 2019-09-13 17:34:00 Memori al [place] Systolic (mm Hg) 2019-07-12 14:21:00 Margarito rial [place] Diastolic (mm Hg) 2019-07-12 14:21:00 Mem orial [place] Heart Rate 2019-07-12 14:21:00 [facility] [place] Respitory Rate 2019-07-12 14:21:00 Memori al [place] Height 2019-07-12 14:21:00 147.32 cm [facility] [place] Weight 2019-07-12 14:21:00 [facility] [place] BMI Calculated 2019-07-12 14:21:00 Memori al [place] Weight 2019-05-10 20:08:00 [facility] [place] Height 2019-05-10 20:08:00 149.86 cm [facility] [place] BMI Calculated 2019-05-10 20:08:00 Memori al [place] Heart Rate 2019-05-10 20:08:00 [facility] [place] Respitory Rate 2019-05-10 20:08:00 Memori al [place] Systolic (mm Hg) 2019-05-10 20:08:00 Margarito rial [place] Diastolic (mm Hg) 2019-05-10 20:08:00 Mem orial [place] Weight 2019-03-01 15:54:00 [facility] [place] BMI Calculated 2019-03-01 15:54:00 Memori al [place] Height 2019-03-01 15:54:00 144.78 cm [facility] [place] Heart Rate 2019-03-01 15:54:00 [facility] [place] Respitory Rate 2019-03-01 15:54:00 Memori al [place] Systolic (mm Hg) 2019-03-01 15:54:00 Margarito rial [place] Diastolic (mm Hg) 2019-03-01 15:54:00 Mem orial [place] Weight 2018-11-16 15:31:00 [facility] [place] BMI Calculated 2018-11-16 15:31:00 Memori al [place] Height 2018-11-16 15:31:00 147.32 cm [facility] [place] Respitory Rate 2018-11-16 15:31:00 Memori al [place] Heart Rate 2018-11-16 15:31:00 [facility] [place] Systolic (mm Hg) 2018-11-16 15:31:00 Margarito rial [place] Diastolic (mm Hg) 2018-11-16 15:31:00 Mem orial [place] BMI Calculated 2018-08-17 15:54:00 Memori al [place] Weight 2018-08-17 15:54:00 [facility] [place] Height 2018-08-17 15:54:00 147.32 cm [facility] [place] Systolic (mm Hg) 2018-08-17 15:54:00 Margarito rial [place] Diastolic (mm Hg) 2018-08-17 15:54:00 Mem orial [place] Respitory Rate 2018-08-17 15:54:00 Memori al [place] Heart Rate 2018-08-17 15:54:00 [facility] [place] Procedures Procedure Date / Time Performed Performing Clinician Sourc e Mastectomy [facility] [place] Encounters Start End Encounter Admission Attending Care Care Encounter Source Date/Time Date/Time Type Type Clinicians Facility Department ID 2021-01-01 2021-01-01 Ambulatory nullFlavo MNA [id number] Memoria 16:30:00 16:30:00 Pre-Reg r Neurology 27 l Arden [place] 2021-01-01 2021-01-01 Outpatient MHIE MICAELA [id number] Memoria 10:30:00 10:30:00 27 l [place] 2021-01-01 2021-01-01 Outpatient Rikki, MHMISCHER MHMISCHER [id number] 10:30:00 10:30:00 Dilip 27 Jamie 2020-10-30 2020-11-01 Outside nullFlavo MNA [id number] Memoria 19:20:24 05:59:59 Medical r Neurology 04 l Records Raymond Sal 2020-10-30 2020-10-31 Outpatient MHMISCHER MHMISCHER [id number] 13:20:24 23:59:59 04 2020-10-24 2020-10-26 Outside nullFlavo MNA [id number] Memoria 19:17:58 05:59:59 Medical r Neurology 03 l Records Raymond [place] 2020-10-24 2020-10-25 Outpatient MHMISCHER MHMISCHER [id number] 13:17:58 23:59:59 03 2020-10-05 2020-10-07 Outside nullFlavo MNA [id number] Memoria 14:38:01 05:59:59 Medical r Neurology 02 l Records Raymond Huberann 2020-10-05 2020-10-06 Outpatient MHMISCHER MHMISCHER [id number] 08:38:01 23:59:59 02 2020-09-12 2020-09-12 Ambulatory nullFlavo MNA [id number] Memoria 16:45:00 16:45:00 Pre-Reg r Neurology 23 l Arden [place] 2020-09-12 2020-09-12 Outpatient MHIE MHIE [id number] Memoria 10:45:00 10:45:00 23 l [place] 2020-09-12 2020-09-12 Outpatient Rikki, MHMISCHER MHMISCHER [id number] 10:45:00 10:45:00 Dilip 23 Jamie 2020-08-24 2020-08-24 Ambulatory nullFlavo MNA [id number] Memoria 16:15:00 16:15:00 Pre-Reg r Neurology 24 l Arden [place] 2020-08-24 2020-08-24 Outpatient MHIE MHIE [id number] Memoria 11:15:00 11:15:00 24 l [place] 2020-08-24 2020-08-24 Outpatient Krell, MHMISCHER MHMISCHER [id number] 11:15:00 11:15:00 Dilip 24 Jamie 2020-08-22 2020-08-23 Outpatient nullFlavo MNA [id number] Memoria 18:00:00 04:59:59 r Neurology 26 l Raymond Sal 2020-08-22 2020-08-22 Outpatient Rikki, MHMISCHER MHMISCHER [id number] 13:00:00 23:59:59 Dilip 26 Jamie 2020-08-22 2020-08-22 Outpatient MHIE MHIE [id number] Memoria 13:00:00 13:00:00 26 l [place] 2020-08-15 2020-08-16 Outpatient nullFlavo MNA [id number] Memoria 21:00:00 04:59:59 r Neurology 25 l Arden [place] 2020-08-15 2020-08-15 Outpatient Rikki, MHMISCHER MHMISCHER [id number] 16:00:00 23:59:59 Dilip 25 Jamie 2020-08-15 2020-08-15 Outpatient MHIE MHIE [id number] Memoria 16:00:00 16:00:00 25 l [place] 2020-06-07 2020-06-08 Outpatient nullFlavo MNA [id number] Memoria 16:15:00 04:59:59 r Neurology 22 l Arden [place] 2020-06-07 2020-06-07 Outpatient MITZY BrandtMISCHER MHMISCHER [id number] 11:15:00 23:59:59 Dilip 22 Jamie 2020-06-07 2020-06-07 Ambulatory nullFlavo MNA [id number] Memoria 16:15:00 16:15:00 Pre-Reg r Neurology 21 l Arden [place] 2020-06-07 2020-06-07 Outpatient MHIE MHIE [id number] Memoria 11:15:00 11:15:00 21 l [place] 2020-06-07 2020-06-07 Outpatient MHIE MHIE [id number] Memoria 11:15:00 11:15:00 22 l [place] 2020-06-07 2020-06-07 Outpatient Rikki, MHMISCHER MHMISCHER [id number] 11:15:00 11:15:00 Dilip 21 Jamie 2020-03-07 2020-03-08 Outpatient nullFlavo MNA [id number] Memoria 18:00:00 04:59:59 r Neurology 19 l Raymond Sal 2020-03-07 2020-03-07 Outpatient Rikki MHMISCHER MHMISCHER [id number] 13:00:00 23:59:59 Dilip 19 Jamie 2020-03-07 2020-03-07 Outpatient MHIE MHIE [id number] Memoria 13:00:00 13:00:00 19 l [place] 2020-02-15 2020-02-16 Outpatient nullFlavo MNA [id number] Memoria 20:15:00 04:59:59 r Neurology 20 l Raymond Huberann 2020-02-15 2020-02-15 Outpatient Rikki MHMISCHER MHMISCHER [id number] 15:15:00 23:59:59 Dilip 20 Jamie 2020-02-15 2020-02-15 Outpatient MHIE MHIE [id number] Memoria 15:15:00 15:15:00 20 l [place] 2020-01-25 2020-01-26 Outpatient nullFlavo MNA [id number] Memoria 18:30:00 04:59:59 r Neurology 18 l Raymond [place] 2020-01-25 2020-01-25 [facility] [id number] 13:30:00 23:59:59 Dilip 18 Jamie 2020-01-25 2020-01-25 Outpatient MHIE MHIE [id number] Memoria 13:30:00 13:30:00 18 shelli [place] 2020-01-17 2020-01-17 Ambulatory nullFlavo MNA [id number] Memoria 14:45:00 14:45:00 Pre-Reg r Neurology 16 l Arden [place] 2020-01-17 2020-01-17 Outpatient MHIE MHIE [id number] [facility]oria 09:45:00 09:45:00 16 l [place] 2020-01-17 2020-01-17 Outpatient MITZY BrandtMISCHER MHMISCHER [id number] 09:45:00 09:45:00 Dilip 16 Jamie 2020-01-10 2020-01-11 Outpatient nullFlavo MNA [id number] Memoria 20:30:00 04:59:59 r Neurology 17 shelli Huberann 2020-01-10 2020-01-10 Outpatient Rikki MHMISCHER MHMISCHER [id number] 15:30:00 23:59:59 Dilip 17 Jamie 2020-01-10 2020-01-10 Outpatient MHIE MHIE [id number] [facility]oria 15:30:00 15:30:00 17 shelli Huber[place]mayd 2019-12-14 2019-12-14 Outpatient Rebekah-Mbayo VFP VFP [id number] [facility] 07:28:00 07:28:00 _A_ [id number] Family Practic e 2019-12-06 2019-12-07 Outpatient nullFlavo MNA [id number] Memoria 16:00:00 05:59:59 r Neurology 15 shelli Huberann 2019-12-06 2019-12-06 Outpatient MITZY BrandtMISCHER MHMISCHER [id number] 10:00:00 23:59:59 Dilip 15 Jamie 2019-12-06 2019-12-06 Outpatient MHIE MHIE [id number] [facility]oria 10:00:00 10:00:00 15 shelli [place] 2019-09-13 2019-09-14 Outpatient nullFlavo MNA [id number] Mem[facility] 17:30:00 05:59:59 r Neurology 14 shelli Andrade Doron 2019-09-13 2019-09-13 Outpatient Rikki MHMISCHER MHMISCHER [id number] 11:30:00 23:59:59 Dilip 14 Jamie 2019-09-13 2019-09-13 Outpatient MHIE MHIE [id number] [facility] 11:30:00 11:30:00 14 shelli HuberSouthmayd 2019-07-12 2019-07-13 Outpatient nullFlavo MNA [id number] Mem[facility] 14:15:00 04:59:59 r Neurology 13 shelli Arden Doron 2019-07-12 2019-07-12 Outpatient MITZY BrandtMISCHER MHMISCHER [id number] 09:15:00 23:59:59 Dilip 13 Jamie 2019-07-12 2019-07-12 Outpatient MHIE MHIE [id number] Mem[facility] 09:15:00 09:15:00 13 shelli Sal 2019-05-10 2019-05-11 Outpatient nullFlavo MNA [id number] [facility] 19:30:00 04:59:59 r Neurology 12 shelli Andrade Doron 2019-05-10 2019-05-10 Outpatient MITZY BrandtMISCHER MHMISCHER [id number] 14:30:00 23:59:59 Dilip 12 Jamie 2019-05-10 2019-05-10 Outpatient MHIE MHIE [id number] Memoria 14:30:00 14:30:00 12 shelli Doron 2019-03-01 2019-03-02 Outpatient nullFlavo MNA [id number] Mem[facility] 14:45:00 04:59:59 r Neurology 11 shelli Andrade Doron 2019-03-01 2019-03-01 Outpatient MITZY BrandtMISCHER MHMISCHER [id number] 09:45:00 23:59:59 Dilip 11 Jamie 2019-03-01 2019-03-01 Outpatient MHIE MHIE [id number] Memoria 09:45:00 09:45:00 11 shelli Doron 2019-02-15 2019-02-15 Ambulatory nullFlavo MNA [id number] [facility] 15:00:00 15:00:00 Pre-Reg r Neurology 04 shelli Arden [place] 2019-02-15 2019-02-15 Outpatient MHIE MHIE [id number] [facility] 10:00:00 10:00:00 04 shelli Doron 2019-02-15 2019-02-15 Outpatient STALIN BrandtSCHER MHMISCHER [id number] 10:00:00 10:00:00 Dilip 04 Jamie 2019-02-01 2019-02-01 Outpatient MHIE MHIE [id number] Memoria 10:45:00 10:45:00 10 shelli Sal 2019-01-11 2019-01-11 Outpatient MHIE MHIE [id number] [facility] 14:30:00 14:30:00 09 shelli Sal 2019-01-11 2019-01-11 Outpatient MHIE MHIE [id number] [facility]oria 08:45:00 08:45:00 08 shelli Sal 2018-12-14 2018-12-14 Outpatient MHIE MHIE [id number] [facility] 08:45:00 08:45:00 06 shelli Sal 2018-12-14 2018-12-14 Outpatient MHIE MHIE [id number] [facility] 08:45:00 08:45:00 07 shelli Sal 2018-11-16 2018-11-17 Outpatient nullFlavo MNA [id number] [facility] 15:00:00 05:59:59 r Neurology 05 shelli Sal 2018-11-16 2018-11-16 Outpatient MITZY BrandtMISCHER MHMISCHER [id number] 09:00:00 23:59:59 Dilip 05 Jamie 2018-11-16 2018-11-16 Ambulatory nullFlavo MNA [id number] Memoria 15:00:00 15:00:00 Pre-Reg r Neurology 03 shelli Sal 2018-11-16 2018-11-16 Outpatient MHIE MHIE [id number] [facility] 09:00:00 09:00:00 05 shelli Sal 2018-11-16 2018-11-16 Outpatient MHIE MHIE [id number] [facility] 09:00:00 09:00:00 03 shelli Sal 2018-11-16 2018-11-16 Outpatient MITYZ BrandtMISCHER MHMISCHER [id number] 09:00:00 09:00:00 Dilip 03 Jamie 2018-11-02 2018-11-04 Outside nullFlavo MNA [id number] [facility] 20:34:00 05:59:59 Medical r Neurology 00 shelli Sal 2018-11-02 2018-11-03 Outpatient MHMISCHER MHMISCHER [id number] 14:34:00 23:59:59 00 2018-08-17 2018-08-18 Outpatient nullFlavo MNA [id number] [facility] 15:15:00 04:59:59 r Neurology 02 shelli Sal 2018-08-17 2018-08-17 Outpatient Rikki MHMISCHER MHMISCHER [id number] 10:15:00 23:59:59 Dilip 02 Jamie 2018-08-17 2018-08-17 Outpatient MHIE MHIE [id number] [facility] 10:15:00 10:15:00 02 shelli Doron 2018-07-20 2018-07-20 Outpatient MHIE MHIE [id number] [facility] 15:15:00 15:15:00 01 shelli [place]on 2018-06-17 2018-06-17 Outpatient [facility] [id number] [facility] 11[facility]30[facility]00 11:30:00 00 l [place] Results Test Description Test Time Test Comments Results Result Comments Source HEMATOLOGY 2018-08-24 21:30:00 Test Item Value Reference Range Interpretation Comme nts MCH (test code = MCH) 30.3 pg 27.0-33.0 [id number] 21:30:00 Test Item Value Reference Range Interpretation Comments MCHC (test code = MCHC) 33.7 32.0-36.0 [facility] HospitalYioiyjnUUDPEARLFM9454-99-17 21:30:00 Test Item Value Reference Range Interpretation Comments Platelet (test code = Platelet) 207 140-400 [facility]ER[facility]HQW0297-48-47 21:30:00 Test Item Value Reference Range Interpretation Comments Carbamaz Lvl (test code = Carbamaz Lvl) 5.2 4.0-12.0 [facility]X9558[facility]86-34 21:30:00 Test Item Value Reference Range Interpretation Comments Potassium Lvl (test code = Potassium 4.1 3.5-5.3 Lvl) [id number] 21:30:00 Test Item Value Reference Range Interpretation Comments Sodium Lvl (test code = Sodium Lvl) 140 135-146 [facility]TfspebpDVYGCMMCFABK3136-92-30 21:30:00 Test Item Value Reference Range Interpretation Comments Chloride Lvl (test code = Chloride Lvl) 105 98-110 [facility]RbnbfslJQNHIKOFHPHN9036-51-06 21:30:00 Test Item Value Reference Range Interpretation Comments CO2 (test code = CO2) 28 20-32 [facility] HospitalHggsolwHFQUWQKJHX6059-09-51 21:30:00 Test Item Value Reference Range Interpretation Comments Basophils (test code = Basophils) 0.6 [facility] HospitalXjhsswnLTMGMVJXQC5880-57-43 21:30:00 Test Item Value Reference Range Interpretation Comments RBC X 10x6 (test code = RBC X 10x6) 3.73 3.80-5.10 [facility] HospitalMtchwqeVZOWOBQOTS6538-15-84 21:30:00 Test Item Value Reference Range Interpretation Comments Hgb (test code = Hgb) 11.3 11.7-15.5 [facility] HospitalRkcscxdAYFCCEYNBO1800-17-07 21:30:00 Test Item Value Reference Range Interpretation Comments Hct (test code = Hct) 33.5 35.0-45.0 [facility] HospitalRnjhecbBCPDKOCOVA5374-95-16 21:30:00 Test Item Value Reference Range Interpretation Comments WBC X 10x3 (test code = WBC X 10x3) 4.8 3.8-10.8 [facility] HospitalDcdydieOVCOQGKVFV3321-86-15 21:30:00 Test Item Value Reference Range Interpretation Comments Monocytes # (test code = Monocytes #) 605 200-950 [facility] HospitalDchsdabSADNAUHEMV8421-45-22 21:30:00 Test Item Value Reference Range Interpretation Comments Eosinophils # (test code = Eosinophils 139 15-500 #) [facility] HospitalAoddykpVTIYLRIPWA0951-97-32 21:30:00 Test Item Value Reference Range Interpretation Comments Neutrophils # (test code = Neutrophils 2237 0558-2313 #) [facility] HospitalBkwiuyuMDJTHNZIXC1940-39-32 21:30:00 Test Item Value Reference Range Interpretation Comments Lymphocytes # (test code = Lymphocytes 1249 780-9617 #) [facility] HospitalRebxxlcWFJGVVLUUR1757-80-63 21:30:00 Test Item Value Reference Range Interpretation Comments MPV (test code = MPV) 9.7 7.5-12.5 [facility] HospitalOrjndddMLLBAADRTY6464-54-98 21:30:00 Test Item Value Reference Range Interpretation Comments RDW (test code = RDW) 13.5 11.0-15.0 [facility] HospitalHnddcegAITLDNEQGD4717-09-46 21:30:00 Test Item Value Reference Range Interpretation Comments Basophils # (test code 29 See_Comment [Aut omated message] The = Basophils #) system which generated this result tra nsmitted reference range : <=200. The reference r jen was not used to int erpret this result as normal/abnormal . [facility] HospitalRmdcwfyQRONPNIYBZ4804-58-15 21:30:00 Test Item Value Reference Range Interpretation Comments Eosinophils (test code = Eosinophils) 2.9 [facility] HospitalFyrtcaxHUHWDOEZPB9808-54-86 21:30:00 Test Item Value Reference Range Interpretation Comments Monocytes (test code = Monocytes) 12.6 [facility] HospitalPgpjfcrCLKKLSFQBR4822-69-83 21:30:00 Test Item Value Reference Range Interpretation Comments Segs (test code = Segs) 46.6 [facility] HospitalUsptgypBFZVWYPXNN8110-89-08 21:30:00 Test Item Value Reference Range Interpretation Comments Lymphocytes (test code = Lymphocytes) 37.3 [facility] HospitalUnvwfgmAXVHNRZENV2843-08-16 21:30:00 Test Item Value Reference Range Interpretation Comments MCV (test code = MCV) 89.8 80.0-100.0 [facility]
[2022-07-03 06:48] LABS: Absolute Lymphocytes (CBC) 0.9 K/uL (0.7-4.9); Hematocrit 29.9 % (36.0-45.0); Lymphocytes % 19.5 % (15.3-44.8); MCV 89.5 fL (80-100); MPV 6.5 fL (7.6-11.3); RBC Red Blood Cell Count 3.34 M/uL (3.86-4.86)
[2022-07-03 06:55] LABS: Protime INR 0.96
[2022-07-03 07:00] LABS: Potassium 4.2 mmol/L (3.5-5.1)
--- NOTE | 2022-07-03 07:13 | RAD REPORT ---
EXAM DESCRIPTION: RAD - Humerus Left - 07/03/2022 6:50 am CLINICAL HISTORY: PAIN COMPARISON: No comparisons FINDINGS/IMPRESSION: No acute fracture. No malalignment. Degenerative changes are present the left g lenohumeral joint and AC joint.
--- NOTE | 2022-07-03 07:13 | RAD REPORT ---
EXAM DESCRIPTION: RAD - Chest Single View - 07/03/2022 6:50 am CLINICAL HISTORY: fall COMPARISON: <Comparisons> FINDINGS: Lines: None. Lungs: No evidence of edema or pneumonia. Pleural: No significant pleural effusions or pneumothorax. Cardiac: The heart size is within normal limits. Mediastinum: Within normal limits. Bones: No acute fractures. Other: None IMPRESSION: No acute cardiopulmonary disease.
--- NOTE | 2022-07-03 07:14 | RAD REPORT ---
EXAM DESCRIPTION: RAD - Pelvis - 07/03/2022 6:50 am CLINICAL HISTORY: fall COMPARISON: Chest Single View dated 09/24/2020; Chest Single View dated 08/11/2020; Chest Single Vie w dated 11/16/2019; Chest Single View dated 07/10/2019Pelvis dated 08/11/2020 FINDINGS/IMPRESSION: No acute fracture. No malalignment. Bilateral acetabular degenerative changes.
[2022-07-03] MEDS ORDERED: HYDROCODONE/APAP 5/325 MG TAB ONE (07:29)
[2022-07-03 07:31] LABS: Urine Blood Negative (Negative); Urine Glucose Negative (Negative); Urine Protein Negative (Negative); Urine Specific Gravity 1.015 (1.005-1.030)
--- NOTE | 2022-07-03 08:04 | RAD REPORT ---
EXAM DESCRIPTION: CT - [id number] - 07/03/2022 7:30 am CLINICAL HISTORY: Trauma, head and neck injury. Fall COMPARISON: Head C Spine Mpr Wo Con dated 04/14/2022; Head C Spine Mpr Wo Con dated 01/24/2022; Head C Spine Mpr Wo Con dated 09/26/2020; Head C Spine Mpr Wo Con dated 08/11/2020 TECHNIQUE: Axial 5 mm thick images of the head were obtained. Axial 2 mm thick images of the cervical spine were obtained with sagittal and coronal reconstruction images generated and reviewed. All CT scans are performed using dose optimization technique as appropriate and may include automated exposure control or mA/KV adjustment according to patient size. FINDINGS: CT HEAD WITHOUT CONTRAST: No acute hemorrhage, hydrocephalus or extra-axial collection is identified.No areas of brain edema or midline shift. Cerebral atrophy. Chronic small vessel ischemic changes. The paranasal sinuses and mastoids are clear.The calvarium is intact. CT CERVICAL SPINE WITHOUT CONTRAST: No fracture or subluxation.No prevertebral soft tissues swelling is identified. Multilevel cervical s pondylosis with varying degrees of neural foraminal narrowing. Trace anterolisthesis C3 on C4 and C7- T1 presumably related to underlying degenerative changes. IMPRESSION: No acute intracranial or cervical spine findings.
--- NOTE | 2022-07-03 08:11 | EDPHYS ---
Physician Documentation [facility] Name: Edie Fields Age: 86 yrs Sex: Female : 1935 Arrival Date: 07/03/2022 Time: 06:17 Bed 3 Private MD: ED Physician Ky Bejarano HPI: 07/03 06:24 This 86 yrs old Female presents to ER via EMS with complaints of fall. rn 06:24 Onset: The symptoms/episode began/occurred just prior to arrival. Associated injuries: rn The patient sustained injury to the head, left shoulder. Severity of symptoms: At their worst the symptoms were mild, in the emergency department the symptoms have improved. The patient has experienced similar episodes in the past. The patient has not recently seen a physician. EMS reports called from [facility] for fall, unwitnessed, found on ground, reported head pain and left shoulder pain to EMS, now denies. Pt with severe dementia. Falls frequently according to my chart review. . Historical: - Allergies: 06:22 No Known Allergies; ll3 - Home Meds: 07:25 Tramadol 50mg [Active]; meloxicam 7.5 mg oral tab [Active]; sertraline 25 mg oral tab aa5 [Active]; divalproex 250 mg oral Tb24 [Active]; alendronate 70 mg oral tab [Active]; carvedilol 3.125 mg oral tab 2 times per day [Active]; losartan 25 mg oral tab bedtime [Active]; oxcarbazepine 300 mg oral Tb24 [Active]; donepezil 5 mg oral TbDi [Active]; anastrozole 1 mg oral tab [Active]; furosemide 20 mg Oral tab once daily [Active]; potassium chloride 10 mEq Oral cpER [Active]; acetaminophen-codeine 300 mg-30 mg /12.5 mL Oral soln every 6 hours [Active]; - PMHx: 06:22 Alzheimers; Cancer, Breast; CHF; Dementia; Hypertension; Seizures; ll3 - Immunization history:: Adult Immunizations unknown. - Family history:: not pertinent. - Social history:: Smoking status: unknown. - Hospitalizations: : No recent hospitalization is reported. ROS: 06:24 Constitutional: Negative for fever, chills, and weight loss, Eyes: Negative for injury, rn pain, redness, and discharge, Neck: Negative for injury, pain, and swelling, Cardiovascular: Negative for chest pain, palpitations, and edema, Respiratory: Negative for shortness of breath, cough, wheezing, and pleuritic chest pain, Abdomen/GI: Negative for abdominal pain, nausea, vomiting, diarrhea, and constipation, Back: Negative for injury and pain, MS/Extremity: + left shoulder pain Skin: Negative for injury, rash, and discoloration, Neuro: Negative for weakness, numbness, tingling, and seizure. Exam: 06:24 Constitutional: This is a well developed, well nourished patient who is awake, alert, rn and in no acute distress. Head/Face: Normocephalic, atraumatic. Eyes: Periorbital areas with no swelling, redness, or edema. Neck: NO midline cervical tenderness Chest/axilla: Normal chest wall appearance and motion. Nontender with no deformity. Cardiovascular: Regular rate and rhythm. No pulse deficits. Respiratory: No increased work of breathing, no retractions or nasal flaring. Abdomen/GI: Soft, non-tender Skin: Warm, dry, no laceration noted MS/ Extremity: Pulses equal, no cyanosis. + mild tenderness left shoulder/proximal humerus Neuro: Awake and alert, GCS 15, oriented to person and situation, not time. 06:35 ECG was reviewed by the Attending Physician. rn Vital Signs: 06:17 BP 116 / 96; Pulse 89; Resp 17; Temp 98.6(O); Pulse Ox 95% on R/A; Weight 60.33 kg (R); ll3 Height 62 in. (157.48 cm); 07:15 BP 132 / 95; Pulse 68; Resp 18 S; Pulse Ox 96% on R/A; aa5 07:45 BP 147 / 63; Pulse 62; Resp 17 S; Temp 98.0(TE); Pulse Ox 96% on R/A; aa5 09:00 BP 145 / 63; Pulse 64; Resp 16 S; Pulse Ox 95% on R/A; aa5 10:00 BP 138 / 70; Pulse 61; Resp 16 S; Temp 98.3(TE); Pulse Ox 95% on R/A; aa5 06:17 Body Mass Index 24.33 (60.33 kg, 157.48 cm) ll3 MDM: 06:17 Patient medically screened. rn 07:20 Transition of care: After a detail discussion of the patient's case, care is ms3 transferred to Elliot Tyler MD. 08:11 Data reviewed: vital signs, nurses notes, lab test result(s), radiologic studies, and ms3 as a result, I will discharge patient. Data interpreted: traffic monitor specialist: rate is 60 beats/min, rhythm is normal sinus rhythm, regular, with no ectopy, Interpretation: normal rate, normal rhythm. Counseling: I had a detailed discussion with the patient and/or guardian regarding: the historical points, exam findings, and any diagnostic results supporting the discharge/admit diagnosis, lab results, radiology results, the need for outpatient follow up, to return to the emergency department if symptoms worsen or persist or if there are any questions or concerns that arise at home. Special discussion: I discussed with the patient/guardian in detail that at this point there is no indication for admission to the hospital. It is understood, however, that if the symptoms persist or worsen the patient needs to return immediately for re-evaluation. ED course: Discussed CT and blood work with patient. Patient to follow-up with her primary care physician to 3 days. On reevaluation patient is alert, in no apparent distress, nontoxic-appearing.. 07/03 06:23 Order name: Basic Metabolic Panel; Complete Time: 07:01 rn 07/03 06:23 Order name: CBC with Diff; Complete Time: 06:57 rn 07/03 06:23 Order name: Protime (+inr); Complete Time: 06:57 rn 07/03 06:23 Order name: Ptt, Activated; Complete Time: 06:57 rn 07/03 07:02 Order name: Troponin High Sensitivity; Complete Time: 07:29 rn 07/03 07:31 Order name: Urine Dipstick-Ancillary; Complete Time: 07:41 EDMS 07/03 06:23 Order name: EKG; Complete Time: 06:24 rn 07/03 06:23 Order name: Cardiac monitoring; Complete Time: 06:38 rn 07/03 06:23 Order name: XRAY Pelvis; Complete Time: 07:15 rn 07/03 06:23 Order name: XRAY Chest (1 view); Complete Time: 07:15 rn 07/03 06:23 Order name: XRAY Humerus LEFT; Complete Time: 07:15 rn 07/03 06:58 Order name: Head C Spine Mpr Wo Con; Complete Time: 08:07 EDMS 07/03 06:23 Order name: EKG - Nurse/Tech; Complete Time: 06:38 rn 07/03 06:23 Order name: IV Saline Lock; Complete Time: 06:38 rn 07/03 06:23 Order name: Labs collected and sent; Complete Time: 06:38 rn 07/03 06:23 Order name: O2 Per Protocol; Complete Time: 06:38 rn 07/03 06:23 Order name: O2 Sat Monitoring; Complete Time: 06:38 rn 07/03 06:23 Order name: Urine Dipstick-Ancillary (obtain specimen); Complete Time: 08:06 rn EC:35 Rate is 68 beats/min. Rhythm is regular. QRS [place] is Normal. CT interval is normal. QRS rn interval is normal. QT interval is normal. No Q waves. T waves are Normal. No ST changes noted. Clinical impression: Normal ECG. Interpreted by me. Reviewed by me. Administered Medications: 07:24 Drug: HYDROcodone-acetaminophen 5 mg-325 mg 1 tabs Route: PO; aa5 08:02 Follow up: Response: No adverse reaction; RASS: Alert and Calm (0) aa5 Disposition Summary: 07/03/22 08:10 Discharge Ordered Location: Home ms3 Condition: Stable ms3 Diagnosis - Fall on same level, unspecified ms3 - Anemia, unspecified ms3 - Essential (primary) hypertension ms3 Discharge Instructions: - Discharge Summary Sheet ms3 - Anemia ms3 - Fall Prevention in the Home, Adult, [id number] ms3 Forms: - Medication Reconciliation Form ms3 - Thank You Letter ms3 - Antibiotic Education ms3 - Prescription Opioid Use ms3 Signatures: Dispatcher [employer] Elliot Alexandra MD MD rn Calderon, Audri RN RN aa5 Ky Bejarano DO DO ms3 Donte Chirinos, RN RN ll3
--- NOTE | 2022-07-03 08:11 | ER ---
Nurse's Notes [facility] Name: Edie Fields Age: 86 yrs Sex: Female : 1935 Arrival Date: 07/03/2022 Time: 06:17 Bed 3 Private MD: Diagnosis: Fall on same level, unspecified;Anemia, unspecified;Essential (primary) hypertension Presentation: 07/03 06:17 Chief complaint: EMS states: they were toned out for a fall, EMS states pt reports ll3 tripping over walker as they were trying to use the restroom, pt c/o left shoulder and right temporal pain. Coronavirus screen: At this time, the client does not indicate any symptoms associated with coronavirus-19. Ebola Screen: No symptoms or risks identified at this time. Initial Sepsis Screen: Does the patient meet any 2 criteria? No. Patient's initial sepsis screen is negative. Does the patient have a suspected source of infection? No. Patient's initial sepsis screen is negative. Risk Assessment: Do you want to hurt yourself or someone else? Patient reports no desire to harm self or others. Onset of symptoms was July 03, 2022. Care prior to arrival: None. Mechanism of Injury: Fall from standing position. Transition of care: patient was received from another setting of care (long-term care facility), [facility]. 06:17 Method Of Arrival: EMS: [facility] 06:17 Acuity: RAYNE 3 ll3 Historical: - Allergies: 06:22 No Known Allergies; ll3 - Home Meds: 07:25 Tramadol 50mg [Active]; meloxicam 7.5 mg oral tab [Active]; sertraline 25 mg oral tab aa5 [Active]; divalproex 250 mg oral Tb24 [Active]; alendronate 70 mg oral tab [Active]; carvedilol 3.125 mg oral tab 2 times per day [Active]; losartan 25 mg oral tab bedtime [Active]; oxcarbazepine 300 mg oral Tb24 [Active]; donepezil 5 mg oral TbDi [Active]; anastrozole 1 mg oral tab [Active]; furosemide 20 mg Oral tab once daily [Active]; potassium chloride 10 mEq Oral cpER [Active]; acetaminophen-codeine 300 mg-30 mg /12.5 mL Oral soln every 6 hours [Active]; - PMHx: 06:22 Alzheimers; Cancer, Breast; CHF; Dementia; Hypertension; Seizures; ll3 - Immunization history:: Adult Immunizations unknown. - Family history:: not pertinent. - Social history:: Smoking status: unknown. - Hospitalizations: : No recent hospitalization is reported. Screenin:17 Abuse screen: Denies threats or abuse. Nutritional screening: No deficits noted. bb Tuberculosis screening: No symptoms or risk factors identified. Fall Risk Fall in past 12 months (25 points). Secondary diagnosis (15 points) impaired mobility, No IV (0 pts). Ambulatory Aid- None/Bed Rest/Nurse Assist (0 pts). Gait- Impaired (20 pts.). Mental Status- Overestimates/Forgets Limitations (15 pts.). Total Macias Fall Scale indicates High Risk Score (45 or more points). Fall prevention measures have been instituted. Side Rails Up X 2 As available patient and family educated on Fall Prevention Program and Strategies. Assessment: 06:17 General: Appears in no apparent distress. uncomfortable, Behavior is cooperative, bb anxious. Pain: Complains of pain in left shoulder, right zoroastrian area. Neuro: Level of Consciousness is awake, alert, obeys commands, Oriented to person, place. Cardiovascular: Heart tones S1 S2 present Capillary refill < 3 seconds Patient's skin is warm and dry. Pulses are palpable in right radial artery and left radial artery Edema is absent. Respiratory: Respiratory effort is even, unlabored, Respiratory pattern is regular, Breath sounds are clear bilaterally. GI: Abdomen is non-distended, Bowel sounds present X 4 quads. Abd is soft and non tender X 4 quads. Derm: Skin is fragile, is thin, Skin is dry, Skin is pink, warm \T\ dry. Skin temperature is warm. Musculoskeletal: Circulation, motion, and sensation intact. Reports pain in left shoulder. 07:15 General: Appears comfortable, Behavior is calm, cooperative. Pain: Pain radiates to aa5 left shoulder Aggravated by movement of left arm Unable to use pain scale. FLACC scale score is 6 out of 10. Neuro: Level of Consciousness is awake, alert, obeys commands, Oriented to person, place, situation. Cardiovascular: Heart tones S1 S2 present Rhythm is regular. Respiratory: Airway is patent Respiratory effort is even, unlabored, Respiratory pattern is regular, symmetrical, Breath sounds are clear bilaterally. GI: Abdomen is round non-distended, Bowel sounds present X 4 quads. Abd is soft and non tender X 4 quads. : No signs and/or symptoms were reported regarding the genitourinary system. EENT: No signs and/or symptoms were reported regarding the EENT system. Derm: Skin is pink, warm \T\ dry. Musculoskeletal: Reports pain in left shoulder. 07:25 Reassessment: Pt to radiology via stretcher . aa5 08:14 Reassessment: Patient appears in no apparent distress at this time. Patient and/or ph family updated on plan of care and expected duration. Pain level reassessed. Patient is alert, oriented x 3, equal unlabored respirations, skin warm/dry/pink. Pt resting quietly w/ eyes closed, [facility]. 08:35 Reassessment: Attempted to Call report to [facility], nurse unavailable at this time, aa5 spoke to Yareli, [facility] employee and states she will notify nurse to call back for report and will arrange for transfer back to their facility. . 08:47 Reassessment: Report given to Kamila (nurse at [facility]), Brian stated to contact aa5 pt's POA for transfer back to facility. Left voicemail to Edie Harvey, pt's niece/POA. . 09:38 Reassessment: 2nd Unsuccessful attempt to contact pt's POA. ER area secretary will contact aa wheelchair van for transfer back to [facility]. . 10:20 Neuro: Level of Consciousness is awake, alert, obeys commands, Oriented to person, aa5 place, situation. Respiratory: Airway is patent Respiratory effort is even, unlabored, Respiratory pattern is regular, symmetrical. Derm: Skin is pink, warm \T\ dry. Vital Signs: 06:17 BP 116 / 96; Pulse 89; Resp 17; Temp 98.6(O); Pulse Ox 95% on R/A; Weight 60.33 kg (R); ll3 Height 62 in. (157.48 cm); 07:15 BP 132 / 95; Pulse 68; Resp 18 S; Pulse Ox 96% on R/A; aa5 07:45 BP 147 / 63; Pulse 62; Resp 17 S; Temp 98.0(TE); Pulse Ox 96% on R/A; aa5 09:00 BP 145 / 63; Pulse 64; Resp 16 S; Pulse Ox 95% on R/A; aa5 10:00 BP 138 / 70; Pulse 61; Resp 16 S; Temp 98.3(TE); Pulse Ox 95% on R/A; aa5 06:17 Body Mass Index 24.33 (60.33 kg, 157.48 cm) ll3 ED Course: 06:17 Patient arrived in ED. ll3 06:17 Elliot Tyler MD is Attending Physician. rn 06:17 Abbey Nelson RN is Primary Nurse. bb 06:17 Patient has correct armband on for positive identification. Bed in low position. Call bb light in reach. Side rails up X2. Pulse ox on. NIBP on. Warm blanket given. 06:22 Triage completed. ll3 06:22 Arm band placed on Patient placed in an exam room, on a stretcher, on pulse oximetry. ll3 06:30 Initial lab(s) drawn, by me, sent to lab. Inserted saline lock: 20 gauge in right bb antecubital area, using aseptic technique. Blood collected. 06:50 XRAY Pelvis In Process Unspecified. EDMS 06:50 XRAY Chest (1 view) In Process Unspecified. EDMS 06:50 XRAY Humerus LEFT In Process Unspecified. EDMS 07:05 Report given to LESLIE LUCERO. bb 07:13 Attending Physician role handed off by Elliot Tyler MD ms3 07:13 Ky Bejarano DO is Attending Physician. ms3 07:32 Head C Spine Mpr Wo Con In Process Unspecified. EDMS 08:15 No provider procedures requiring assistance completed. ph 10:20 IV discontinued, intact, bleeding controlled, No redness/swelling at site. Pressure aa5 dressing applied. Administered Medications: 07:24 Drug: HYDROcodone-acetaminophen 5 mg-325 mg 1 tabs Route: PO; aa5 08:02 Follow up: Response: No adverse reaction; RASS: Alert and Calm (0) aa5 Medication: 08:15 VIS not applicable for this client. ph Outcome: 08:10 Discharge ordered by . ms3 10:20 Discharged to [facility] via wheelchair van, report was called to Brian (see nursing aa5 notes) 10:20 Condition: stable 10:20 Discharge instructions given to brian (nurse) Instructed on discharge instructions, follow up and referral plans. Demonstrated understanding of instructions, follow-up care. 10:25 Patient left the ED. aa5 Signatures: Dispatcher [employer] EDAbbey Baer, RN RN Elliot Perez MD MD rn Calderon, Audri, RN RN aa5 Rosy Barr RN RN ph Sims, Marcus, DO ms3 Donte Chirinos RN RN ll3 Corrections: (The following items were deleted from the chart) 10: 07:15 Neuro: Level of Consciousness is awake, alert, obeys commands, Oriented to aa5 person, place, aa5
--- NOTE | 2022-07-03 10:50 | EKG ---
Test Date: 2022-07-03 Test Time: 06:29:18 [employer] Games Dealer: CATHLEEN MEASUREMENT RESULTS: Intervals: Rate: 68 NH: 156 QRSD: 108 QT: 410 QTc: 435 [place]: P: 53 NH: 156 QRS: 39 T: 66 INTERPRETIVE STATEMENTS: Normal sinus rhythm Voltage criteria for left ventricular hypertrophy Abnormal ECG Compared to ECG 10/06/2021 10:04:09 Left ventricular hypertrophy now present Electronically Signed On 07-03-22 10:49:51 CDT by Aj Sutherland
[2022-07-03 11:06] VITALS: O2SAT 96
[2022-07-03 11:08] VITALS: BP 147/63; TEMP 98
== END 2022-07-03 10:25 | disposition home or self-care (01) ==
LOC: ER 06:15
DX: D64.9 Anemia, unspecified (principal); W18.30XA Fall on same level, unspecified, initial encounter; I10 Essential (primary) hypertension; G30.9 Alzheimer's disease, unspecified; F02.80 Dementia in other diseases classified elsewhere, unspecified severity, without behavioral disturbance, psychotic disturbance, mood disturbance, and anxiety; I50.9 Heart failure, unspecified
CPT/HCPCS: 36415; 70450; 71045; 72125; 72170; 80048; 81003; 84484; 85025; 85610; 85730; 93005; 99284

== ENCOUNTER 2022-07-27 08:48 | Inpatient (IN) | payer OTHER ==
--- OUTSIDE RECORDS SUMMARY | 2022-07-27 08:53 | XMS REPORT | Continuity of Care Document ---
:1935 Author Organization [facility] t Address [address] [place] [address] Care Team Providers Name Role Phone Dilip Brandt Attending Clinician Rebekah-Mbayo_A_AH Attending Clinician Unavailable Rebekah-Mbayo_A_AH Admitting Clinician Unavailable Payers Payer Name Policy Type Policy Number Effective Date Expiration Date S [facility] [id number] 2019 [employer] 00:00:00 (MEDICARE REPLACEMENT/ADVANT AGE - [...] 2021-01-03 Memoria (disorder) (disorder) 22:46:56 l Active Doron Problem 01/03/2021 [facility] Memory Memory Problem Active 2021-01-03 Margarito malvin impairment impairment 22:46:56 l (finding) (finding) Herm skyla Active Problem 01/03/2021 [facility] Syncope Syncope Problem Active 2021-01-03 Me moria (disorder) (disorder) 22:46:56 l Active Doron 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 Clinician (SIG) Name Name Memantine 2019-10 Yes 5 mg = 1 Margarito malvin hydrochlori 0-21 tab, PO, l de 5 MG 22:02: BID, # 60 Doris nn Oral Tablet 00 tab, 2 [Namenda] Refill(s), Pharmacy: [facility], 144.78, cm, 08/15/20 16:19:00 CDT, Height, 55.455, kg, 08/15/20 16:19:00 CDT, Weight Memantine 2019-10 Yes 5 mg = 1 Margarito malvin hydrochlori 0-21 tab, PO, l de 5 MG 22:02: BID, # 60 Doris nn Oral Tablet 00 tab, 2 [Namenda] Refill(s), Pharmacy: [facility], 144.78, cm, 08/15/20 16:19:00 CDT, Height, 55.455, kg, 08/15/20 16:19:00 CDT, Weight OXcarbazepi 2019-10 Yes 300 mg = 1 Memoria ne 300 mg 0-21 tab, PO, l oral tablet 22:00: Bedtime, # Doron 00 30 tab, 2 Refill(s), LALI, Pharmacy: [facility], 144.78, cm, 08/15/20 16:19:00 CDT, Height, 55.455, kg, 08/15/20 16:19:00 CDT, Weight donepezil 5 2019-10 Yes 5 mg = 1 Me moria mg oral 0-21 tab, PO, l tablet 22:00: Bedtime, # Doris nn 00 30 tab, 3 Refill(s), Pharmacy: [facility], 144.78, cm, 08/15/20 16:19:00 CDT, Height, 55.455, kg, 08/15/20 16:19:00 CDT, Weight OXcarbazepi 2019-10 Yes 300 mg = 1 Memoria ne 300 mg 0-21 tab, PO, l oral tablet 22:00: Bedtime, # Doron 00 30 tab, 2 Refill(s), LALI, Pharmacy: [facility], 144.78, cm, 08/15/20 16:19:00 CDT, Height, 55.455, kg, 08/15/20 16:19:00 CDT, Weight donepezil 5 2019-10 Yes 5 mg = 1 Me moria mg oral 0-21 tab, PO, l tablet 22:00: Bedtime, # Doris nn 30 tab, 3 Refill(s), Pharmacy: [facility], 144.78, cm, 08/15/20 16:19:00 CDT, Height, 55.455, kg, 08/15/20 16:19:00 CDT, Weight Sertraline 2019-10 Yes 25 mg = 1 Me moria 25 MG Oral 0-09 tab, PO, l Tablet 23:21: QPM, # 30 Medhat n [Zoloft] 00 tab, 3 Refill(s), Pharmacy: [facility], 147.32, cm, 12/06/19 10:44:00 [employer], Height, 64.545, kg, 12/06/19 10:44:00 [employer], Weight Sertraline 2019-10 Yes 25 mg = 1 Me moria 25 MG Oral 0-09 tab, PO, l Tablet 23:21: QPM, # 30 Medhat n [Zoloft] 00 tab, 3 Refill(s), Pharmacy: [facility], 147.32, cm, 12/06/19 10:44:00 [employer], Height, 64.545, kg, 12/06/19 10:44:00 [employer], Weight 24 HR 2019- Yes 250 mg = 1 Memori a Divalproex 8-25 tab, PO, l Sodium 250 20:28: Bedtime, X H ermann MG Extended day, # Release 90 tab, 3 Tablet Refill(s), Pharmacy: [facility], 147.32, cm, 12/06/19 10:44:00 [employer], Height, 64.545, kg, 12/06/19 10:44:00 [employer], Weight 24 HR 2020-0 Yes 250 mg = 1 Memori a Divalproex 8-25 tab, PO, l Sodium 250 20:28: Bedtime, X H ermann MG Extended day, # Release 90 tab, 3 Tablet Refill(s), Pharmacy: [facility], 147.32, cm, 12/06/19 10:44:00 [employer], Height, 64.545, kg, 12/06/19 10:44:00 [employer], Weight donepezil 2020-0 Yes = 1 tab, Margarito malvin 10 mg oral 8-13 PO, Daily, l tablet 16:59: # 90 tab, Medhat n 00 1 Refill(s), Pharmacy: [facility], 147.32, cm, 12/06/19 10:44:00 [employer], Height, 64.545, kg, 12/06/19 10:44:00 [employer], Weight OXcarbazepi 2020-0 Yes = 1 tab, Me moria ne 300 mg 8-13 PO, BID, # l oral tablet 16:59: 180 tab, 2 Hamlin 00 Refill(s), LALI, Pharmacy: [facility], 147.32, cm, 12/06/19 10:44:00 [employer], Height, 64.545, kg, 12/06/19 10:44:00 [employer], Weight donepezil 2020-0 Yes = 1 tab, Margarito malvin 10 mg oral 8-13 PO, Daily, l tablet 16:59: # 90 tab, Medhat n 00 1 Refill(s), Pharmacy: [facility], 147.32, cm, 12/06/19 10:44:00 [employer], Height, 64.545, kg, 12/06/19 10:44:00 [employer], Weight OXcarbazepi 2020-0 Yes = 1 tab, Me moria ne 300 mg 8-13 PO, BID, # l oral tablet 16:59: 180 tab, 2 Doron 00 Refill(s), LALI, Pharmacy: [facility], 147.32, cm, 12/06/19 10:44:00 [employer], Height, 64.545, kg, 12/06/19 10:44:00 [employer], Weight 24 HR 0 Yes See Memoria Divalproex 7-23 Instructio l Sodium 250 18:09: ns, TAKE 2 H ermann MG Extended 00 TABLETS BY Release MOUTH AT Tablet BEDTIME, # 60 tab, 2 Refill(s), Pharmacy: [facility], 147.32, cm, 12/06/19 10:44:00 [employer], Height, 64.545, kg, 12/06/19 10:44:00 [employer], Weight 24 HR 0 Yes See Memoria Divalproex 7-23 Instructio l Sodium 250 18:09: ns, TAKE 2 H ermann MG Extended 00 TABLETS BY Release MOUTH AT Tablet BEDTIME, # 60 tab, 2 Refill(s), Pharmacy: [facility], 147.32, cm, 12/06/19 10:44:00 [employer], Height, 64.545, kg, 12/06/19 10:44:00 [employer], Weight 24 HR 0 Yes 500 mg = 2 Memori a Divalproex 3-24 tab, PO, l Sodium 250 23:39: Bedtime, # H ermann MG Extended 00 60 tab, 2 Release Refill(s), [facility]t [facility] 24 HR Yes 500 mg = 2 Memori a Divalproex 3-24 tab, PO, l Sodium 250 23:39: Bedtime, # H ermann MG Extended 00 60 tab, 2 Release Refill(s), Tablet [facility] Mirtazapine No 15 mg = 1 M emoria 15 MG Oral 1-22 tab, PO, l Tablet 15:16: Bedtime, # Doris nn [Remeron] 00 30 tab, 1 Refill(s), Pharmacy: [facility] Mirtazapine No 15 mg = 1 M emoria 15 MG Oral 1-22 tab, PO, l Tablet 15:16: Bedtime, # Doris nn [Remeron] 00 30 tab, 1 Refill(s), Pharmacy: [facility] OXcarbazepi 2018-10 Yes = 1 tab, Me moria ne 300 mg 1-19 PO, BID, # l oral tablet 18:01: 180 tab, 2 [place]lin 59 Refill(s), LALI, Pharmacy: [facility] OXcarbazepi 2018-10 Yes = 1 tab, Me moria ne 300 mg 1-19 PO, BID, # l oral tablet 18:01: 180 tab, 2 [place] 59 Refill(s), LALI, Pharmacy: [facility] donepezil Yes 10 mg = 1 Mem oria 10 mg oral 9-17 tab, PO, l tablet 14:40: Daily, # Hamlin 00 90 tab, 1 Refill(s), Pharmacy: [facility] donepezil Yes 10 mg = 1 Mem oria 10 mg oral 9-17 tab, PO, l tablet 14:40: Daily, # Hamlin 00 90 tab, 1 Refill(s), Pharmacy: [facility] Donepezil Yes 5 mg = 1 Margarito malvin hydrochlori 7-16 tab, PO, l de 5 MG 21:03: Bedtime, # Herm skyla Oral Tablet 00 30 tab, 3 [Aricept] Refill(s), Pharmacy: [facility] Donepezil Yes 5 mg = 1 Margarito malvin hydrochlori 7-16 tab, PO, l de 5 MG 21:03: Bedtime, # Herm skyla Oral Tablet 00 30 tab, 3 [Aricept] Refill(s), Pharmacy: [facility] OXcarbazepi Yes 300 mg = 1 Memoria ne 300 mg 6-12 tab, PO, l oral tablet 20:19: BID, # 60 H ermann 00 tab, 3 Refill(s), Pharmacy: [facility] OXcarbazepi Yes 300 mg = 1 Memoria ne 300 mg 6-12 tab, PO, l oral tablet 20:19: BID, # 60 H ermann 00 tab, 3 Refill(s), Pharmacy: [facility] carBAMazepi 2019-0 No 200 mg = 1 Memoria ne 200 mg 1-22 tab, PO, l oral tablet 15:46: BID, # 60 H ermann 34 tab, 3 Refill(s), Pharmacy: [facility] carBAMazepi 2019-0 No 200 mg = 1 Memoria ne 200 mg 1-22 tab, PO, l oral tablet 15:46: BID, # 60 H ermann 34 tab, 3 Refill(s), Pharmacy: [facility] Vital Signs Vital Name Observation Time Observation Value Comments Source Systolic (mm Hg) 2020-08-15 21:19:00 Margarito rial Doron Diastolic (mm Hg) 2020-08-15 21:19:00 Mem orial [place] Heart Rate 2020-08-15 21:19:00 [facility] [place] Respitory Rate 2020-08-15 21:19:00 Memori al [place] Height 2020-08-15 21:19:00 144.78 cm [facility] [place] Weight 2020-08-15 21:19:00 [facility] [place] BMI Calculated 2020-08-15 21:19:00 Memori al [place] Systolic (mm Hg) 2019-12-06 16:44:00 Margarito rial [place] Diastolic (mm Hg) 2019-12-06 16:44:00 Mem orial [place] Heart Rate 2019-12-06 16:44:00 [facility] [place] Respitory Rate 2019-12-06 16:44:00 Memori al [place] Height 2019-12-06 16:44:00 147.32 cm [facility] [place] Weight 2019-12-06 16:44:00 [facility] [place] BMI Calculated 2019-12-06 16:44:00 Memori al [place] Height 2019-09-13 17:34:00 147.32 cm [facility] [place] Weight 2019-09-13 17:34:00 [facility] [place] BMI Calculated 2019-09-13 17:34:00 Memori al [place] Systolic (mm Hg) 2019-09-13 17:34:00 Margarito rial Dor[place] Diastolic (mm Hg) 2019-09-13 17:34:00 Mem orial [place] Heart Rate 2019-09-13 17:34:00 [facility] [place] Respitory Rate 2019-09-13 17:34:00 Memori al [place] Respitory Rate 2019-07-12 14:21:00 Memori al [place] Height 2019-07-12 14:21:00 147.32 cm [facility] [place] Weight 2019-07-12 14:21:00 [facility] [place] BMI Calculated 2019-07-12 14:21:00 Memori al [place] Systolic (mm Hg) 2019-07-12 14:21:00 Margarito rial [place] Diastolic (mm Hg) 2019-07-12 14:21:00 Mem orial [place] Heart Rate 2019-07-12 14:21:00 [facility] [place] Weight 2019-05-10 20:08:00 [facility] [place] Height 2019-05-10 20:08:00 149.86 cm [facility] [place] BMI Calculated 2019-05-10 20:08:00 Memori al [place] Heart Rate 2019-05-10 20:08:00 [facility] [place] Respitory Rate 2019-05-10 20:08:00 Memori al [place] Systolic (mm Hg) 2019-05-10 20:08:00 Margarito rial [place]on Diastolic (mm Hg) 2019-05-10 20:08:00 Mem orial [place] Weight 2019-03-01 15:54:00 [facility] [place] BMI Calculated 2019-03-01 15:54:00 Memori al [place] Height 2019-03-01 15:54:00 144.78 cm [facility] [place] Heart Rate 2019-03-01 15:54:00 [facility] [place] Respitory Rate 2019-03-01 15:54:00 Memori al [place] Systolic (mm Hg) 2019-03-01 15:54:00 Margarito rial [place] Diastolic (mm Hg) 2019-03-01 15:54:00 Mem orial [place] Weight 2018-11-16 15:31:00 [facility] [place] BMI Calculated 2018-11-16 15:31:00 Memori al [place] Height 2018-11-16 15:31:00 147.32 cm [facility] [place] Respitory Rate 2018-11-16 15:31:00 Memori al [place] Heart Rate 2018-11-16 15:31:00 [facility] [place] Systolic (mm Hg) 2018-11-16 15:31:00 Margarito rial [place] Diastolic (mm Hg) 2018-11-16 15:31:00 Mem orial [place] BMI Calculated 2018-08-17 15:54:00 Memsoheila phan [place] Weight 2018-08-17 15:54:00 [facility] [place] Height 2018-08-17 15:54:00 147.32 cm Sarah Doron Systolic (mm Hg) 2018-08-17 15:54:00 Margarito Sal Diastolic (mm Hg) 2018-08-17 15:54:00 Mem orial [place] Respitory Rate 2018-08-17 15:54:00 Memori al [place] Heart Rate 2018-08-17 15:54:00 [facility] [place] Procedures Procedure Date / Time Performed Performing Clinician Sourc e Mastectomy [facility] [place] Encounters Start End Encounter Admission Attending Care Care Encounter Source Date/Time Date/Time Type Type Clinicians Facility Department ID 2021-01-01 2021-01-01 Ambulatory nullFlavo MNA [id number] Memoria 16:30:00 16:30:00 Pre-Reg r Neurology 27 l Raymond Sal 2021-01-01 2021-01-01 Ambulatory nullFlavo MNA [id number] Memoria 16:30:00 16:30:00 Pre-Reg r Neurology 27 l Raymond Sal 2021-01-01 2021-01-01 Outpatient MHIE MICAELA [id number] Memoria 10:30:00 10:30:00 27 l Doron 2021-01-01 2021-01-01 Outpatient Rikki MHMISCHER MHMISCHER [id number] 10:30:00 10:30:00 Dilip Diana Ayala 2020-10-30 2020-11-01 Outside nullFlavo MNA [id number] Memoria 19:20:24 05:59:59 Medical r Neurology 04 l Records Raymond Sal 2020-10-30 2020-11-01 Outside nullFlavo MNA [id number] Memoria 19:20:24 05:59:59 Medical r Neurology 04 l Records Raymond Sal 2020-10-30 2020-10-31 Outpatient MHMISCHER MHMISCHER [id number] 13:20:24 23:59:59 04 2020-10-24 2020-10-26 Outside nullFlavo MNA [id number] Memoria 19:17:58 05:59:59 Medical r Neurology 03 l Records Raymond Sal 2020-10-24 2020-10-26 Outside nullFlavo MNA [id number] Memoria 19:17:58 05:59:59 Medical r Neurology 03 l Records Raymond [place]lin 2020-10-24 2020-10-25 Outpatient MHMISCHER MHMISCHER [id number] 13:17:58 23:59:59 2020-10-05 2020-10-07 Outside nullFlavo MNA [id number] Memoria 14:38:01 05:59:59 Medical r Neurology 02 l Records Raymond Doron 2020-10-05 2020-10-07 Outside nullFlavo MNA [id number] Memoria 14:38:01 05:59:59 Medical r Neurology 02 l Records Raymond [place] 2020-10-05 2020-10-06 Outpatient MHMISCHER MHMISCHER [id number] 08:38:01 23:59:59 02 2020-09-12 2020-09-12 Ambulatory nullFlavo MNA [id number] Memoria 16:45:00 16:45:00 Pre-Reg r Neurology 23 l Raymond [place] 2020-09-12 2020-09-12 Ambulatory nullFlavo MNA [id number] Memoria 16:45:00 16:45:00 Pre-Reg r Neurology 23 l Raymond [place] 2020-09-12 2020-09-12 Outpatient MHIE MHIE [id number] Memoria 10:45:00 10:45:00 23 l [place] 2020-09-12 2020-09-[address] [facility] [id number] 10:45:00 10:45:00 Dilip 23 [facility] 2020-08-24 2020-08-24 Ambulatory nullFlavo MNA [id number] Memoria 16:15:00 16:15:00 Pre-Reg r Neurology 24 l Raymond [place] 2020-08-24 2020-08-24 Ambulatory nullFlavo MNA [id number] Memoria 16:15:00 16:15:00 Pre-Reg r Neurology 24 l Raymond [place] 2020-08-24 2020-08-24 Outpatient MHIE MHIE [id number] Memoria 11:15:00 11:15:00 24 l [place] 2020-08-24 2020-08-24 Outpatient Rikki MHMISCHER MHMISCHER [id number] 11:15:00 11:15:00 Dilip 24 Jamie 2020-08-22 2020-08-23 Outpatient nullFlavo MNA [id number] Memoria 18:00:00 04:59:59 r Neurology 26 l [place] Sal 2020-08-22 2020-08-23 Outpatient nullFlavo MNA [id number] Memoria 18:00:00 04:59:59 r Neurology 26 l [place] Doron 2020-08-22 2020-08-[address] [facility] [id number] 13:00:00 23:59:59 Dilip 26 Jaime 2020-08-22 2020-08-22 Outpatient MHIE MHIE [id number] Memoria 13:00:00 13:00:00 26 l Doron 2020-08-15 2020-08-16 Outpatient nullFlavo MNA [id number] Memoria 21:00:00 04:59:59 r Neurology 25 l [place] Droon 2020-08-15 2020-08-16 Outpatient nullFlavo MNA [id number] Memoria 21:00:00 04:59:59 r Neurology 25 l [place] Doron 2020-08-15 2020-08-15 [id number] 16:00:00 23:59:59 Dilip 25 Jamie 2020-08-15 2020-08-15 Outpatient MHIE MHIE [id number] Memoria 16:00:00 16:00:00 25 l [place] 2020-06-07 2020-06-08 Outpatient nullFlavo MNA [id number] Memoria 16:15:00 04:59:59 r Neurology 22 l [place] 2020-06-07 2020-06-08 Outpatient nullFlavo MNA [id number] Memoria 16:15:00 04:59:59 r Neurology 22 l [place] Doron 2020-06-07 2020-06-07 Outpatient MITZY [facility] [id number] 11:15:00 23:59:59 Dilip 22 Jamie 2020-06-07 2020-06-07 Ambulatory nullFlavo MNA [id number] Memoria 16:15:00 16:15:00 Pre-Reg r Neurology 21 l [place] 2020-06-07 2020-06-07 Ambulatory nullFlavo MNA [id number] Memoria 16:15:00 16:15:00 Pre-Reg r Neurology 21 l Raymond Sal 2020-06-07 2020-06-07 Outpatient MHIE MHIE [id number] Memoria 11:15:00 11:15:00 21 l [place] 2020-06-07 2020-06-07 Outpatient MHIE MHIE [id number] Memoria 11:15:00 11:15:00 22 shelli Sal 2020-06-07 2020-06-[address] [facility] [id number] 11:15:00 11:15:00 Dilip 21 Jamie 2020-03-07 2020-03-08 Outpatient nullFlavo MNA [id number] Memoria 18:00:00 04:59:59 r Neurology 19 l Raymond Sal 2020-03-07 2020-03-08 Outpatient nullFlavo MNA [id number] Memoria 18:00:00 04:59:59 r Neurology 19 l Raymond Sal 2020-03-07 2020-03-[address] [facility] [id number] 13:00:00 23:59:59 Dilip 19 Jamie 2020-03-07 2020-03-07 Outpatient MHIE MHIE [id number] Memoria 13:00:00 13:00:00 19 shelli [place] 2020-02-15 2020-02-16 Outpatient nullFlavo MNA [id number] Memoria 20:15:00 04:59:59 r Neurology 20 l Raymond [place] 2020-02-15 2020-02-16 Outpatient nullFlavo MNA [id number] Memoria 20:15:00 04:59:59 r Neurology 20 l Raymond [place] 2020-02-15 2020-02-15 Outpatient Rikki MISCHER MISCHER [id number] 15:15:00 23:59:59 Dilip 20 Jamie 2020-02-15 2020-02-15 Outpatient MHIE MHIE [id number] Memoria 15:15:00 15:15:00 20 shelli Doron 2020-01-25 2020-01-26 Outpatient nullFlavo MNA [id number] Memoria 18:30:00 04:59:59 r Neurology 18 l Raymond Sal 2020-01-25 2020-01-26 Outpatient nullFlavo MNA [id number] Memoria 18:30:00 04:59:59 r Neurology 18 l Raymond Sal 2020-01-25 2020-01-25 Outpatient Rikki MISCHER MISCHER [id number] 13:30:00 23:59:59 Dilip 18 Jamie 2020-01-25 2020-01-25 Outpatient MHIE MHIE [id number] Memoria 13:30:00 13:30:00 18 l Doron 2020-01-17 2020-01-17 Ambulatory nullFlavo MNA [id number] Memoria 14:45:00 14:45:00 Pre-Reg r Neurology 16 l Rayomnd Sal 2020-01-17 2020-01-17 Ambulatory nullFlavo MNA [id number] Memoria 14:45:00 14:45:00 Pre-Reg r Neurology 16 l Raymond Sal 2020-01-17 2020-01-17 Outpatient MHIE MHIE [id number] Memoria 09:45:00 09:45:00 16 l Doron 2020-01-17 2020-01-[address] [facility] [id number] 09:45:00 09:45:00 Dilip 16 Jamie 2020-01-10 2020-01-11 Outpatient nullFlavo MNA [id number] Memoria 20:30:00 04:59:59 r Neurology 17 l Raymond Sal 2020-01-10 2020-01-11 Outpatient nullFlavo MNA [id number] Memoria 20:30:00 04:59:59 r Neurology 17 l Raymond Sal 2020-01-10 2020-01-[address] [facility] M[facility] [id number] 15:30:00 23:59:59 Dilip 17 Jamie 2020-01-10 2020-01-10 Outpatient MHIE MHIE [id number] Memoria 15:30:00 15:30:00 17 l [place] 2019-12-14 2019-12-14 Outpatient Rebekah-Mbayo VFP VFP [phone] [facility] 07:28:00 07:28:00 _A_ [id number] Family Practic e 2019-12-06 2019-12-07 Outpatient nullFlavo MNA [id number] Memoria 16:00:00 05:59:59 r Neurology 15 shelli Sal 2019-12-06 2019-12-07 Outpatient nullFlavo MNA [id number] Memoria 16:00:00 05:59:59 r Neurology 15 shelli Sal 2019-12-06 2019-12-06 Outpatient MITZY BrandtDCSCHER MISCHER [id number] 10:00:00 23:59:59 Dilip 15 Jamie 2019-12-06 2019-12-06 Outpatient MHIE MHIE [id number] Memoria 10:00:00 10:00:00 15 shelli Sal 2019-09-13 2019-09-14 Outpatient nullFlavo MNA [id number] Memoria 17:30:00 05:59:59 r Neurology 14 shelli Sal 2019-09-13 2019-09-14 Outpatient nullFlavo MNA [id number] Memoria 17:30:00 05:59:59 r Neurology 14 shelli Sal 2019-09-13 2019-09-[address] [facility] [id number] 11:30:00 23:59:59 Dilip 14 Jamie 2019-09-13 2019-09-13 Outpatient MHIE MHIE [id number] Memoria 11:30:00 11:30:00 14 shelli Sal 2019-07-12 2019-07-13 Outpatient nullFlavo MNA [id number] Memoria 14:15:00 04:59:59 r Neurology 13 shelli Sal 2019-07-12 2019-07-13 Outpatient nullFlavo MNA [id number] Memoria 14:15:00 04:59:59 r Neurology 13 shelli Sal 2019-07-12 2019-07-12 Outpatient MITZY BrandtMISCHER MISCHER [id number] 09:15:00 23:59:59 Dilip 13 Jamie 2019-07-12 2019-07-12 Outpatient MHIE MHIE [id number] Memoria 09:15:00 09:15:00 13 shelli Sal 2019-05-10 2019-05-11 Outpatient nullFlavo MNA [id number] Memoria 19:30:00 04:59:59 r Neurology 12 l Raymond Sal 2019-05-10 2019-05-11 Outpatient nullFlavo MNA [id number] Memoria 19:30:00 04:59:59 r Neurology 12 shelli Sal 2019-05-10 2019-05-10 Out[facility] [id number] 14:30:00 23:59:59 Dilip 12 Jamie 2019-05-10 2019-05-10 Outpatient MHIE MHIE [id number] Memoria 14:30:00 14:30:00 12 shelli Sal 2019-03-01 2019-03-02 Outpatient nullFlavo MNA [id number] Memoria 14:45:00 04:59:59 r Neurology 11 shelli Sal 2019-03-01 2019-03-02 Outpatient nullFlavo MNA [id number] Memoria 14:45:00 04:59:59 r Neurology 11 shelli Sal 2019-03-01 2019-03-01 Outpatient MIT[facility]tDCS[facility] [id number] 09:45:00 23:59:59 Dilip 11 Jamie 2019-03-01 2019-03-01 Outpatient MHIE MHIE [id number] Memoria 09:45:00 09:45:00 11 shelli Sal 2019-02-15 2019-02-15 Ambulatory nullFlavo MNA [id number] Memoria 15:00:00 15:00:00 Pre-Reg r Neurology 04 shelli Huberann 2019-02-15 2019-02-15 Ambulatory nullFlavo MNA [id number] Memoria 15:00:00 15:00:00 Pre-Reg r Neurology 04 shelli Sal 2019-02-15 2019-02-15 Outpatient MHIE MHIE [id number] Memoria 10:00:00 10:00:00 04 shelli [place] 2019-02-15 2019-02-15 Outpatient STALIN BrandtSCHER MISCHER [id number] 10:00:00 10:00:00 Dilip Josi Jamie 2019-02-01 2019-02-01 Outpatient MHIE MHIE [id number] Memoria 10:45:00 10:45:00 10 shelli Doron 2019-02-01 2019-02-01 Outpatient MHIE MHIE [id number] Memoria 10:45:00 10:45:00 10 shelli [place] 2019-01-11 2019-01-11 Outpatient MHIE MHIE [id number] Memoria 14:30:00 14:30:00 09 l [place] 2019-01-11 2019-01-11 Outpatient MHIE MHIE [id number] Memoria 14:30:00 14:30:00 09 shelli [place] 2019-01-11 2019-01-11 Outpatient MHIE MHIE [id number] Memoria 08:45:00 08:45:00 08 shelli [place] 2019-01-11 2019-01-11 Outpatient MHIE MHIE [id number] Memoria 08:45:00 08:45:00 08 shelli [place] 2018-12-14 2018-12-14 Outpatient MHIE MHIE [id number] Memoria 08:45:00 08:45:00 06 shelli Hamlin 2018-12-14 2018-12-14 Outpatient MHIE MHIE [id number] Memoria 08:45:00 08:45:00 07 shelli Hamlin 2018-12-14 2018-12-14 Outpatient MHIE MHIE [id number] Memoria 08:45:00 08:45:00 06 shelli Hamlin 2018-12-14 2018-12-14 Outpatient MHIE MHIE [id number] Memoria 08:45:00 08:45:00 07 shelli Hamlin 2018-11-16 2018-11-17 Outpatient nullFlavo MNA [id number] Memoria 15:00:00 05:59:59 r Neurology 05 l [place] 2018-11-16 2018-11-17 Outpatient nullFlavo MNA [id number] Memoria 15:00:00 05:59:59 r Neurology 05 l [place] Doron 2018-11-16 2018-11-16 Outpatient Rikki MISCHER MISCHER [id number] 09:00:00 23:59:59 Dilip Chance Ayala 2018-11-16 2018-11-16 Ambulatory nullFlavo MNA [id number] Memoria 15:00:00 15:00:00 Pre-Reg r Neurology 03 l [place] Doron 2018-11-16 2018-11-16 Ambulatory nullFlavo MNA [id number] Memoria 15:00:00 15:00:00 Pre-Reg r Neurology 03 l Raymond Huberann 2018-11-16 2018-11-16 Outpatient MHIE MHIE [id number] Memoria 09:00:00 09:00:00 05 shelli Hamlin 2018-11-16 2018-11-16 Outpatient MHIE MHIE [id number] Memoria 09:00:00 09:00:00 03 shelli Hamlin 2018-11-16 2018-11-16 [address] [id number] 09:00:00 09:00:00 Dilip Denisse Ayala 2018-11-02 2018-11-04 Outside nullFlavo MNA [id number] Memoria 20:34:00 05:59:59 Medical r Neurology 00 l Records Raymond Sal 2018-11-02 2018-11-04 Outside nullFlavo MNA [id number] Memoria 20:34:00 05:59:59 Medical r Neurology 00 l Records Raymond Hamlin 2018-11-02 2018-11-[address] [id number] 14:34:00 23:59:59 00 2018-08-17 2018-08-18 Outpatient nullFlavo MNA [id number] Memoria 15:15:00 04:59:59 r Neurology 02 l Raymond Sal 2018-08-17 2018-08-18 Outpatient nullFlavo MNA [id number] Memoria 15:15:00 04:59:59 r Neurology 02 l Raymond Doron 2018-08-17 2018-08-17 [id number] 10:15:00 23:59:59 Dilip Mireya Ayala 2018-08-17 2018-08-17 Outpatient MHIE MHIE [id number] Memoria 10:15:00 10:15:00 02 shelli Doron 2018-07-20 2018-07-20 Outpatient MHIE MHIE [id number] 15:15:00 15:15:00 01 shelli Doron 2018-07-20 2018-07-20 Outpatient MHIE MHIE [id number] 15:15:00 15:15:00 01 shelli Doron 2018-06-17 2018-06-17 Outpatient MHIE MHIE [id number] 11:30:00 11:30:00 00 shelli Sal 2018-06-17 2018-06-17 Outpatient IE IE [id number] 11:30:00 11:30:00 00 shelli Sal Results Test Description Test Time Test Comments Results Result Comments Source HEMATOLOGY 2018-08-24 21:30:00 Test Item Value Reference Range Interpretation Comme nts MCH (test code = MCH) 30.3 pg 27.0-33.0 [facility]DRQBPQTL5680[facility]35-81 21:30:00 Test Item Value Reference Range Interpretation Comments MCHC (test code = MCHC) 33.7 32.0-36.0 [facility]2078[facility]-01 21:30:00 Test Item Value Reference Range Interpretation Comments Platelet (test code = Platelet) 207 140-400 [facility]76-[facility] 21:30:00 Test Item Value Reference Range Interpretation Comments Carbamaz Lvl (test code = Carbamaz Lvl) 5.2 4.0-12.0 [facility]ID[facility]DCWRMT2466-82-53 21:30:00 Test Item Value Reference Range Interpretation Comments Potassium Lvl (test code = Potassium 4.1 3.5-5.3 Lvl) [facility]BTYB2750[facility]20-45 21:30:00 Test Item Value Reference Range Interpretation Comments Sodium Lvl (test code = Sodium Lvl) 140 135-146 [facility]GeurfgqRZJGKCEAVDBW7603-15-33 21:30:00 Test Item Value Reference Range Interpretation Comments Chloride Lvl (test code = Chloride Lvl) 105 98-110 [facility]HdcguewGLJWBUPZRDVW2206-19-64 21:30:00 Test Item Value Reference Range Interpretation Comments CO2 (test code = CO2) 28 20-32 [facility]JbqpwzbMGOJJWBXZP4554-24-12 21:30:00 Test Item Value Reference Range Interpretation Comments Basophils (test code = Basophils) 0.6 [facility]GpkrmzyHFTEQUYJHD0120-08-56 21:30:00 Test Item Value Reference Range Interpretation Comments RBC X 10x6 (test code = RBC X 10x6) 3.73 3.80-5.10 [facility] SouthZnfjtifQLMRRDXEFK3868-50-10 21:30:00 Test Item Value Reference Range Interpretation Comments Hgb (test code = Hgb) 11.3 11.7-15.5 [facility] SouthHjoilyyUSZMEQOTBZ3034-08-03 21:30:00 Test Item Value Reference Range Interpretation Comments Hct (test code = Hct) 33.5 35.0-45.0 [facility] SouthYhwqtjtHPANRMHGPJ7164-65-88 21:30:00 Test Item Value Reference Range Interpretation Comments WBC X 10x3 (test code = WBC X 10x3) 4.8 3.8-10.8 [facility] SouthOwqvgkhINQBDOAIVS0087-17-60 21:30:00 Test Item Value Reference Range Interpretation Comments Monocytes # (test code = Monocytes #) 605 200-950 [facility]EyhvaqcLXWNRLWGLH1498-26-25 21:30:00 Test Item Value Reference Range Interpretation Comments Eosinophils # (test code = Eosinophils 139 15-500 #) [facility] SouthMaywjfpUSYIVJRMGT0363-95-51 21:30:00 Test Item Value Reference Range Interpretation Comments Neutrophils # (test code = Neutrophils 2237 3324-0454 #) [facility] SouthGdtdxadISGICCOYVA5015-64-47 21:30:00 Test Item Value Reference Range Interpretation Comments Lymphocytes # (test code = Lymphocytes 9813 284-8100 #) [facility]EgrkrtdYDUHSIRFPJ1031-46-41 21:30:00 Test Item Value Reference Range Interpretation Comments MPV (test code = MPV) 9.7 7.5-12.5 [facility] SouthLkadyfzFQAHDOKCTC1484-94-71 21:30:00 Test Item Value Reference Range Interpretation Comments RDW (test code = RDW) 13.5 11.0-15.0 [facility] SouthRjggiyeYQKFNVVNLA0819-83-62 21:30:00 Test Item Value Reference Range Interpretation Comments Basophils # (test code 29 See_Comment [Aut omated message] The = Basophils #) system which generated this result tra nsmitted reference range : <=200. The reference r jen was not used to int erpret this result as normal/abnormal . [facility] SouthUopvrpmMEIADEOZVP6050-26-74 21:30:00 Test Item Value Reference Range Interpretation Comments Eosinophils (test code = Eosinophils) 2.9 [facility] SouthGcizgfiBLXBMDTTHD0752-60-19 21:30:00 Test Item Value Reference Range Interpretation Comments Monocytes (test code = Monocytes) 12.6 [facility] SouthEcguvpjFSVYAIUVWN6932-66-88 21:30:00 Test Item Value Reference Range Interpretation Comments Segs (test code = Segs) 46.6 [facility] SouthKobqudwOXRZAUWLZJ1801-21-03 21:30:00 Test Item Value Reference Range Interpretation Comments Lymphocytes (test code = Lymphocytes) 37.3 [facility] SouthGwbwqyiZCGMQNXIMM1537-16-62 21:30:00 Test Item Value Reference Range Interpretation Comments MCV (test code = MCV) 89.8 80.0-100.0 [facility]PbzfxdvMUPAUUUKBFWJ7836-99-47 21:30:00 Test Item Value Reference Range Interpretation Comments Potassium Lvl (test code = Potassium 4.1 3.5-5.3 Lvl) [facility]XrthuqvSHKFKMYKZZJD3317-54-20 21:30:00 Test Item Value Reference Range Interpretation Comments Sodium Lvl (test code = Sodium Lvl) 140 135-146 [facility]NbnjcsgRSJVHNEHWHWV9688-11-59 21:30:00 Test Item Value Reference Range Interpretation Comments Chloride Lvl (test code = Chloride Lvl) 105 98-110 [facility]HpzigliZTLLZZAKEEOL5005-15-64 21:30:00 Test Item Value Reference Range Interpretation Comments CO2 (test code = CO2) 28 20-32 [facility] SouthXtybzetILGYJDAKLE2175-07-20 21:30:00 Test Item Value Reference Range Interpretation Comments Basophils (test code = Basophils) 0.6 [facility] SouthPropdosKYEIDYSVVY4755-23-20 21:30:00 Test Item Value Reference Range Interpretation Comments RBC X 10x6 (test code = RBC X 10x6) 3.73 3.80-5.10 [facility] SouthIzvcmciLJRQPIRFPM5428-76-72 21:30:00 Test Item Value Reference Range Interpretation Comments Hgb (test code = Hgb) 11.3 11.7-15.5 [facility] SouthEpnrbrcGEQYREMJOS6696-61-80 21:30:00 Test Item Value Reference Range Interpretation Comments Hct (test code = Hct) 33.5 35.0-45.0 [facility] SouthJbckacpDYBPYTIOBU5997-84-99 21:30:00 Test Item Value Reference Range Interpretation Comments WBC X 10x3 (test code = WBC X 10x3) 4.8 3.8-10.8 [facility] SouthFvymkkdPDXNSDMJYZ5384-86-71 21:30:00 Test Item Value Reference Range Interpretation Comments Monocytes # (test code = Monocytes #) 605 200-950 [facility] SouthSdyvraaDGTBIOMUVM4799-50-87 21:30:00 Test Item Value Reference Range Interpretation Comments Eosinophils # (test code = Eosinophils 139 15-500 #) [facility] SouthEpokrucOUSWJUQMCJ4152-08-85 21:30:00 Test Item Value Reference Range Interpretation Comments Neutrophils # (test code = Neutrophils 2237 2315-9031 #) [facility] SouthBwjabboMECQAHNXDA3578-89-82 21:30:00 Test Item Value Reference Range Interpretation Comments Lymphocytes # (test code = Lymphocytes 6899 293-7940 #) [facility] SouthNdbtjnyACSPRZWWNO7141-98-30 21:30:00 Test Item Value Reference Range Interpretation Comments MPV (test code = MPV) 9.7 7.5-12.5 [facility] SouthWogpvgvNNQRLCBYXA6902-07-35 21:30:00 Test Item Value Reference Range Interpretation Comments RDW (test code = RDW) 13.5 11.0-15.0 [facility] SouthYeudqaoONRAVKHESN4661-17-60 21:30:00 Test Item Value Reference Range Interpretation Comments Basophils # (test code 29 See_Comment [Aut omated message] The = Basophils #) system which generated this result tra nsmitted reference range : <=200. The reference r jen was not used to int erpret this result as normal/abnormal . [facility] SouthBrevsjuOTUTTLBPWF5172-87-68 21:30:00 Test Item Value Reference Range Interpretation Comments Eosinophils (test code = Eosinophils) 2.9 [facility] SouthGvdghqtNFYGKWYJMZ1768-49-77 21:30:00 Test Item Value Reference Range Interpretation Comments Monocytes (test code = Monocytes) 12.6 [facility] SouthLmacpsbPQFUFZDUQR5972-78-33 21:30:00 Test Item Value Reference Range Interpretation Comments Segs (test code = Segs) 46.6 [facility] SouthUzcoksuWIMVYEEVOS6797-00-51 21:30:00 Test Item Value Reference Range Interpretation Comments Lymphocytes (test code = Lymphocytes) 37.3 [facility] SouthHmsfmexXBVBDLNHQY3870-70-82 21:30:00 Test Item Value Reference Range Interpretation Comments MCV (test code = MCV) 89.8 80.0-100.0 [facility] SouthNvwlgxlQPBNDKDPYQ0560-74-87 21:30:00 Test Item Value Reference Range Interpretation Comments MCH (test code = MCH) 30.3 pg 27.0-33.0 [facility] SouthDuxghgeUNTNVHRRXU6379-87-23 21:30:00 Test Item Value Reference Range Interpretation Comments MCHC (test code = MCHC) 33.7 32.0-36.0 [facility]UkwvqvmLRPHXALMRT2045-38-13 21:30:00 Test Item Value Reference Range Interpretation Comments Platelet (test code = Platelet) 207 140-400 [facility]stJgxpzedTQBEEXDPQQ5013-38-89 21:30:00 Test Item Value Reference Range Interpretation Comments Carbamaz Lvl (test code = Carbamaz Lvl) 5.2 4.0-12.0 [facility]
[2022-07-27 09:38] LABS: Absolute Lymphocytes (CBC) 0.8 K/uL (0.7-4.9); Hematocrit 29.6 % (36.0-45.0); Lymphocytes % 19.8 % (15.3-44.8); MCV 89.3 fL (80-100); RBC Red Blood Cell Count 3.31 M/uL (3.86-4.86)
[2022-07-27 09:44] LABS: Protime INR 0.98
[2022-07-27] MEDS ORDERED: METRONIDAZOLE 500mg IVPB 500 MG/100 ML BAG IV ONE (09:44)
[2022-07-27] MEDS ORDERED: CEFTRIAXONE 1000 MG/VIAL ONE (09:44)
[2022-07-27] MEDS ORDERED: NA CHLORIDE 0.9% 1,000 ML ONE (09:44)
[2022-07-27] MEDS ORDERED: NA CHLORIDE 0.9% 50 ML IV ONE (09:45)
[2022-07-27 09:57] LABS: Bilirubin Direct 0.1 mg/dL (0-0.2); Bilirubin Total 0.4 mg/dL (0.2-1.0); Magnesium 2.4 mg/dL (1.8-2.4); Potassium 4.1 mmol/L (3.5-5.1); Protein, Total 7.1 g/dL (6.4-8.2); Troponin High Sensitivity 5.5 pg/mL (<58.9)
[2022-07-27 10:00] LABS: SARS-CoV-2 Antigen Rapid Res Negative (Negative)
--- NOTE | 2022-07-27 10:36 | RAD REPORT ---
EXAM DESCRIPTION: CT - Abdomen Pelvis Wo Contrast - 07/27/2022 10:24 am CLINICAL HISTORY: Abdominal pain. Abdominal pain, acute, nonlocalized COMPARISON: Chest Single View dated 07/11/2022; Chest Single View dated 05/21/2022; Chest Single View dated 01/06/2022; Chest Single View dated 01/04/2022No comparisons TECHNIQUE: CT imaging of the abdomen and pelvis was performed without contrast. Solid organ, bowel a nd vascular assessment is limited due to lack of IV and oral contrast. All CT scans are performed using dose optimization technique as appropriate and may include automated exposure control or mA/KV adjustment according to patient size. FINDINGS: The lower lung mccauley are clear.Large hiatal hernia. The liver, spleen, pancreas, adrenal glands and kidneys are within normal limits for a limited non-co ntrast examination. No bowel obstruction, free air, free fluid or abscess. There is mild luminal narrowing and mild surr ounding inflammation affecting the sigmoid colon. The osseous structures are within normal limits.6.5 x 5.2 cm cystic structure is present left adnexa. IMPRESSION: Wall thickening and inflammation is seen surrounding the sigmoid colon which would favor colitis. Direct visualization with colonoscopy may be considered for further evaluation. 6.5 cm left pelvic cystic lesion. This may be related to ovarian cyst. Pelvic ultrasound followup wou ld be recommended. A limited non-contrast examination was performed as detailed.
--- NOTE | 2022-07-27 10:41 | RAD REPORT ---
EXAM DESCRIPTION: RAD - Chest Single View - 07/27/2022 10:19 am CLINICAL HISTORY: ABDOMINAL DISTENTION Chest pain. COMPARISON: Chest Single View dated 07/03/2022; Chest Single View dated 09/24/2020; Chest Single View dated 08/11/2020; Chest Single View dated 11/16/2019 FINDINGS: Portable technique limits examination quality. The lungs are grossly clear. The heart is upper limit of normal in size. No displaced fractures.Aorti c atherosclerosis. IMPRESSION: No acute intrathoracic process suspected.
--- NOTE | 2022-07-27 10:42 | EDPHYS ---
Physician Documentation [facility] Name: Edie Fields Age: 86 yrs Sex: Female : 1935 Arrival Date: 07/27/2022 Time: 08:54 Bed 6 Private MD: ED Physician Brian Damon HPI: 07/27 10:37 This 86 yrs old Female presents to ER via EMS with complaints of Bloody thomas Stools. 10:37 The patient presents to the emergency department with rectal bleeding, bright red blood thomas with bowel movement. Onset: The symptoms/episode began/occurred this morning, today. Abdominal pain: none is appreciated. Modifying factors: The symptoms are alleviated by nothing, the symptoms are aggravated by nothing. Associated signs and symptoms: The patient has no apparent associated signs or symptoms. Severity of symptoms: At their worst the symptoms were mild in the emergency department the symptoms are unchanged. The patient has not experienced similar symptoms in the past. Historical: - Allergies: 08:54 No Known Allergies; mb9 - Home Meds: 08:54 alendronate 70 mg Oral tab [Active]; anastrozole 1 mg Oral tab [Active]; divalproex 250 mb9 mg Oral Tb24 [Active]; donepezil 5 mg Oral TbDi [Active]; furosemide 20 mg Oral tab once daily [Active]; losartan 25 mg Oral tab bedtime [Active]; donepezil 5 mg Oral tab 1 tab once daily [Active]; meloxicam 7.5 mg Oral tab [Active]; oxcarbazepine 300 mg Oral Tb24 [Active]; potassium chloride 10 mEq Oral cpER [Active]; sertraline 25 mg Oral tab [Active]; - PMHx: 08:54 Alzheimers; Dementia; Hypertension; Cancer, Breast; CHF; mb9 - PSHx: 08:54 Unable to Obtain; mb9 - Immunization history:: Adult Immunizations unknown. - Social history:: Smoking status: unknown. ROS: 10:38 Constitutional: Negative for fever, chills, and weight loss, Eyes: Negative for injury, thomas pain, redness, and discharge, ENT: Negative for injury, pain, and discharge, Neck: Negative for injury, pain, and swelling, Cardiovascular: Negative for chest pain, palpitations, and edema, Respiratory: Negative for shortness of breath, cough, wheezing, and pleuritic chest pain, Back: Negative for injury and pain, : Negative for injury, bleeding, discharge, and swelling, MS/Extremity: Negative for injury and deformity, Skin: Negative for injury, rash, and discoloration, Neuro: Negative for headache, weakness, numbness, tingling, and seizure, Psych: Negative for depression, anxiety, suicide ideation, homicidal ideation, and hallucinations, Allergy/Immunology: Negative for hives, rash, and allergies, Endocrine: Negative for neck swelling, polydipsia, polyuria, polyphagia, and marked weight changes, Hematologic/Lymphatic: Negative for swollen nodes, abnormal bleeding, and unusual bruising. 10:38 Abdomen/GI: Negative for rectal bleeding. Exam: 10:38 Constitutional: This is a well developed, well nourished patient who is awake, alert, thomas and in no acute distress. Head/Face: Normocephalic, atraumatic. Eyes: Pupils equal round and reactive to light, extra-ocular motions intact. Lids and lashes normal. Conjunctiva and sclera are non-icteric and not injected. Cornea within normal limits. Periorbital areas with no swelling, redness, or edema. ENT: Nares patent. No nasal discharge, no septal abnormalities noted. Tympanic membranes are normal and external auditory canals are clear. Oropharynx with no redness, swelling, or masses, exudates, or evidence of obstruction, uvula midline. Mucous membranes moist. Neck: Trachea midline, no thyromegaly or masses palpated, and no cervical lymphadenopathy. Supple, full range of motion without nuchal rigidity, or vertebral point tenderness. No Meningismus. Chest/axilla: Normal chest wall appearance and motion. Nontender with no deformity. No lesions are appreciated. Cardiovascular: Regular rate and rhythm with a normal S1 and S2. No gallops, murmurs, or rubs. Normal PMI, no JVD. No pulse deficits. Respiratory: Lungs have equal breath sounds bilaterally, clear to auscultation and percussion. No rales, rhonchi or wheezes noted. No increased work of breathing, no retractions or nasal flaring. Back: No spinal tenderness. No costovertebral tenderness. Full range of motion. Female : Normal external genitalia. Skin: Warm, dry with normal turgor. Normal color with no rashes, no lesions, and no evidence of cellulitis. MS/ Extremity: Pulses equal, no cyanosis. Neurovascular intact. Full, normal range of motion. Neuro: Awake and alert, GCS 15, oriented to person, place, time, and situation. Cranial nerves II-XII grossly intact. Motor strength 5/5 in all extremities. Sensory grossly intact. Cerebellar exam normal. Normal gait. Psych: Awake, alert, with orientation to person, place and time. Behavior, mood, and affect are within normal limits. 10:38 Abdomen/GI: Inspection: abdomen appears normal, Bowel sounds: normal, Palpation: mild abdominal tenderness, in the left lower quadrant, Liver: no appreciated palpable abnormalities, Hernia: not appreciated. 10:42 ECG was reviewed by the Attending Physician. [facility] Vital Signs: 08:54 BP 114 / 85; Pulse 60; Resp 14; Temp 98.2(O); Pulse Ox 96% on R/A; Weight 54.43 kg (R); mb9 Height 5 ft. 1 in. (154.94 cm) (R); Pain 0/10; 09:24 BP 128 / 56; Pulse 56; Resp 14; Pulse Ox 96% on R/A; Pain 0/10; mb9 11:00 BP 114 / 85; Pulse 62; Resp 14; Pulse Ox 96% on R/A; Pain 0/10; mb9 12:30 BP 128 / 60; Pulse 60; Resp 16; Pulse Ox 98% on R/A; Pain 0/10; mb9 13:37 BP 130 / 62; Pulse 62; Resp 16; Pulse Ox 95% on R/A; Pain 0/10; mb9 08:54 Body Mass Index 22.67 (54.43 kg, 154.94 cm) mb9 MDM: 09:03 Patient medically screened. [facility] 10:39 Differential diagnosis: diverticulitis, hemorrhoids, hemorrhagic shock. Data reviewed: [facility] vital signs, nurses notes, lab test result(s), EKG, radiologic studies, CT scan, plain films. Data interpreted: monitoring manager: rate is 56 beats/min, rhythm is regular, Pulse oximetry: on room air is 96 %. Test interpretation: by ED physician or midlevel provider: ECG, plain radiologic studies. Counseling: I had a detailed discussion with the patient and/or guardian regarding: the historical points, exam findings, and any diagnostic results supporting the discharge/admit diagnosis, lab results, radiology results, the need for further work-up and treatment in the hospital. 07/27 09:06 Order name: Basic Metabolic Panel [facility] 07/27 09:06 Order name: CBC with Diff [facility] 07/27 09:06 Order name: LFT's [facility] 07/27 09:06 Order name: Magnesium [facility] 07/27 09:06 Order name: NT PRO-BNP [facility] 07/27 09:06 Order name: PT-INR [facility] 07/27 09:06 Order name: Troponin HS [facility] 07/27 09:07 Order name: Lipase [facility] 07/27 09:07 Order name: Type And Screen [facility] 07/27 09:07 Order name: Urine Microscopic Only [facility] 07/27 09:07 Order name: SARS RAPID [facility] 07/27 09:44 Order name: Protime (+INR); Complete Time: 10:10 EDMS 07/27 09:44 Order name: CBC with Automated Diff; Complete Time: 10:10 EDMS 07/27 09:57 Order name: Basic Metabolic Panel; Complete Time: 10:10 EDMS 07/27 09:06 Order name: XRAY Chest (1 view) [facility] 07/27 09:07 Order name: CT Abd/Pelvis - IV Contrast Only [facility] 07/27 09:57 Order name: Liver (Hepatic) Function; Complete Time: 10:10 EDMS 07/27 09:57 Order name: Troponin High Sensitivity; Complete Time: 10:10 EDMS 07/27 09:57 Order name: NT PRO-BNP; Complete Time: 10:10 EDMS 07/27 09:57 Order name: Magnesium; Complete Time: 10:10 EDMS 07/27 09:57 Order name: Lipase; Complete Time: 10:10 EDMS 07/27 10:01 Order name: SARS-COV-2 Antigen Rapid; Complete Time: 10:10 EDMS 07/27 10:26 Order name: Depakote mb9 07/27 10:37 Order name: CT; Complete Time: 14:14 EDMS 07/27 10:42 Order name: RAD; Complete Time: 14:14 EDMS 07/27 10:43 Order name: Valproic Acid (Depakene) Level; Complete Time: 14:14 EDMS 07/27 12:07 Order name: Urine Dipstick-Ancillary; Complete Time: 14:14 EDMS 07/27 12:20 Order name: Urine Microscopic Only; Complete Time: 14:14 [facility] 07/27 13:31 Order name: Type and Screen [facility] 07/27 14:18 Order name: Protime (+INR); Complete Time: 14:27 [facility] 07/27 09:06 Order name: EKG; Complete Time: 09:08 [facility] 07/27 09:06 Order name: Cardiac monitoring; Complete Time: 09:32 [facility] 07/27 09:06 Order name: EKG - Nurse/Tech; Complete Time: 09:32 [facility] 07/27 09:07 Order name: IV Saline Lock; Complete Time: 09:32 [facility] 07/27 09:07 Order name: Labs collected and sent; Complete Time: :32 [facility] 07/27 09:07 Order name: O2 Per Protocol; Complete Time: 09:32 [facility] 07/27 09:07 Order name: O2 Sat Monitoring; Complete Time: 09:32 [facility] 07/27 09:07 Order name: Urine Dipstick-Ancillary (obtain specimen); Complete Time: 12:14 [facility] 07/27 09:07 Order name: IV Saline Lock - Large Bore; Complete Time: 09:32 [facility] 07/27 12:03 Order name: Straight Cath; Complete Time: 12:03 mb9 EC:42 Rate is 62 beats/min. Rhythm is regular. QRS Ruffin is Normal. OH interval is normal. QRS thomas interval is normal. QT interval is normal. No Q waves. T waves are Normal. No ST changes noted. Clinical impression: Normal ECG and No evidence of ischemia. Interpreted by me. Reviewed by me. Administered Medications: 11:50 Drug: NS 0.9% 1000 ml Route: IV; Rate: 125 ml/hr; Site: right antecubital; mb9 11:50 Drug: Rocephin (cefTRIAXone) 1 grams Route: IV; Rate: per protocol; Site: right mb9 antecubital; 12:30 Follow up: IV Status: Completed infusion mb9 12:39 Drug: Flagyl (metroNIDAZOLE) 500 mg Volume: 100 ml; Route: IVPB; Rate: 200 ml/hr; mb9 Infused Over: 30 mins; Site: right antecubital; 13:12 Follow up: IV Status: Completed infusion mb9 Disposition Summary: 07/27/22 10:41 Hospitalization Ordered Hospitalization Status: Inpatient Admission [facility] Provider: Hitesh Bermudez cha Location: Telemetry/MedSurg (Inpatient) thomas Condition: Fair thomas Problem: new thomas Symptoms: have improved thomas Bed/Room Type: Standard [facility] Room Assignment: 426(07/27/22 14:20) mb9 Diagnosis - GI Bleed/ Gastrointestinal hemorrhage, unspecified - lower thomas - Anemia, unspecified thomas - Dementia in other diseases classified elsewhere without behavioral disturbance thomas - Left sided colitis with rectal bleeding - sigmoid thomas Forms: - Medication Reconciliation Form thomas - SBAR form thomas Signatures: Dispatcher [employer] EDBrian Orta MD MD cha Aguilar, Jose, RN RN ja1 Yareli Tovar RN RN mb9 Corrections: (The following items were deleted from the chart) 13:44 10:41 thomas wu 13:56 08:54 Home Meds: carbedilol; 9 9 13:58 08:54 Allergies: No Known Allergies; mb9 9 13:58 08:54 PMHx: Alzheimer's disease; mb9 9 13:58 08:54 PMHx: malignant neoplasm of breast; mb9 9 13:58 08:54 PMHx: epilepsy and recurrent seizures; mb9 mb9 13:58 08:54 PMHx: unspecified diastolic congestive heart failure; mb9 9 13:58 08:54 PMHx: essential primary hypertension; mb9 9 13:58 08:54 PMHx: osteoarthritis; mb9 mb9 13:58 08:54 PMHx: age related osteoporosis; mb9 mb9 13:58 08:54 PSHx: Unable to Obtain; mb9 9 13:58 08:54 Home Meds: alendronate sodium; mb9 mb9 13:58 08:54 Home Meds: anastrozole; mb9 mb9 13:58 08:54 Home Meds: divalproex SOD ER; mb9 9 13:58 08:54 Home Meds: donepezil; mb9 9 13:58 08:54 Home Meds: furosemide; mb9 9 13:58 08:54 Home Meds: meloxicam; mb9 9 13:58 08:54 Home Meds: oxcarbazepine; mb9 9 13:58 08:54 Home Meds: sertraline HCL F/C; mb9 mb9 13:58 08:54 Home Meds: trazodone hcl; 9 mb9 1358 13:55 Home Meds: acetaminophen-codeine 300 mg-30 mg /12.5 mL Oral soln every 6 hours; mb9 mb9 13:55 Home Meds: carvedilol 3.125 mg Oral tab 2 times per day; mb9 mb9 13 13:55 Home Meds: Tramadol 50mg; 9 mb9 13:55 PMHx: Seizures; mb9 mb9 14:20 13:44 409 ja1 mb9
--- NOTE | 2022-07-27 10:42 | ER ---
Nurse's Notes [facility] Name: Edie Fields Age: 86 yrs Sex: Female : 1935 Arrival Date: 07/27/2022 Time: 08:54 Bed 6 Private MD: Diagnosis: GI Bleed/ Gastrointestinal hemorrhage, unspecified-lower;Anemia, unspecified;Dementia in other diseases classified elsewhere without behavioral disturbance;Left sided colitis with rectal bleeding-sigmoid Presentation: 07/27 08:54 Chief complaint: EMS states: that senior care stated when they were changing her mb9 diaper this morning, they noticed bright red mucus in her diaper. EMS states no history of GI bleeds and no new medications or changes in medications. Pt states "I don't know why I'm here, I'm fine.". 08:54 Coronavirus screen: At this time, the client does not indicate any symptoms associated mb9 with coronavirus-19. Ebola Screen: Patient denies travel to an Ebola-affected area in the 21 days before illness onset. Initial Sepsis Screen: Does the patient meet any 2 criteria? No. Patient's initial sepsis screen is negative. Does the patient have a suspected source of infection? No. Patient's initial sepsis screen is negative. Risk Assessment: Do you want to hurt yourself or someone else? Patient reports no desire to harm self or others. Onset of symptoms. 08:54 Method Of Arrival: EMS: [facility] mb9 08:54 Acuity: RAYNE 3 mb9 Triage Assessment: 08:54 General: Appears in no apparent distress. Behavior is calm, cooperative. Pain: Denies mb9 pain. Neuro: Level of Consciousness is awake, alert, obeys commands, Oriented to person, place, situation. Cardiovascular: Heart tones S1 S2 present Rhythm is regular. Respiratory: Airway is patent Respiratory effort is even, unlabored, Respiratory pattern is regular, symmetrical, Breath sounds are clear bilaterally. GI: Abdomen is flat, Bowel sounds present X 4 quads. Abd is soft and non tender X 4 quads. Reports no abdomen pain [facility] reports bright red mucus in diaper this morning. 08:54 : No signs and/or symptoms were reported regarding the genitourinary system. Derm: mb9 Skin is pink, warm \\T\\ dry. Musculoskeletal: No signs and/or symptoms reported regarding the musculoskeletal system. Historical: - Allergies: 08:54 No Known Allergies; mb9 - Home Meds: 08:54 alendronate 70 mg Oral tab [Active]; anastrozole 1 mg Oral tab [Active]; divalproex 250 mb9 mg Oral Tb24 [Active]; donepezil 5 mg Oral TbDi [Active]; furosemide 20 mg Oral tab once daily [Active]; losartan 25 mg Oral tab bedtime [Active]; donepezil 5 mg Oral tab 1 tab once daily [Active]; meloxicam 7.5 mg Oral tab [Active]; oxcarbazepine 300 mg Oral Tb24 [Active]; potassium chloride 10 mEq Oral cpER [Active]; sertraline 25 mg Oral tab [Active]; - PMHx: 08:54 Alzheimers; Dementia; Hypertension; Cancer, Breast; CHF; mb9 - PSHx: 08:54 Unable to Obtain; mb9 - Immunization history:: Adult Immunizations unknown. - Social history:: Smoking status: unknown. Screenin:25 Abuse screen: Denies threats or abuse. mb9 09:25 Nutritional screening: No deficits noted. Tuberculosis screening: No symptoms or risk mb9 factors identified. Fall Risk IV access (20 points). Assessment: 09:25 General: Appears in no apparent distress. comfortable, Behavior is calm, cooperative, mb9 appropriate for age. Pain: Denies pain. Neuro: Level of Consciousness is awake, alert, obeys commands, Oriented to person, place, situation, Speech is normal. Respiratory: Airway is patent Respiratory effort is even, unlabored. GI: Abdomen is flat, Bowel sounds present X 4 quads. Abd is soft and non tender X 4 quads. Patient currently denies abdominal pain. : No signs and/or symptoms were reported regarding the genitourinary system. EENT: No signs and/or symptoms were reported regarding the EENT system. Derm: Skin is pink, warm \\T\\ dry. Musculoskeletal: Range of motion: intact in all extremities. 09:25 Musculoskeletal: swelling present in the left and right extremities bilaterally. mb9 09:25 Cardiovascular: Heart tones S1 S2 present Pulses are 2+ in right posterior tibial mb9 artery, right dorsalis pedis artery, left posterior tibial artery and left dorsalis pedis artery Rhythm is regular. 11:00 General: Appears in no apparent distress. comfortable, Behavior is calm, cooperative, mb9 appropriate for age. Pain: Denies pain. Neuro: Level of Consciousness is awake, alert, obeys commands, Oriented to person, place, situation, Speech is normal. Respiratory: Airway is patent Respiratory effort is even, unlabored, Respiratory pattern is regular, symmetrical. GI: Abdomen is flat, Abd is soft and non tender Patient currently denies abdominal pain. Derm: Skin is pink, warm \\T\\ dry. 11:00 Cardiovascular: Pulses are 2+ in left dorsalis pedis artery and left posterior tibial mb9 artery and right dorsalis pedis artery and right posterior tibial artery. Musculoskeletal: Swelling present in right lower leg and left lower leg. 12:30 General: Appears in no apparent distress. comfortable, Behavior is calm, cooperative, mb9 Pt is resting in bed. Neuro: Level of Consciousness is awake, alert, obeys commands, Oriented to person, place, situation. Respiratory: Airway is patent Respiratory effort is even, unlabored, Respiratory pattern is regular, symmetrical. GI: Abdomen is flat, Abd is soft and non tender Patient currently denies abdominal pain. Derm: Skin is pink, warm \\T\\ dry. 12:30 Cardiovascular: Pulses are 2+ in left dorsalis pedis artery and left posterior tibial mb9 artery and right dorsalis pedis artery and right posterior tibial artery. 12:30 Musculoskeletal: Swelling present in left dorsalis pedis artery and left posterior mb9 tibial artery and right dorsalis pedis artery and right posterior tibial artery. 13:36 General: Appears in no apparent distress. comfortable, Pt is currently sleeping. mb9 Cardiovascular: Rhythm is regular. Cardiovascular: Heart tones S1 S2 present Rhythm is regular. Respiratory: Airway is patent Respiratory effort is even, unlabored, Respiratory pattern is regular, symmetrical. GI: Abdomen is flat, Bowel sounds present X 4 quads. Abd is soft and non tender. Derm: Skin is pink, warm \\T\\ dry. 13:53 Reassessment: Attempted to call report to admitting nurse. mb9 14:23 Reassessment: Gave report to admitting nurse Janae.. mb9 Vital Signs: 08:54 BP 114 / 85; Pulse 60; Resp 14; Temp 98.2(O); Pulse Ox 96% on R/A; Weight 54.43 kg (R); mb9 Height 5 ft. 1 in. (154.94 cm) (R); Pain 0/10; 09:24 BP 128 / 56; Pulse 56; Resp 14; Pulse Ox 96% on R/A; Pain 0/10; mb9 11:00 BP 114 / 85; Pulse 62; Resp 14; Pulse Ox 96% on R/A; Pain 0/10; mb9 12:30 BP 128 / 60; Pulse 60; Resp 16; Pulse Ox 98% on R/A; Pain 0/10; mb9 13:37 BP 130 / 62; Pulse 62; Resp 16; Pulse Ox 95% on R/A; Pain 0/10; mb9 08:54 Body Mass Index 22.67 (54.43 kg, 154.94 cm) mb9 ED Course: 08:54 Patient arrived in ED. em1 08:54 Arm band placed on. mb9 08:54 Placed in gown. Bed in low position. Call light in reach. Side rails up X 1. mb9 09:03 Brian Damon MD is Attending Physician. thomas 09:07 Yareli Tovar RN is Primary Nurse. mb9 09:14 Triage completed. mb9 09:16 Initial lab(s) drawn, by nv, sent to lab. Inserted saline lock: 20 gauge in right aa5 antecubital area, using aseptic technique. Blood collected. 09:19 COVID swab sent to lab. aa5 09:33 EKG done, by ED staff, reviewed by Brian Daomn MD. aa5 10:00 No provider procedures requiring assistance completed. mb9 10:40 Hitesh Bermudez MD is Hospitalizing Provider. thomas 12:03 Straight cath inserted, using sterile technique, 16 Fr. Returned clear yellow urine. mb9 Patient tolerated well. 12:15 SARS RAPID Sent. mb9 12:15 Type And Screen Sent. mb9 14:24 Patient admitted, IV remains in place. mb9 Administered Medications: 11:50 Drug: NS 0.9% 1000 ml Route: IV; Rate: 125 ml/hr; Site: right antecubital; mb9 11:50 Drug: Rocephin (cefTRIAXone) 1 grams Route: IV; Rate: per protocol; Site: right mb9 antecubital; 12:30 Follow up: IV Status: Completed infusion mb9 12:39 Drug: Flagyl (metroNIDAZOLE) 500 mg Volume: 100 ml; Route: IVPB; Rate: 200 ml/hr; mb9 Infused Over: 30 mins; Site: right antecubital; 13:12 Follow up: IV Status: Completed infusion mb9 Medication: 09:25 VIS not applicable for this client. mb9 Outcome: 10:41 Decision to Hospitalize by Provider. thomas 14:24 Admitted to Tele accompanied by tech, via stretcher. mb9 14:24 Condition: stable 14:24 Instructed on the need for admit. 14:47 Patient left the ED. jd3 Signatures: Brian Damon MD MD cha Martinez, Eric em1 Ava Trevizo, NIC RN aa5 Sourav Fraser RN RN jd3 Yareli Tovar RN RN mb9 Corrections: (The following items were deleted from the chart) 09:14 09:08 Chief complaint: EMS states: that senior care stated when they were changing her mb9 diaper this morning, they noticed bright red mucus in her diaper. EMS states no history of GI bleeds and no new medications or changes in medications. Pt states "I don't know why I'm here, I'm fine." mb9 13:14 10:30 BP 114 / 85; Pulse 62bpm; Resp 14bpm; Pulse Ox 96% RA; Pain 0/10; mb9 mb9 13:18 09:25 Respiratory: Airway is patent Respiratory effort is even, unlabored, mb9 mb9 13:19 11:00 General: Appears in no apparent distress. comfortable, Behavior is calm, mb9 cooperative, appropriate for age, mb9 13:20 12:30 General: Appears in no apparent distress. comfortable, Behavior is calm, mb9 cooperative, Pt is resting in bed. mb9 13:56 08:54 Home Meds: carbedilol; mb9 9 58 08:54 Allergies: No Known Allergies; mb9 9 58 08:54 PMHx: Alzheimer's disease; mb9 9 58 08:54 PMHx: malignant neoplasm of breast; mb9 9 58 08:54 PMHx: epilepsy and recurrent seizures; mb9 9 08:54 PMHx: unspecified diastolic congestive heart failure; mb9 9 58 08:54 PMHx: essential primary hypertension; mb9 mb9 13:58 08:54 PMHx: osteoarthritis; mb9 mb9 13:58 08:54 PMHx: age related osteoporosis; mb9 mb9 13:58 08:54 PSHx: Unable to Obtain; mb9 mb9 13:58 08:54 Home Meds: alendronate sodium; mb9 mb9 13:58 08:54 Home Meds: anastrozole; mb9 mb9 13:58 08:54 Home Meds: divalproex SOD ER; mb9 mb9 13:58 08:54 Home Meds: donepezil; mb9 mb9 13:58 08:54 Home Meds: furosemide; mb9 mb9 13:58 08:54 Home Meds: meloxicam; mb9 mb9 13:58 08:54 Home Meds: oxcarbazepine; mb9 mb9 13:58 08:54 Home Meds: sertraline HCL F/C; mb9 mb9 13:58 08:54 Home Meds: trazodone hcl; mb9 mb9 13:58 13:55 Home Meds: acetaminophen-codeine 300 mg-30 mg /12.5 mL Oral soln every 6 hours; mb9 mb9 13:58 13:55 Home Meds: carvedilol 3.125 mg Oral tab 2 times per day; mb9 mb9 13:58 13:55 Home Meds: Tramadol 50mg; mb9 mb9 13:58 13:55 PMHx: Seizures; mb9 mb9
[2022-07-27 12:06] LABS: Urine Blood Negative (Negative); Urine Glucose Negative (Negative); Urine Protein Negative (Negative); Urine Specific Gravity 1.015 (1.005-1.030); Urine pH 5.5 (5.0-7.0)
--- NOTE | 2022-07-27 12:08 | P.HP ---
Certification for Inpatient Patient admitted to: Inpatient With expected LOS: >2 Midnights Patient will require the following post-hospital care: [facility] Practitioner: I am a practitioner with admitting privileges, knowledge of patient current condition, hospital course, and medical plan of care. Services: Services provided to patient in accordance with Admission requirements found in Title 42 Section 412.3 of the Code of Federal Regulations Patient History Date of Service: 07/27/22 Primary Care Provider: Dr. Wally Rolon Reason for admission: Hematochezia History of Present Illness: Ms. Edie Carmona is an 86 year old female who has a past medical history of advanced Alzheimer's dementia, breast cancer, chronic diastolic congestive heart failure, epilepsy, hypertension, and osteoporosis who presents to the [facility] Emergency Department for hematochezia. History is extremely limited given her advanced dementia. History was provided by Emergency Medicine physician, Dr. Damon. It appears that she lives at [facility], and the nursing staff at that facility noted that she had bright red blood in her stool, so that called EMS to bring her in to the Emergency Department. She denies any specific concerns at this time. She knows she is in the hospital, but does not know why. No further history is available at this time. Upon presentation, her vital signs were stable. Her laboratory studies were notable for a hemoglobin of 9.9 (near baseline) and a creatinine of 1.64 (baseline near 1.1). EKG revealed sinus rhythm without STEMI criteria. Chest x- ray revealed, "no acute intrathoracic process suspected." CT abdomen/pelvis revealed, "wall thickening and inflammation is seen surrounding the sigmoid colon which would favor colitis. Direct visualization with colonoscopy may be considered for further evaluation. 6.5 cm left pelvic cystic lesion. This may be related to ovarian cyst. Pelvic ultrasound followup would be recommended." In the Emergency Department, she was given ceftriaxone and metronidazole. She was admitted to the General Internal Medicine service for further evaluation. Allergies No Known Allergies Allergy (Verified 08/12/20 02:28) Home medications list reviewed: Yes Home Medications: Anastrozole [Arimidex*] 1 tab PO DAILY 07/10/19 Donepezil [Aricept*] 5 mg PO BEDTIME 07/10/19 OXcarbazepine [Oxcarbazepine] 1 tab PO DAILY 6PM 07/10/19 Alendronate Sodium 70 mg PO SEECOM 01/01/20 Divalproex Sodium [Depakote] 250 mg PO BEDTIME 08/12/20 Sertraline [Zoloft*] 25 mg PO BEDTIME 08/12/20 Furosemide 40 mg PO DAILY 07/27/22 Meloxicam 7.5 mg PO 07/27/22 carvediloL [Carvedilol] 3.125 mg PO BID 07/27/22 - Past Medical/Surgical History Diabetic: No -: HTN -: Breast Cancer -: Dementia -: Epilepsy -: Diastolic Heart Failure -: Osteoporosis -: Bilateral knee replacement -: bilateral mastectomy Psychosocial/ Personal History: Patient lives in a home on the property of her family. - Family History Mother -: Heart disease, Hypertension, Diabetes Father -: Cancer - Social History Alcohol use: No CD- Drugs: No Caffeine use: Yes Review of Systems is unable to be obtained (advanced dementia) Physical Examination - Vital Signs Temperature: 98.2 F Blood Pressure: 128/56 Pulse: 56 Respirations: 14 Pulse Ox (%): 96 (room air) - Physical Exam General: Alert, In no apparent distress, Oriented x2 (person and knows she is in a hospital) HEENT: Atraumatic, PERRLA, Mucous membr. moist/pink, EOMI, Sclerae nonicteric Neck: Supple, JVD not distended Respiratory: Clear to auscultation bilaterally, Normal air movement Cardiovascular: Regular rate/rhythm, Normal S1 S2, No gallops, No rubs, No murmurs, Edema (1-2+ perpipheral edema) Gastrointestinal: Normal bowel sounds, Soft and benign, Non-distended, No tenderness, No rebound, No guarding Musculoskeletal: No clubbing Integumentary: No rashes Neurological: Dementia (limited exam due to patient cooperation) - Studies Laboratory Data (last 24 hrs) 07/27/22 09:16: PT 10.8, INR 0.98 07/27/22 09:16: WBC 4.30, Hgb 9.9 L, Hct 29.6 L, Plt Count 157 07/27/22 09:16: Sodium 135 L, Potassium 4.1, BUN 41 H, Creatinine 1.64 H, Glucose 87, Magnesium 2.4, Total Bilirubin 0.4, AST 15, ALT 12, Alkaline Phosphatase 66, Lipase 87 Assessment and Plan - Plan # Possible Acute Blood Loss Anemia due to Gastrointestinal Bleed from Sigmoid Colitis - Admit to Medicine - Consulted Gastroenterology - recommendations appreciated - CT abdomen/pelvis = "wall thickening and inflammation is seen surrounding the sigmoid colon which would favor colitis. Direct visualization with colonoscopy may be considered for further evaluation. " - Type & Screen - q6hr H&H - first Hgb 9.9 (not far from baseline) - Transfuse for Hgb < 7.0 - 2 large bore IVs - Started ciprofloxacin + metronidazole - Does not meet sepsis criteria - Pantoprazole 40 mg IV BID - IV fluids with Lactated Ringers' at 75 mL/hr - NPO # KDIGO Stage I Acute Kidney Injury suspect Pre-Renal - Creatinine = 1.64 (baseline creatinine near 1.1) - Urinalysis = 5-10 hyaline casts - IV fluids as mentioned above - Monitor creatinine and urine output - If worsening, obtain renal ultrasound - Renally dose medications # Left Pelvic Cystic Lesion - suspected Ovarian Cyst (6.5 cm) - Follow-up up with PCP for further evaluation # Advanced Alzheimer's Dementia - Continue home donepezil, sertraline # Epilepsy - Continue home oxcarbazepine, divalproex # Breast Cancer - Hold home anastrazole for now # Chronic Diastolic Heart Failure # Hypertension - Does not appear to be in acute CHF exacerbation - Hold home carvedilol, furosemide # Osteoporosis - Hold home alendronate for now Hitesh Bermudez M.D. - Advance Directives Does patient have a Living Will: Yes Does patient have a Durable POA for Healthcare: Yes - Code Status/Comfort Care Code Status Assessed: No (advanced dementia) Code Status: Full Code
[2022-07-27 12:20] LABS: Urine RBC <5 /HPF (None Seen)
[2022-07-27] MEDS ORDERED: SODIUM CHLORIDE 0.9% 10ML INJ IV PRN (13:17)
[2022-07-27] MEDS ORDERED: CIPROFLOXACIN 400mg IV 400 MG/200 ML BAG IV ONE (14:00)
[2022-07-27 14:18] LABS: Protime INR 0.98
[2022-07-27] MEDS: Ringers Lactate 1,000 ML IV SCH (15:00)
[2022-07-27] MEDS: Ciprofloxacin 200mg IV 200 MG/100 ML IV.SOLN. IV SCH (15:00)
[2022-07-27 15:26] VITALS: O2SAT 96
[2022-07-27] MEDS: METRONIDAZOLE 500mg IVPB 500 MG/100 ML BAG IV SCH (16:19)
[2022-07-27] MEDS: OXcarbazepine 150 MG TAB PO SCH (16:59)
[2022-07-27 18:01] LABS: Hematocrit 29.3 % (36.0-45.0)
[2022-07-27 19:21] VITALS: BMI 22.4
[2022-07-27] MEDS: DONEPEZIL HCL 5 MG TAB PO SCH ×2 (21:00→21:24)
[2022-07-27] MEDS: DIVALPROEX DR 250 MG TAB PO SCH ×2 (21:00→21:24)
[2022-07-27] MEDS: SERTRALINE HCL 50 MG TAB PO SCH ×2 (21:00→21:24)
[2022-07-27] MEDS: PANTOPRAZOLE 40 MG INJ IVP SCH (21:24)
[2022-07-28 00:47] LABS: Hematocrit 32.1 % (36.0-45.0)
[2022-07-28] MEDS: METRONIDAZOLE 500mg IVPB 500 MG/100 ML BAG IV SCH ×3 (00:48→16:34)
[2022-07-28 06:13] LABS: Absolute Lymphocytes (CBC) 0.7 K/uL (0.7-4.9); Lymphocytes % 13.1 % (15.3-44.8); MPV 6.7 fL (7.6-11.3); RBC Red Blood Cell Count 3.26 M/uL (3.86-4.86)
[2022-07-28 06:34] LABS: Magnesium 2.1; Phosphorus 2.4 mg/dL (2.5-4.9); Potassium 4.1 mmol/L (3.5-5.1)
[2022-07-28] MEDS: Ringers Lactate 1,000 ML IV SCH (07:00)
[2022-07-28] MEDS: PANTOPRAZOLE 40 MG INJ IVP SCH ×2 (09:43→21:13)
[2022-07-28 12:26] LABS: Hematocrit 30.6 % (36.0-45.0)
[2022-07-28] MEDS: OXcarbazepine 150 MG TAB PO SCH (17:47)
[2022-07-28] MEDS: SERTRALINE HCL 50 MG TAB PO SCH (21:13)
[2022-07-28] MEDS: DONEPEZIL HCL 5 MG TAB PO SCH (21:13)
[2022-07-28] MEDS: DIVALPROEX DR 250 MG TAB PO SCH (21:13)
[2022-07-29] MEDS: METRONIDAZOLE 500mg IVPB 500 MG/100 ML BAG IV SCH ×2 (00:32→08:49)
[2022-07-29 04:09] LABS: Absolute Lymphocytes (CBC) 1.1 K/uL (0.7-4.9); Hematocrit 30.7 % (36.0-45.0); Lymphocytes % 20.4 % (15.3-44.8); MCV 88.2 fL (80-100); MPV 6.6 fL (7.6-11.3); RBC Red Blood Cell Count 3.48 M/uL (3.86-4.86)
[2022-07-29 04:15] LABS: Potassium 3.9 mmol/L (3.5-5.1)
--- NOTE | 2022-07-29 06:27 | EKG ---
Test Date: 2022-07-27 Test Time: 09:32:45 [employer] Department Chair: GIL MEASUREMENT RESULTS: Intervals: Rate: 62 IA: 180 QRSD: 108 QT: 418 QTc: 424 [place]: P: 49 IA: 180 QRS: 53 T: 68 INTERPRETIVE STATEMENTS: Normal sinus rhythm Normal ECG Compared to ECG 07/03/2022 06:29:18 Left ventricular hypertrophy no longer present Electronically Signed On 07-29-22 06:25:22 CDT by Aj Sutherland
[2022-07-29] MEDS: PANTOPRAZOLE 40 MG INJ IVP SCH (08:50)
--- NOTE | 2022-07-29 09:15 | P.PN ---
Subjective Date of Service: 07/29/22 Primary Care Provider: Dr. Wally Rolon Chief Complaint: Hematochezia Subjective: Improving (She has no complaints today, stating she feels well (though she has dementia). No hematochezia noted. CT revealed sigmoid colitis. Colonoscopy ~ 4 years ago, as per family, was negative.) Review of Systems Unremarkable Physical Examination - Vital Signs Temperature: 98.1 F Blood Pressure: 171/79 Pulse: 74 Respirations: 14 Pulse Ox (%): 94 - Physical Exam General: Alert, In no apparent distress, Cooperative HEENT: Atraumatic, Normocephalic, PERRLA, EOMI Neck: Supple Respiratory: Normal air movement Cardiovascular: Normal pulses Gastrointestinal: Soft and benign, No tenderness, No rebound, No guarding Neurological: Normal speech Assessment And Plan - Current Problems (Diagnosis) (1) Hematochezia Current Visit: Yes Status: Acute Comment: Likely due to sigmoid colitis which is resolving on therapy. (2) Abnormal CT of the abdomen Current Visit: Yes Status: Acute (3) Colitis Current Visit: Yes Status: Acute - Plan REC: 1) await remaining stool studies 2) continue IVFs and IV antibiotics 3) advance diet to FLs and then to GI soft 4) discharge soon on po antibiotics for 5 days
[2022-07-29 11:54] VITALS: TEMP 98.2
[2022-07-29] MEDS: Ciprofloxacin 200mg IV 200 MG/100 ML IV.SOLN. IV SCH (12:00)
[2022-07-29 12:19] VITALS: BP 158/71
--- NOTE | 2022-07-29 14:13 | CON ---
Date of Consultation: 07/28/2022 Reason For Consultation: Hematochezia and colitis noted on CT. History Of Present Illness: The patient is an 86-year-old white female with history of hypertension, dementia, epilepsy, breast cancer, diastolic congestive heart failure. The patient presented to the hospital from [facility] in [place] due to hematochezia. In the emergency room, CT scan was performed which revealed sigmoid colitis, wall thickening, inflammation. The patient has been on IV fluids and IV antibiotics since admission. Currently, patient denies any complaints. No hematochezi a, abdominal pain, diarrhea, constipation, nausea, vomiting, or other. Past Medical History: Significant for hypertension, Alzheimer disease, breast cancer, diastolic gail estive heart failure, epilepsy, osteoporosis, bilateral knee replacements, bilateral mastectomy. Social History: She is a , lives in [facility]. She has 1 daughter who of leukemia she tells me. She denies any tobacco or alcohol. Family History: Father of myocardial infarction. Mother of myocardial infarction, chart s geovanna. Chart reviews states father also had cancer and mother had diabetes, hypertension. Review of Systems: Patient has hematochezia. She denies any abdominal pain, nausea, vomiting, fevers, chills, diarrhea, muscle aches, joint aches, backaches, chest pain, shortness of breath, seizure, syncope, hematuria, dysuria, polydipsia, epistaxis, depression, anxiety. Physical Examination: Vital Signs: Patient is 5 feet 1 inch, 119 pounds. BMI of 22.5 kg/m2. She has a temperature of 98 degrees Fahrenheit, pulse of 79, respirations 16, blood pressure 154/76, O2 saturation 93%. HEENT: Normocephalic, atraumatic. Anicteric. Pupils equal, round, and reactive to light. Extraocu lar movements are intact. Oropharynx clear. Neck: Supple. No masses. Respiration: Clear to auscultation bilaterally. Cardiac: Regular rate and rhythm. No gallops or rubs. Abdomen: Positive bowel sounds. Soft, nontender, nondistended. No hepatosplenomegaly. Extremities: No clubbing, cyanosis, or edema. 2+ pulses. Neuro: Alert and oriented x3. Grossly nonfocal. 5/5 motor. Sensation intact to light touch. Laboratory Data: White count is 5.3, hemoglobin of 9.8, hematocrit 29, MCV 89, platelet count 156. PT 10.8, INR 0.98. She has a sodium of 138, potassium 4.1, chloride 100, bicarb 31, BUN of 30, creat inine of 1.13, glucose 79. Calcium is 9.3, phosphorus 3.4, magnesium 3.1, total bilirubin 0.4, direc t bilirubin 0.1, AST 15, ALT of 12, alkaline phosphatase 56. Troponin I normal at 5.5. B-type natri uretic peptide 920, a little elevated. Total protein 7.1, albumin 3.0. Lipase is 87, normal. UA wa s negative. Valproic acid of 66.7. COVID-[address] of abdomen and pelvis reveale d wall thickening, inflammation surrounding the sigmoid colon, indicative of colitis and also 6.5 cm left pelvic cystic lesion, probably of ovarian origin. Impression: Hematochezia secondary to sigmoid colitis as noted on CT scan of abdomen and pelvis. Kamla ochoa had a colonoscopy approximately 4 years ago by daughter's report and she currently is asymptomatic. No hematochezia. No abdominal pain. No nausea, vomiting, fevers, chills, diarrhea, constipation. Recommendations: Continue IV fluids, IV antibiotics. Check stool studies. Advance diet slowly from clear liquids to full liquids to a soft diet. Will monitor. The patient seemed to do extremely wel l. Currently, we will consider colonoscopy in this 86-year-old patient. However, at this time, we w ill monitor since she is asymptomatic and have a source for bleeding via the sigmoid colon colitis. SAAD/SHAUN Voice ID: [id number] Report ID: [id number]
== END 2022-07-29 14:34 | disposition hospice, home (50) | DRG 386 ==
LOC: ER 08:48 → ERHOLD 12:36 → 4TH 14:29
PROVIDERS: ADMIT Internal Medicine; ATTEND Hospitalist
DX: K51.511 Left sided colitis with rectal bleeding (principal); I50.32 Chronic diastolic (congestive) heart failure; D62 Acute posthemorrhagic anemia; N17.9 Acute kidney failure, unspecified; I11.0 Hypertensive heart disease with heart failure; M81.0 Age-related osteoporosis without current pathological fracture; G30.9 Alzheimer's disease, unspecified; F02.80 Dementia in other diseases classified elsewhere, unspecified severity, without behavioral disturbance, psychotic disturbance, mood disturbance, and anxiety; G40.909 Epilepsy, unspecified, not intractable, without status epilepticus; Z85.3 Personal history of malignant neoplasm of breast; Z79.01 Long term (current) use of anticoagulants; Z90.13 Acquired absence of bilateral breasts and nipples; Z79.899 Other long term (current) drug therapy; Z96.653 Presence of artificial knee joint, bilateral; Z20.822 Contact with and (suspected) exposure to COVID-19
CPT/HCPCS: 36415; 51702; 71045; 74176; 80048; 80076; 80164; 81003; 81015; 83690; 83735; 83880; 84100; 84484; 85014; 85018; 85025; 85610; 86850; 86870; 86880; 86900; 86901; 86905; 87811; 93005; 96365; 96367; 99285; C9113; J0744; J7030; J7120